=== PATIENT | female | born 1935 | race Caucasian/White ===

== ENCOUNTER → 2016-09-21 | Outpatient (CLI) | payer MEDICARE, MEDICAID ==
[~2016-09-21] MED LIST: ALBUTEROL2.5 MG/0.5 INH; AMARYL4 MG PO; AMBIEN10 M1 PO; AMBIEN5 MG PO; AMOXICILLIN500 MG PO; AMOXICILLIN875 MG PO; ANUSOL1 OIN TP; ARTIFICIAL TEAR15 M1 OPH; ATIVAN PO; ATIVAN0.5 MG PO; ATIVAN1 MG PO; AUGMENTIN 500 M1 TAB PO; AUGMENTIN 875 M1 TA1 PO; AUGMENTIN 875875 MG PO; BACLOFEN10 MG PO; BACTRIM DS 8001 TA1 PO; BACTROBAN OINT0.9 GM NAS; BREO ELLIPTA 11 EACH IH; CARAFATE1 G1 PO; CARAFATE1 GM PO; CARDIZEM120 MG PO; CARDIZEM60 MG PO; CARTIA XT120 MG PO; CEFTIN250 MG PO; CEFTIN500 MG PO; CEFTRIAXON1 GM/50 ML IV; CEFUROXIME AXE250 MG PO; CENTRUM SILVER1 TA2; CEPACOL SORE T1 EAC1 MM; CEPACOL2 M1 MM; CHLORASEPTIC 1177 ML PO; CHLORASEPTIC 1180 ML MM; CIPRO500 MG PO; CLARITIN LIQUI-10 MG PO; CLARITIN REDITA10 MG PO; CLARITIN10 MG PO; COUMADIN2 M1 PO; COUMADIN2 MG PO; COUMADIN2.5 M1 PO; COUMADIN3 M1 PO; COUMADIN5 M2 PO; COUMADIN6 M1 PO; Coumadin2.5 MG PO; Coumadin3 MG PO; Coumadin5 MG PO; DALI500T PO; DELTASONE10 MG PO; DELTASONE5 MG PO; DEXILANT60 MG PO; DIAZEPAM5 MG PO; DIGOX0.125 MG PO; DILTIAZEM 24HR120 MG PO; DILTIAZEM CD120 MG PO; DILTIAZEM ER120 MG PO; DILTIAZEM HCL60 MG PO; DILTIAZEM60 MG PO; DOXYCYCLINE100 M3 PO; DOXYCYCLINE100 MG PO; DUONEB 3 MG/3 ML3 M1 INH; DURAGESIC1 EACH TD; DURAGESIC25 MCG/HR TD; Duoneb 3ML 3 MG/3 ML INH; ECONAZOLE NITRATE11 T; ECOZA1% TP; ELOCON 0.1% CRE15 GM T; FERREX 150150 MG PO; FERRIMIN 150150 M1 PO; FLAGYL500 MG PO; FLONASE ALLERG9.9 ML NS; FLUOROMETHOLONE5 ML OPH; FLUOXETINE HCL20 MG PO; FLUTICASON0.05 MG/Ac NAS; GABAPENTIN100 M1 PO; GABAPENTIN300 M1 PO; GABAPENTIN300 MG PO; GABLOFEN0.05 MG/ML PO; GLUCAGON EMERGEN1 M1 IJ; HCTZ/TRIAMTEREN1 TA2 PO; HUMALOG100 U/ML SC; HUMALOG100 UNIT/1 SQ; HUMULIN R100 U/ML SC; HYDROCODONE BIT1 T11 PO; HYDROCODONE W/1 TA1 PO; HYDROXYZINE HCL25 MG; IRON325 M1 PO; ISOSORBIDE DINI30 MG PO; JANTOVEN6 M1 PO; JANUVIA100 MG PO; JANUVIA50 MG PO; KEFLEX250 MG PO; KEFZOL IV; LANTUS100 U/ML SC; LASIX20 MG PO; LEVAQUIN25 MG/ML IV; LEVAQUIN250 M1 PO; LEVAQUIN500 M1 PO; LEVAQUIN500 M2 PO; LEVEMIR FLEX100 U/ML SC; LEVEMIR10 ML SC; LEVOFLOXACIN500 MG PO; LIDEX0.05% T; LOMOTIL 0.025 M1 TAB PO; LOTEMAX 0.5% 1010 ML OPH; LOTEMAX5 GM OP; Lovenox60 MG/0.6 PO; Lovenox60 MG/0.6 SC; MACROBID100 M1 PO; MAPAP325 MG PO; MEDROL DOSEPAK4 MG; MEDROL DOSEPAK4 MG PO; METFORMIN HCL1000 MG PO; METICORTEN1 MG PO; METOCLOPRAMIDE5 MG PO; METOPROLOL TART50 M1 PO; MILK OF MA400 MG/51 PO; MILLIPRED5 MG PO; MIRALAX17 GM/DOSE PO; MIRALAX17 GM/PACK PO; MOM30 M1 PO; MOM30 ML PO; MORPHINE; MUCINEX600 MG PO; MULTI VITAMINS1 TAB PO; MULTIPLE VITAMI1 TA5 PO; NEXIUM40 MG; NEXIUM40 MG PO; NIFEREX150 MG PO; NORCO 5-325 TA1 EACH PO; NOVAPLUS SOLU-M40 MG IV; NOVOLOG 70/30 M10 ML SC; NOVOLOG10 ML SC; OLOPATADINE HCL5 ML OU; OMEPRAZOLE20 M2 PO; OMEPRAZOLE40 MG PO; OMNICEF300 MG PO; ONE DAILY ESSE1 EACH PO; PREDNICOT10 MG PO; PREDNISOLONE5 MG PO; PREDNISONE10 MG; PREDNISONE10 MG PO; PREDNISONE5 MG PO; PREVACID30 M1 PO; PRILOSEC20 M1 PO; PRILOSEC20 MG PO; PRILOSEC40 M1 PO; PRILOSEC40 MG PO; PROTONIX40 MG PO; PROZAC20 MG PO; PULMICORT RESP0.5 MG INH; PULMICORT RESP0.5 MG NEB; REGLAN10 MG PO; RESTASIS0.05% OP; RESTASIS0.05% OU; RESTORIL15 MG PO; RESTORIL30 MG PO; ROBITUSSIN AC 110 ML PO; ROCEPHIN1 GM/50 M1 IV; ROCEPHIN2 GM IJ; STERAPRED DS10 MG PO; SUCRALFATE1 GM PO; SYMBICORT1 AE1 IH; SYMBICORT1 AE1 INH; TEMAZEPAM15 M1 PO; TESSALON PERLE100 MG PO; TESSALON PERLE200 MG PO; THEREMS1 TAB PO; TRAMADOL HCL50 MG PO; TRAMADOL50 MG PO; TRAZODONE50 MG PO; TYLENOL W/CODEI1 TA2 PO; TYLENOL325 M1 PO; TYLENOL650 M1 PO; Tessalon Perle100 MG PO; VANCOMYCIN HYDRO1 GM IV; VIBRAMYCIN100 MG PO; VICODIN 5-3001 EACH PO; VICODIN 5/500 505 MG PO; VITAMIN D1000 IU PO; VITAMIN D31000 IU PO; VITAMIN D5000 I2 PO; VITAMIN D5000 IU PO; VITAMIN D50000 I3 PO; VOLTAREN50 M1 PO; WARFARIN SOD5 MG PO; XANAX0.5 MG PO; ZOFRAN ODT4 MG SL; ZOFRAN4 MG PO; ZOLOFT50 MG PO; ZOLPIDEM10 MG PO; ZOSYN 3.373.375 GM/5 IV; Zofran4 MG PO; [UNRECOGNIZED DRUG - OTHER] OP; [UNRECOGNIZED DRUG - OTHER] PO
[2016-09-21 17:37] LABS: HEMOGLOBIN A1c 6.2 % (4.8-5.6)
[2016-09-21 17:51] LABS: C-REACTIVE PROTEIN 0.92 MG/DL (0-0.3)
== END | disposition home or self-care (01) ==
LOC: LAB 16:48
PROVIDERS: Family Medicine
DX: E11.9 Type 2 diabetes mellitus without complications (principal); M79.1 Myalgia; R05 Cough; R53.83 Other fatigue

== ENCOUNTER → 2016-11-20 | Outpatient (CLI) | payer MEDICARE, MEDICAID ==
[2016-11-20 07:17] LABS: INTERNATIONAL NORM RATIO 1.3 (2.0-3.5); PROTHROMBIN TIME 14.5 SECONDS (9.0-12.4)
== END | disposition home or self-care (01) ==
LOC: LAB 06:19
PROVIDERS: Family Medicine
DX: Z79.01 Long term (current) use of anticoagulants (principal)

== ENCOUNTER → 2016-11-27 | Outpatient (CLI) | payer MEDICARE, MEDICAID ==
[2016-11-27 07:15] LABS: INTERNATIONAL NORM RATIO 1.7 (2.0-3.5); PROTHROMBIN TIME 18.7 SECONDS (9.0-12.4)
== END | disposition home or self-care (01) ==
LOC: LAB 06:20
PROVIDERS: Family Medicine
DX: Z79.01 Long term (current) use of anticoagulants (principal)

== ENCOUNTER → 2016-12-06 | Outpatient (CLI) | payer MEDICARE, MEDICAID ==
[2016-12-06 07:38] LABS: INTERNATIONAL NORM RATIO 2.1 (2.0-3.5); PROTHROMBIN TIME 23.4 SECONDS (9.0-12.4)
== END | disposition home or self-care (01) ==
LOC: LAB 06:22
PROVIDERS: Family Medicine
DX: Z79.01 Long term (current) use of anticoagulants (principal)

== ENCOUNTER 2016-12-15 17:57 | Inpatient (IN) | payer MEDICARE, MEDICAID ==
[~2016-12-15] VITALS: Ht 154.9 cm; Wt 72.6 kg
--- NOTE | ~2016-12-15 | WRIGHTHP ---
[place], [place] PATIENT HISTORY AND PHYSICAL EXAM NAME: QUINTON HINTON [facility] #: [id number] UNIT #: [id number] ROOM: 419 DOCTOR: JESSIE CRUM MD BIRTHDATE: [birth year] DOS: 12/15/2016 HISTORY OF PRESENT ILLNESS: The patient is an 81-year-old female with past medical history of: 1. COPD. 2. Chronic pulmonary embolism. 3. Type 2 diabetes mellitus. 4. 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 5. Protein calorie malnutrition. 6. Immunodeficiency syndrome. 7. Failure to thrive. The patient presented to [facility] with significant cough, chest congestion and shortness of breath along with wheezing. After initial treatment in the Emergency Department, the patient was admitted to the hospital with acute over chronic respiratory failure and failure for outpatient treatment. After admission, the patient is still somewhat weak, short of breath, but slowly improving. No chest pains. No dizziness or fainting episode. No other GI or urinary symptoms. REVIEW OF SYSTEMS: LUNGS: Increasing shortness of breath, chest congestion, wheezing. GASTROINTESTINAL: No nausea, vomiting, diarrhea, or constipation. CARDIOVASCULAR: No chest pains or palpitations. SOCIAL HISTORY: Lives at home. Denies smoking cigarettes, alcohol and drug abuse. ALLERGIES: KNOWN ALLERGIES TO QUINOLONES, TRIMETHOPRIM AND SULPHUR. FAMILY HISTORY: Noncontributory. HOME MEDICATIONS: Coumadin, Dulera, DuoNeb, gabapentin, diltiazem, Tylenol and furosemide. PHYSICAL EXAMINATION: GENERAL: Alert, oriented, looking very weak, but in no visible distress. Generalized weakness. VITAL SIGNS: Blood pressure was 147/82, heart rate 108 beats per minute, breathing 19 times per minute, temperature 98.6 degrees Fahrenheit. HEENT AND NECK: Extraocular movements are intact. Sclerae are anicteric. Oral mucosa is moist and clean. No obvious facial weakness. Neck is supple without any lymphadenopathy. No thyromegaly. No JVD. No carotid arterial bruits. LUNGS: Somewhat decreased breath sounds, slight expiratory wheeze on lung auscultation. CARDIOVASCULAR SYSTEM: Heart rate is regular in rate and rhythm. S1 and S2 normally audible. No significant murmur or any other abnormal cardiac sounds. ABDOMEN: Soft, nontender. No obvious organomegaly. Bowel sounds are present. No obvious herniation. EXTREMITIES: Without significant cyanosis or edema. Warm to touch. CENTRAL NERVOUS SYSTEM: Alert and oriented x 3. Cranial nerves II-XII are [place], [place] PATIENT HISTORY AND PHYSICAL EXAM [facility]: [id number] UNIT #: [id number] ROOM: [facility] DOCTOR: JESSIE CRUM MD BIRTHDATE: [birth year] intact. Speech is normal. The patient is able to move all extremities. Normal muscle strength. Deep tendon reflexes are equal on both sides. Plantars were downgoing. IMPRESSION: 1. The patient presenting with acute exacerbation of chronic obstructive pulmonary disease with increased shortness of breath and chest congestion and apparently acute bronchitis, to be treated with Solu-Medrol, oxygen, breathing treatments and antibiotics. 2. Advanced disability, old age, and failure to thrive. We are taking bedsore precautions, turning her every 2 hours and using an air mattress. 3. Chronic pulmonary embolism and chronic respiratory failure, stable. The patient is anticoagulated. 4. Protein calorie malnutrition, failure to thrive. 5. Diabetic nephropathy, chronic kidney disease stage 3. 6. Type 2 diabetes mellitus, I will monitor her blood sugars and treat accordingly. 7. Immunodeficiency syndrome, followed and treated. JESSIE CRUM MD CM:HISPHYS:PATIENT HISTORY AND PHYSICAL EXAMINATION [id number] JESSIE CRUM MD 12/18/16 0655 interface
--- NOTE | ~2016-12-15 | DS ---
[place], [place] DISCHARGE SUMMARY NAME: QUINTON HINTON [facility] #: [id number] UNIT #: [id number] ROOM: 419 DOCTOR: JESSIE CRUM MD BIRTHDATE: [birth year] DOS: 12/19/2016 DISCHARGE DIAGNOSES: 1. Severe anxiety and panic disorder. 2. Exacerbation of chronic obstructive pulmonary disease, improved with treatment with severe underlying disease. 3. Old age, adult failure to thrive. 4. Chronic pulmonary embolism with chronic respiratory failure. The patient anticoagulated with Coumadin. 5. Severe anxiety and panic disorder exacerbation of chronic obstructive pulmonary disease, improved with treatment with severe underlying disease. 6. Protein calorie malnutrition and failure to thrive. 7. Diabetic nephropathy, chronic kidney disease stage 3. 8. Type 2 diabetes mellitus. 9. Immune deficiency syndrome. HOSPITAL COURSE: 1. The patient presented to the Emergency Department at [facility] with complaints of cough and chest congestion and increasing shortness of breath with wheezing. The patient was found to be in acute over chronic respiratory failure with exacerbation of COPD, which was treated with corticosteroids, oxygen, nebulizer treatments, bronchodilators, and antibiotics and her condition gradually improved to the point that she can be discharged to home. The patient has severe underlying disease and significant issues with anxiety, so I suspect that she will be coming back for similar reasons for readmission to the hospital. This is anticipated. 2. Generalized anxiety disorder and panic attacks. The patient was given Xanax during her stay at the hospital and I am giving her hydroxyzine to take as needed for home for anxiety. 3. Adult failure to thrive. We took bedsore precautions including every 2 hour turning. Air mattress was used and she was kept on physical therapy. The patient was ambulating independently. 4. Chronic pulmonary embolism and chronic respiratory failure. The patient anticoagulated with Coumadin. INR therapeutic at 2.4 today. 5. Protein-calorie malnutrition and failure to thrive. Nutritional consult was obtained and she was encouraged to eat. 6. Diabetic nephropathy, chronic kidney disease stage 3. Blood sugars were monitored and treated. Renal function stays stable. 7. Type 2 diabetes mellitus. The patient's blood sugars are elevated secondary to use of corticosteroids. 8. Corticosteroid-induced hyperglycemia. Blood sugars ranging between 200-300, should resolve as the Solu-Medrol was stopped. The patient's cardiac enzymes were checked to be normal during her stay at the hospital. LABORATORY AND DIAGNOSTIC DATA: Negative cardiac enzymes. Hemoglobin 9.7. No leukocytosis. Slight left shift. INR therapeutic at 2.4. BUN and creatinine 39 and 1.8. Blood cultures were negative. Chest x-ray showing some stable scarring of the right lung, no infiltrates. DISCHARGE MANAGEMENT: Coumadin 6 mg every Saturday, 3 mg every Saturday, Saturday, [place], [place] DISCHARGE SUMMARY NAME: QUINTON HINTON UNIT #: [id number] ROOM: [facility] DOCTOR: RADAMES HARO,JESSIE Garcia BIRTHDATE: [birth year]Saturday, , Saturday, and Saturday; saline eyedrops; Dulera twice a day; DuoNebs every 4 hours; gabapentin 200 mg b.i.d.; diltiazem 120 mg b.i.d.; Tylenol p.r.n.; furosemide 20 mg daily. Follow up with Dr. Bee, her PCP, at the office on Saturday. The patient also takes hydroxyzine 25 mg t.i.d. p.r.n. for anxiety. JESSIE CRUM MD CM:URI [id number] JESSIE CRUM MD 12/19/16 1210 interface
--- NOTE | ~2016-12-15 | PR ---
[place], [place] PROGRESS NOTE NAME: QUINTON HINTON UNIT #: [id number] ROOM: 419 DOCTOR: JESSIE CRUM MD BIRTHDATE: [birth year] DOS: 12/17/2016 SUBJECTIVE: The patient with dyspnea on exertion. OBJECTIVE: VITAL SIGNS: Blood pressure 138/65, heart rate of 99 beats per minute, breathing 20 times per minute, temperature 98 degrees Fahrenheit. GENERAL APPEARANCE: The patient is alert and oriented x 3, in no visible distress. HEENT AND NECK: Exam within normal limits. CARDIOVASCULAR SYSTEM: Heart rate is regular in rate and rhythm. S1 and S2 normally audible. LUNGS: Somewhat decreased breath sounds on lung auscultation. ABDOMEN: Soft, nontender. No obvious organomegaly. Bowel sounds are present. EXTREMITIES: Without significant cyanosis or edema. IMPRESSION: 1. Mild expiratory wheezing. The patient with acute over chronic respiratory failure and increased shortness of breath, advanced disability, working with Physical Therapy. The patient has significant cough, which is being treated. 2. Acute over chronic kidney disease with BUN and creatinine of 33 and 1.7, improved from admission with hydration. The patient is also starting to eat better. 3. Type 2 diabetes mellitus. Blood sugars being monitored and treated. 4. Chronic pulmonary embolism and chronic shortness of breath. The patient anticoagulated with Coumadin. INR subtherapeutic at 1.5. I will give her extra Coumadin today. 5. Protein calorie malnutrition. The patient being encouraged to eat and working with Dietary. 6. Diabetic nephropathy and stage 3 chronic kidney disease. 7. Type 2 diabetes mellitus. Blood sugars are being monitored and treated. JESSIE CRUM MD CM:PNTRANS [phone] JESSIE CRUM MD 12/18/16120 interface
--- NOTE | ~2016-12-15 | PN ---
[place], [place] PROGRESS NOTE [id number] UNIT #: [id number] ROOM: 419 DOCTOR: JESSIE CRUM MD BIRTHDATE: [birth year] DATE: 12/18/16 SUBJECTIVE: The patient continues to breathe better, although she has significant cough and she keeps requesting more cough medicines for which she was started on dextromethorphan, which she says it was making her feel jittery. OBJECTIVE: VITAL SIGNS: Blood pressure 132/52, heart rate 99 beats per minute, breathing 20 times per minute, temperature 98 degrees Fahrenheit. GENERAL: Generalized weakness. HEENT AND NECK: Exam within normal limits. CARDIOVASCULAR SYSTEM: Heart rate is regular in rate and rhythm. S1 and S2 normally audible. LUNGS: Clear to auscultation. ABDOMEN: Soft, nontender. No obvious organomegaly. Bowel sounds are present. EXTREMITIES: Without significant cyanosis or edema. IMPRESSION: 1. The patient with acute exacerbation of chronic obstructive pulmonary disease with acute over chronic respiratory failure, continues to improve with treatment. The patient on Solu-Medrol, DuoNebs, oxygen, and antibiotics. 2. Advanced disability, old age and failure to thrive. We are taking bedsore precautions, fall precautions and the patient working with physical therapy. 3. Chronic pulmonary embolism, chronic respiratory failure. The patient is anticoagulated with Coumadin. Protimes are being monitored daily. 4. Chronic immunodeficiency syndrome, followed and treated as an outpatient. 5. Type 2 diabetes mellitus. Blood sugars are being monitored. There is a corticosteroid-induced hyperglycemia. 6. Stage 3B chronic kidney disease and diabetic nephropathy. JESSIE CRUM MD CM:PNTRANS [id number] JESSIE CRUM MD 12/20/16 175 KRISTIN RAMIREZ.R
[2016-12-15 18:00] VITALS: BP 153/84
[2016-12-15 18:44] LABS: BASO % 0.5 % (0.0-1.0); EOS # 0.1 10*3/uL (0.0-0.4); EOS % 1.5 % (1.0-4.0); HEMATOCRIT 32.6 % (37.0-47.0); HEMOGLOBIN 10.4 g/dl (12.0-16.0); LYMPH % 24.6 % (27.0-41.0); MEAN CELL VOLUME 88.3 fl (81.0-99.0); MEAN CORPUSCULAR HGB 28.2 pg (27.0-31.0); MEAN CORPUSCULAR HGB CONC 31.9 g/dl (33.0-37.0); MEAN PLATELET VOLUME 11.4 fl (9.6-12.3); MONO # 0.5 10*3/uL (0.1-1.0); MONO % 12.5 % (3.0-9.0); NEUT # 2.5 10*3/uL (2.3-7.9); NEUT % 60.4 % (47.0-73.0); PLATELET COUNT AUTOMATED 152 10*3/uL (130-400); RED BLOOD COUNT 3.69 10*6/uL (4.10-5.10); RED CELL DISTRI WIDTH 15.1 % (0-14.5); WHITE BLOOD COUNT 4.1 10*3/uL (4.8-10.8)
[2016-12-15 19:01] LABS: ALBUMIN 3.1 gm/dl (3.1-4.5); BILIRUBIN, TOTAL 0.1 mg/dl (0.2-1.0); POTASSIUM 5.1 mmol/L (3.5-5.1); TROPONIN I 0.025 ng/ml (<0.045)
[2016-12-15 19:02] VITALS: BP 142/82
[2016-12-15 19:20] LABS: INTERNATIONAL NORM RATIO 1.6 (2.0-3.5)
[2016-12-15 19:28] LABS: BILIRUBIN NEGATIVE (NEGATIVE); BLOOD TRACE-INTACT (NEGATIVE); CLARITY CLEAR (CLEAR); COLOR YELLOW (YELLOW); GLUCOSE NEGATIVE (NEGATIVE); KETONE NEGATIVE (NEGATIVE); LEUKO ESTERASE NEGATIVE (NEGATIVE); NITRITE NEGATIVE (NEGATIVE); PH 6.5 (5.0-9.0); PROTEIN TRACE (NEGATIVE); UROBILINOGEN 0.2 E.U./dl (0.2-1.0)
[2016-12-15 19:35] VITALS: BP 134/84
[2016-12-15 19:35] LABS: URINE REFLEX COMMENT NO (NO); WBC 0-2 wbc/hpf (0-5)
[2016-12-15 20:50] VITALS: BP 117/61
[2016-12-15] MEDS ORDERED: CARDIZEM120 MG PO (21:58)
[2016-12-15] MEDS ORDERED: COUMADIN6 M2 PO (22:01)
[2016-12-15] MEDS ORDERED: COUMADIN3 M1 PO (22:03)
[2016-12-15] MEDS ORDERED: NEURONTIN100 MG PO (22:05)
[2016-12-15] MEDS ORDERED: MELATONIN3 MG PO (22:06)
[2016-12-16] VITALS: BP 147/82
[2016-12-16 08:00] VITALS: BP 132/48; BP 98/70
[2016-12-16 20:00] VITALS: BP 120/45
[2016-12-17] VITALS: BP 138/52
[2016-12-17 06:32] LABS: HEMATOCRIT 32.1 % (37.0-47.0); HEMOGLOBIN 10.2 g/dl (12.0-16.0); IG # 0.1 10*3/uL (0.0-0.1); LYMPH # 0.5 10*3/uL (1.3-4.4); LYMPH % 5.7 % (27.0-41.0); MEAN CELL VOLUME 87.7 fl (81.0-99.0); MEAN CORPUSCULAR HGB 27.9 pg (27.0-31.0); MEAN CORPUSCULAR HGB CONC 31.8 g/dl (33.0-37.0); MEAN PLATELET VOLUME 11.6 fl (9.6-12.3); MONO # 0.3 10*3/uL (0.1-1.0); MONO % 3.6 % (3.0-9.0); NEUT # 7.5 10*3/uL (2.3-7.9); PLATELET COUNT AUTOMATED 130 10*3/uL (130-400); RED BLOOD COUNT 3.66 10*6/uL (4.10-5.10); RED CELL DISTRI WIDTH 15.2 % (0-14.5); WHITE BLOOD COUNT 8.4 10*3/uL (4.8-10.8)
[2016-12-17 07:04] LABS: INTERNATIONAL NORM RATIO 1.5 (2.0-3.5); POTASSIUM 4.7 mmol/L (3.5-5.1); PROTHROMBIN TIME 16.1 SECONDS (9.0-12.4)
[2016-12-17 08:00] VITALS: BP 138/65
[2016-12-17 12:00] VITALS: BP 126/88
[2016-12-17 16:00] VITALS: BP 140/47
[2016-12-17 20:00] VITALS: BP 145/63
[2016-12-18 00:45] VITALS: BP 147/61
[2016-12-18 06:38] LABS: HEMOGLOBIN 9.8 g/dl (12.0-16.0); MEAN CELL VOLUME 88.1 fl (81.0-99.0); MEAN CORPUSCULAR HGB 27.8 pg (27.0-31.0); MEAN CORPUSCULAR HGB CONC 31.6 g/dl (33.0-37.0); MEAN PLATELET VOLUME 11.9 fl (9.6-12.3); PLATELET COUNT AUTOMATED 130 10*3/uL (130-400); RED BLOOD COUNT 3.52 10*6/uL (4.10-5.10); RED CELL DISTRI WIDTH 15.4 % (0-14.5); WHITE BLOOD COUNT 11.1 10*3/uL (4.8-10.8)
[2016-12-18 07:01] LABS: LYMPHOCYTE # 0.8 10*3/uL (1.3-4.4); MONOCYTE # 0.1 10*3/uL (0.1-1.0); NEUTROPHIL # 10.2 10*3/uL (2.3-7.9); NEUTROPHILS 92 % (47-73); PLATELET SUFFICIENCY NORMAL (NORMAL); TOTAL CELLS COUNTED 100 #CELLS
[2016-12-18 07:08] LABS: POTASSIUM 4.5 mmol/L (3.5-5.1)
[2016-12-18 07:18] LABS: INTERNATIONAL NORM RATIO 1.9 (2.0-3.5); PROTHROMBIN TIME 21.4 SECONDS (9.0-12.4)
[2016-12-18 08:00] VITALS: BP 146/64
[2016-12-18 12:00] VITALS: BP 143/70
[2016-12-18 16:00] VITALS: BP 132/52
[2016-12-18 20:00] VITALS: BP 157/83
[2016-12-19] VITALS: BP 125/68
[2016-12-19 07:00] LABS: HEMATOCRIT 30.7 % (37.0-47.0); HEMOGLOBIN 9.7 g/dl (12.0-16.0); MEAN CELL VOLUME 87.7 fl (81.0-99.0); MEAN CORPUSCULAR HGB 27.7 pg (27.0-31.0); MEAN CORPUSCULAR HGB CONC 31.6 g/dl (33.0-37.0); MEAN PLATELET VOLUME 11.6 fl (9.6-12.3); PLATELET COUNT AUTOMATED 131 10*3/uL (130-400); RED CELL DISTRI WIDTH 15.5 % (0-14.5); WHITE BLOOD COUNT 7.3 10*3/uL (4.8-10.8)
[2016-12-19 07:10] LABS: INTERNATIONAL NORM RATIO 2.4 (2.0-3.5); PROTHROMBIN TIME 26.4 SECONDS (9.0-12.4)
[2016-12-19 07:20] LABS: LYMPHOCYTE # 0.4 10*3/uL (1.3-4.4); NEUTROPHIL # 6.9 10*3/uL (2.3-7.9); NEUTROPHILS 94 % (47-73); PLATELET SUFFICIENCY NORMAL (NORMAL); POLYCHROMASIA SLIGHT; TOTAL CELLS COUNTED 100 #CELLS
[2016-12-19 07:29] LABS: POTASSIUM 4.7 mmol/L (3.5-5.1)
[2016-12-19 08:00] VITALS: BP 132/68
[2016-12-19] MEDS ORDERED: HYDROXYZINE HCL25 MG PO (10:24)
[2016-12-19 12:00] VITALS: BP 134/59
[2016-12-19 16:00] VITALS: BP 152/74
== END 2016-12-19 17:00 | disposition home or self-care (01) | DRG 682 ==
LOC: ED 17:57 → 4E 19:48 → EDHOLD 19:48 → 4E 19:59
PROVIDERS: Internal Medicine; Registered Nurse
DX: N17.9 Acute kidney failure, unspecified (principal); J96.20 Acute and chronic respiratory failure, unspecified whether with hypoxia or hypercapnia; D84.9 Immunodeficiency, unspecified; E46 Unspecified protein-calorie malnutrition; J44.0 Chronic obstructive pulmonary disease with (acute) lower respiratory infection; J44.1 Chronic obstructive pulmonary disease with (acute) exacerbation; I27.82 Chronic pulmonary embolism; N18.3 Chronic kidney disease, stage 3 (moderate); J20.9 Acute bronchitis, unspecified; E11.22 Type 2 diabetes mellitus with diabetic chronic kidney disease; F41.9 Anxiety disorder, unspecified; F41.0 Panic disorder [episodic paroxysmal anxiety]; R62.7 Adult failure to thrive; E11.65 Type 2 diabetes mellitus with hyperglycemia; T38.0X5A Adverse effect of glucocorticoids and synthetic analogues, initial encounter; Y92.89 Other specified places as the place of occurrence of the external cause; Z79.01 Long term (current) use of anticoagulants; Z88.8 Allergy status to other drugs, medicaments and biological substances; Z79.899 Other long term (current) drug therapy; Z68.29 Body mass index [BMI] 29.0-29.9, adult; Z88.2 Allergy status to sulfonamides; Z88.1 Allergy status to other antibiotic agents

== ENCOUNTER 2017-01-31 04:09 | Inpatient (IN) | payer MEDICARE, MEDICAID ==
[~2017-01-31] VITALS: Ht 154.9 cm; Wt 68.5 kg
--- NOTE | ~2017-01-31 | WRIGHTHP ---
[place], [place] PATIENT HISTORY AND PHYSICAL EXAM [id number] UNIT #: [id number] ROOM: 526 DOCTOR: JESSIE CRUM MD BIRTHDATE: [birth year] DOS: HISTORY OF PRESENT ILLNESS: 1. The patient is an 81-year-old female with a past medical history of severe anxiety and panic disorder, COPD. 2. Old age and failure to thrive. 3. Protein-calorie malnutrition. 4. Diabetic nephropathy, chronic kidney disease stage 3. 5. Type 2 diabetes mellitus. 6. Immune deficiency syndrome. The patient presented to the Emergency Department with complaints of abdominal pains and nausea for 2 days. The patient himself was declining and she was getting dehydrated and not eating well. The patient was evaluated in the Emergency Department. A CT scan of the abdomen only showed diverticulosis. After admission, the patient still has nausea and some abdominal pains, but no vomiting. The patient states she also has some diarrhea and loose stools. REVIEW OF SYSTEMS: LUNGS: No increasing shortness of breath or wheezing. GASTROINTESTINAL: Abdominal pains and nausea. CARDIOVASCULAR SYSTEM: No chest pains or palpitations. FAMILY HISTORY: Noncontributory. SOCIAL HISTORY: Denies smoking cigarettes, alcohol or any drug abuse. MEDICATIONS: Coumadin, diltiazem, baclofen, tramadol, DuoNeb, hydroxyzine, furosemide. ALLERGIES: KNOWN ALLERGIES TO SULFA AND QUINOLONES. PHYSICAL EXAMINATION: GENERAL: Alert and oriented x 3, very weak, in no visible distress. Generalized weakness. VITAL SIGNS: Blood pressure 144/57, heart rate 92 beats per minute, breathing 20 times per minute, temperature 98.5 degrees Fahrenheit. HEENT AND NECK: Extraocular movements are intact. Sclerae are anicteric. Oral mucosa is moist and clean. No obvious facial weakness. Neck is supple without any lymphadenopathy. No thyromegaly. No JVD. No carotid arterial bruits. LUNGS: Clear to auscultation. No wheezing. No rhonchi. CARDIOVASCULAR SYSTEM: Heart rate is regular in rate and rhythm. S1 and S2 normally audible. No significant murmur or any other abnormal cardiac sounds. ABDOMEN: She has mild discomfort on palpation in the abdomen generalized in all 4 quadrants. EXTREMITIES: Without significant cyanosis or edema. Warm to touch. CENTRAL NERVOUS SYSTEM: Alert and oriented x 3. Cranial nerves II-XII are intact. Speech is normal. The patient is able to move all extremities. Normal muscle strength. Deep tendon reflexes are equal on both sides. Plantars were downgoing. [place], [place] PATIENT HISTORY AND PHYSICAL EXAM NAME: QUINTON HINTON UNIT #: [id number] ROOM: 526 DOCTOR: JESSIE CRUM MD BIRTHDATE: [birth year] LABORATORY DATA: CT of the abdomen as mentioned above. Chest x-ray showing no acute abnormality, just bilateral patchy atelectasis, no leukocytosis. Hemoglobin 9, no left shift. Blood sugar 125, BUN and creatinine 22 and 1.3, albumin low at 2.7, total protein at 5.6. IMPRESSION: 1. The patient presenting with abdominal pains apparently nonspecific colitis and some persisting nausea and diarrhea. I am consulting Dr. Gutierrez, the hydrogenation operator to evaluate her. I will hydrate her with normal saline and follow serum electrolytes and repeat a CBC to look for any signs of infection and give her diet as tolerated. 2. Dehydration from nausea and not eating well and abdominal pains being treated with hydration and normal saline and serum electrolytes has been monitored. 3. Type 2 diabetes mellitus. The patient kept on no concentrated sweet diet. Blood sugars are being monitored and appeared reasonably controlled. 4. Generalized anxiety disorder, which is severe. I will continue treatment. 5. Diabetic nephropathy, chronic kidney disease stage 3. 6. History of chronic pulmonary embolism and chronic respiratory failure. The patient anticoagulated with Coumadin, we will monitor her protimes daily. 7. Centrilobular emphysema with chronic shortness of breath. The patient treated with bronchodilators. JESSIE CRUM MD CM:HISPHYS:PATIENT HISTORY AND PHYSICAL EXAMINATION [phone] JESSIE CRUM MD 01/31/172039 interface
--- NOTE | ~2017-01-31 | O ---
[place], [place] OPERATIVE NOTE NAME: QUINTON HINTON UNIT #: [id number] ROOM: 526 DOCTOR: SNEHA MATA MD BIRTHDATE: [birth year] DOS: 02/01/2017 GASTROENDOSCOPIC REPORT INDICATIONS: The patient is 81 years old who has presented with chief complaint of nonspecific epigastric abdominal pain. The patient with chronic pain syndrome, on morphine pumps that have been discontinued 2 months ago. The patient's consultation labs and records have been reviewed. The patient's CT scan of the abdomen and pelvis has been reviewed, colonic diverticulosis without diverticulitis, status post cholecystectomy, patchy infiltration of lungs, all has been recognized. H and H of 9 and 28 have been noticed with INR of 1.7. Latest CBC, 9 and 29. The patient has been on Coumadin. PROCEDURE: Today's procedure part of investigation is panendoscopy plus biopsy plus photographic series. PREMEDICATION: Versed and Diprivan. SCOPE: Olympus forward-viewing gastroscope Q10 video. REPORT: After putting the patient in the left lateral position and after application of lubricant to the scope, the scope was introduced. Thereafter, under direct visualization, I advanced through the length of esophagus without difficulty. Distal esophagitis, hiatal hernia was noticed. Gastric pouch was entered. Gastritis was noticed. Antrum was biopsied. Duodenal bulb, second and third part within normal limit. The patient was gradually extubated along the lesser curvature, tolerated the procedure well. IMPRESSION: Distal esophagitis, bile reflux gastritis, small hiatal hernia approximately 2 cm, status post antral biopsy. PLAN AND DISCUSSION: We will keep this patient on omeprazole 20 mg daily. Labs reviewed, records reviewed. Supportive management otherwise is going to be provided. We will reapproach assessment of this patient should there be any future concerns. I thank you very much indeed for your kind referral. [place], [place] OPERATIVE NOTE NAME: QUINTON HINTON UNIT #: [id number] ROOM: 526 DOCTOR: SNEHA MATA MD BIRTHDATE: [birth year] SNEHA MATA MD CM:OPRECORD:OPERATIVE NOTE 1114 1211 JESSIE MATA MD 02/01/17 1211 interface
--- NOTE | ~2017-01-31 | PR ---
[place], [place] PROGRESS NOTE NAME: QUINTON HINTON UNIT #: [id number] ROOM: 526 DOCTOR: ABRAHAN TOVAR MD BIRTHDATE: [birth year] DOS: 02/02/2017 SUBJECTIVE: The patient is resting comfortably, does not have any new complaints, but she did say her left side of the face was slightly more swollen than the right. OBJECTIVE EXAMINATION: GENERAL: She is awake and alert and oriented. VITAL SIGNS: Blood pressure is 157/72, pulse of 92, respirations 22, temperature 98.6. LUNGS: Clear. HEART: Regular. ABDOMEN: Obese, soft, nontender. EXTREMITIES: Without any edema. Did not see any evidence of facial edema. LABORATORY DATA: Labs this morning: Prothrombin time is 18.7 with an INR of 1.7. MRSA of the nares was negative. Yesterday's labs were all within normal limits, hemoglobin is chronically low at 9.5. BMP within normal limits. ASSESSMENT AND PLAN: 1. The patient with abdominal pain and nausea and emesis with acute gastritis on endoscopy, already on proton pump inhibitors. 2. Acute renal failure. The GFR of 42 on admission. The patient did receive IV fluids and the kidney functions have improved slightly and remains fairly stable. 3. Chronic pain syndrome. The patient already follows up with pain clinic and receives oxycodone. 4. History of chronic PE with pulmonary hypertension, on Coumadin. Protime slightly on the low side. An extra dose of Coumadin to be given today. The patient is stable and can be discharged today. ABRAHAN TOVAR MD CM:PNTRANS [id number] ABRAHAN TOVAR MD 02/02/17 1012 interface
--- NOTE | ~2017-01-31 | CON ---
[place], [place] REPORT OF CONSULTATION NAME: QUINTON HINTON UNIT #: [id number] ROOM: 526 DOCTOR: SNEHA MATA MD BIRTHDATE: [birth year] DOS: 02/01/2017 GASTROENDOSCOPIC REPORT HISTORY OF PRESENT ILLNESS: The patient is 81 years old who has presented with abdominal epigastric pain. I have been asked for assessment of the patient in this regard. The patient with chronic pain history, morphine pump. Apparently, she has turned the morphine pump off she is telling me 2 months ago since it was not helping her in her pain management. Therefore, she has been admitted for definitive evaluation. A panel of blood work was done. INR was 1.7, 1.5 follow up, white blood cell was 7, H and H of 10 and 33. Hemoglobin A1c 7.3, B12, folate within normal limits with BUN and creatinine of 24 and 1.23. Cholesterol 253, otherwise electrolyte panel within normal limits. Free T3 was 2.5. Lactic acid was 0.6, within normal limits. Electrolytes remain normal. LFTs remain normal. Chest x-ray shows bilateral patchy atelectasis. CT scan of the abdomen and pelvic was not colonic diverticulosis, no evidence of diverticulitis, post-cholecystectomy history. PAST MEDICAL HISTORY: Associated with diabetes, chronic pain. Protein calorie malnutrition, chronic obstructive pulmonary disease. ALLERGIES: SULFA. SOCIAL HISTORY: Nonsmoker, nonalcohol consumer. FAMILY HISTORY: Noncontributory. MEDICATIONS: Has been including tramadol, baclofen, diltiazem, Coumadin, furosemide, hydroxyzine, DuoNeb, all was recognized. FAMILY HISTORY: Noncontributory. REVIEW OF SYSTEMS: In general, HEENT: Denies double vision, blurred vision. RESPIRATORY: Denies shortness of breath acutely; however, somewhat short of breath. CARDIOVASCULAR: Denies chest pain. DIGESTIVE SYSTEM: No hematemesis, no hematochezia, no diarrhea, epigastric pain. PHYSICAL EXAMINATION: VITAL SIGNS: Within normal limits. HEENT: Head normocephalic, nontraumatic. Mouth and buccal mucosa benign. NECK: Supple, no thyromegaly, no cervical lymphadenopathy. CHEST: Symmetric anatomy, equal expansion. Decreased air entry in general was noticed. HEART: Normal sinus rhythm, no gallop, no murmur. ABDOMEN: Soft, no hepato-organomegaly. Nonspecific tenderness in epigastric anatomy. No hepato-organomegaly. EXTREMITIES: No cyanosis, no pedal edema. [place], [place] REPORT OF CONSULTATION NAME: QUINTON HINTON UNIT #: [id number] ROOM: 526 DOCTOR: SNEHA MATA MD BIRTHDATE: [birth year] NEUROLOGIC: Alert, oriented to time, place and person. LABORATORY DATA: Labs reviewed. Records reviewed. Data reviewed. IMPRESSION: Epigastric pain, chronic pain management, diabetes mellitus, diabetic neuropathy, renal insufficiency, chronic obstructive pulmonary disease. PLAN AND DISCUSSION: We are going to endoscopically assess the gastric pouch and search of abdominal pain, which is nondefined. OTHER ADJUNCTIVE DIAGNOSES: As outlined in the paragraph of past medical and surgical history. SNEHA MATA MD CM:CONSTR:REPORT OF CONSULTATION 1027 02/02/17 0201 interface
--- NOTE | ~2017-01-31 | DS ---
[place], [place] DISCHARGE SUMMARY NAME: QUINTON HINTON UNIT #: [id number] ROOM: 526 DOCTOR: ABRAHAN TOVAR MD BIRTHDATE: [birth year] DOS: 02/01/2017 HOSPITAL COURSE: This patient is 81 years old. The patient comes in with complaints of abdominal pain. Please see the H and P dictated by Dr. Syed for details. After admission, the patient was placed on IV fluids for acute kidney injury. The patient was consulted and the patient was ordered a consultation with Dr. Gutierrez. Dr. Gutierrez did see the patient and arranged for endoscopy, which was performed on Saturday, which showed some distal esophagitis for which the patient is already on omeprazole. The patient has chronic pain and is already seen by Dr. Gray at the pain clinic, and takes chronic pain management. The patient is overall stable and is not having any new complaints. Protime is therapeutic today, so an extra dose of 1 mg of Coumadin will be given today in addition to her home dose. Surprisingly, her lungs are absolutely clear which is very rare finding in this patient who comes in to the hospital multiple times with shortness of breath. She is ambulating well and is not having any shortness of breath this admission, so the plan is to discharge her to home. DISCHARGE MEDICATIONS: Will be the same as home medications, no new medications were given with Breo Ellipta 1 inhalation daily, breathing treatments every 4 hours, Restasis eyedrops, Systane gel q.i.d. to the eyes, Tylenol 650 q.6 h. p.r.n., baclofen 20 daily, vitamin D 5000 units daily, diltiazem 120 daily, Vistaril 25 q.i.d., loratadine 10 daily, tramadol 50 q.i.d., warfarin 3.5 mg daily, NovoLog sliding scale. ABRAHAN TOVAR MD CM:DISCHARG [phone] ABRAHAN TOVAR MD 02/02/17 0736 interface
--- NOTE | ~2017-01-31 | PR ---
[place], [place] PROGRESS NOTE NAME: QUINTON HINTON UNIT #: [id number] ROOM: 526 DOCTOR: ABRAHAN TOVAR MD BIRTHDATE: [birth year] DOS: SUBJECTIVE: The patient is not having any new complaints. The patient states that she came in yesterday with abdominal pain with chest pain, scheduled for upper endoscopy this morning. OBJECTIVE: VITAL SIGNS: Graphic trend shows a pressure of 125/47, pulse of 93, respirations 20, temperature 98.6. LUNGS: Clear. HEART: Regular. ABDOMEN: Obese, soft. EXTREMITIES: Without any edema. LABORATORY DATA: BMP: Glucose 112, BUN 15, creatinine 1.34. Electrolytes were normal. WBC count is normal. CT of the abdomen and pelvis is unremarkable. ASSESSMENT AND PLAN: 1. The patient who presents with abdominal pain was ordered an endoscopy this morning. 2. Chronic pain syndrome. She has a morphine pump. 3. Diverticulosis without any evidence of acute infection. ABRAHAN TOVAR MD CM:PNTRANS [id number] ABRAHAN TOVAR MD 02/01/17 2313 interface
[~2017-01-31 04:09] MED LIST changes: +COUMADIN6 M2 PO; +HYDROXYZINE HCL25 MG PO; +MELATONIN3 MG PO; +NEURONTIN100 MG PO
[2017-01-31 04:12] VITALS: BP 154/72
[2017-01-31] MEDS ORDERED: CARDIZEM CD120 M2 PO (04:24)
[2017-01-31] MEDS ORDERED: QUALITY CHOICE10 M3 PO (04:25)
[2017-01-31] MEDS ORDERED: Coumadin3 MG PO (04:26)
[2017-01-31] MEDS ORDERED: BREO ELLIPTA 11 EACH IH (04:26)
[2017-01-31] MEDS ORDERED: RESTASIS0.05% OP (04:27)
[2017-01-31] MEDS ORDERED: BACLOFEN20 M1 PO (04:27)
[2017-01-31] MEDS ORDERED: TRAMADOL HCL50 MG PO (04:28)
[2017-01-31] MEDS ORDERED: VISTARIL25 M2 PO (04:28)
[2017-01-31] MEDS ORDERED: TYLENOL325 M1 PO (04:29)
[2017-01-31] MEDS ORDERED: SYSTANE0.3% OP (04:30)
[2017-01-31] MEDS ORDERED: NOVOLOG10 ML SC (04:31)
[2017-01-31] MEDS ORDERED: Ipratropium Brom3 ML INH (04:32)
[2017-01-31] MEDS ORDERED: VITAMIN D5000 I3 PO (04:32)
[2017-01-31 04:57] LABS: HEMATOCRIT 28.3 % (37.0-47.0); MEAN CELL VOLUME 90.4 fl (81.0-99.0); MEAN CORPUSCULAR HGB 28.8 pg (27.0-31.0); MEAN CORPUSCULAR HGB CONC 31.8 g/dl (33.0-37.0); MEAN PLATELET VOLUME 10.5 fl (9.6-12.3); PLATELET COUNT AUTOMATED 174 10*3/uL (130-400); RED BLOOD COUNT 3.13 10*6/uL (4.10-5.10); RED CELL DISTRI WIDTH 16.5 % (0-14.5); WHITE BLOOD COUNT 6.2 10*3/uL (4.8-10.8)
[2017-01-31 05:12] LABS: BILIRUBIN NEGATIVE (NEGATIVE); BLOOD TRACE-INTACT (NEGATIVE); CLARITY CLEAR (CLEAR); COLOR YELLOW (YELLOW); GLUCOSE TRACE (NEGATIVE); KETONE NEGATIVE (NEGATIVE); LEUKO ESTERASE NEGATIVE (NEGATIVE); NITRITE NEGATIVE (NEGATIVE); PH 5.5 (5.0-9.0); PROTEIN 1+ (NEGATIVE); UROBILINOGEN 0.2 E.U./dl (0.2-1.0)
[2017-01-31 05:18] LABS: ALBUMIN 2.7 gm/dl (3.1-4.5); BILIRUBIN, TOTAL 0.3 mg/dl (0.2-1.0); POTASSIUM 4.1 mmol/L (3.5-5.1); TOTAL PROTEIN 5.6 gm/dL (6.4-8.2)
[2017-01-31 05:26] LABS: BASOPHIL # 0.1 10*3/uL (0-0.1); BASOPHILS 1 % (0-1); LYMPHOCYTE # 1.2 10*3/uL (1.3-4.4); METAMYELOCYTES 2 % (0-0); MONOCYTE # 0.4 10*3/uL (0.1-1.0); NEUTROPHIL # 4.4 10*3/uL (2.3-7.9); NEUTROPHILS 71 % (47-73); TOTAL CELLS COUNTED 100 #CELLS
[2017-01-31 05:27] LABS: OVALOCYTES FEW; PLATELET SUFFICIENCY NORMAL (NORMAL)
[2017-01-31 05:33] LABS: URINE REFLEX COMMENT NO (NO); WBC 0-2 wbc/hpf (0-5)
[2017-01-31 07:16] VITALS: BP 146/74
[2017-01-31 08:00] VITALS: BP 140/58
[2017-01-31 12:00] VITALS: BP 132/52
[2017-01-31 16:00] VITALS: BP 144/57
[2017-01-31 20:00] VITALS: BP 138/63
[2017-02-01] VITALS (9 sets, daily range): BP systolic 118–194; BP diastolic 47–81
[2017-02-01 06:34] LABS: HEMATOCRIT 29.7 % (37.0-47.0); HEMOGLOBIN 9.5 g/dl (12.0-16.0); MEAN CELL VOLUME 91.1 fl (81.0-99.0); MEAN CORPUSCULAR HGB 29.1 pg (27.0-31.0); PLATELET COUNT AUTOMATED 196 10*3/uL (130-400); RED BLOOD COUNT 3.26 10*6/uL (4.10-5.10); WHITE BLOOD COUNT 5.9 10*3/uL (4.8-10.8)
[2017-02-01 06:39] LABS: INTERNATIONAL NORM RATIO 1.9 (2.0-3.5); PROTHROMBIN TIME 20.6 SECONDS (9.0-12.4)
[2017-02-01 06:42] LABS: POTASSIUM 4.5 mmol/L (3.5-5.1)
[2017-02-01 07:00] LABS: LYMPHOCYTE # 1.1 10*3/uL (1.3-4.4); MONOCYTE # 0.5 10*3/uL (0.1-1.0); MYELOCYTES 1 % (0-0); NEUTROPHIL # 4.3 10*3/uL (2.3-7.9); NEUTROPHILS 73 % (47-73); TOTAL CELLS COUNTED 100 #CELLS
[2017-02-01 07:01] LABS: OVALOCYTES FEW; PLATELET SUFFICIENCY NORMAL (NORMAL); POLYCHROMASIA SLIGHT
[2017-02-02] VITALS: BP 157/72
[2017-02-02 06:17] LABS: INTERNATIONAL NORM RATIO 1.7 (2.0-3.5); PROTHROMBIN TIME 18.1 SECONDS (9.0-12.4)
[2017-02-02 08:00] VITALS: BP 150/60
== END 2017-02-02 11:00 | disposition other institution (70) | DRG 391 ==
LOC: ED 04:09 → 5E 06:26 → EDHOLD 06:26 → 5E 06:47
PROVIDERS: Emergency Medicine; Internal Medicine
PROC: 0DB68ZX Excision of Stomach, Via Natural or Artificial Opening Endoscopic, Diagnostic (ICD-10-PCS; principal; 2017-02-01)
DX: K29.00 Acute gastritis without bleeding (principal); E43 Unspecified severe protein-calorie malnutrition; N17.9 Acute kidney failure, unspecified; D84.9 Immunodeficiency, unspecified; J96.10 Chronic respiratory failure, unspecified whether with hypoxia or hypercapnia; E11.22 Type 2 diabetes mellitus with diabetic chronic kidney disease; I27.82 Chronic pulmonary embolism; G89.4 Chronic pain syndrome; K57.30 Diverticulosis of large intestine without perforation or abscess without bleeding; K21.0 Gastro-esophageal reflux disease with esophagitis; K44.9 Diaphragmatic hernia without obstruction or gangrene; E11.40 Type 2 diabetes mellitus with diabetic neuropathy, unspecified; J43.2 Centrilobular emphysema; I27.2 Other secondary pulmonary hypertension; F41.1 Generalized anxiety disorder; R62.7 Adult failure to thrive; N18.3 Chronic kidney disease, stage 3 (moderate); E86.0 Dehydration; K52.9 Noninfective gastroenteritis and colitis, unspecified; Z88.1 Allergy status to other antibiotic agents; Z88.2 Allergy status to sulfonamides; Z79.01 Long term (current) use of anticoagulants; Z68.27 Body mass index [BMI] 27.0-27.9, adult; Z90.49 Acquired absence of other specified parts of digestive tract

== ENCOUNTER 2017-02-20 21:04 | Inpatient (IN) | payer MEDICARE, MEDICAID ==
[~2017-02-20] VITALS: Ht 154.9 cm; Wt 68.7 kg
--- NOTE | ~2017-02-20 | CON ---
[place], [place] REPORT OF CONSULTATION NAME: QUINTON HINTON UNIT #: [id number] ROOM: 524 DOCTOR: SNEHA MATA MD BIRTHDATE: [birth year] DOS: 02/22/2017 HISTORY OF PRESENT ILLNESS: An 81-year-old patient who has presented with chief complaint of left lower quadrant pain, undergoing investigation. The patient was organized for a CT scan of the abdomen and pelvis, focal uncomplicated diverticulitis was noticed. This is being addressed by Dr. Syed with adjustment of Zosyn management. Her C. diff has been negative. CBC, white blood cells 5, H and H of 9 and 30. The patient has had a colonoscopy 2 years ago. Comprehensive metabolic panel, BUN and creatinine 27 and 1.8, GFR 33; electrolytes have been borderline balanced; liver function tests, lipase, troponin all within normal limits. PAST MEDICAL HISTORY: Associated with diverticulitis, chronic renal insufficiency, anemia, bronchitis, degenerative joint disease, COPD, malnutrition. PAST SURGICAL HISTORY: Cholecystectomy, hysterectomy, rectal surgery, small-bowel obstruction, appendectomy, laminectomy, oophorectomy, tubal ligation. SOCIAL HISTORY: Nonsmoker, nonalcohol consumer. FAMILY HISTORY: Noncontributory. MEDICATIONS: List has been reviewed. ALLERGIES: QUINOLONES, SULFA AND TRIMETHOPRIM. REVIEW OF SYSTEMS: HEENT: Denies double vision, blurred vision. RESPIRATORY: Denies shortness of breath. CARDIOVASCULAR: Denies chest pain. DIGESTIVE SYSTEM: Left lower quadrant pain. PHYSICAL EXAMINATION: GENERAL: Comfortable, nontoxic. HEENT: Head normocephalic, nontraumatic. Mouth and buccal mucosa benign. NECK: Supple, no thyromegaly, no cervical lymphadenopathy. CHEST: Symmetric anatomy, equal expansion. Decreased air entry in general. HEART: Normal sinus rhythm, no gallop, no murmur. ABDOMEN: Soft. No hepato-organomegaly. Bowel sounds present. No pulsatile mass. EXTREMITIES: No cyanosis, no pedal edema. NEUROLOGIC: Alert, oriented to time, place, person. IMPRESSION: Diverticulitis, left lower quadrant, CT scan proven; antibiotic is being managed by Dr. Syed. PLAN AND DISCUSSION: Other adjunctive diagnoses as outlined in paragraph past medical and surgical history. We are going to continue inpatient and outpatient [place], [place] REPORT OF CONSULTATION NAME: QUINTON HINTON UNIT #: [id number] ROOM: 524 DOCTOR: SNEHA MATA MD BIRTHDATE: [birth year] with 2 weeks of antibiotic of choice and preferably Cipro and Flagyl as outpatient. Followup 2 weeks after antibiotic completion when colonoscopy would be rendered. This is not only for assessment of the colon and also for anemia contribution. SNEHA MATA MD CM:CONSTR:REPORT OF CONSULTATION 1500 02/23/17 0150 interface
--- NOTE | ~2017-02-20 | DS ---
[place], [place] DISCHARGE SUMMARY NAME: QUINTON HINTON UNIT #: [id number] ROOM: 524 DOCTOR: ABRAHAN TOVAR MD BIRTHDATE: [birth year] DOS: 02/23/2017 DIAGNOSES: 1. Acute diverticulitis. 2. Chronic pulmonary embolism with a new pulmonary embolism with 3 long-term use of anticoagulants, but protimes have been subtherapeutic. 3. Adult failure to thrive for placement to [facility] for PT, OT. 4. Protein-calorie malnutrition. 5. Chronic respiratory failure, oxygen dependent. 6. Chronic obstructive pulmonary disease. 7. Immunoglobulin deficiency. 8. Chronic kidney disease. 9. Type 2 diabetes mellitus, insulin dependent. DISCHARGE MEDICATIONS: The patient will be discharged on are Flagyl 500 mg p.o. 3 times a day for 7 days, Eliquis 2.5 mg twice daily, Cardizem 120 daily, Breo Ellipta 100/25 one inhalation daily, Restasis eyedrops twice a day, hydroxyzine 25 q.i.d. p.r.n., tramadol 50 mg 1 tablet t.i.d., Tylenol 325 q. 6 p.r.n., Systane 10 mL q.i.d. to eye, insulin NovoLog sliding scale, vitamin D 5000 units daily, oxygen 2 liters per minute nasal cannula. HOSPITAL COURSE: This patient is 81 years old. The patient of Dr. Longo comes in with complaints of abdominal pain and chest pain. Please refer to H and P dictated by Dr. Syed for further details. During the admission, Dr. Gutierrez and Dr. Corbin were consulted. Stool cultures were sent, C. diff was sent, they both come back negative. The patient was placed on IV antibiotics. A CT of the abdomen and pelvis showed uncomplicated diverticulitis. Dr. Gutierrez recommended a colonoscopy as an outpatient. Urine culture shows no bacterial growth. She has an indwelling Wolff, which is being discontinued today. For the chest pain, troponins have been negative. Protime was subtherapeutic. Dr. Corbin therefore ordered a lung scan and it showed a new PE. The patient has chronic pulmonary embolism, chronic DVT, but apparently a new PE has been diagnosed in this patient, so the feeling is that the patient is not keeping her protime therapeutic, so the Coumadin has therefore been discontinued and placed on . Eliquis has been started for this patient. She is going to [facility] for continued PT, OT, case management has worked on that and she has been accepted at the retirement. Please do a basic CBC on Saturday and please schedule a colonoscopy with Dr. Gutierrez as an outpatient. [place], [place] DISCHARGE SUMMARY NAME: QUINTON HINTON UNIT #: [id number] ROOM: 524 DOCTOR: ABRAHAN TOVAR MD BIRTHDATE: [birth year] ABRAHAN TOVAR MD CM:URI [id number] ABRAHAN TOVAR MD 02/23/17 0903 interface
--- NOTE | ~2017-02-20 | PR ---
[place], [place] PROGRESS NOTE NAME: QUINTON HINTON [facility] #: [id number] UNIT #: [id number] ROOM: 524 DOCTOR: JOSÉ MIGUEL LANDERS MD BIRTHDATE: [birth year] DOS: 02/22/2017 The patient was seen today, 02/22/2017, for followup of atypical chest pain. SUBJECTIVE: The patient is an 81-year-old woman who presented to the hospital with abdominal complaints. While in the hospital, she did develop chest pain, dyspnea and pleuritic complaints. Her EKG and troponin levels were normal. A ventilation perfusion lung scan was positive with multiple bilateral mismatched defects consistent with recurrent pulmonary emboli. It was noted that she has a history of PE, but her INR was subtherapeutic at 1.4. This probably allowed the pulmonary emboli to form. She was placed on a heparin drip for a time. I discussed her case with her primary physician, Dr. Syed, and he will be switching her to apixaban for long-term DVT prophylaxis and management of her pulmonary emboli. The patient tells me that she is breathing a little more easily, but still has some pleuritic chest pain today. PHYSICAL EXAMINATION: VITAL SIGNS: Her pulse is 88 and regular, blood pressure 150/68, she is afebrile. She weighs 68.7 kilograms with a body mass index of 28.6. HEENT: Normocephalic, atraumatic. Extraocular muscles are intact. Sclerae are clear. Pupils are equal, round and reactive to light. Oral mucosa is moist. NECK: Supple. She has no jugular venous distention. CHEST: Crackles at the bases, but no presacral edema or chest wall tenderness. HEART: Has a regular rhythm with an S4 gallop. She has no third heart sound. She has a grade 2/6 systolic ejection murmur along the left sternal border, but no diastolic murmurs. ABDOMEN: Soft with mild epigastric tenderness. EXTREMITIES: Showed trace edema bilaterally and her legs remain tender to palpation. IMPRESSION: 1. Pleuritic chest pain, most likely due to recurrent pulmonary emboli. 2. Abnormal ventilation perfusion scan consistent with bilateral pulmonary emboli. 3. Chronic renal insufficiency, which makes a CT angiogram of the chest an unattractive option for her management. PLAN: We will continue to treat her with full dose anticoagulation. We thank Dr. Syed for asking our advice regarding her care. [place], [place] PROGRESS NOTE NAME: QUINTON HINTON UNIT #: [id number] ROOM: 524 DOCTOR: JOSÉ MIGUEL LANDERS MD BIRTHDATE: [birth year] JOSÉ MIGUEL LANDERS MD CM:PNTRANS [id number] JOSÉ MIGUEL LANDERS MD 02/23/17 0132 interface
--- NOTE | ~2017-02-20 | WRIGHTHP ---
[place], [place] PATIENT HISTORY AND PHYSICAL EXAM NAME: QUINTON HINTON [facility] #: [id number] UNIT #: [id number] ROOM: 524 DOCTOR: JESSIE CRUM MD BIRTHDATE: [birth year] DOS: 02/21/2017 HISTORY OF PRESENT ILLNESS: The patient is an 81-year-old female with a past medical history of: 1. Severe anxiety disorder. 2. Chronic pulmonary embolism. 3. Old age and failure to thrive. 4. Chronic respiratory failure and oxygen dependence. 5. History of protein-calorie malnutrition. 6. Stage 3 diabetic nephropathy and chronic kidney disease, type 2 diabetes mellitus. 7. Immune deficiency syndrome. The patient presented to [facility] Emergency Department with increasing shortness of breath, chest pains, generalized weakness. The patient also says she had some dry heaves and diarrhea since Saturday that is last 3 days. The patient thinks she had stomach flu. The patient was admitted and refinery operator alkylation, Dr. Matthias Corbin was consulted. Lung scan showed acute over chronic pulmonary embolism and patient was started on IV heparin. The patient still has chest pains, but her cardiac enzymes have been negative. D-dimers have been negative. INR was subtherapeutic at 1.4. REVIEW OF SYSTEMS: LUNGS: Some shortness of breath, mostly chronic. GASTROINTESTINAL: Dry heave. CARDIOVASCULAR: Chest pains. FAMILY HISTORY: Noncontributory. HOME MEDICATIONS: Cardizem, tramadol, insulin, hydroxyzine, furosemide. ALLERGIES: Known allergies to SULFA, QUINOLONES. PHYSICAL EXAMINATION: GENERAL: Alert and oriented x 3, very weak, in no visible distress. HEENT AND NECK: Extraocular movements are intact. Sclerae are anicteric. Oral mucosa is moist and clean. No obvious facial weakness. Neck is supple without any lymphadenopathy. No thyromegaly. No JVD. No carotid arterial bruits. LUNGS: Clear to auscultation. No wheezing. No rhonchi. CARDIOVASCULAR SYSTEM: Heart rate is regular in rate and rhythm. S1 and S2 normally audible. No significant murmur or any other abnormal cardiac sounds. ABDOMEN: Soft, nontender. No obvious organomegaly. Bowel sounds are present. No obvious herniation. EXTREMITIES: Without significant cyanosis or edema. Warm to touch. CENTRAL NERVOUS SYSTEM: Alert and oriented x 3. Cranial nerves II-XII are intact. Speech is normal. The patient is able to move all extremities. Normal muscle strength. Deep tendon reflexes are equal on both sides. Plantars were downgoing. IMPRESSION AND PLAN: [place], [place] PATIENT HISTORY AND PHYSICAL EXAM NAME: QUINTON HINTON UNIT #: [id number] ROOM: 524 DOCTOR: JESSIE CRUM MD BIRTHDATE: [birth year] 1. Acute over chronic pulmonary embolism and chest pain with shortness of breath, was being treated with IV heparin, I converted her to apixaban. Case discussed with Dr. Matthias Corbin, the refinery operator alkylation in great detail and he agrees with treatment. 2. Chest pains, apparently noncardiac. Cardiac enzymes were negative. 3. Acute viral gastroenteritis with some nausea and diarrhea. 4. Protein calorie malnutrition. The patient working with dietary. 5. Type 2 diabetes mellitus. Blood sugars are reasonably controlled. 6. Chronic diabetic nephropathy with chronic kidney disease stage 3. 7. Underlying centrilobular emphysema with chronic shortness of breath and oxygen dependence. 8. Severe generalized anxiety disorder, controlled with Zoloft. JESSIE CRUM MD CM:HISPHYS:PATIENT HISTORY AND PHYSICAL EXAMINATION 00 57 JESSIE CRUM MD 02/21/172156 interface
--- NOTE | ~2017-02-20 | PR ---
[place], [place] PROGRESS NOTE NAME: QUINTON HINTON UNIT #: [id number] ROOM: 524 DOCTOR: ABRAHAN TOVAR MD BIRTHDATE: [birth year] DOS: SUBJECTIVE: The patient is not having any new complaints. OBJECTIVE: VITAL SIGNS: Graphic trend shows that she is afebrile. Blood pressure is 152/61, pulse of 71, respirations 18, temperature 98.2. LUNGS: Clear. HEART: Regular. ABDOMEN: Obese. EXTREMITIES: Without any edema. LABORATORY DATA: Urine culture shows no bacterial growth. Stool culture shows negative. ASSESSMENT AND PLAN: Chest pain with a new PE. The patient has chronic pulmonary embolism with DVT and chronic pulmonary hypertension on long-term use of anticoagulants. Protime has been subtherapeutic. This patient has been taking the Coumadin, has had a hard time recently but with adjustments in medications because she has been in and out of hospitals and nursing homes, I believe. So, it is unfortunate, the patient has developed another PE. But, Dr. Corbin has already discontinued the Coumadin and placed on ____ which in her patients ____ Eliquis. 1. Acute diverticulitis, cultures are all negative. The patient is on p.o. antibiotics. Colonoscopy done as an outpatient. The patient is stable. 2. Adult failure to thrive as accepted at [facility] today. The plan is to discharge her today. ABRAHAN TOVAR MD CM:PNTRANS [id number] ABRAHAN TOVAR MD 02/23/174 interface
--- NOTE | ~2017-02-20 | CON ---
[place], [place] REPORT OF CONSULTATION [id number] UNIT #: [id number] ROOM: 524 DOCTOR: JOSÉ MIGUEL LANDERS MD BIRTHDATE: [birth year] DOS: 02/21/2017 REASON FOR CONSULTATION: Acute chest pain. HISTORY OF PRESENT ILLNESS: The patient is an 81-year-old woman who has a history of multiple medical problems including a poorly documented history of coronary artery disease, COPD, diabetes mellitus and recurrent pulmonary emboli as well as a history of transient ischemic attack. She is on chronic warfarin therapy for DVT prophylaxis and to prevent pulmonary emboli. She also has a history of an immunodeficiency syndrome for which she receives immunoglobulin injections. She presented to the hospital on this occasion with generalized weakness and a complaint of recent urinary tract infection as well as abdominal discomfort. She was given a diagnosis of diverticulitis and admitted to the hospital for further management. Today, while sitting still, she developed chest pain with radiation across her left chest into her left axilla. She states that the pain is severe and she rates it as an 8/10 pain. It does seem to get worse whenever she moves or takes a deep breath. She does feel short of breath and "shaky." She also says that she feels diaphoretic, although I do not see any sweating at this time. The patient was given sublingual nitroglycerin without much benefit. Serial EKGs have been negative thus far. An initial troponin level done before her symptoms began was negative at 0.025. PAST MEDICAL HISTORY: Includes the followin. Immunodeficiency syndrome. The patient receives immunoglobulins periodically. 2. Type 2 diabetes mellitus. 3. Obstructive lung disease. 4. Gastroesophageal reflux disease. 5. History of recurrent pulmonary emboli. 6. History of transient ischemic attack. 7. Echocardiogram 09/2013 showed an ejection fraction 60-65%. 8. Stress test 04/2011 showed normal myocardial perfusion. 9. Repeat stress test 07/13/2016 showed normal myocardial perfusion and left ventricular function. 10. Echocardiogram 01/20/2015 showed normal left ventricular size, wall thickness, regional wall motion and systolic function with ejection fraction 70%, stage 1 left ventricular diastolic relaxation abnormalities, aortic sclerosis without stenosis, mild mitral and tricuspid insufficiencies and normal right ventricular systolic pressures. 11. History of laminectomy, oophorectomy, tubal ligation, cholecystectomy and hysterectomy. 12. Remote history of cardiac catheterization approximately 16 years ago. Results not currently available. 13. Status post appendectomy. 14. Status post small bowel obstruction. [place], [place] REPORT OF CONSULTATION NAME: QUINTON HINTON UNIT #: [id number] ROOM: 524 DOCTOR: JOSÉ MIGUEL LANDERS MD BIRTHDATE: [birth year] FAMILY HISTORY: Positive for cancer and stroke, but not at a young age. REVIEW OF SYSTEMS: The patient denies diplopia or loss of vision. She states that she is short of breath. She does have a mild cough, but denies hemoptysis or hematemesis. She denies fevers, chills or recent weight change. She does feel hot and sweaty, but states that she does not sweat. She denies nausea or vomiting. She denies fevers or chills. She denies lightheadedness or syncope. She denies orthopnea or PND. She denies any recent swelling of her legs, although she says that her ankles are always a little swollen. She denies any overt bleeding from her nose, mouth, bowels or urine. She denies any change in bowel or bladder habits. She denies any new skin rashes. She does have some abdominal discomfort, dysuria. Remainder of the review of systems is negative except as noted above. MEDICATIONS: Prior to admission, fluticasone inhaler (Breo Ellipta) 1 a day, oxygen by 2 liters nasal cannula, Restasis eyedrops b.i.d., Systane eyedrops p.r.n., acetaminophen p.r.n., baclofen 10 mg daily, cholecalciferol 5000 units daily, diltiazem CD 120 mg daily, hydroxyzine 25 mg q.i.d., tramadol t.i.d., warfarin 3.5 mg daily and NovoLog insulin one injection a.c. and at bedtime by sliding scale. ALLERGIES: The patient list allergies to QUINOLONES, SULFA DRUGS and TRIMETHOPRIM. SOCIAL HISTORY: The patient is and lives with her . She does not smoke or consume alcohol at the present time. PHYSICAL EXAMINATION: GENERAL: The patient is an uncomfortable appearing white female who is lying in bed, breathing fairly easily. VITAL SIGNS: Pulse is 75 and regular, blood pressure is 170/58. She is afebrile. HEENT: Normocephalic, atraumatic. Extraocular muscles are intact. Sclerae are clear. Pupils are equal, round, reactive to light. The oral mucosa is moist. Tongue is midline. NECK: Supple. She has no jugular distention or hepatojugular reflux. Carotids are full. I heard no bruits. CHEST: Respirations were unlabored. Chest was clear anteriorly and laterally. CARDIOVASCULAR: Heart had a regular rhythm. She has a fourth heart sound, but no third heart sound. She has grade 2/6 systolic murmur along the left sternal border. There are no diastolic murmurs. The PMI is not displaced. Palpation over anterior chest wall does to some degree reproduced her pain. There is no mass or erythema noted. ABDOMEN: Soft. She does have some mild epigastric tenderness. Bowel sounds are normal. There are no masses or rebound. EXTREMITIES: Showed trace edema bilaterally. Her legs are tender to palpate, even though she does not have any erythema or palpable cords and she has no Homans sign. Peripheral pulses are palpable in the feet. LABORATORY DATA: I reviewed several electrocardiograms. They all shows sinus [place], [place] REPORT OF CONSULTATION NAME: QUINTON HINTON UNIT #: [id number] ROOM: 524 DOCTOR: JOSÉ MIGUEL LANDERS MD BIRTHDATE: [birth year] rhythm and appeared to be normal. There are no acute changes with her pain. Hemoglobin is 9.9, white count 5200, platelet count 253,000. INR is subtherapeutic at 1.4. Sodium is 146, potassium 4.0, chloride 108, CO2 24, BUN 27, creatinine 1.8. IMPRESSION: Chest pain, etiology to be determined. The patient does not show any objective evidence for coronary disease thus far. Her EKG showed no acute changes. Troponins are pending. It is concerning that her INR is subtherapeutic. Her leg exam does not suggest DVT, but her legs are tender to palpation. For now, I will fully anticoagulate her with heparin and we will need to readjust her warfarin. We will obtain a ventilation perfusion lung scan. A CAT scan would likely be more sensitive and specific, but her renal functions preclude that. It may be that her pains are entirely musculoskeletal, since I could reproduce some of her pain by palpation of her chest, but I think we have to assume a more serious pathology and rule that out first before we can accept musculoskeletal pain as the cause. I thank Dr. Syed for asking our advice regarding her care. JOSÉ MIGUEL LANDERS MD CM:CONSTR:REPORT OF CONSULTATION 1544 02/21/17 2352 interface JESSIE SYED MD
--- NOTE | ~2017-02-20 | PR ---
[place], [place] PROGRESS NOTE NAME: QUINTON HINTON UNIT #: [id number] ROOM: 524 DOCTOR: JESSIE CRUM MD BIRTHDATE: [birth year] DOS: 02/22/2017 SUBJECTIVE: The patient with advanced disability and weakness, requesting senior living facility placement as discussed with Kettle Coordinator. OBJECTIVE: VITAL SIGNS: Blood pressure 146/76, heart rate 76 beats per minute, breathing 18 times per minute, temperature 98 degrees Fahrenheit. GENERAL APPEARANCE: The patient is alert and oriented x 3, in no visible distress. Generalized weakness. HEENT AND NECK: Exam within normal limits. CARDIOVASCULAR SYSTEM: Heart rate is regular in rate and rhythm. S1 and S2 normally audible. LUNGS: Clear to auscultation. ABDOMEN: Soft, nontender. No obvious organomegaly. Bowel sounds are present. EXTREMITIES: Without significant cyanosis or edema. IMPRESSION: 1. Acute over chronic pulmonary embolism with chronic shortness of breath. The patient being treated with apixaban as discussed with Dr. Matthias Corbin, the preparation department supervisor. 2. Chest pain, apparently noncardiac. Cardiac enzymes were negative. 3. Old age, advanced disability and chronic failure to thrive. 4. Protein-calorie malnutrition. The patient working with Dietary. 5. Type 2 diabetes mellitus. Blood sugars being monitored and controlled. 6. Chronic diabetic polyneuropathy, chronic kidney disease, diabetic nephropathy, stage 3. 7. Chronic centrilobular emphysema. The patient on oxygen. 8. Generalized anxiety disorder, controlled with Zoloft. JESSIE CRUM MD CM:PNTRANS [id number] JESSIE CRUM MD 02/23/17 0033 interface
[2017-02-20 21:04] VITALS: BP 162/88
[~2017-02-20 21:04] MED LIST changes: +BACLOFEN20 M1 PO; +CARDIZEM CD120 M2 PO; +Ipratropium Brom3 ML INH; +QUALITY CHOICE10 M3 PO; +SYSTANE0.3% OP; +VISTARIL25 M2 PO; +VITAMIN D5000 I3 PO
[2017-02-20 21:07] VITALS: BP 154/60
[2017-02-20 21:45] LABS: BASO % 0.8 % (0.0-1.0); EOS # 0.1 10*3/uL (0.0-0.4); EOS % 2.3 % (1.0-4.0); HEMATOCRIT 30.6 % (37.0-47.0); HEMOGLOBIN 9.9 g/dl (12.0-16.0); IG # 0.1 10*3/uL (0.0-0.1); LYMPH # 1.6 10*3/uL (1.3-4.4); LYMPH % 31.5 % (27.0-41.0); MEAN CELL VOLUME 88.4 fl (81.0-99.0); MEAN CORPUSCULAR HGB 28.6 pg (27.0-31.0); MEAN CORPUSCULAR HGB CONC 32.4 g/dl (33.0-37.0); MONO # 0.9 10*3/uL (0.1-1.0); MONO % 16.5 % (3.0-9.0); NEUT # 2.5 10*3/uL (2.3-7.9); NEUT % 47.6 % (47.0-73.0); PLATELET COUNT AUTOMATED 253 10*3/uL (130-400); RED BLOOD COUNT 3.46 10*6/uL (4.10-5.10); RED CELL DISTRI WIDTH 15.9 % (0-14.5); WHITE BLOOD COUNT 5.2 10*3/uL (4.8-10.8)
[2017-02-20 22:02] LABS: ALBUMIN 2.9 gm/dl (3.1-4.5); BILIRUBIN, TOTAL 0.2 mg/dl (0.2-1.0); MAGNESIUM 2.1 mg/dL (1.5-2.1); TOTAL PROTEIN 7.2 gm/dL (6.4-8.2)
[2017-02-20 22:03] LABS: TROPONIN I 0.025 ng/ml (<0.045)
[2017-02-20 23:19] LABS: BILIRUBIN NEGATIVE (NEGATIVE); BLOOD NEGATIVE (NEGATIVE); CLARITY CLEAR (CLEAR); COLOR YELLOW (YELLOW); GLUCOSE NEGATIVE (NEGATIVE); KETONE NEGATIVE (NEGATIVE); LEUKO ESTERASE 1+ (NEGATIVE); NITRITE NEGATIVE (NEGATIVE); PROTEIN 2+ (NEGATIVE); SPECIFIC GRAVITY 1.015 (1.005-1.030); UROBILINOGEN 0.2 E.U./dl (0.2-1.0)
[2017-02-20 23:29] LABS: BACTERIA TRACE; URINE REFLEX COMMENT YES (NO); WBC 16-20 wbc/hpf (0-5)
[2017-02-21] MEDS ORDERED: OXYGEN NAS
[2017-02-21 01:00] VITALS: BP 156/58
[2017-02-21 06:49] LABS: INTERNATIONAL NORM RATIO 1.4 (2.0-3.5); PROTHROMBIN TIME 15.4 SECONDS (9.0-12.4)
[2017-02-21 08:00] VITALS: BP 162/56
[2017-02-21 12:00] VITALS: BP 170/58
[2017-02-21 15:53] LABS: BASO % 0.8 % (0.0-1.0); EOS # 0.2 10*3/uL (0.0-0.4); EOS % 3.4 % (1.0-4.0); HEMATOCRIT 29.2 % (37.0-47.0); HEMOGLOBIN 9.4 g/dl (12.0-16.0); IG # 0.1 10*3/uL (0.0-0.1); LYMPH # 1.6 10*3/uL (1.3-4.4); LYMPH % 30.8 % (27.0-41.0); MEAN CORPUSCULAR HGB 28.7 pg (27.0-31.0); MEAN CORPUSCULAR HGB CONC 32.2 g/dl (33.0-37.0); MEAN PLATELET VOLUME 10.8 fl (9.6-12.3); MONO # 0.8 10*3/uL (0.1-1.0); MONO % 14.8 % (3.0-9.0); NEUT # 2.5 10*3/uL (2.3-7.9); PLATELET COUNT AUTOMATED 218 10*3/uL (130-400); RED BLOOD COUNT 3.28 10*6/uL (4.10-5.10); RED CELL DISTRI WIDTH 15.6 % (0-14.5); WHITE BLOOD COUNT 5.1 10*3/uL (4.8-10.8)
[2017-02-21 16:00] VITALS: BP 158/72
[2017-02-21 16:05] LABS: POTASSIUM 3.8 mmol/L (3.5-5.1)
[2017-02-21 20:00] VITALS: BP 141/75
[2017-02-22] VITALS: BP 150/59
[2017-02-22 08:00] VITALS: BP 146/76
[2017-02-22 12:00] VITALS: BP 150/68
[2017-02-22 16:00] VITALS: BP 147/64
[2017-02-22 20:00] VITALS: BP 158/78
[2017-02-23] VITALS: BP 152/61
[2017-02-23] MEDS ORDERED: ELIQUIS5 M1 PO (07:31)
[2017-02-23 08:00] VITALS: BP 177/62
[2017-02-23 12:00] VITALS: BP 156/64
== END 2017-02-23 14:12 | disposition other institution (70) | DRG 391 ==
LOC: ED 21:04 → EDHOLD 23:24 → 5E 23:24 → 4E 23:40 → 5E 23:47
PROVIDERS: Emergency Medicine Emergency Medical Services; Internal Medicine; Internal Medicine Cardiovascular Disease
DX: K57.92 Diverticulitis of intestine, part unspecified, without perforation or abscess without bleeding (principal); I26.99 Other pulmonary embolism without acute cor pulmonale; E46 Unspecified protein-calorie malnutrition; J96.10 Chronic respiratory failure, unspecified whether with hypoxia or hypercapnia; D84.9 Immunodeficiency, unspecified; N18.3 Chronic kidney disease, stage 3 (moderate); I27.82 Chronic pulmonary embolism; R79.1 Abnormal coagulation profile; R62.7 Adult failure to thrive; J44.9 Chronic obstructive pulmonary disease, unspecified; E11.22 Type 2 diabetes mellitus with diabetic chronic kidney disease; A08.4 Viral intestinal infection, unspecified; Z99.81 Dependence on supplemental oxygen; Z79.4 Long term (current) use of insulin; Z90.49 Acquired absence of other specified parts of digestive tract; Z90.710 Acquired absence of both cervix and uterus; E11.42 Type 2 diabetes mellitus with diabetic polyneuropathy; F41.1 Generalized anxiety disorder; I25.10 Atherosclerotic heart disease of native coronary artery without angina pectoris

== ENCOUNTER 2017-04-12 12:27 | Inpatient (IN) | payer MEDICARE, MEDICAID ==
[~2017-04-12] VITALS: Ht 154.9 cm; Wt 66.7 kg
--- NOTE | ~2017-04-12 | PR ---
[place], [place] PROGRESS NOTE NAME: QUINTON HINTON UNIT #: [id number] ROOM: 522 DOCTOR: JESSIE CRUM MD BIRTHDATE: [birth year] DOS: 04/16/2017 SUBJECTIVE: The patient's nausea and vomiting is improving. She is starting to feel better. OBJECTIVE: VITAL SIGNS: Blood pressure 130/54, heart rate 85 beats per minute, breathing 18 times per minute, temperature 98.9 degrees Fahrenheit. GENERAL: Generalized weakness. HEENT AND NECK: Exam within normal limits. CARDIOVASCULAR SYSTEM: Heart rate is regular in rate and rhythm. S1 and S2 normally audible. LUNGS: Clear to auscultation. ABDOMEN: Soft, nontender. No obvious organomegaly. Bowel sounds are present. EXTREMITIES: Without significant cyanosis or edema. IMPRESSION: 1. The patient with chronic abdominal pain and diabetic gastroparesis, improving with treatment with Zofran. 2. Old age, adult failure to thrive and generalized weakness. 3. Centrilobular emphysema with chronic shortness of breath, treated with bronchodilators. 4. Vitamin D deficiency, treated with supplements. 5. Benign essential hypertension with controlled blood pressures with Diltiazem. 6. Chronic pulmonary embolism. The patient anticoagulated with Eliquis. 7. Air in the uterus, evaluated by Dr. Kapadia. JESISE CRUM MD CM:PNTRANS [id number] JESSIE CRUM MD 04/17/17 0611 interface
--- NOTE | ~2017-04-12 | DS ---
[place], [place] DISCHARGE SUMMARY NAME: QUINTON HINTON UNIT #: [id number] ROOM: 522 DOCTOR: JESSIE CRMU MD BIRTHDATE: [birth year] DOS: 04/17/2017 DISCHARGE DIAGNOSES: 1. Diabetic gastroparesis with nausea and vomiting, improved with treatment. 2. History of chronic abdominal pain. 3. Old age and adult failure to thrive and generalized weakness. 4. Centrilobular emphysema with chronic shortness of breath. 5. Vitamin D deficiency. 6. Benign essential hypertension. 7. Chronic pulmonary embolism. The patient is anticoagulated with Eliquis. 8. Air in the uterus evaluated by Dr. Kapadia. 9. Vitamin D deficiency. 10. Diabetic polyneuropathy and chronic kidney disease stage 3B. 11. Benign essential hypertension. HOSPITAL COURSE: The patient presented with recurrent nausea, vomiting and she does have history of chronic abdominal pain. 1. Diabetic gastroparesis, which was treated with Zofran. Her symptoms have resolved and she is tolerating diet. The patient's serum electrolytes are monitored and since she is feeling much better, she will be discharged to home. The patient has overall, poor health, adult failure to thrive, generalized weakness and disability. 2. Chronic kidney disease stage 3B and diabetic nephropathy. 3. Type 2 diabetes mellitus. Blood sugars are monitored and are reasonably controlled. 4. Vitamin D deficiency, replaced with supplements. 5. Chronic pulmonary embolism. The patient is anticoagulated with Eliquis. 6. The patient showed some air in the uterus x-ray evaluation and this was reviewed by Dr. Kapadia who was consulted. LABORATORY DATA: Blood cultures were negative. BUN and creatinine are 20 and 1.6. Normal serum electrolytes. DISCHARGE MANAGEMENT: Hydroxyzine 25 mg daily as needed, diltiazem CD 120 mg a day, omeprazole 40 mg a day, apixaban 2.5 mg b.i.d., Tylenol p.r.n. Follow with Dr. Bee in less than a week after discharge. [place], [place] DISCHARGE SUMMARY NAME: QUINTON HINTON UNIT #: [id number] ROOM: 522 DOCTOR: JESSIE CRUM MD BIRTHDATE: [birth year] JESSIE CRUM MD CM:URI [id number] JESSIE CRUM MD 04/17/17 1551 interface
--- NOTE | ~2017-04-12 | WRIGHTHP ---
[place], [place] PATIENT HISTORY AND PHYSICAL EXAM NAME: QUINTON HINTON [facility] #: [id number] UNIT #: [id number] ROOM: 522 DOCTOR: JESSIE CRUM MD BIRTHDATE: [birth year] DOS: 04/12/2017 DIAGNOSES: 1. The patient is an 81-year-old female with a past medical history of chronic pulmonary embolism. 2. Adult failure to thrive. 3. Protein calorie malnutrition. 4. Chronic respiratory failure, on oxygen dependence. 5. Chronic obstructive pulmonary disease. 6. Chronic kidney disease stage 3B 7. Type 2 diabetes mellitus. The patient is on insulin. HISTORY OF PRESENT ILLNESS: The patient presented to the Emergency Department at [facility] with complaints of nausea and vomiting and feeling unwell. The patient also had diarrhea the day prior to admission. There were complaints of generalized abdominal pain. No complaints of chest pain, shortness of breath. No GI or urinary symptoms. After admission, the patient says she is not vomiting anymore, but still she is nauseous. No dizziness or fainting episodes. No other GI or urinary symptoms. REVIEW OF SYSTEMS: LUNGS: No increasing shortness of breath or wheezing. GASTROINTESTINAL: Nausea, vomiting and some diarrhea. CARDIOVASCULAR: No chest pains or palpitations. FAMILY HISTORY: Noncontributory. HOME MEDICATIONS: Hydroxyzine, diltiazem, omeprazole, apixaban, Tylenol, Lasix. PHYSICAL EXAMINATION: GENERAL: Alert and oriented x 3. Generally weak, but in no visible distress. VITAL SIGNS: Blood pressure 126/70, heart rate 84 beats per minute, breathing 18 times per minute, temperature 98 degrees Fahrenheit. ABDOMEN: The patient has generalized tenderness and discomfort all over, but no rigidity, guarding or rebound tenderness. VASCULAR examination was normal except for generalized weakness. LABORATORY DATA: No leukocytosis. Hemoglobin 10.4. CT scan of the abdomen and pelvis showing some air in the uterus, which was evaluated by Dr. Kapadia, the information technology assistant. Chest x-ray without acute abnormality. BUN and creatinine 20 and 1.9. Hemoglobin 10.4. No leukocytosis. IMPRESSION: 1. The patient with old age, generalized weakness, adult failure to thrive and recurrent admissions to the hospital presents with nausea and vomiting, probable diabetic gastroparesis. The patient to be kept on IV Zofran and diet as tolerated and followed closely and I will get Dr. Gutierrez, the crew trainer, to see her. 2. Chronic pulmonary embolism. The patient anticoagulated with Eliquis, which [place], [place] PATIENT HISTORY AND PHYSICAL EXAM NAME: QUINTON HINTON UNIT #: [id number] ROOM: 522 DOCTOR: RADAMES HARO,JESSIE Garcia BIRTHDATE: [birth year] is being continued. 3. Type 2 diabetes mellitus. I will monitor blood sugars and treat accordingly. The patient on insulin, which is being continued. 4. Vitamin D deficiency, treated with supplements. 5. Centrilobular emphysema and chronic shortness of breath. The patient to be continued on bronchodilators as needed. 6. Diabetic nephropathy with chronic kidney disease stage 3B, to be monitored. 7. Benign essential hypertension with controlled blood pressures. The patient on diltiazem. JESSIE CRUM MD CM:HISPHYS:PATIENT HISTORY AND PHYSICAL EXAMINATION [phone] JESSIE CRUM MD 04/13/171838 interface
--- NOTE | ~2017-04-12 | PR ---
[place], [place] PROGRESS NOTE NAME: QUINTON HINTON UNIT #: [id number] ROOM: 522 DOCTOR: ABRAHAN TOVAR MD BIRTHDATE: [birth year] DOS: 04/15/2017 SUBJECTIVE: The patient is complaining of abdominal pain and nausea and emesis and so she came in to the Emergency Room and she was admitted. Does not have any new complaints. She has not had any emesis when she got into the hospital, but continues to complain of abdominal pain. OBJECTIVE: VITAL SIGNS: Graphic trend shows a pressure 131/56, pulse of 70, respirations 20, temperature 98.1. LUNGS: Clear. HEART: Regular. ABDOMEN: Soft, diffusely tender. EXTREMITIES: Without any edema. LABORATORY DATA: Blood culture shows no bacterial growth. BMP: Glucose 112, BUN 20, creatinine 1.5, EGFR 31, 141 sodium, potassium 4.6. WBC count from 04/13 was within normal limits with a normal WBC count. CT of the abdomen and pelvis shows air in the endometrial space and a possibility of a fistulous communication with colon is raised. ASSESSMENT AND PLAN: 1. The patient with chronic abdominal pain with the CT showing air in the endometrial space. She has not had any recent instrumentation, but will need to make sure that she does not have a fistula. Will ask for an opinion for consultation. 2. Chronic pain syndrome. She had been on morphine pump in the past. She is no longer using that, so this could be just hypersensitivity. 3. Chronic obstructive pulmonary disease, stable, end stage. ABRAHAN TOVAR MD CM:PNTRANS [id number] ABRAHAN TOVAR MD 04/16/17 0712 interface
--- NOTE | ~2017-04-12 | PR ---
[place], [place] PROGRESS NOTE NAME: QUINTON HINTON UNIT #: [id number] ROOM: 522 DOCTOR: JESSIE CRUM MD BIRTHDATE: [birth year] DOS: 04/14/2017 SUBJECTIVE: The patient's nausea has improved. She is feeling somewhat better. OBJECTIVE: VITAL SIGNS: Blood pressure 138/60, heart rate of 69 beats per minute, breathing 20 times per minute, temperature 98 degrees Fahrenheit. GENERAL APPEARANCE: The patient is alert and oriented x 3, in no visible distress. Generalized weakness. HEENT AND NECK: Exam within normal limits. CARDIOVASCULAR SYSTEM: Heart rate is regular in rate and rhythm. S1 and S2 normally audible. LUNGS: Clear to auscultation. ABDOMEN: Soft, nontender. No obvious organomegaly. Bowel sounds are present. EXTREMITIES: Without significant cyanosis or edema. IMPRESSION: 1. The patient with diabetic gastroparesis with vomiting and diarrhea. Dr. Gutierrez has been consulted. The patient's symptoms are improving with p.r.n. use of Zofran. 2. Chronic pulmonary embolism. The patient anticoagulated with Eliquis. 3. Benign essential hypertension with controlled blood pressures with treatment; the patient on diltiazem. 4. Diabetic nephropathy with chronic kidney disease stage 3B, stable. 5. Centrilobular emphysema with chronic shortness of breath, treated with bronchodilators and corticosteroids. 6. Vitamin D deficiency, treated with supplements. JESSIE CRUM MD CM:PNTRANS [phone] JESSIE CRUM MD 04/15/17 0441 interface
--- NOTE | ~2017-04-12 | CON ---
[place], [place] REPORT OF CONSULTATION NAME: QUINTON HINTON UNIT #: [id number] ROOM: 522 DOCTOR: SNEHA MATA MD BIRTHDATE: [birth year] DOS: GASTROENDOSCOPIC CONSULTATION REPORT. HISTORY OF PRESENT ILLNESS: The patient has presented with multiple medical issues; however, we have been asked for assessment of the patient colonoscopically with the concerns of air in the endometrium, ruling out sigmoid colon carcinoma and fistulization. PAST MEDICAL HISTORY: 81 years old who has presented with renal insufficiency, respiratory distress, bronchitis, coronary artery disease, COPD, degenerative joint disease, diverticulosis, diabetes mellitus, dyspepsia history, sepsis history, Sjogren's syndrome. PAST SURGICAL HISTORY: Cholecystectomy, tubal ligation, laminectomy, appendectomy. SOCIAL HISTORY: Nonsmoker, nonalcohol consumer. FAMILY HISTORY: Noncontributory, except diabetes and hypertension. ALLERGIES: I have already outlined. REVIEW OF SYSTEMS: HEENT: Denies double vision, blurred vision. RESPIRATORY: Admits to chronic shortness of breath. CARDIOVASCULAR: Denies chest pain. DIGESTIVE SYSTEM: No hematemesis, no hematochezia. Some nausea. History of diverticulosis. PHYSICAL EXAMINATION: VITAL SIGNS: Stable. HEENT: Head normocephalic, nontraumatic. Mouth and buccal mucosa benign. NECK: Supple, no thyromegaly, no cervical lymphadenopathy. CHEST: Symmetric anatomy, equal expansion, COPD pattern. HEART: Normal sinus rhythm, no gallop, no murmur. ABDOMEN: Soft. No hepato-organomegaly. Bowel sounds present. No pulsatile mass. EXTREMITIES: No cyanosis. No pedal edema. NEUROLOGIC: Alert, oriented to time, place, person. The CT scan of the abdomen has been reviewed. There is concern about endometrial air-fluid level and the presence of carcinoma, therefore. PROCEDURE: Today's procedure part of investigation is colonoscopy. PREMEDICATION: Versed and Diprivan. SCOPE: Olympus folding colonoscope 10L video. [place], [place] REPORT OF CONSULTATION NAME: QUINTON HINTON UNIT #: [id number] ROOM: 522 DOCTOR: SNEHA MATA MD BIRTHDATE: [birth year] REPORT: After putting the patient in the left lateral position and after application of lubricant to rectal pouch and digital examination, scope was introduced; thereafter, under direct visualization, I advanced through the length of colon without difficulty. Evidence of diverticulosis of milder degree was identified, particularly in the sigmoid colon. I did not see any carcinoma nor lesion to be concerned. Scope was negotiated all the way to the hepatic flexure. No pathology seen. However, solid stool was encountered. The patient was extubated, tolerated procedure well. IMPRESSION: Diverticulosis and retained stool, otherwise no evidence of acute fistulization. PLAN AND DISCUSSION: Observation, clinical reassessment. SNEHA MATA MD CM:CONSTR:REPORT OF CONSULTATION 1437 04/16/17 0610 interface
[~2017-04-12 12:27] MED LIST changes: +ELIQUIS5 M1 PO; +OXYGEN NAS
[2017-04-12 12:32] VITALS: BP 152/69
[2017-04-12 13:03] LABS: BASO % 0.5 % (0.0-1.0); EOS # 0.2 10*3/uL (0.0-0.4); EOS % 2.5 % (1.0-4.0); HEMATOCRIT 36.8 % (37.0-47.0); LYMPH # 1.3 10*3/uL (1.3-4.4); MEAN CELL VOLUME 86.8 fl (81.0-99.0); MEAN CORPUSCULAR HGB 28.3 pg (27.0-31.0); MEAN CORPUSCULAR HGB CONC 32.6 g/dl (33.0-37.0); MONO # 0.6 10*3/uL (0.1-1.0); MONO % 9.5 % (3.0-9.0); NEUT # 3.9 10*3/uL (2.3-7.9); NEUT % 65.8 % (47.0-73.0); PLATELET COUNT AUTOMATED 238 10*3/uL (130-400); RED BLOOD COUNT 4.24 10*6/uL (4.10-5.10)
[2017-04-12 13:11] LABS: INTERNATIONAL NORM RATIO 0.9 (2.0-3.5)
[2017-04-12 13:17] LABS: ALBUMIN 3.3 gm/dl (3.1-4.5); ALKALINE PHOSPHATASE 144 U/L (45-117); BILIRUBIN, TOTAL 0.2 mg/dl (0.2-1.0); BUN 20 mg/dl (7-24); C-REACTIVE PROTEIN 1.38 MG/DL (0-0.3); CARBON DIOXIDE 24 mmol/L (21-32); CHLORIDE 108 mmol/L (98-107); CPK 33 U/L (26-192); EST GLOM FILT AFRICAN AMERICAN 31 ml/min; GLUCOSE 142 mg/dL (65-99); MAGNESIUM 1.9 mg/dL (1.5-2.1); POTASSIUM 4.5 mmol/L (3.5-5.1); SGOT/AST 29 IU/L (3-35); SGPT/ALT 20 U/L (12-78); SODIUM 139 mmol/L (136-145); TOTAL PROTEIN 7.7 gm/dL (6.4-8.2)
[2017-04-12 13:19] LABS: CKMB < 0.5 ng/ml (0.5-3.6); TROPONIN I < 0.015 ng/ml (<0.045)
[2017-04-12 13:30] LABS: BILIRUBIN NEGATIVE (NEGATIVE); BLOOD NEGATIVE (NEGATIVE); CLARITY SL CLOUDY (CLEAR); COLOR YELLOW (YELLOW); GLUCOSE NEGATIVE (NEGATIVE); KETONE NEGATIVE (NEGATIVE); LEUKO ESTERASE NEGATIVE (NEGATIVE); NITRITE NEGATIVE (NEGATIVE); PROTEIN 1+ (NEGATIVE); UROBILINOGEN 0.2 E.U./dl (0.2-1.0)
[2017-04-12 13:36] VITALS: BP 139/63
[2017-04-12 13:57] LABS: BACTERIA TRACE; URINE REFLEX COMMENT NO (NO)
[2017-04-12 14:44] VITALS: BP 140/66
[2017-04-12 15:32] VITALS: BP 133/65
[2017-04-12 17:31] VITALS: BP 147/51
[2017-04-12] MEDS ORDERED: CARDIZEM60 MG PO (18:29)
[2017-04-12] MEDS ORDERED: OMEPRAZOLE D/R20 MG PO (18:29)
[2017-04-12] MEDS ORDERED: VISTARIL25 MG PO (18:30)
[2017-04-12 20:00] VITALS: BP 120/46; BP 142/60
[2017-04-13] VITALS: BP 138/57
[2017-04-13 06:19] LABS: BASO % 0.8 % (0.0-1.0); EOS # 0.2 10*3/uL (0.0-0.4); EOS % 4.4 % (1.0-4.0); HEMATOCRIT 32.3 % (37.0-47.0); HEMOGLOBIN 10.4 g/dl (12.0-16.0); LYMPH # 1.4 10*3/uL (1.3-4.4); LYMPH % 29.3 % (27.0-41.0); MEAN CELL VOLUME 87.5 fl (81.0-99.0); MEAN CORPUSCULAR HGB 28.2 pg (27.0-31.0); MEAN CORPUSCULAR HGB CONC 32.2 g/dl (33.0-37.0); MEAN PLATELET VOLUME 11.2 fl (9.6-12.3); MONO # 0.6 10*3/uL (0.1-1.0); MONO % 11.4 % (3.0-9.0); NEUT # 2.6 10*3/uL (2.3-7.9); NEUT % 53.7 % (47.0-73.0); PLATELET COUNT AUTOMATED 192 10*3/uL (130-400); RED BLOOD COUNT 3.69 10*6/uL (4.10-5.10); RED CELL DISTRI WIDTH 13.9 % (0-14.5); WHITE BLOOD COUNT 4.8 10*3/uL (4.8-10.8)
[2017-04-13 06:47] LABS: POTASSIUM 4.4 mmol/L (3.5-5.1)
[2017-04-13 08:00] VITALS: BP 124/61
[2017-04-13 12:00] VITALS: BP 138/74
[2017-04-13 16:00] VITALS: BP 126/70
[2017-04-13 20:00] VITALS: BP 126/59
[2017-04-14] VITALS: BP 125/56
[2017-04-14 07:21] LABS: POTASSIUM 4.6 mmol/L (3.5-5.1)
[2017-04-14 08:00] VITALS: BP 154/68
[2017-04-14 12:00] VITALS: BP 148/66
[2017-04-14 16:00] VITALS: BP 138/60
[2017-04-14 20:00] VITALS: BP 120/52
[2017-04-15] VITALS (9 sets, daily range): BP systolic 111–145; BP diastolic 46–68
[2017-04-15 07:30] LABS: POTASSIUM 4.6 mmol/L (3.5-5.1)
[2017-04-16] VITALS: BP 135/60
[2017-04-16 08:00] VITALS: BP 154/64
[2017-04-16 12:00] VITALS: BP 126/60
[2017-04-16 16:00] VITALS: BP 130/54
[2017-04-16 20:00] VITALS: BP 152/64
[2017-04-17] VITALS: BP 150/64
[2017-04-17 08:00] VITALS: BP 152/51
[2017-04-17 12:00] VITALS: BP 151/65
== END 2017-04-17 14:15 | disposition home health service (06) | DRG 74 ==
LOC: ED 12:27 → 5E 16:07 → EDHOLD 16:07 → 5E 16:11
PROVIDERS: Emergency Medicine; Internal Medicine
PROC: 0DJD8ZZ Inspection of Lower Intestinal Tract, Via Natural or Artificial Opening Endoscopic (ICD-10-PCS; principal; 2017-04-15)
DX: E11.43 Type 2 diabetes mellitus with diabetic autonomic (poly)neuropathy (principal); E46 Unspecified protein-calorie malnutrition; J96.10 Chronic respiratory failure, unspecified whether with hypoxia or hypercapnia; I27.82 Chronic pulmonary embolism; E11.22 Type 2 diabetes mellitus with diabetic chronic kidney disease; M35.00 Sjogren syndrome, unspecified; Z99.81 Dependence on supplemental oxygen; K31.84 Gastroparesis; I25.10 Atherosclerotic heart disease of native coronary artery without angina pectoris; N18.3 Chronic kidney disease, stage 3 (moderate); M19.90 Unspecified osteoarthritis, unspecified site; R62.7 Adult failure to thrive; E55.9 Vitamin D deficiency, unspecified; J43.2 Centrilobular emphysema; K57.30 Diverticulosis of large intestine without perforation or abscess without bleeding; R41.81 Age-related cognitive decline; I12.9 Hypertensive chronic kidney disease with stage 1 through stage 4 chronic kidney disease, or unspecified chronic kidney disease; G89.4 Chronic pain syndrome; K21.9 Gastro-esophageal reflux disease without esophagitis; E05.90 Thyrotoxicosis, unspecified without thyrotoxic crisis or storm; Z68.27 Body mass index [BMI] 27.0-27.9, adult; Z86.73 Personal history of transient ischemic attack (TIA), and cerebral infarction without residual deficits; Z86.711 Personal history of pulmonary embolism; Z87.01 Personal history of pneumonia (recurrent); Z90.49 Acquired absence of other specified parts of digestive tract; Z90.722 Acquired absence of ovaries, bilateral; Z90.710 Acquired absence of both cervix and uterus; Z98.51 Tubal ligation status; Z95.5 Presence of coronary angioplasty implant and graft; Z88.1 Allergy status to other antibiotic agents; Z88.2 Allergy status to sulfonamides; Z88.8 Allergy status to other drugs, medicaments and biological substances; Z82.3 Family history of stroke; Z80.0 Family history of malignant neoplasm of digestive organs; Z82.49 Family history of ischemic heart disease and other diseases of the circulatory system; Z83.3 Family history of diabetes mellitus

== ENCOUNTER 2017-05-13 18:28 | Inpatient (IN) | payer MEDICARE, MEDICAID ==
[~2017-05-13] VITALS: Ht 154.9 cm; Wt 69.1 kg
--- NOTE | ~2017-05-13 | PR ---
[place], [place] PROGRESS NOTE NAME: QUINTON HINTON UNIT #: [id number] ROOM: 424 DOCTOR: ERIC DOUGLAS DO BIRTHDATE: [birth year] DOS: 05/16/2017 SUBJECTIVE: The patient was seen and examined today with Dr. Malik. The patient is alert, awake and responsive. The patient denies any cough or sputum production. The patient denies any nausea, vomiting, lightheadedness or dizziness, chest pain or shortness of breath. OBJECTIVE: VITAL SIGNS: Temperature of 97.8, pulse of 84, respiratory rate 18, blood pressure 154/66, pulse ox 97% on room air. HEENT: Age-related changes. NECK: Supple. CARDIOVASCULAR: S1, S2 audible. LUNGS: No wheezing or crackles noted at that time. Breaths are noted, mild decreased bilaterally. ABDOMEN: Soft, nontender, nondistended. EXTREMITIES: Shows no edema. LABORATORY DATA: White cell count of 6.7, hemoglobin of 9. Glucose 205, sodium 140, potassium 4.2, BUN 25, creatinine 1.32. IMPRESSION: 1. Severe acute tracheobronchitis, possible viral infection versus bacterial infection with history of bronchial asthma with acute exacerbation. 2. Abdominal problem remains unclear with only diverticulitis. noted on CT scan of the abdomen. 3. Intermittent atrial fibrillation history. 4. Common variable hypogammaglobulinemia, on IV infusion with gamma globulins as an outpatient. PLAN: 1. Continue DuoNeb, Solu-Medrol 40 daily, azithromycin and ceftriaxone. 2. Viral culture and sputum cultures are pending. 3. Supportive therapy, plan of management and other care and treatment, usual care and plan of management. ERIC DOUGLAS DO [place], [place] PROGRESS NOTE NAME: QUINTON HINTON UNIT #: [id number] ROOM: 424 DOCTOR: ERIC DOUGLAS DO BIRTHDATE: [birth year] CALLUM MALIK MD CM:KHRIS [id number] ERIC DOUGLAS DO 05/16/17 1134 interface
--- NOTE | ~2017-05-13 | PR ---
[place], [place] PROGRESS NOTE NAME: QUINTON HINTON UNIT #: [id number] ROOM: 424 DOCTOR: CALLUM HILL MD BIRTHDATE: [birth year] DOS: 05/16/2017 SUBJECTIVE: The patient was seen today with [id number] encounter independently. Physical examination performed, history was confirmed for this patient. The lab for this patient were personally reviewed as well. Decision changes in the medical management were personally made for the patient at today's visit. The note done by the medical library assistant for the patient was approved. OBJECTIVE: VITAL SIGNS: For the patient shows a normal temperature, respiratory rate 18, heart rate 84, blood pressure 154/66. CHEST: Auscultation of the chest for the patient was noted with mild decreased breath sounds without any wheezing. ABDOMEN: Soft, nontender. EXTREMITIES: Noted without any edema. LABORATORY DATA: CBC today was noted with hemoglobin 9, hematocrit 28.2, WBC count normal, platelet count were normal. BMP: BUN 25, creatinine 1.32. She had a CT scan of the head done this morning as well as ordered by Dr. America Bee. It does not show any acute intracranial pathologies. Small white matter ischemic changes were noted. Sputum culture was ordered for the patient so far has not been available. IMPRESSION: The patient who has been currently noted with acute severe tracheobronchitis; this patient's chest has been noted with cough with only mild improvement. History of uncomplicated severe persistent bronchial asthma, history of common variable hypogammaglobulinemia for this patient as well. PLAN OF TREATMENT: The patient will have continuation of the bronchodilator and the other respiratory management at this time. Continuation of the bronchodilators and the antibiotics. CONDITION changes in treatment to be done based on the progression of the illness. No change of treatment will be made for today's visit. [place], [place] PROGRESS NOTE NAME: QUINTON HINTON UNIT #: [id number] ROOM: 424 DOCTOR: CALLUM HILL MD BIRTHDATE: [birth year] CALLUM MALIK MD CM:PNTRANS [phone] CALLUM PITT MD 05/16/17 2007 interface
--- NOTE | ~2017-05-13 | CON ---
[place], [place] REPORT OF CONSULTATION NAME: QUINTON HINTON UNIT #: [id number] ROOM: 424 DOCTOR: ERIC DOUGLAS DO BIRTHDATE: [birth year] DOS: 05/15/2017 REASON FOR CONSULTATION: Shortness of breath, COPD. CHIEF COMPLAINT: Shortness of breath. HISTORY OF PRESENT ILLNESS: The patient presents from [facility] to the [facility] with chief complaint of shortness of breath, stating that her COPD is causing to feel her short of breath and she has been having stomach pain. The patient states it started on Saturday. She went to [facility] for outpatient care for evaluation about her stomach pain and some blurred vision. She has been feeling very fatigued, complains of nausea without vomiting or diarrhea. The patient denies any chest pain. X-ray done in the ED showed severe constipation. HPI is limited due to the patient's condition. PAST MEDICAL HISTORY: 1. Coronary artery disease. 2. Chronic kidney disease stage 3. 3. Chronic respiratory failure with COPD. 4. GERD. 5. Diabetes type 2. 6. History of transient ischemic attack. 7. Hypothyroidism. 8. Scleroderma. 9. Sjogren's syndrome. PAST SURGICAL HISTORY: 1. Laminectomy. 2. Oophorectomy. 3. Tubal ligation. 4. History of cholecystectomy. 5. Hysterectomy. 6. Left heart catheterization. 7. Rectal surgery. 8. History of small-bowel obstruction. 9. History of appendectomy. SOCIAL HISTORY: The patient does not drink alcohol, drugs or smoke. FAMILY HISTORY: Mother was at age of 80 due to stroke. Father was at age of 76 due to esophageal cancer. ALLERGIES: QUINOLONES, SULFA AND BACTRIM. HOME MEDICATIONS: 1. Tylenol 600 mg p.o. q. 6 hours p.r.n. 2. Eliquis 2.5 mg p.o. b.i.d. 3. Cyclosporine ophthalmic b.i.d. [place], [place] REPORT OF CONSULTATION NAME: QUINTON HINTON UNIT #: [id number] ROOM: 424 DOCTOR: ERIC DOUGLAS DO BIRTHDATE: [birth year] 4. Cardizem 180 mg p.o. daily. 5. Flonase 1 spray nasal daily. 6. Fludrocortisone, Ellipta 1 each inhaled daily. 7. Vistaril 25 mg as needed. 8. Insulin aspart, NovoLog 1 mL subQ a.c. and at bedtime. 9. Claritin 10 mg p.o. daily. 10. Omeprazole 20 mg daily. 11. Percocet 10/325 p.o. q. 12 hour p.r.n. 12. Trazodone 50 mg at bedtime. REVIEW OF SYSTEMS: CONSTITUTIONAL: The patient denies fever, chills, weight gain, weight loss. HEENT: The patient states she was having blurry vision. The patient has denied hearing loss, nasal discharge, mouth swelling, throat pain, throat swelling. CARDIOVASCULAR: The patient denies chest pain, palpitations, lower extremity edema, or diaphoresis. RESPIRATORY: The patient reports shortness of breath, cough, wheezing. Denies hemoptysis, paroxysmal nocturnal dyspnea. The patient denies sputum production. GASTROINTESTINAL: Reports abdominal pain, nausea and constipation. Denies vomiting, diarrhea, melena, hematochezia. GENITOURINARY: Denies dysuria, hematuria, increase or decrease in frequency. NEUROLOGIC: Denies lightheadedness, dizziness. PSYCHIATRIC: Denies depression, anxiety. ENDOCRINE: Denies heat and cold intolerance. SKIN: Denies skin rashes or lesion. PHYSICAL EXAMINATION: VITAL SIGNS: Temperature 97.8, pulse 90, respiratory rate 18, blood pressure of 157/73, pulse ox of 96 on room air. GENERAL APPEARANCE: Awake, alert, responsive, mild distress. HEAD: Normocephalic, atraumatic. EYES: PERRL. No lesion, no icterus. ENT: No scar, no masses. No pharyngeal exudate or erythema. NECK: No lesion, no ulceration. Trachea midline. Thyroid not enlarged. HEART: Regular rate and rhythm. No gallop, no murmur. No edema in the lower extremities. LUNGS: Mild expiratory wheeze. No rhonchi or rales noted. ABDOMEN: Soft, nonspecific tenderness to palpitation, generalized abdominal pain in all 4 quadrants. EXTREMITIES: No cyanosis, no edema. NEUROLOGIC: Grossly intact. No focal neurologic deficits. SKIN: Warm and dry. No lesions, no rashes. LABORATORY DATA: White cell count of 6.2, hemoglobin of 8.7, platelet count of 196. Sodium of 142, BUN of 17, creatinine of 1.32, glucose of 177. MICROBIOLOGY: Viral cultures pending. IMAGING: Chest x-ray done on 05/13/2017 showed small discoid atelectasis in the right mid lung. No consolidation or edema. Abdominal x-rays done on 05/13 as [place], [place] REPORT OF CONSULTATION NAME: QUINTON HINTON UNIT #: [id number] ROOM: Counts include 234 beds at the [facility] DOCTOR: ERIC DOUGLAS DO BIRTHDATE: [birth year] well showed constipation, postoperative changes in the pelvis. No obvious bowel obstruction. on the right atrium. Abdominal pelvis CT done on 05/13 as well showed no new process, uncomplicated colonic diverticulosis. ASSESSMENT AND PLAN: 1. Please refer to Dr. Malik's note for further assessment and plan. 2. Viral and sputum culture have been ordered and Solu-Medrol 40 mg p.o. daily has been started. Thank you for your consult. ERIC DOUGLAS DO CALLUM MALIK MD CM:CONSTR:REPORT OF CONSULTATION 1352 05/15/17 1430 interface
--- NOTE | ~2017-05-13 | CON ---
[place], [place] REPORT OF CONSULTATION NAME: QUINTON HINTON UNIT #: [id number] ROOM: 424 DOCTOR: SNEHA MATA MD BIRTHDATE: [birth year] DOS: 05/15/2017 GASTROENDOSCOPIC REPORT. HISTORY OF PRESENT ILLNESS: An 81-year-old patient who has presented with chief complaint of nonspecific abdominal pain, epigastric distress, tachycardia, she says and has been undergoing investigation. PAST MEDICAL HISTORY: Chronic renal disease, diverticulosis, gastritis, small hiatal hernia, degenerative joint disease, TIA, hyperthyroidism, scleroderma, Sjogren's syndrome. PAST SURGICAL HISTORY: Tubal ligation, cholecystectomy, hysterectomy, small-bowel obstruction and appendectomy. SOCIAL HISTORY: Nonsmoker, nonalcohol consumer. FAMILY HISTORY: Noncontributory. ALLERGIES: QUINOLONES, SULFA, TRIMETHOPRIM. MEDICATIONS: List has been reviewed. She is already on dicyclomine 10 mg q.i.d. REVIEW OF SYSTEMS: No hematemesis, no hematochezia, no shortness of breath, no chest pain. DIGESTIVE SYSTEM: Nausea, epigastric distress, nonspecific abdominal pain. PHYSICAL EXAMINATION: VITAL SIGNS: Stable. HEENT: Head normocephalic, nontraumatic. Mouth and buccal mucosa benign. NECK: Supple, no thyromegaly, no cervical lymphadenopathy. CHEST: Symmetric anatomy, equal expansion. No wheeze. No rhonchi. HEART: Normal sinus rhythm, no gallop, no murmur. ABDOMEN: Soft. No hepato-organomegaly. Slightly obese. Bowel sounds present. No rebound effect. EXTREMITIES: No cyanosis, no pedal edema. NEUROLOGIC: Alert, oriented to time, place, person. IMPRESSION: Diverticulosis, hiatal hernia, gastritis. The patient already has been scoped last month. These are recent findings. CT scan of the abdomen has been reviewed with no acute finding throughout the abdomen except diverticulosis. CBC differential white blood cell was 6, H and H of 8.7 and 27, neutrophils of 84. The patient already on antibiotic. Comprehensive metabolic panel within normal limits. PLAN AND DISCUSSION: Supportive therapy, cardiologic workup for her tachycardia complaint is in progress. Chest x-ray, small discoid atelectasis, otherwise no acute finding. [place], [place] REPORT OF CONSULTATION NAME: QUINTON HINTON UNIT #: [id number] ROOM: 424 DOCTOR: ESPERANZA HARO,SNEHA BIRTHDATE: [birth year] We will be following along. Otherwise other findings as dictated in past medical and surgical history. SNEHA MATA MD CM:CONSTR:REPORT OF CONSULTATION 1313 05/16/17 1530 interface
--- NOTE | ~2017-05-13 | CON ---
[place], [place] REPORT OF CONSULTATION NAME: QUINTON HINTON UNIT #: [id number] ROOM: 424 DOCTOR: CALLUM HILL MD BIRTHDATE: [birth year] DOS: 05/15/2017 The patient was seen and examined personally [id number] encounter on 06/01/2017. History was confirmed for the patient. Physical examination was performed. Labs were reviewed. The assessment, management, and recommendation of treatment changes and others for the patient were personally made for today's visit as well. Note done by the certified medical technician was approved. HISTORY OF PRESENT ILLNESS: A 81-year-old white female who was known to me very well from the past with history of uncomplicated severe persistent bronchial asthma, past history of multiple hospitalizations and other. She is currently a resident of senior living. She has been brought to the hospital and admitted to the hospital 05/13/2017. The patient reported symptoms of shortness breath which has been getting progressively worse. She has been also noted with symptoms of cough that started recently as well. She denies symptoms of chest pain. Denies symptoms of hemoptysis. The patient denies any symptoms of wheezing. She has been currently admitted to the hospital for assessment of current stomach problems, which was described by the patient and for pulmonary status in the hospital. REVIEW OF SYSTEMS: Already done by the certified medical technician. PAST MEDICAL HISTORY: For this patient, kindly refer to my consultation report of the patient on 07/24/2017 for the patient's past history, surgical history, social history, and family history which are all reviewed and essentially remains unchanged. MEDICATIONS: Current medication administered for the patient were recorded as use of IV Solu-Medrol 40 mg q.8h., IV Rocephin, Zithromax, Robitussin with codeine, DuoNeb, Mucinex, Protonix, sliding insulin coverage and other p.r.n. medications administration. DRUG ALLERGIES: HISTORY WAS NOTED ALLERGY TO FLUOROQUINOLONE AND BACTRIM. PHYSICAL EXAMINATION: GENERAL: An 81-year-old female who has been currently noted to be awake and alert without any acute distress at the time of the assessment. Height of 5 feet 1 inch, weight of 152 pounds, BMI 28.8. The patient was noted with severe nonproductive cough at the time of the assessment. VITAL SIGNS: Noted as normal temperature, respiratory rate 20, heart rate 96, blood pressure 115/77 this morning, pulse oxygen saturation of the patient noted on room air 95% saturation. HEENT: Age-related changes. Head was atraumatic. Eyes nonicterus. NECK: Supple. CARDIOVASCULAR: S1, S2 audible. LUNGS: Noted without any significant wheezing or crackles at the present time. Breaths are noted mildly decreased bilaterally. ABDOMEN: Soft, flat, nontender, bowel sounds present. EXTREMITIES: Show no edema, clubbing, cyanosis. CENTRAL NERVOUS SYSTEM: Cranial nerves 2-12 intact. [place], [place] REPORT OF CONSULTATION NAME: QUINTON HINTON UNIT #: [id number] ROOM: 424 DOCTOR: CALLUM HILL MD BIRTHDATE: [birth year] MUSCULOSKELETAL: Does not show any acute deformities. SKIN: Showed no lesions or rashes. LABORATORY DATA: CMP of the patient that was done yesterday noted BUN 19, creatinine 1.58. Remaining CMP normal. CBC yesterday on admission; WBC count 4.2, hemoglobin 9.5, hematocrit 30.3, platelet count of 202,000. CBC of 05/14/2017; WBC count 3.8, hemoglobin 9.8, hematocrit 30.5, platelet count was normal. CMP of this morning; BUN 15, creatinine 1.41, glucose 166. The PT/INR of the patient noted at 1.0 today. CBC of patient that was done this morning of 05/15/2017; hemoglobin 8.7, hematocrit 27.0, platelet count was normal. WBC count normal. BMP of the patient this morning; glucose 177, BUN 17, creatinine 1.32 with chloride of 110. RADIOLOGY DATA: Review for this patient was personally done. The chest x-ray of the patient that was done on admission 05/13/2017 was essentially noted without any acute pulmonary infiltration, congestive heart failure, pleural fluid or any visible pulmonary nodules, or masses. CT scan of the abdomen and pelvis reported by the radiologist's report on 05/13/2017, patient was described as no acute process with uncomplicated colonic diverticulosis. IMPRESSION: 1. The patient who has been currently admitted to the hospital noted with severe acute tracheobronchitis, most likely viral in origin versus atypical infection, bacterial infection with history of bronchial asthma with acute exacerbation. 2. Abdominal problem. The etiology of the patient remains unclear with only diverticulosis noted on CT scan of the abdomen. 3. History of intermittent atrial fibrillation. 4. 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 5. The patient with current hospitalization in the past noted as well. The patient was recommended reduction of the corticosteroids at this time, because improvement in wheezing, Solu-Medrol 40 mg once a day. Ordered the respiratory viral culture for this patient as well to assess any viral etiology. Continuation of other supportive therapy, plan and management. Obtain the sputum for Gram stain and culture. The patient is able to expectorate significant sputum, which could be sent to the lab for further testing. No changes in the current antibiotics. Consider changing antibiotics for any bacterial growth if isolated with the new sputum culture. Supportive therapy, plan of management, other care and treatment. Usual care and plan of management. [place], [place] REPORT OF CONSULTATION NAME: JAMAALQUINTON A UNIT #: [id number] ROOM: 424 DOCTOR: CALLUM HILL MD BIRTHDATE: [birth year] CALLUM MALIK MD CM:CONSTR:REPORT OF CONSULTATION 0 05/16/17 0317 interface
[~2017-05-13 18:28] MED LIST changes: +OMEPRAZOLE D/R20 MG PO; +VISTARIL25 MG PO
[2017-05-13 18:33] VITALS: BP 180/72
--- NOTE | 2017-05-13 18:41 | NUR ---
MEDIPORT ACCESSED USING STERILE PROCEEDURE
--- NOTE | 2017-05-13 19:06 | NUR ---
REPORT FROM RYAN BARRETT AT THIS TIME. LABS DRAWN FROM [facility].
[2017-05-13 19:12] LABS: BASO # 0.1 10*3/uL (0.0-0.1); BASO % 1.2 % (0.0-1.0); EOS # 0.3 10*3/uL (0.0-0.4); EOS % 7.9 % (1.0-4.0); HEMATOCRIT 30.3 % (37.0-47.0); HEMOGLOBIN 9.5 g/dl (12.0-16.0); LYMPH # 1.5 10*3/uL (1.3-4.4); LYMPH % 36.7 % (27.0-41.0); MEAN CELL VOLUME 85.6 fl (81.0-99.0); MEAN CORPUSCULAR HGB 26.8 pg (27.0-31.0); MEAN CORPUSCULAR HGB CONC 31.4 g/dl (33.0-37.0); MEAN PLATELET VOLUME 11.4 fl (9.6-12.3); MONO # 0.6 10*3/uL (0.1-1.0); MONO % 14.5 % (3.0-9.0); NEUT # 1.6 10*3/uL (2.3-7.9); PLATELET COUNT AUTOMATED 202 10*3/uL (130-400); RED BLOOD COUNT 3.54 10*6/uL (4.10-5.10); RED CELL DISTRI WIDTH 13.7 % (0-14.5); WHITE BLOOD COUNT 4.2 10*3/uL (4.8-10.8)
[2017-05-13 19:30] LABS: ALBUMIN 2.8 gm/dl (3.1-4.5); ALKALINE PHOSPHATASE 110 U/L (45-117); BUN 18 mg/dl (7-24); CHLORIDE 108 mmol/L (98-107); CPK 36 U/L (26-192); CREATININE 1.58 mg/dL (0.55-1.02); LDH 173 U/L (84-246); MAGNESIUM 2.2 mg/dL (1.5-2.1); POTASSIUM 4.5 mmol/L (3.5-5.1); SGOT/AST 16 IU/L (3-35); SGPT/ALT 10 U/L (12-78); SODIUM 139 mmol/L (136-145); TOTAL PROTEIN 6.3 gm/dL (6.4-8.2)
[2017-05-13 19:31] LABS: CKMB 0.5 ng/ml (0.5-3.6); TROPONIN I 0.021 ng/ml (<0.045)
[2017-05-13 19:37] LABS: BILIRUBIN NEGATIVE (NEGATIVE); BLOOD NEGATIVE (NEGATIVE); CLARITY CLEAR (CLEAR); COLOR YELLOW (YELLOW); GLUCOSE NEGATIVE (NEGATIVE); KETONE NEGATIVE (NEGATIVE); LEUKO ESTERASE NEGATIVE (NEGATIVE); NITRITE NEGATIVE (NEGATIVE); PH 7.5 (5.0-9.0); UROBILINOGEN 0.2 E.U./dl (0.2-1.0)
[2017-05-13 19:55] LABS: HYALINE CAST 0-2; RBC 0-2 rbc/hpf (0-2)
[2017-05-13 20:17] VITALS: BP 158/62
--- NOTE | 2017-05-13 20:51 | NUR ---
SPOKE WITH NURSE AT [facility] TO INFORM HER OF PATIENT ADMISSION.
[2017-05-13 21:30] VITALS: BP 143/57
--- NOTE | 2017-05-13 21:30 | NUR ---
Time: 2129 A 81 year old FEMALE admitted to under services of JAH SAENZ DO, Pt. arrived via bed from ER. Chief complaint: WEAKNESS, DEHYDRATION. [place]
--- NOTE | 2017-05-13 21:38 | NUR ---
CALLED AND SPOKE TO NURSE AT [facility], THEY ARE GOING TO FAX OVER A LIST OF PT MEDICATIONS
--- NOTE | 2017-05-13 21:45 | NUR ---
DR MATA NOTIFIED OF CONSULT. NEW ORDERS RECEIVED.
[2017-05-13 22:00] VITALS: BP 143/57
--- NOTE | 2017-05-13 22:07 | NUR ---
MEDICATED WITH PRN DULCOLAX ORDERED PER DR. MATA.
--- NOTE | 2017-05-13 23:34 | NUR ---
MEDICATED WITH PRN RESTORIL AND ZOFRAN ORDERED FOR C/O INSOMNIA AND NAUSEA.
[2017-05-13] MEDS ORDERED: TRAZODONE50 MG PO (23:49)
[2017-05-13] MEDS ORDERED: FLONASE ALLERG9.9 ML NAS (23:50)
[2017-05-13] MEDS ORDERED: CLARITIN10 MG PO (23:51)
[2017-05-13] MEDS ORDERED: BREO ELLIPTA 11 EACH INH (23:51)
[2017-05-13] MEDS ORDERED: RESTASIS1 EACH OP (23:52)
[2017-05-13] MEDS ORDERED: DICYCLOMINE HCL10 MG PO (23:53)
[2017-05-13] MEDS ORDERED: SYSTANE 0.3-0.1 EACH OP (23:55)
[2017-05-13] MEDS ORDERED: PERCOCET 10-321 EACH PO (23:56)
--- NOTE | 2017-05-13 23:56 | NUR ---
MED REC UP TO DATE WITH PT LIST FROM [facility]
[2017-05-14] VITALS: BP 125/47
[2017-05-14 05:54] LABS: BASO # 0.1 10*3/uL (0.0-0.1); BASO % 1.7 % (0.0-1.0); EOS # 0.2 10*3/uL (0.0-0.4); EOS % 5.1 % (1.0-4.0); HEMATOCRIT 30.5 % (37.0-47.0); HEMOGLOBIN 9.8 g/dl (12.0-16.0); LYMPH # 0.7 10*3/uL (1.3-4.4); LYMPH % 24.6 % (27.0-41.0); MEAN CELL VOLUME 85.7 fl (81.0-99.0); MEAN CORPUSCULAR HGB 27.5 pg (27.0-31.0); MEAN CORPUSCULAR HGB CONC 32.1 g/dl (33.0-37.0); MONO # 0.1 10*3/uL (0.1-1.0); MONO % 4.7 % (3.0-9.0); NEUT # 1.9 10*3/uL (2.3-7.9); NEUT % 63.6 % (47.0-73.0); PLATELET COUNT AUTOMATED 198 10*3/uL (130-400); RED BLOOD COUNT 3.56 10*6/uL (4.10-5.10); RED CELL DISTRI WIDTH 13.7 % (0-14.5)
[2017-05-14 06:05] LABS: ALBUMIN 2.7 gm/dl (3.1-4.5); CREATININE 1.41 mg/dL (0.55-1.02); PHOSPHOROUS 3.5 mg/dL (2.5-4.9); POTASSIUM 4.6 mmol/L (3.5-5.1); TOTAL PROTEIN 6.4 gm/dL (6.4-8.2)
[2017-05-14 06:10] LABS: THYROID STIM HORMONE (HS) 0.723 uIU/ml (0.358-4.75)
--- NOTE | 2017-05-14 06:46 | NUR ---
PATIENT SLEPT QUIETLY THROUGHOUT SHIFT. NO VOICED COMPLAINTS. CALL LIGHT IN REACH. FLUIDS MAINTAINED PER ORDER.
--- NOTE | 2017-05-14 07:30 | NUR ---
LITERATURE TEACHER VS. SLEEPING. COMES [facility]. WILL CHECK WITH JUAN F FOR RETURN NEEDS.
[2017-05-14 08:00] VITALS: BP 132/59
--- NOTE | 2017-05-14 08:00 | NUR ---
IN BED AWAKE ALERT AND ORIENTED X3, PT STATES SHE IS STILL HAVING ABD PAIN OF 5/10 AND HAS NOT YET MOVED HER BOWELS. PT HAS NOT DRANK HER MIRILAX YET THAT WAS ORDERED BY DR MATA. AFTER MUCH ENCOURAGEMENT PT STARTED DRINKING IT. WILL CONT TO MONITOR. SEE ASSESS. CALL LIGHT IN REACH.
--- NOTE | 2017-05-14 09:12 | NUR ---
PHYSICAL THERAPY PAtient bathing at this time. Thank you fopr this referral. Jessica Saul,PT
[2017-05-14 11:11] LABS: VITAMIN D, 25-HYDROXY 52.6 ng/mL (30-100)
--- NOTE | 2017-05-14 11:12 | NUR ---
TYLENOL GIVEN FOR C/O HEADACHE AT THIS TIME. WILL CONT TO MONITOR.
--- NOTE | 2017-05-14 11:17 | NUR ---
PHYSICAL THERAPY PAtient evaluated on 4, full evaluation to follow. Continue with PT as per plan of care with fall and acute debiloty precautions. Patient is moderate complexity via chart review, tests and evaluation: 85226. Patient will require return to SNF for impaired mobility in order to return to home at 100 % (i) PLOF. Thank you for this referral. Jessica Saul,PT
[2017-05-14 12:00] VITALS: BP 151/72
--- NOTE | 2017-05-14 12:12 | NUR ---
TYLENOL EFF FOR HEADACHE. WILL CONT TO MONITOR
--- NOTE | 2017-05-14 12:29 | NUR ---
PHYSICAL THERAPY Mrs Espinoza seen this PM 1:1 for her therapy gait. Pt was up in her bedside chair. Transfer sit/stand and up on her second try with MOD A X 1, standing balance with wheeled walker MIN/MOD A X 1. Followed by gait 50' X 2, with one sitting rest wheeled walker and MOD ACCOUNTS PAYABLE CLERK X 1, with cueing for gait, walker, turn safety. Pt having fall, acute debility precautions with verbal cueing helping. Pt back up in her bedside chair call light and phone treatment time 24 min. RALPH HOLLINGSWORTH WASHER OFF.
--- NOTE | 2017-05-14 13:20 | NUR ---
OFFICE STAFF WAS NOTIFIED OF DR. HELENA CUEVAS. RESPONSE OF NOTIFICATION WAS OK HE WILL CALL YOU BACK. JUN WYNNE
[2017-05-14 16:00] VITALS: BP 127/72
--- NOTE | 2017-05-14 17:39 | NUR ---
PT HAD SMALL BM TODAY AFTER MIRILAX.
[2017-05-14 20:00] VITALS: BP 115/60
--- NOTE | 2017-05-14 20:09 | NUR ---
PATIENT RESTING QUIETLY IN BED. C/O CHEST PAIN FROM COUGHING SO MUCH, NAUSEA AND STOMACH PAIN RATED A 5. SHE IS PLEASANT/COOPERATIVE WITH CARE. RESPIRATIONS EASY/REGULAR. FLUIDS MAINTAINED PER ORDER. CALL LIGHT IS IN REACH.
--- NOTE | 2017-05-14 22:00 | NUR ---
PATIENT MEDICATED WITH PRN RESTORIL AND ROBITUSSIN ORDERED FOR C/O INSOMNIA AND A HARSH COUGH NOTED UPON ASSESSMENT
[2017-05-15] VITALS: BP 139/67
[2017-05-15 06:29] LABS: BASO % 0.2 % (0.0-1.0); HEMOGLOBIN 8.7 g/dl (12.0-16.0); LYMPH # 0.7 10*3/uL (1.3-4.4); LYMPH % 10.8 % (27.0-41.0); MEAN CORPUSCULAR HGB 27.7 pg (27.0-31.0); MEAN CORPUSCULAR HGB CONC 32.2 g/dl (33.0-37.0); MEAN PLATELET VOLUME 11.1 fl (9.6-12.3); MONO # 0.2 10*3/uL (0.1-1.0); MONO % 3.7 % (3.0-9.0); NEUT # 5.3 10*3/uL (2.3-7.9); NEUT % 84.8 % (47.0-73.0); PLATELET COUNT AUTOMATED 196 10*3/uL (130-400); RED BLOOD COUNT 3.14 10*6/uL (4.10-5.10); RED CELL DISTRI WIDTH 13.9 % (0-14.5); WHITE BLOOD COUNT 6.2 10*3/uL (4.8-10.8)
[2017-05-15 07:06] LABS: CREATININE 1.32 mg/dL (0.55-1.02); MAGNESIUM 2.8 mg/dL (1.5-2.1); PHOSPHOROUS 3.3 mg/dL (2.5-4.9); POTASSIUM 4.5 mmol/L (3.5-5.1)
--- NOTE | 2017-05-15 07:28 | NUR ---
PATIENT ESTABLISHED WITH DR. CARRANZA. PATIENT REQUESTS DR. CARRANZA TO READ HER ECHO.
[2017-05-15 08:00] VITALS: BP 159/77
--- NOTE | 2017-05-15 08:29 | NUR ---
PT AWAKE ALERT AND ORIENTED X3, STILL HAVING ABD TENDERNESS WHEN PALPATED TO ENTIRE ABD, SOFT, HYPERACTIVE BSX3, HAD 2 YELLOW WATERY BM THIS AM. NO S/S OF DISTRESS. WILL CONT TO MONITOR. CALL LIGHT IN REACH. SEE ASSESS.
--- NOTE | 2017-05-15 11:56 | NUR ---
PHYSICAL THERAPY Pt seen this AM 1:1 for her therapy gait. Transfer supine/sit MOD A X 1, sitting balance CG to supervision X 1, X 6 min with no LOB. Sit/stand and standing balance with MOD TRACK LAMINATING MACHINE TENDER X 1, Pt has IV Pole. Then gait 60' X 2, MOD TRACK LAMINATING MACHINE TENDER X 1, with verbal cueing for gait balance, turn safety and one sitting rest with this. Pt's sit to stand improving, Pt up in her bedside chair, call light and phone. RALPH HOLLINGSWORTH TIP PRINTER.
[2017-05-15 12:00] VITALS: BP 157/73
--- NOTE | 2017-05-15 13:39 | NUR ---
PHYSICAL THERAPY CO-SIGN I approve of the Phyical Therapy notes written above. ANABELLE REAL PT
--- NOTE | 2017-05-15 13:57 | NUR ---
DR MATA IN TO SEE PT.
[2017-05-15 16:00] VITALS: BP 146/67
[2017-05-15 20:00] VITALS: BP 153/67
[2017-05-16] VITALS: BP 146/66
--- NOTE | 2017-05-16 02:30 | NUR ---
24 HR chart check completed.
[2017-05-16 06:51] LABS: LYMPH % 15.2 % (27.0-41.0); MEAN CELL VOLUME 86.7 fl (81.0-99.0); MEAN CORPUSCULAR HGB 27.9 pg (27.0-31.0); MEAN CORPUSCULAR HGB CONC 32.1 g/dl (33.0-37.0); MEAN PLATELET VOLUME 11.5 fl (9.6-12.3); MONO # 0.6 10*3/uL (0.1-1.0); MONO % 8.4 % (3.0-9.0); NEUT # 5.1 10*3/uL (2.3-7.9); NEUT % 75.8 % (47.0-73.0); PLATELET COUNT AUTOMATED 205 10*3/uL (130-400); RED BLOOD COUNT 3.23 10*6/uL (4.10-5.10); WHITE BLOOD COUNT 6.7 10*3/uL (4.8-10.8)
[2017-05-16 07:27] LABS: CREATININE 1.32 mg/dL (0.55-1.02); POTASSIUM 4.2 mmol/L (3.5-5.1)
[2017-05-16 08:00] VITALS: BP 154/66
--- NOTE | 2017-05-16 09:21 | NUR ---
PHYSICAL THERAPY Pt seen this AM 1:1 for her therapy gait, Pt was up in her bedside chair. I went over with Arti about her yesterday gait, but she didnot remember any of that. Transfer sit/stand, standing balance MOD A X 1. Followed by gait 60' X 2, with MOD DIRECTOR CLINICAL PHARMACOLOGY X 1, with one sitting rest with this and just not as strong as yesterday. Pt needing verbal cueing for gait safety and her turns at this time, Pt up in her bedside chair, call light and phone Pt needing to rest. RALPH HOLLINGSWORTH LOCAL HAZMAT DRIVER.
[2017-05-16 12:00] VITALS: BP 146/78
[2017-05-16] MEDS ORDERED: PREDNISONE10 MG PO (13:00)
[2017-05-16] MEDS ORDERED: PERCOCET 10-321 EACH PO (13:00)
[2017-05-16] MEDS ORDERED: DOXYCYCLINE100 M3 PO (13:00)
--- NOTE | 2017-05-16 14:54 | NUR ---
Patient is being discharged to [facility], transportation scheduled for 3:30 pm with [facility]. NH, nursing and family notified.
--- NOTE | 2017-05-16 15:47 | NUR ---
msdis Discharge instructions reviewed with patient/family. Patient receptive and verbalizes understanding. Follow-up care arranged. Written instructions given to patient/family. CHAGO TIAN
--- NOTE | 2017-05-17 07:47 | NUR ---
PHYSICAL THERAPY CO-SIGN I approve of the Phyical Therapy notes written above. ANABELLE REAL PT
== END 2017-05-16 15:47 | disposition other institution (70) | DRG 391 ==
LOC: ED 18:28 → 4E 21:04 → EDHOLD 21:04 → 4E 21:08
PROVIDERS: Hospitalist; Physician Assistant; Student in an Organized Health Care Education/Training Program; ADMIT Internal Medicine
DX: K59.00 Constipation, unspecified (principal); J18.9 Pneumonia, unspecified organism; I27.0 Primary pulmonary hypertension; J96.10 Chronic respiratory failure, unspecified whether with hypoxia or hypercapnia; E44.0 Moderate protein-calorie malnutrition; J44.0 Chronic obstructive pulmonary disease with (acute) lower respiratory infection; D80.1 Nonfamilial hypogammaglobulinemia; I27.82 Chronic pulmonary embolism; J44.1 Chronic obstructive pulmonary disease with (acute) exacerbation; E11.22 Type 2 diabetes mellitus with diabetic chronic kidney disease; N18.3 Chronic kidney disease, stage 3 (moderate); K57.30 Diverticulosis of large intestine without perforation or abscess without bleeding; E86.0 Dehydration; M34.9 Systemic sclerosis, unspecified; M35.00 Sjogren syndrome, unspecified; I25.10 Atherosclerotic heart disease of native coronary artery without angina pectoris; M15.0 Primary generalized (osteo)arthritis; K44.9 Diaphragmatic hernia without obstruction or gangrene; E05.90 Thyrotoxicosis, unspecified without thyrotoxic crisis or storm; K21.9 Gastro-esophageal reflux disease without esophagitis; J45.50 Severe persistent asthma, uncomplicated; J20.9 Acute bronchitis, unspecified; I48.91 Unspecified atrial fibrillation; K29.70 Gastritis, unspecified, without bleeding; E03.9 Hypothyroidism, unspecified; Z88.2 Allergy status to sulfonamides; Z88.8 Allergy status to other drugs, medicaments and biological substances; Z79.4 Long term (current) use of insulin; Z79.899 Other long term (current) drug therapy; Z87.01 Personal history of pneumonia (recurrent); Z90.49 Acquired absence of other specified parts of digestive tract; Z90.710 Acquired absence of both cervix and uterus; Z98.51 Tubal ligation status; Z82.3 Family history of stroke; Z80.0 Family history of malignant neoplasm of digestive organs; Z82.49 Family history of ischemic heart disease and other diseases of the circulatory system; Z83.3 Family history of diabetes mellitus; Z86.73 Personal history of transient ischemic attack (TIA), and cerebral infarction without residual deficits; Z90.89 Acquired absence of other organs; Z68.28 Body mass index [BMI] 28.0-28.9, adult

== ENCOUNTER → 2017-06-05 | Outpatient (CLI) | payer MEDICARE, MEDICAID ==
[~2017-06-05] MED LIST changes: +BREO ELLIPTA 11 EACH INH; +DICYCLOMINE HCL10 MG PO; +FLONASE ALLERG9.9 ML NAS; +PERCOCET 10-321 EACH PO; +RESTASIS1 EACH OP; +SYSTANE 0.3-0.1 EACH OP
[2017-06-05 15:50] LABS: HEMOGLOBIN 9.5 g/dl (12.0-16.0); MEAN CELL VOLUME 84.7 fl (81.0-99.0); MEAN CORPUSCULAR HGB 26.8 pg (27.0-31.0); MEAN CORPUSCULAR HGB CONC 31.7 g/dl (33.0-37.0); RED BLOOD COUNT 3.54 10*6/uL (4.10-5.10); RED CELL DISTRI WIDTH 14.8 % (0-14.5); WHITE BLOOD COUNT 8.3 10*3/uL (4.8-10.8)
[2017-06-05 16:50] LABS: VITAMIN D, 25-HYDROXY 36.3 ng/mL (30-100)
== END | disposition home or self-care (01) ==
LOC: LAB 15:27
PROVIDERS: Family Medicine
DX: N18.3 Chronic kidney disease, stage 3 (moderate) (principal); D64.9 Anemia, unspecified; R53.83 Other fatigue

== ENCOUNTER 2017-09-21 06:38 | Inpatient (IN) | payer MEDICARE, MEDICAID ==
[~2017-09-21] VITALS: Ht 154.9 cm; Wt 65.6 kg
--- NOTE | ~2017-09-21 | PR ---
[place], [place] PROGRESS NOTE NAME: QUINTON HINTON UNIT #: [id number] ROOM: 503 DOCTOR: WILLIAMS HERNANDEZ DO BIRTHDATE: [birth year] DOS: 09/26/2017 SUBJECTIVE: The patient is seen and examined before the bronchoscopy this morning. The patient has continued shortness of breath with cough and wheezing. No new complaints at this time. OBJECTIVE: VITAL SIGNS: Temperature 96.8, pulse is 111, respirations 20, blood pressure 134/50, pulse ox is 94% on room air. LABORATORY DATA: Acid fast staining remains pending. Sputum culture shows light yeast. Blood cultures main negative. Bronchial washing is pending. GENERAL APPEARANCE: The patient is alert, awake and oriented x 3, in no acute distress. HEENT: Eyes are clear. No injection. Nares are patent. Mucous membranes are moist. NECK: Supple, nontender. CARDIOVASCULAR: Regular rate and rhythm. No murmurs, gallops or rubs. PULMONARY: Mild expiratory wheezing with some rhonchi. No crackles. ABDOMEN: Soft, nontender with positive bowel sounds. PERIPHERY: No peripheral edema, erythema, clubbing or cyanosis. NEUROLOGIC: Negative for focal deficits. IMPRESSION: 1. Ongoing severe bronchial asthma. 2. Acute tracheobronchitis. 3. Nonproductive cough with mucus impaction. 4. 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 PLAN OF CARE: The patient was bronched this morning, washing cultures were sent. We will monitor the patient. There is expected moderate improvement in respiratory status tomorrow upon followup, continue with current respiratory therapy including anticoagulation, antibiotics, bronchodilators, steroids. No changes at this time. WILLIAMS HERNANDEZ DO [place], [place] PROGRESS NOTE NAME: QUINTON HINTON UNIT #: [id number] ROOM: 503 DOCTOR: WILLIAMS HERNANDEZ DO BIRTHDATE: [birth year] CALLUM MALIK MD CM:KHRIS Matthews: 09/26/17 [id number] [id number] WILLIAMS HERNANDEZ DO 09/26/17 1440 interface
--- NOTE | ~2017-09-21 | PROC NOTE ---
[place], [place] PROCEDURE NOTE NAME: QUINTON HINTON UNIT #: [id number] ROOM: 503 DOCTOR: HELENA PITT MD,CALLUM BIRTHDATE: [birth year] DOS: 09/26/2017 PROCEDURE: Bronchoscopy. PREOPERATIVE DIAGNOSES: Persistent severe episode of cough, wheezing with maximum medical therapy with bronchial asthma, suspected mucous impaction major airway. POSTOPERATIVE DIAGNOSES: Persistent severe episode of cough, wheezing with maximum medical therapy with bronchial asthma, suspected mucous impaction major airway. PROCEDURE DESCRIPTION: Informed consent obtained for the patient. The patient was brought to the OR. The patient was placed in supine position. Conscious sedation was administered by the Anesthesia Department. After achieving proper sedation, airway introduced into the mouth. Bronchoscope advanced to the airway into laryngeal area. Epiglottis and vocal cord seen. Vocal were moving symmetrically with movements, yellowish in color. Bronchoscope advanced to vocal cord and tracheal lumen. Tracheal lumen was noted with ieox-[id number] amount of thick mucus secretion suctioned out to the yvonne level. Yvonne noted sharp. Right upper, right middle, right lower, left upper, lingula, lower lobe bronchi were all examined. Moderate impaction of the mucus plug of the patient noted cleared out with normal saline wash, sent for cultures. Procedure well tolerated without any complication. Postoperative finding will be discussed with the patient once the patient recovers the effects of acute sedation. CALLUM MALIK MD CM:PROCNOTE:PROCEDURE NOTE [id number] CALLUM PITT MD
--- NOTE | ~2017-09-21 | PR ---
[place], [place] PROGRESS NOTE NAME: QUINTON HINTON UNIT #: [id number] ROOM: 503 DOCTOR: CALLUM HILL MD BIRTHDATE: [birth year] DOS: 09/26/2017 SUBJECTIVE: The patient was independently seen and examined with [id number]-ci-[id number] encounter today. History was confirmed. Examination performed. The note done by the rn medical surgical was approved as well. Assessment and management of the patient today note were personally completed. The patient remains n.p.o. past midnight. Bronchoscopy scheduled today. Coughing remains the same. The patient episodic without sputum expectoration with wheezing and shortness of breath. Denies symptoms of chest pain or hemoptysis. Denies edema or pain of extremities. Denies symptoms of nausea, vomiting, diarrhea or any abdominal pain. OBJECTIVE: VITAL SIGNS: Recorded temperature noted as normal, respiratory rate 18-20, heart rate of 70-111, blood pressure 128/67. Pulse oxygen saturation of the patient room air was 94% saturation. HEENT: Examination shows head was atraumatic. Eyes nonicterus. NECK: Supple. CARDIOVASCULAR: S1, S2 audible. LUNGS: The patient noted with moderate reduction in the breath sounds bilaterally. Dovw-nb-rzzqzgoq expiratory wheezing bilaterally. ABDOMEN: Flat, soft, nontender. EXTREMITIES: Without any acute edema, loss of muscle mass. MUSCULOSKELETAL: No deformities. NEUROLOGICAL: Cranial nerves are intact. LABORATORY DATA: There were no new labs done for patient in the last 24 hours. IMPRESSION: Persistent cough, acute tracheobronchitis, suspected mucus impaction, acute exacerbation of bronchial asthma, chronic anticoagulation remains on hold for the patient at this time for the bronchoscopy that needs to be done today. PLAN OF TREATMENT: No changes in the pulmonary management at this time. The bronchoscopy done. After bronchoscopy if any modification treatment if necessary will be ordered after that. All other previous plan of therapy of care to be continued as previously. Usual care with all other treatment as well. Supportive care. [place], [place] PROGRESS NOTE NAME: QUINTON HINTON UNIT #: [id number] ROOM: 503 DOCTOR: CALLUM HILL MD BIRTHDATE: [birth year] CALLUM MALIK MD CM:PNTRANS [phone] CALLUM PITT MD 09/27/17 0323 interface
--- NOTE | ~2017-09-21 | CON ---
[place], [place] REPORT OF CONSULTATION [id number] UNIT #: [id number] ROOM: 503 DOCTOR: CALLUM HILL MD BIRTHDATE: [birth year] DOS: 09/24/2017 PULMONARY CONSULTATION, EVALUATION, AND MANAGEMENT CONSULTATION REQUESTED BY. Hospitalist Services. REASON FOR CONSULTATION: Consultation was asked for the patient for assessment of current ongoing respiratory symptoms, shortness breath, cough, and others. HISTORY OF PRESENT ILLNESS: This is an 82-year-old white female known to me with history of uncomplicated, severe persistent bronchial asthma, previous frequent hospitalization, and common variable hypogammaglobulinemia. The patient has been admitted to the hospital under the hospitalist services on 09/21/2017. The patient reported symptoms of gradual increase of shortness of breath ongoing for about a week or so. The symptoms have been noted gradually worsened, associated with nonspecific pain across the chest. The pain was described [id number] at times. Later on, the patient reported pain in the chest wall of the patient on the right side. The patient had been noted coughing without any sputum expectoration. Wheezing has been noted worsened. The patient denies symptoms of hemoptysis. Chest x-ray was ordered for the patient, as the patient was seen by the primary care physician, Dr. Longo, and she was sent to the hospital for further assessment. The patient has been currently admitted to the hospital and treated for acute exacerbation of bronchial asthma, also noted with tachycardia on admission. REVIEW OF SYSTEMS: CONSTITUTIONAL: She does complain of some symptoms of fatigue and tiredness. Denies symptoms of fever or chills. EYES: Denies any burning, redness, or tenderness. EARS, NOSE, AND THROAT: Denies sore throat, hoarseness, otalgia, postnasal drainage, or epistaxis. CARDIOVASCULAR: Denies anginal pain, edema, or pain of the lower extremities. GASTROINTESTINAL: The patient noted intermittent nausea at times, which is noted in the past as well. There were symptoms of vomiting. There was no abnormal weight loss or dysphagia. GENITOURINARY SYMPTOMS: Dysuria, suprapubic pain, or hematuria. MUSCULOSKELETAL: Denies acute joint pain, redness, or tenderness. SKIN: Denies any lesions or rashes. Bruising of the skin noted medication-related in the past intermittently and dryness of the skin. CENTRAL NERVOUS SYSTEM: Denies dizziness, headache, diplopia, or syncopal episodes. Remaining systems were reviewed with the patient. They were noted all negative. PAST MEDICAL HISTORY: 1. Uncomplicated severe persistent bronchial asthma. 2. Common variable hypogammaglobulinemia treated with intravenous gamma globulin infusion by Dr. Diaz. 3. Past history of pulmonary embolism or thromboembolic disease, on anticoagulation with Coumadin. 4. Type 2 diabetes mellitus. [place], [place] REPORT OF CONSULTATION NAME: QUINTON HINTON UNIT #: [id number] ROOM: [facility] DOCTOR: HELENA PITT MD,[facility] BIRTHDATE: [birth year] 5. Chronic kidney disease, stage 3. 6. Coronary artery disease. 7. Essential hypertension. 8. Frequent hospitalization from the past as well. 9. Allergic rhinitis. PAST SURGICAL HISTORY: 1. Lower back surgery. 2. Appendectomy. 3. Hysterectomy. 4. Cholecystectomy. 5. Therapeutic bronchoscopies. SOCIAL HISTORY: The patient lives at home, has 2 children. Denies any history of tobacco, alcohol, illicit drug use, or any occupation-related pulmonary exposure. FAMILY HISTORY: Unknown. MEDICATIONS: Current administered medications on this admission noted as use of ____, Xarelto 15 mg, Brintellix, Trintellix, Cardizem, Remeron, hydroxyzine, ferrous sulfate, loratadine, Flonase, sliding insulin coverage, omeprazole, dicyclomine, Solu-Medrol 40 mg q.8 hours, Rocephin, azithromycin, IV Lasix 20 mg daily, and other p.r.n. medications administered. DRUG ALLERGY HISTORY: Noted allergy to 1. SULFA DRUG. 2. FLUOROQUINOLONES. 3. BACTRIM. PHYSICAL EXAMINATION: GENERAL: An 82-year-old female who has been currently noted awake and alert without any distress. VITAL SIGNS: Height of 5 feet 1 inch, weight of 144 pounds, BMI 27.3. Vital signs are normal temperature, respirations 18-20, heart rate 60-86, 111 heart rate noted on admission, which is currently noted as normal heart rate, and blood pressure 138/60-129/65. Pulse oxygen saturation noted on room air 98% saturation. HEENT: Age-related changes. Head was atraumatic. Eyes nonicterus. Oral mucosa moist. NECK: Supple. CARDIOVASCULAR: S1, S2 audible. LUNGS: Noted with moderate decreased breath sounds, scattered expiratory wheezing without any crackles. ABDOMEN: Flat, soft, and nontender without tenderness. Bowel sounds present. EXTREMITIES: No edema, clubbing, or cyanosis. CENTRAL NERVOUS SYSTEM: Cranial nerves 2-12 intact. No focal deficit. VISIBLE SKIN: Scattered area of bruising of the patient medication-related without any abnormal rashes or lesions. MUSCULOSKELETAL: Without any acute deformities seen. [place], [place] REPORT OF CONSULTATION NAME: QUINTON HINTON UNIT #: [id number] ROOM: 503 DOCTOR: HELENA PITT MD,[facility] BIRTHDATE: [birth year] LABORATORY DATA: Troponins of the patient, which were noted on admission from the normal. CBC 09/21/2017 admission, mild anemia, hemoglobin 11.2, otherwise normal. CMP of the patient of 09/21/2017, BUN 17, creatinine 1.68. Albumin 2.7 at that time. The BMP of the patient of 09/23/2017, BUN 33, creatinine 1.78, glucose 270, and magnesium 2.4. Blood culture from the 09/21/2017 two sets for the patient, no bacterial growth. CBC on 09/23/2017, hemoglobin 11.4, otherwise CBC remains the same. The culture of the sputum of the patient was noted as light growth of yeast. Final results from 09/22/2017 reported today. Chest radiograph of this patient, which was done for the patient on admission were reviewed. The chest x-ray of the patient that was done, 2-view of the patient on 09/21/2017 for the patient was noted with chronic basilar area of scarring, more marked on the left than the right side as assessed. Chest x-ray of the patient, which was done for the patient on 09/22/2017 was noted without any acute pulmonary infiltration or new findings, previous changes remains unchanged. Weekly scan was done for the patient on 09/22/2017 for the patient, which has been completed and reviewed shows low probability for acute pulmonary embolism. The patient has an echocardiogram on 09/23/2017 of the patient was also reviewed and dictated by Dr. Corbin grade 1 diastolic dysfunction with normal left ventricular ejection fraction 65%. IMPRESSION: 1. The patient who has been currently admitted to the hospital. The patient responded to treatment slowly for the acute exacerbation of bronchial asthma and acute bronchitis. The patient has been noted with gradual reduction of cough and wheezing as well as the shortness of breath. 2. Tachycardia of the patient related to exacerbation of bronchial asthma has improved progressively. 3. Steroid-induced hyperglycemia. 4. Chronic kidney disease, mild worsening of kidney function related to use of the corticosteroids. PLAN OF MANAGEMENT: Continuation of bronchodilators and antibiotics. Mucolytics of the patient will be continued. Reduce the dose of Solu-Medrol that will result in improvement in the kidney function of the patient as well as improvement in the hyperglycemia. Continue chronic anticoagulation, long-term anticoagulation with Xarelto for the patient for chronic thromboembolic disease, hypergammaglobulinemia has been already treated by Dr. Diaz with the intravenous infusions moderate reduction of the hospitalization of the patient and recurrent pulmonary infections. Monitor kidney functions and other treatment plan. Usual care. Continue treatment of the hyperglycemia with sliding scale insulin coverage as well. Supportive care. Thanks for allowing me to participate in the care of this patient. [place], [place] REPORT OF CONSULTATION NAME: QUINTON HINTON UNIT #: [id number] ROOM: [facility] DOCTOR: CALLUM HILL MD BIRTHDATE: [birth year] CALLUM MALIK MD CM:CONSTR:REPORT OF CONSULTATION 1934 09/25/17 0555 interface
--- NOTE | ~2017-09-21 | EKG ---
[place], [place] ELECTROCARDIOGRAM REPORT NAME: QUINTON HINTON UNIT #: [id number] ROOM: [facility] DOCTOR: HELENA PITT MD,[facility] BIRTHDATE: [birth year] DOS: 09/21/2017 TIME SEEN: 7:03 a.m. Electrocardiogram shows normal sinus rhythm with the heart rate of 81 beats per minute. No electrocardiogram abnormalities were noted. CALLUM MALIK MD CM:EKGRPT:ELECTROCARDIOGRAM REPORT 1751 1807 CALLUM PITT MD
--- NOTE | ~2017-09-21 | EKG ---
[place], [place] ELECTROCARDIOGRAM REPORT NAME: QUINTON HINTON UNIT #: [id number] ROOM: [facility] DOCTOR: HELENA PITT MD,[facility] BIRTHDATE: [birth year] DOS: 09/21/2017 The electrocardiogram done on 09/21/2017 at 10:32 a.m. Normal sinus rhythm were noted with heart rate of 78 beats per minute. CALLUM MALIK MD CM:EKGRPT:ELECTROCARDIOGRAM REPORT 1751 1813 CALLUM PITT MD
--- NOTE | ~2017-09-21 | PR ---
[place], [place] PROGRESS NOTE NAME[id number] UNIT #: [id number] ROOM: 503 DOCTOR: HELENA PITT MDCALLUM BIRTHDATE: [birth year] DOS: 09/25/2017 SUBJECTIVE: The patient was independently seen and examined in [id number] encounter, history was confirmed. Physical examination was performed as well. Note done by the special forces medical sergeant for the patient was approved as well. Assessment and management for today's note was personally completed. The patient was noted persistent cough with minimal sputum expectoration with chest congestion. Denies symptoms of nausea, vomiting. Denies any abdominal pain, edema, pain of the lower extremities. She was continued on anticoagulation as a treatment as well. She was continued on the corticosteroids, bronchodilators; corticosteroids of 40 mg q. 8 hours. The patient stated that she would like to get the bronchoscopy done because of the current coughing, wanted to get over with the cough. OBJECTIVE: VITAL SIGNS: For the patient, which has been recorded shows normal temperature, respiratory rate of 18, heart rate of 80, blood pressure 148/64. The pulse oxygen saturation on room air was 98% saturation recorded. HEENT: Examination shows no acute change. Head was atraumatic. NECK: Supple. CARDIOVASCULAR: S1, S2 audible. LUNGS: Moderate decreased breath sounds with scattered expiratory wheezing. ABDOMEN: Flat, soft, nontender. EXTREMITIES: Without any edema. SKIN: No new changes, also some lesions from previously. CENTRAL NERVOUS SYSTEM: Intact. LABORATORY DATA: Culture of the sputum; spontaneous sputum were noted as light growth of yeast. No other additional lab for the patient done today. IMPRESSION: The patient with ongoing severe bronchial asthma. The patient with acute tracheobronchitis, nonproductive cough with mucus impaction, major airways. Chronic anticoagulation, and history of thromboembolic disease as well. PLAN OF MANAGEMENT: The patient certainly will be considered therapeutic bronchoscopy and was planned to be done tomorrow morning. The risks and benefits of procedure have been discussed. She was agreeable for the procedure. Xarelto, which is anticoagulant taken by the patient will be placed on hold for the next 24 hours until the completion of fibrobronchoscopy uneventfully. Other supportive therapy, plan of management and other care. Usual treatment. [place], [place] PROGRESS NOTE NAME: QUINTON HINTON UNIT #: [id number] ROOM: [facility] DOCTOR: CALLUM HILL MD BIRTHDATE: [birth year] CALLUM MALIK MD CM:KHRIS [id number] 1 CALLUM PITT MD 09/26/172 interface
--- NOTE | ~2017-09-21 | PR ---
[place], [place] PROGRESS NOTE NAME: QUINTON HINTON UNIT #: [id number] ROOM: 503 DOCTOR: HELENA PITT MD,[facility] BIRTHDATE: [birth year] DOS: 09/27/2017 PULMONARY ADDENDUM NOTE SUBJECTIVE: The patient was noted comfortable at this time, reduction in symptoms of cough after bronchoscopy that was done yesterday, preliminary culture noted as yeast. She was independently seen and examined with [id number] encounter. History was confirmed. Physical examination performed. All the available labs were reviewed. The assessment of management personally completed for the patient. Note done by the emergency medical services coordinator was approved. She has been currently comfortably resting on the bed without any distress. OBJECTIVE: VITAL SIGNS: Reviewed were noted as normal blood pressure and other vital signs. The pulse oxygen saturation was noted for the patient normal as well with current supplementation of oxygen. LUNGS: There were no wheezing or crackles at the present time. ABDOMEN: Soft, flat, nontender. EXTREMITIES: Without any acute edema. LABORATORY DATA: Culture of the bronchial washing: Light growth of yeast. Final culture results are pending. IMPRESSION AND PLAN: Resolving acute tracheobronchitis with exacerbation of bronchial asthma, improvement in the cough post-bronchoscopy, could be considered for home discharge by the primary care attending. CALLUM MALIK MD CM:PNTRANS [phone] CALLUM PITT MD 09/28/17 0122 interface
--- NOTE | ~2017-09-21 | PR ---
[place], [place] PROGRESS NOTE NAME: QUINTON HINTON UNIT #: [id number] ROOM: 503 DOCTOR: WILLIAMS HERNANDEZ DO BIRTHDATE: [birth year] DOS: 09/27/2017 SUBJECTIVE: The patient is seen and examined at bedside. The patient was lying in bed, in no acute distress. The patient reports that she feels significant improvement today compared to yesterday following the bronchoscopy. The patient reported that yesterday she did have some productive cough and shortness of breath; however, those symptoms have resolved this morning and she feels like she is back to her baseline. No new complaints. The patient denies chest pain, shortness of breath, wheezing and sputum production at this time. OBJECTIVE: VITAL SIGNS: Temperature 97.9, pulse is 106, respirations 20, blood pressure 146/84, pulse ox 99% on room air. LABORATORY DATA: Acid fast staining pending. Bronchial washing show DICTATION ENDS HERE. WILLIAMS HERNANDEZ DO CALLUM MALIK MD CM:KHRIS [id number] WILLIAMS HERNANDEZ DO 09/28/17 0236 interface
--- NOTE | ~2017-09-21 | CON ---
[place], [place] REPORT OF CONSULTATION [id number] UN[facility] #: [id number] ROOM: 503 DOCTOR: JAYNE SUMNER MD BIRTHDATE: [birth year] DOS: 09/25/2017 HISTORY OF PRESENT ILLNESS: The patient is a pleasant 82-year-old woman, presented to the Emergency Department because of increasing shortness of breath and chest pain. As per her, she was short of breath about a week ago, coughing profusely, bringing of whitish sputum. Subsequently, she was seen by her PCP and she was wheezing. Chest x-ray was done. She continued to be short of breath and subsequently admitted to the hospital and consulted for further evaluation and management. PAST MEDICAL HISTORY: GI bleed, coronary artery disease, immunodeficiency, chronic pulmonary embolism, chronic respiratory failure, chronic kidney disease, COPD exacerbation, diverticulosis, degenerative joint disease, diabetes mellitus, GERD, hiatal hernia, history of TIA, hypothyroidism, pneumonitis, pulmonary hypertension, scleroderma, and Sjogren syndrome. PAST SURGICAL HISTORY: Laminectomy, oophorectomy, tubal ligation, cholecystectomy, hysterectomy, left heart catheterization, rectal surgery, small-bowel obstruction, and appendectomy. SOCIAL HISTORY: No smoking, drinking, or drug abuse. She is a secondhand smoker. FAMILY HISTORY: Mother at age 80 of a stroke. Father at age 76 due to esophageal cancer. ALLERGIES: QUINOLONES, SULFA, AND TRIMETHOPRIM. MEDICATIONS: Diltiazem, ferrous sulfate, Vistaril, insulin, Levaquin, Remeron, Xarelto, Trintellix, and Ambien. REVIEW OF SYSTEMS: CONSTITUTIONAL: No chills. No fatigue. No fever. No loss of appetite. No night sweats. No weakness. No weight loss. HEENT: No trouble swallowing. No loss of smell. No loss of hearing. No double vision. No pain. No discharge. ENT AND RESPIRATORY: No wheeze. No sore throat. No change in voice. No hearing loss. No nose bleed. No cough. No trouble breathing through nose. No coughing up blood. No epistaxis. ____ increasing shortness of breath. CARDIOVASCULAR: No chest pain. No dizziness. No irregular heartbeat. No leg edema. No pain in legs while walking. No palpitations. No shortness of breath. DERMATOLOGIC: No acne. No hives. No laceration. No mole. No rash. ENDOCRINE: No cold intolerance. No diabetes. No fatigue. No hot flashes. No polydipsia. No polyuria. No urinating frequently. No weight loss. HEMATOLOGIC AND LYMPH: No fatigue. No easy bruising. GASTROENTEROLOGIC: No change in bowel habits. No indigestion. No frequent bloating. No vomiting blood. No abdominal cramping. No nausea. No heartburn. No vomiting. No abdominal pain. No dysphagia. No diarrhea. No constipation. No blood in stool. [place], [place] REPORT OF CONSULTATION NAME: QUINTON HINTON UNIT #: [id number] ROOM: [facility] DOCTOR: JAYNE SUMNER MD BIRTHDATE: [birth year] FEMALE REPRODUCTIVE: No vaginal itching. No difficulty urinating. No heavy periods. No dyspareunia. No sexually active. No dysmenorrhea. No pelvic pain. No breast pain. No nipple discharge. No abnormal vaginal discharge. No hot flashes. MUSCULOSKELETAL: No back pain. No muscle pain or weakness. No neck pain. No tingling/numbness. No swelling/bruising. No osteoporosis treatment. OPTHALMOLOGIC: No double vision. No diminished vision. No loss of vision. UROLOGIC: No dysuria. No frequent nighttime urination. No irregular periods. No pain with urination. No difficulty urinating. No blood in urine. No frequent urination. No urinary incontinence. NEUROLOGIC: No loss of sensation in specific body area. No vertigo. No burning pain in feet. No trouble with balance. No trouble with coordination. No loss of consciousness. No loss of feeling/power. No confusion. No headache. No tingling/numbness. PSYCHOLOGIC: No tinnitus. No headaches. No shortness of breath. No weight decrease. No nausea. No vomiting. No abdominal discomfort. No constipation. No diarrhea. No depression. No anxiety. PHYSICAL EXAMINATION: GENERAL: She is a pleasant woman in no apparent distress, mildly short of breath. VITAL SIGNS: Stable. She is afebrile. HEENT: Oral mucosa appears intact. The external ears are normal in appearance. Nares are patent without lesions, exudates, erythema, or inflammation. Tongue is symmetrical. Uvula is midline. NECK AND THYROID: Neck supple without palpable masses. Trachea is midline. No thyromegaly. No carotid bruit or JVD. BREASTS: Normal. Nipples unremarkable. No drainage. No lumps felt on either side. HEART: Normal S1, S2, without significant murmur, rub, or gallop. LUNGS: Show bilateral rhonchi with expiratory wheeze. ABDOMEN: No costovertebral angle tenderness. Soft. No organomegaly or masses. Nontender. No hernias present. Liver and spleen are not palpable. LYMPHATIC: No adenopathy noted in the cervical, supraclavicular, axillary, or inguinal regions. NEUROLOGIC: Nonfocal. Oriented to person, place, and time. MENTAL STATUS: Appropriate for mood and affect. PERIPHERAL PULSES: No varicosities. Femoral and pedal pulses are palpable. EXTREMITIES: Without cyanosis, clubbing, or edema. No gross anomalies. LABORATORY DATA: From 09/23/2017, white count 8.7, hemoglobin 11.4, hematocrit 33.7, and platelet count 200,000. Chemistries: Glucose of 270, BUN of 33, EGFR 27. Sodium 139, potassium 4.5, chloride 107, bicarbonate 25, calcium 9.1, phosphorus 3.9, and magnesium 2.4. ASSESSMENT: 1. Chronic obstructive pulmonary disease exacerbation. 2. Pneumonitis. 3. Immunodeficiency. 4. Sjogren syndrome. [place], [place] REPORT OF CONSULTATION NAME: QUINTON HINTON UNIT #: [id number] ROOM: [facility] DOCTOR: JAYNE SUMNER MD BIRTHDATE: [birth year] 5. Anemia of chronic disease. PLAN: We will review the records. Review immunoglobulin levels. In the meantime, keep a close watch on her hemoglobin and hematocrit. If it start dropping, then intervention. She was due for her immunoglobulin. We will wait until her overall condition improves, then further intervention and discuss. We will follow. Thanks for consulting and letting part in the care of this interesting patient. JAYNE SUMNER MD CM:CONSTR:REPORT OF CONSULTATION 1134 09/25/17 1811 interface
--- NOTE | ~2017-09-21 | PR ---
[place], [place] PROGRESS NOTE NAME: QUINTON HINTON UNIT #: [id number] ROOM: 503 DOCTOR: WILLIAMS HERNANDEZ DO BIRTHDATE: [birth year] DOS: 09/25/2017 SUBJECTIVE: The patient was seen and examined at bedside. The patient was sitting in a chair at the bedside, reports that she has decided that she is okay to proceed with the bronchoscopy, that she feels like she continues to have a cough and is unable to expectorate the sputum that is in her throat and her lungs. The patient has no new complaints at this time. OBJECTIVE: VITAL SIGNS: Temperature 97.8, pulse is 78, respirations 18, blood pressure 148/64, pulse ox 98% on room air. GENERAL: The patient is alert and oriented x 3, in no acute distress. HEENT: Eyes are clear. No injection. Nares are patent. Mucous membranes are moist. NECK: Supple, nontender. PULMONARY: Mild expiratory wheezing. No rales or rhonchi. CARDIOVASCULAR: Regular rate and rhythm. No murmurs, gallops or rubs. ABDOMEN: Soft, nontender with positive bowel signs. LABORATORY DATA: Sputum culture is positive for light yeast. IMPRESSION: 1. Acute exacerbation of bronchial asthma with acute bronchitis. 2. Steroid induced hyperglycemia. 3. Chronic kidney disease. TREATMENT PLAN: The patient agrees to bronchoscopy. This will be organized for tomorrow. Continue with current antibiotics, steroids and bronchodilators. We will continue to follow the patient. WILLIAMS HERNANDEZ DO [place], [place] PROGRESS NOTE NAME: QUINTON HINTON UNIT #: [id number] ROOM: 503 DOCTOR: WILLIAMS HERNANDEZ DO BIRTHDATE: [birth year] CALLUM MALIK MD CM:PNTRANS [id number] WILLIAMS HERNANDEZ DO 09/25/17 195 interface
--- NOTE | ~2017-09-21 | EKG ---
[place], [place] ELECTROCARDIOGRAM REPORT NAME: QUINTON HINTON UNIT #: [id number] ROOM: 507 DOCTOR: PILAR HARO,JAKE BIRTHDATE: [birth year] DOS: 09/22/2017 TIME: 0939. IMPRESSION: 1. Sinus rhythm. 2. Sinus tachycardia. 3. Normal QT interval. 4. No acute ischemic changes. JAKE QUEZADA MD CM:EKGRPT:ELECTROCARDIOGRAM REPORT 1513 2352 JAKE QUEZADA MD
--- NOTE | ~2017-09-21 | CON ---
[place], [place] REPORT OF CONSULTATION [id number] UNIT #: [id number] ROOM: 503 DOCTOR: BRIGITTE SAM DPM BIRTHDATE: [birth year] DOS: 09/24/2017 SUBJECTIVE: The patient presents as an 82-year-old diabetic patient who presents for nail care. PAST MEDICAL HISTORY: The patient has a past medical history of acute GI bleed, coronary artery disease, chronic pulmonary embolism, chronic respiratory failure, chronic kidney disease stage 3, COPD with aspiration, diverticulitis, DJD, diabetes, GERD, hiatal hernia, history of TIA, hyperthyroidism, pneumonitis, pulmonary hypertension, scleroderma, Sjogren's syndrome. PAST SURGICAL HISTORY: Laminectomy, oophorectomy, tubal ligation, cholecystectomy, hysterectomy, left heart cath, rectal surgery, small-bowel obstruction, appendectomy. SOCIAL HISTORY: Denies illicit drug use, tobacco or alcohol. FAMILY HISTORY: Father at age 76 of esophageal cancer. Mother at age 80+ of CVA. ALLERGIES: QUINOLONES, SULFA, TRIMETHOPRIM. PHYSICAL EXAMINATION: EXTREMITIES: Lower extremity examination: Pedal pulse is palpable, decreased hair growth, nail thickening, pigmentary discoloration. Temperature changes, distal foot, mild edema. Decreased sharp/dull sensation. Crumbly, thickened, yellow nails 1 through 5, right foot and 2 through 5, left foot. ASSESSMENT: Diabetes with peripheral vascular disease, onychomycosis. PLAN: Evaluation and management. Debrided nails bilateral. The patient can be followed for continued nail care on an outpatient basis in approximately 9 weeks. Thank you for kind consultation. BRIGITTE SAM DPM CM:CONSTR:REPORT OF CONSULTATION 1237 09/24/17 1341 interface
[~2017-09-21 06:38] MED LIST changes: -FEOSOL325 MG PO; -Flonase 0.05% 120 Me NAS; -GOOD NEIGHBOR L10 MG PO; -NOVOLOG FL100 UNIT/1 SC; -REMERON30 M1 PO; -TRINTELLIX10 MG PO; -XARE15TA PO; -ZITHROMAX500 MG PO
[2017-09-21 06:41] VITALS: BP 131/65
[2017-09-21 07:26] VITALS: BP 120/56
[2017-09-21 07:28] LABS: BASO # 0.1 10*3/uL (0.0-0.1); EOS # 0.3 10*3/uL (0.0-0.4); EOS % 4.6 % (1.0-4.0); HEMATOCRIT 33.5 % (37.0-47.0); HEMOGLOBIN 11.2 g/dl (12.0-16.0); LYMPH # 1.6 10*3/uL (1.3-4.4); LYMPH % 26.9 % (27.0-41.0); MEAN CELL VOLUME 87.5 fl (81.0-99.0); MEAN CORPUSCULAR HGB 29.2 pg (27.0-31.0); MEAN CORPUSCULAR HGB CONC 33.4 g/dl (33.0-37.0); MEAN PLATELET VOLUME 10.7 fl (9.6-12.3); MONO # 0.8 10*3/uL (0.1-1.0); MONO % 13.6 % (3.0-9.0); NEUT # 3.1 10*3/uL (2.3-7.9); NEUT % 52.2 % (47.0-73.0); PLATELET COUNT AUTOMATED 158 10*3/uL (130-400); RED BLOOD COUNT 3.83 10*6/uL (4.10-5.10); RED CELL DISTRI WIDTH 14.5 % (0-14.5); WHITE BLOOD COUNT 5.9 10*3/uL (4.8-10.8)
[2017-09-21 07:37] LABS: ACT PARTIAL THROMBO TIME 43.1 SECONDS (20.8-31.5); INTERNATIONAL NORM RATIO 1.1 (2.0-3.5)
[2017-09-21 07:44] LABS: ALBUMIN 2.7 gm/dl (3.1-4.5); ALKALINE PHOSPHATASE 65 U/L (45-117); BUN 17 mg/dl (7-24); CHLORIDE 105 mmol/L (98-107); CREATININE 1.68 mg/dL (0.55-1.02); POTASSIUM 4.3 mmol/L (3.5-5.1); SGOT/AST 15 IU/L (3-35); SGPT/ALT 15 U/L (12-78); SODIUM 140 mmol/L (136-145); TOTAL PROTEIN 6.6 gm/dL (6.4-8.2)
[2017-09-21 07:45] LABS: TROPONIN I < 0.015 ng/ml (<0.045)
[2017-09-21 08:42] VITALS: BP 129/63
[2017-09-21 08:59] LABS: BILIRUBIN NEGATIVE (NEGATIVE); BLOOD TRACE-LYSED (NEGATIVE); CLARITY SL CLOUDY (CLEAR); COLOR YELLOW (YELLOW); GLUCOSE NEGATIVE (NEGATIVE); KETONE NEGATIVE (NEGATIVE); LEUKO ESTERASE NEGATIVE (NEGATIVE); NITRITE NEGATIVE (NEGATIVE); SPECIFIC GRAVITY <= 1.005 (1.005-1.030); UROBILINOGEN 0.2 E.U./dl (0.2-1.0)
[2017-09-21 09:00] VITALS: BP 140/71
[2017-09-21 09:16] LABS: BACTERIA TRACE
[2017-09-22] VITALS: BP 124/57
[2017-09-22 06:58] LABS: BASO % 0.8 % (0.0-1.0); EOS % 0.4 % (1.0-4.0); HEMATOCRIT 35.5 % (37.0-47.0); LYMPH # 0.5 10*3/uL (1.3-4.4); LYMPH % 9.3 % (27.0-41.0); MEAN CELL VOLUME 87.7 fl (81.0-99.0); MEAN CORPUSCULAR HGB 29.6 pg (27.0-31.0); MEAN CORPUSCULAR HGB CONC 33.8 g/dl (33.0-37.0); MEAN PLATELET VOLUME 11.7 fl (9.6-12.3); MONO # 0.1 10*3/uL (0.1-1.0); MONO % 1.6 % (3.0-9.0); NEUT # 4.3 10*3/uL (2.3-7.9); NEUT % 86.7 % (47.0-73.0); PLATELET COUNT AUTOMATED 166 10*3/uL (130-400); RED BLOOD COUNT 4.05 10*6/uL (4.10-5.10); RED CELL DISTRI WIDTH 14.2 % (0-14.5)
[2017-09-22 07:30] LABS: ALBUMIN 2.6 gm/dl (3.1-4.5); CREATININE 1.66 mg/dL (0.55-1.02); FREE T4 1.26 ng/dl (0.76-1.46); POTASSIUM 4.6 mmol/L (3.5-5.1); TOTAL PROTEIN 6.7 gm/dL (6.4-8.2)
[2017-09-22 07:35] LABS: THYROID STIM HORMONE (HS) 0.588 uIU/ml (0.358-4.75)
[2017-09-22 07:48] LABS: VITAMIN D, 25-HYDROXY 49.1 ng/mL (30-100)
[2017-09-22 08:00] VITALS: BP 152/66
[2017-09-22 10:25] VITALS: BP 116/62
[2017-09-22] MEDS ORDERED: XARE15TA PO (11:34)
[2017-09-22] MEDS ORDERED: FEOSOL325 MG PO (11:34)
[2017-09-22] MEDS ORDERED: TRINTELLIX10 MG PO (11:34)
[2017-09-22] MEDS ORDERED: VISTARIL25 MG PO (11:35)
[2017-09-22] MEDS ORDERED: AMBIEN10 M1 PO (11:35)
[2017-09-22] MEDS ORDERED: LEVAQUIN250 M1 PO (11:35)
[2017-09-22] MEDS ORDERED: REMERON30 M1 PO (11:36)
[2017-09-22] MEDS ORDERED: OMEPRAZOLE40 MG PO (11:37)
[2017-09-22] MEDS ORDERED: CARDIZEM120 MG PO (11:37)
[2017-09-22] MEDS ORDERED: NOVOLOG FL100 UNIT/1 SC (11:38)
[2017-09-22 12:00] VITALS: BP 150/60
[2017-09-22 16:00] VITALS: BP 117/55
[2017-09-22 20:00] VITALS: BP 134/69
[2017-09-23] VITALS: BP 140/96
[2017-09-23 06:58] LABS: BASO % 0.1 % (0.0-1.0); HEMATOCRIT 33.7 % (37.0-47.0); HEMOGLOBIN 11.4 g/dl (12.0-16.0); LYMPH # 0.6 10*3/uL (1.3-4.4); LYMPH % 6.3 % (27.0-41.0); MEAN CELL VOLUME 86.6 fl (81.0-99.0); MEAN CORPUSCULAR HGB 29.3 pg (27.0-31.0); MEAN CORPUSCULAR HGB CONC 33.8 g/dl (33.0-37.0); MEAN PLATELET VOLUME 11.1 fl (9.6-12.3); MONO # 0.3 10*3/uL (0.1-1.0); MONO % 2.9 % (3.0-9.0); NEUT # 7.8 10*3/uL (2.3-7.9); NEUT % 89.9 % (47.0-73.0); PLATELET COUNT AUTOMATED 200 10*3/uL (130-400); RED BLOOD COUNT 3.89 10*6/uL (4.10-5.10); RED CELL DISTRI WIDTH 14.4 % (0-14.5); WHITE BLOOD COUNT 8.7 10*3/uL (4.8-10.8)
[2017-09-23 07:37] LABS: CREATININE 1.78 mg/dL (0.55-1.02); PHOSPHOROUS 3.9 mg/dL (2.5-4.9); POTASSIUM 4.5 mmol/L (3.5-5.1)
[2017-09-23 08:00] VITALS: BP 158/82
[2017-09-23 12:00] VITALS: BP 146/60
[2017-09-23 16:00] VITALS: BP 141/75
[2017-09-23 20:00] VITALS: BP 132/57
[2017-09-24] VITALS: BP 129/65
[2017-09-24 08:00] VITALS: BP 138/60
[2017-09-24 12:00] VITALS: BP 132/58
[2017-09-24 16:00] VITALS: BP 125/58; BP 169/58
[2017-09-24 20:00] VITALS: BP 146/67
[2017-09-25] VITALS: BP 136/68
[2017-09-25 08:00] VITALS: BP 148/64
[2017-09-25 12:00] VITALS: BP 148/64
[2017-09-25 16:00] VITALS: BP 140/78
[2017-09-25 20:00] VITALS: BP 114/93
[2017-09-26] VITALS (8 sets, daily range): BP systolic 122–169; BP diastolic 50–96
[2017-09-27] VITALS: BP 149/69
[2017-09-27 08:00] VITALS: BP 146/84
[2017-09-27] MEDS ORDERED: Flonase 0.05% 120 Me NAS (11:09)
[2017-09-27] MEDS ORDERED: GOOD NEIGHBOR L10 MG PO (11:09)
[2017-09-27] MEDS ORDERED: ZITHROMAX500 MG PO (11:09)
[2017-09-27] MEDS ORDERED: PREDNISONE10 MG PO (11:11)
[2017-09-27 12:00] VITALS: BP 132/80
[2017-09-27 15:08] LABS: ACID FAST SMEAR Negative (.); ACID FAST SPEC PROCESSING Concentration (.)
== END 2017-09-27 16:38 | disposition home or self-care (01) | DRG 193 ==
LOC: ED 06:38 → EDHOLD 08:36 → 5E 08:36
PROVIDERS: Emergency Medicine; Internal Medicine; Internal Medicine Critical Care Medicine
DX: J18.9 Pneumonia, unspecified organism (principal); E43 Unspecified severe protein-calorie malnutrition; J96.10 Chronic respiratory failure, unspecified whether with hypoxia or hypercapnia; T17.590A Other foreign object in bronchus causing asphyxiation, initial encounter; E11.22 Type 2 diabetes mellitus with diabetic chronic kidney disease; E11.51 Type 2 diabetes mellitus with diabetic peripheral angiopathy without gangrene; I27.20 Pulmonary hypertension, unspecified; I27.82 Chronic pulmonary embolism; J44.0 Chronic obstructive pulmonary disease with (acute) lower respiratory infection; J44.1 Chronic obstructive pulmonary disease with (acute) exacerbation; J45.51 Severe persistent asthma with (acute) exacerbation; M34.9 Systemic sclerosis, unspecified; M19.90 Unspecified osteoarthritis, unspecified site; N18.3 Chronic kidney disease, stage 3 (moderate); M35.00 Sjogren syndrome, unspecified; I25.10 Atherosclerotic heart disease of native coronary artery without angina pectoris; K57.90 Diverticulosis of intestine, part unspecified, without perforation or abscess without bleeding; X58.XXXA Exposure to other specified factors, initial encounter; K44.9 Diaphragmatic hernia without obstruction or gangrene; E05.90 Thyrotoxicosis, unspecified without thyrotoxic crisis or storm; B35.1 Tinea unguium; J20.9 Acute bronchitis, unspecified; T38.0X5A Adverse effect of glucocorticoids and synthetic analogues, initial encounter; K21.9 Gastro-esophageal reflux disease without esophagitis; Z79.01 Long term (current) use of anticoagulants; Z88.2 Allergy status to sulfonamides; Z88.8 Allergy status to other drugs, medicaments and biological substances; Z79.4 Long term (current) use of insulin; Z79.899 Other long term (current) drug therapy; Z86.73 Personal history of transient ischemic attack (TIA), and cerebral infarction without residual deficits; Z90.721 Acquired absence of ovaries, unilateral; Z98.51 Tubal ligation status; Z90.49 Acquired absence of other specified parts of digestive tract; Z90.710 Acquired absence of both cervix and uterus; Z82.3 Family history of stroke; Z80.0 Family history of malignant neoplasm of digestive organs; Z83.3 Family history of diabetes mellitus; Z82.49 Family history of ischemic heart disease and other diseases of the circulatory system; Y92.89 Other specified places as the place of occurrence of the external cause; Y93.89 Activity, other specified; Y99.8 Other external cause status; Z68.27 Body mass index [BMI] 27.0-27.9, adult; D63.8 Anemia in other chronic diseases classified elsewhere

== ENCOUNTER → 2017-09-21 | Outpatient (CLI) | payer MEDICARE, MEDICAID ==
[~2017-09-21] MED LIST changes: +FEOSOL325 MG PO; +Flonase 0.05% 120 Me NAS; +GOOD NEIGHBOR L10 MG PO; +NOVOLOG FL100 UNIT/1 SC; +REMERON30 M1 PO; +TRINTELLIX10 MG PO; +XARE15TA PO; +ZITHROMAX500 MG PO
== END | disposition home or self-care (01) ==
LOC: RAD 06:20
DX: D84.9 Immunodeficiency, unspecified (principal); R06.02 Shortness of breath; R05 Cough

== ENCOUNTER 2017-10-02 07:47 | Inpatient (IN) | payer MEDICARE, MEDICAID ==
[~2017-10-02] VITALS: Ht 154.9 cm; Wt 67.3 kg
[2017-10-02] VITALS (7 sets, daily range): BP systolic 148–159; BP diastolic 54–98
--- NOTE | ~2017-10-02 | EKG ---
[place], [place] ELECTROCARDIOGRAM REPORT NAME: QUINTON HINTON UNIT #: [id number] ROOM: [facility] DOCTOR: JOSEFINA HARO [facility],SEFERINO BIRTHDATE: [birth year] DOS: 10/02/2017 TIME: 0805 hours. CONCLUSION: 1. Low voltage in limb leads. 1. 2. Poor R-wave progression in the precordial leads. SEFERINO ROCHA MD CM:EKGRPT:ELECTROCARDIOGRAM REPORT [id number] [facility]
[~2017-10-02 07:47] MED LIST changes: +FEOSOL325 MG PO; +Flonase 0.05% 120 Me NAS; +GOOD NEIGHBOR L10 MG PO; +NOVOLOG FL100 UNIT/1 SC; +REMERON30 M1 PO; +TRINTELLIX10 MG PO; +XARE15TA PO; +ZITHROMAX500 MG PO
[2017-10-02 08:25] LABS: HEMATOCRIT 32.8 % (37.0-47.0); MEAN CELL VOLUME 86.1 fl (81.0-99.0); MEAN CORPUSCULAR HGB 28.9 pg (27.0-31.0); MEAN CORPUSCULAR HGB CONC 33.5 g/dl (33.0-37.0); MEAN PLATELET VOLUME 11.1 fl (9.6-12.3); PLATELET COUNT AUTOMATED 144 10*3/uL (130-400); RED BLOOD COUNT 3.81 10*6/uL (4.10-5.10); RED CELL DISTRI WIDTH 14.4 % (0-14.5); WHITE BLOOD COUNT 8.1 10*3/uL (4.8-10.8)
[2017-10-02 08:42] LABS: ALBUMIN 2.7 gm/dl (3.1-4.5); CREATININE 1.44 mg/dL (0.55-1.02); POTASSIUM 4.6 mmol/L (3.5-5.1); TOTAL PROTEIN 6.5 gm/dL (6.4-8.2); TROPONIN I 0.019 ng/ml (<0.045)
[2017-10-02 08:50] LABS: PLATELET SUFFICIENCY NORMAL (NORMAL); TOTAL CELLS COUNTED 100 #CELLS
[2017-10-02 09:10] LABS: BILIRUBIN NEGATIVE (NEGATIVE); BLOOD TRACE-LYSED (NEGATIVE); CLARITY CLEAR (CLEAR); COLOR YELLOW (YELLOW); GLUCOSE 1+ (NEGATIVE); KETONE NEGATIVE (NEGATIVE); LEUKO ESTERASE NEGATIVE (NEGATIVE); NITRITE NEGATIVE (NEGATIVE); PH 6.5 (5.0-9.0); UROBILINOGEN 0.2 E.U./dl (0.2-1.0)
[2017-10-02 09:11] LABS: ACT PARTIAL THROMBO TIME 25.8 SECONDS (20.8-31.5); INTERNATIONAL NORM RATIO 1.2 (2.0-3.5)
[2017-10-02 09:21] LABS: BACTERIA TRACE; FINE GRANULAR CAST 0-1; HYALINE CAST 0-2; RBC 0-2 rbc/hpf (0-2)
[2017-10-02] MEDS ORDERED: FLONASE ALLERG9.9 ML NAS (10:36)
[2017-10-03] VITALS: BP 123/50
[2017-10-03 06:41] LABS: HEMATOCRIT 31.5 % (37.0-47.0); HEMOGLOBIN 10.9 g/dl (12.0-16.0); MEAN CELL VOLUME 86.1 fl (81.0-99.0); MEAN CORPUSCULAR HGB 29.8 pg (27.0-31.0); MEAN CORPUSCULAR HGB CONC 34.6 g/dl (33.0-37.0); MEAN PLATELET VOLUME 10.5 fl (9.6-12.3); PLATELET COUNT AUTOMATED 145 10*3/uL (130-400); RED BLOOD COUNT 3.66 10*6/uL (4.10-5.10); RED CELL DISTRI WIDTH 14.2 % (0-14.5); WHITE BLOOD COUNT 9.1 10*3/uL (4.8-10.8)
[2017-10-03 06:55] LABS: ALBUMIN 2.5 gm/dl (3.1-4.5); CREATININE 1.4 mg/dL (0.55-1.02); POTASSIUM 5.1 mmol/L (3.5-5.1); TOTAL PROTEIN 6.1 gm/dL (6.4-8.2)
[2017-10-03 07:29] LABS: TOTAL CELLS COUNTED 100 #CELLS
[2017-10-03 07:30] LABS: PLATELET SUFFICIENCY NORMAL (NORMAL)
[2017-10-03 07:43] VITALS: BP 152/80
[2017-10-03 12:00] VITALS: BP 138/61
[2017-10-03] MEDS ORDERED: Insulin Lispro, Reco SC (14:18)
[2017-10-03 16:00] VITALS: BP 143/57
[2017-10-03 20:00] VITALS: BP 138/64
[2017-10-04] VITALS: BP 131/49
[2017-10-04 07:25] LABS: HEMATOCRIT 32.7 % (37.0-47.0); HEMOGLOBIN 10.8 g/dl (12.0-16.0); MEAN CELL VOLUME 87.2 fl (81.0-99.0); MEAN CORPUSCULAR HGB 28.8 pg (27.0-31.0); MEAN PLATELET VOLUME 11.5 fl (9.6-12.3); PLATELET COUNT AUTOMATED 156 10*3/uL (130-400); RED BLOOD COUNT 3.75 10*6/uL (4.10-5.10); RED CELL DISTRI WIDTH 14.1 % (0-14.5); WHITE BLOOD COUNT 14.6 10*3/uL (4.8-10.8)
[2017-10-04 07:48] LABS: ALBUMIN 2.6 gm/dl (3.1-4.5); CREATININE 1.5 mg/dL (0.55-1.02); POTASSIUM 4.6 mmol/L (3.5-5.1); TOTAL PROTEIN 6.1 gm/dL (6.4-8.2)
[2017-10-04 08:00] VITALS: BP 147/77
[2017-10-04 08:11] LABS: PLATELET SUFFICIENCY NORMAL (NORMAL); TOTAL CELLS COUNTED 100 #CELLS
[2017-10-04 08:43] VITALS: BP 146/62
[2017-10-04 12:00] VITALS: BP 140/57
[2017-10-04 15:59] VITALS: BP 159/55
[2017-10-04 20:00] VITALS: BP 160/56
[2017-10-05] VITALS: BP 117/86
[2017-10-05 06:36] LABS: HEMATOCRIT 35.5 % (37.0-47.0); HEMOGLOBIN 11.6 g/dl (12.0-16.0); MEAN CELL VOLUME 86.8 fl (81.0-99.0); MEAN CORPUSCULAR HGB 28.4 pg (27.0-31.0); MEAN CORPUSCULAR HGB CONC 32.7 g/dl (33.0-37.0); MEAN PLATELET VOLUME 10.9 fl (9.6-12.3); PLATELET COUNT AUTOMATED 181 10*3/uL (130-400); RED BLOOD COUNT 4.09 10*6/uL (4.10-5.10); RED CELL DISTRI WIDTH 14.2 % (0-14.5); WHITE BLOOD COUNT 14.4 10*3/uL (4.8-10.8)
[2017-10-05 07:12] LABS: ALBUMIN 2.8 gm/dl (3.1-4.5); CREATININE 1.66 mg/dL (0.55-1.02); POTASSIUM 4.9 mmol/L (3.5-5.1); TOTAL CELLS COUNTED 100 #CELLS
[2017-10-05 07:13] LABS: BURR CELLS FEW; PLATELET SUFFICIENCY NORMAL (NORMAL); SCHISTOCYTES FEW; TOTAL PROTEIN 6.4 gm/dL (6.4-8.2)
[2017-10-05 08:00] VITALS: BP 174/76
[2017-10-05 12:00] VITALS: BP 138/56
[2017-10-05 16:00] VITALS: BP 161/60
[2017-10-05 20:00] VITALS: BP 151/62
[2017-10-06] VITALS: BP 147/65
[2017-10-06 06:53] LABS: HEMOGLOBIN 10.5 g/dl (12.0-16.0); MEAN CELL VOLUME 86.1 fl (81.0-99.0); MEAN CORPUSCULAR HGB 29.2 pg (27.0-31.0); MEAN CORPUSCULAR HGB CONC 33.9 g/dl (33.0-37.0); MEAN PLATELET VOLUME 11.9 fl (9.6-12.3); PLATELET COUNT AUTOMATED 142 10*3/uL (130-400); RED CELL DISTRI WIDTH 14.4 % (0-14.5); WHITE BLOOD COUNT 9.8 10*3/uL (4.8-10.8)
[2017-10-06 07:12] LABS: CREATININE 1.59 mg/dL (0.55-1.02); POTASSIUM 4.8 mmol/L (3.5-5.1)
[2017-10-06 07:20] LABS: OVALOCYTES FEW; PLATELET SUFFICIENCY NORMAL (NORMAL); TOTAL CELLS COUNTED 100 #CELLS
[2017-10-06 08:00] VITALS: BP 166/62
[2017-10-06 12:00] VITALS: BP 136/69
[2017-10-06 16:00] VITALS: BP 154/54
[2017-10-06 20:00] VITALS: BP 155/62
[2017-10-07] VITALS: BP 131/48
[2017-10-07 07:49] LABS: CREATININE 1.56 mg/dL (0.55-1.02); POTASSIUM 4.4 mmol/L (3.5-5.1)
[2017-10-07 08:00] VITALS: BP 157/58
[2017-10-07 12:00] VITALS: BP 129/51
[2017-10-07] MEDS ORDERED: LEVEMIR100 UNIT/1 SC (13:57)
[2017-10-07] MEDS ORDERED: PREDNISONE10 MG PO (13:57)
[2017-10-07] MEDS ORDERED: VIBRAMYCIN100 MG PO (13:57)
[2017-10-07] MEDS ORDERED: ZOFRAN ODT4 MG SL (13:58)
[2017-10-07 16:00] VITALS: BP 167/67
== END 2017-10-07 17:30 | disposition other institution (70) | DRG 190 ==
LOC: ED 07:47 → 4E 10:00 → EDHOLD 10:00 → 4E 10:06
PROVIDERS: Emergency Medicine; Family Medicine; Registered Nurse; Student in an Organized Health Care Education/Training Program
DX: J44.1 Chronic obstructive pulmonary disease with (acute) exacerbation (principal); E43 Unspecified severe protein-calorie malnutrition; J96.10 Chronic respiratory failure, unspecified whether with hypoxia or hypercapnia; I27.20 Pulmonary hypertension, unspecified; E11.22 Type 2 diabetes mellitus with diabetic chronic kidney disease; M34.9 Systemic sclerosis, unspecified; N18.3 Chronic kidney disease, stage 3 (moderate); K21.9 Gastro-esophageal reflux disease without esophagitis; M35.00 Sjogren syndrome, unspecified; E05.90 Thyrotoxicosis, unspecified without thyrotoxic crisis or storm; I25.10 Atherosclerotic heart disease of native coronary artery without angina pectoris; E78.5 Hyperlipidemia, unspecified; R53.81 Other malaise; F32.9 Major depressive disorder, single episode, unspecified; F41.9 Anxiety disorder, unspecified; R53.83 Other fatigue; K44.9 Diaphragmatic hernia without obstruction or gangrene; M19.90 Unspecified osteoarthritis, unspecified site; Z86.73 Personal history of transient ischemic attack (TIA), and cerebral infarction without residual deficits; Z90.722 Acquired absence of ovaries, bilateral; Z90.49 Acquired absence of other specified parts of digestive tract; Z98.51 Tubal ligation status; Z80.0 Family history of malignant neoplasm of digestive organs; Z88.2 Allergy status to sulfonamides; Z88.8 Allergy status to other drugs, medicaments and biological substances; Z79.899 Other long term (current) drug therapy; Z86.14 Personal history of Methicillin resistant Staphylococcus aureus infection; Z82.49 Family history of ischemic heart disease and other diseases of the circulatory system; Z83.3 Family history of diabetes mellitus; Z80.1 Family history of malignant neoplasm of trachea, bronchus and lung; Z82.0 Family history of epilepsy and other diseases of the nervous system; Z68.28 Body mass index [BMI] 28.0-28.9, adult

== ENCOUNTER → 2017-11-11 | Outpatient (CLI) | payer MEDICARE, MEDICAID ==
[~2017-11-11] MED LIST changes: +Insulin Lispro, Reco SC; +LEVEMIR100 UNIT/1 SC
[2017-11-12 04:03] LABS: RBC 3.35 x10E6/uL (3.77-5.28)
[2017-11-12 22:02] LABS: G-6-PD, QUANT 287 (146-376)
== END | disposition home or self-care (01) ==
LOC: LAB 17:32
PROVIDERS: Chiropractor
DX: E63.8 Other specified nutritional deficiencies (principal)

== ENCOUNTER → 2017-11-19 | Outpatient (CLI) | payer MEDICARE, MEDICAID | END | disposition home or self-care (01) | LOC: RAD 13:50 | DX: J18.9 Pneumonia, unspecified organism (principal); I10 Essential (primary) hypertension; E11.9 Type 2 diabetes mellitus without complications; J44.9 Chronic obstructive pulmonary disease, unspecified ==

== ENCOUNTER 2017-11-29 08:39 | Inpatient (IN) | payer MEDICARE, MEDICAID ==
[2017-11-29] VITALS (8 sets, daily range): BP systolic 130–149; BP diastolic 50–62
[~2017-11-29] VITALS: Ht 154.9 cm; Wt 64.4 kg
--- NOTE | ~2017-11-29 | PR ---
[place], [place] PROGRESS NOTE [id number] UNIT #: [id number] ROOM: 421 DOCTOR: JAYNE SUMNER MD BIRTHDATE: [birth year] DOS: 12/03/2017 SUBJECTIVE: The patient is doing better. REVIEW OF SYSTEMS HEENT: No trouble swallowing. No double vision. No loss of vision. No pain. ENT AND RESPIRATORY: No wheeze. No change in voice. No cough. No shortness of breath. No coughing up blood. No epistaxis. CARDIOLOGIC: No chest pain. No dizziness. No irregular heartbeat. No leg edema. No palpitations. No shortness of breath. HEMATOLOGIC AND LYMPH: No past transfusion. No fatigue. No loss of appetite. No easy bruising. GASTROENTEROLOGIC: No change in bowel habits. No vomiting blood. No abdominal cramping. No nausea. No vomiting. No diarrhea. No constipation. No blood in stool. FEMALE REPRODUCTIVE: No dyspareunia. No pelvic pain. MUSCULOSKELETAL: No back pain. No muscle pain or weakness. No tingling/numbness. UROLOGIC: No pain with urination. No difficulty urinating. No frequent urination. NEUROLOGIC: No burning pain in feet. No trouble with coordination. No loss of consciousness. No headache. No tingling/numbness. No memory loss. PHYSICAL EXAMINATION: GENERAL: Pleasant woman in no apparent distress. VITAL SIGNS: Stable, afebrile. HEENT: Normocephalic, atraumatic NECK AND THYROID: Supple. No JVD, thyromegaly, or lymphadenopathy. HEART: Normal S1, S2. Regular rate and rhythm. LUNGS: Clear to auscultation and percussion. ABDOMEN: Soft. Nontender, nondistended. Bowel sounds present. EXTREMITIES: Normal ROM. No clubbing. No edema. LABORATORY DATA: White count of 6.1, hemoglobin 9.6, hematocrit 30.0, and platelet count of 157. ASSESSMENT: 1. Common variable hypogammaglobulinemia. 2. Anemia of chronic disease. 3. Chronic kidney disease. 4. Intractable nausea and vomiting, which is getting better. PLAN: We will hold IVIG for now until his overall condition improves. Her levels have been decent at times. If her hemoglobin and hematocrit drops, then intervention with close followup. Ample time was given to the patient to ask me questions. [place], [place] PROGRESS NOTE NAME: HINTONQUINTON A UNIT #: [id number] ROOM: 421 DOCTOR: JAYNE SUMNER MD BIRTHDATE: [birth year] JAYNE SUMNER MD CM:KHRIS [id number] JAYNE SUMNER MD 12/03/172152 interface
--- NOTE | ~2017-11-29 | EKG ---
[place], [place] ELECTROCARDIOGRAM REPORT NAME: QUINTON HINTON UNIT #: [id number] ROOM: 421 DOCTOR: PILAR HARO,JAKE BIRTHDATE: [birth year] DOS: 11/29/2017 TIME: 8:56 a.m. IMPRESSION: 1. Sinus rhythm. 2. Septal T-wave inversion. 3. Normal QT interval. 4. Baseline artifact. JAKE QUEZADA MD CM:EKGRPT:ELECTROCARDIOGRAM REPORT [id number] JAKE QUEZADA MD
--- NOTE | ~2017-11-29 | CON ---
[place], [place] REPORT OF CONSULTATION [id number] UNIT #: [id number] ROOM: 421 DOCTOR: JAKE QUEZADA MD BIRTHDATE: [birth year] DOS: 12/01/2017 REASON FOR CONSULTATION: Congestive heart failure. CLINICAL HISTORY: The patient is an 82-year-old patient with history of coronary artery disease, diabetes, anemia, chronic kidney disease and pulmonary emboli, came to the hospital for nausea and vomiting. She was seen at her family doctor's office and her symptom has been going on for the past 2-3 days. She also had some shortness of breath with fatigue. She was admitted to the hospital and cardiology consulted for further recommendation due to congestive heart failure. Currently, she is feeling better. She denies any chest pain or palpitations and no orthopnea or PND. Her nausea is somewhat better. No neurologic symptoms such as tingling, numbness or weakness. No headaches, no blurred vision or double vision, no genitourinary symptoms. No musculoskeletal symptoms. Initially, the 10 systems negative except as mentioned above. PAST MEDICAL HISTORY: 1. Coronary artery disease. 2. History of pulmonary emboli. 3. Hypertension. 4. History of TIA. 5. Chronic kidney disease. 6. COPD. 7. Diabetes type 2. 8. Acid reflux. 9. Sjogren syndrome. 10. Anemia. PAST SURGICAL HISTORY: Cholecystectomy, hysterectomy, rectal surgery, oophorectomy and laminectomy. SOCIAL HISTORY: The patient does not drink or use illicit drugs, does not smoke, but she is exposed to secondhand smoking. ALLERGIES: Reviewed. HOME MEDICATIONS: Reviewed. PHYSICAL EXAMINATION: VITAL SIGNS: Blood pressure 147/57, pulse 80, respiratory rate 20. Weight 64.4 kilos and BMI 26.9. GENERAL: Alert, comfortable, in no acute distress. HEENT: Pupils round and equal. No jaundice. NECK: Supple, no distended neck veins, no carotid bruit. CHEST: Symmetrical, nontender. LUNGS: Few scattered rhonchi, diminished at bases. HEART: Regular rhythm, no S3, grade 2/6 systolic murmur. No palpable thrills. ABDOMEN: Benign, nontender. Bowel sounds normal. EXTREMITIES: Showed no edema. Distal pulses are palpable. SKIN: Warm and dry. No cyanosis, no clubbing. [place], [place] REPORT OF CONSULTATION NAME: QUINTON HINTON UNIT #: [id number] ROOM: 421 DOCTOR: PILAR HARO,JAKE BIRTHDATE: [birth year] RECTAL: Deferred. GENITOURINARY: Deferred. REVIEW OF THE DIAGNOSTIC TESTS: EKG shows sinus rhythm with septal anterior motion. Potassium 4.7, creatinine 1.58, troponin 0.024. BNP 4142. TSH normal. Lipids normal. Echo from September 2017 showed moderate aortic stenosis, mild aortic regurgitation, LV hypertrophy and diastolic dysfunction. IMPRESSIONS: 1. Chronic diastolic heart failure with ejection fraction of 66% by echo on September 2017. 2. Nausea and vomiting with mild dehydration. 3. Valvular heart disease with moderate aortic stenosis and mild aortic regurgitation. 4. Chronic kidney disease. 5. Anemia. 6. Diabetes. 7. History of pulmonary emboli, on Xarelto. 8. Chronic obstructive pulmonary disease. RECOMMENDATIONS: The patient's dyspnea is probably multifactorial including her underlying COPD, anemia and chronic diastolic heart failure. Currently, patient is in no acute heart failure. We will continue IV fluids due to her positive mild dehydration, nausea and vomiting. Continue current home medications. Echo from September 2017 reviewed. I would recommend Lexiscan stress test either prior to discharge or as an outpatient in few weeks due to her known coronary arteries and multiple risk factors. No family at bedside at the time of my examination. JAKE QUEZADA MD CM:CONSTR:REPORT OF CONSULTATION 0043 12/09/17 0749 interface
--- NOTE | ~2017-11-29 | CON ---
[place], [place] REPORT OF CONSULTATION [id number] UNIT #: [id number] ROOM: 421 DOCTOR: JAYNE SUMNER MD BIRTHDATE: [birth year] DOS: 12/02/2017 HISTORY OF PRESENT ILLNESS: The patient is a pleasant 82-year-old [place] woman who presented to [facility] because of nausea and vomiting. She was initially seen by Dr. Longo for nausea and vomiting at office and sent her here. She denies any bilious or vomiting or hematemesis. Has a history of hypogammaglobulinemia and consult for further evaluation and management. PAST MEDICAL HISTORY: Significant for coronary artery disease, chronic pulmonary embolism, CKD, COPD, diverticulosis, DJD, diabetes, GERD, common variable hypogammaglobulinemia, hiatal hernia, history of TIA, HLD, hypertension, hypothyroidism and hypergammaglobulinemia, Sjogren syndrome. PAST SURGICAL HISTORY: Laminectomy, oophorectomy, tubal ligation, cholecystectomy, hysterectomy, left heart catheterization, rectal surgery, small-bowel obstruction, and appendectomy. SOCIAL HISTORY: No smoking, drinking, or drug abuse. FAMILY HISTORY: Not contributory. FAMILY HISTORY: Mother at age 80 of stroke. Father diseased age 76 of esophageal cancer. ALLERGIES: SULFONAMIDES, TRIMETHOPRIM and QUINOLONES. MEDICATIONS: Diltiazem, doxycycline, ferrous sulfate, Flonase, Restoril, FlexPen, Levemir, loratadine, Remeron, Zofran, prednisone, Trintellix and Ambien. REVIEW OF SYSTEMS: CONSTITUTIONAL: No chills. No fatigue. No fever. No loss of appetite. No night sweats. No weakness. No weight loss. HEENT: No trouble swallowing. No loss of smell. No loss of hearing. No double vision. No pain. No discharge. ENT AND RESPIRATORY: No wheeze. No sore throat. No change in voice. No hearing loss. No nose bleed. No cough. No trouble breathing through nose. No shortness of breath. No coughing up blood. No epistaxis. CARDIOVASCULAR: No chest pain. No dizziness. No irregular heartbeat. No leg edema. No pain in legs while walking. No palpitations. No shortness of breath. DERMATOLOGIC: No acne. No hives. No laceration. No mole. No rash. ENDOCRINE: No cold intolerance. No diabetes. No fatigue. No hot flashes. No polydipsia. No polyuria. No urinating frequently. No weight loss. HEMATOLOGIC AND LYMPH: No fatigue. No easy bruising. GASTROENTEROLOGIC: No change in bowel habits. No indigestion. No frequent bloating. No vomiting blood. No abdominal cramping. No nausea. No heartburn. No vomiting. No abdominal pain. No dysphagia. No diarrhea. No constipation. No blood in stool. FEMALE REPRODUCTIVE: No vaginal itching. No difficulty urinating. No heavy [place], [place] REPORT OF CONSULTATION NAME: QUINTON HINTON UNIT #: [id number] ROOM: [facility] DOCTOR: JAYNE SUMNER MD BIRTHDATE: [birth year] periods. No dyspareunia. No sexually active. No dysmenorrhea. No pelvic pain. No breast pain. No nipple discharge. No abnormal vaginal discharge. No hot flashes. MUSCULOSKELETAL: No back pain. No muscle pain or weakness. No neck pain. No tingling/numbness. No swelling/bruising. No osteoporosis treatment. OPTHALMOLOGIC: No double vision. No diminished vision. No loss of vision. UROLOGIC: No dysuria. No frequent nighttime urination. No irregular periods. No pain with urination. No difficulty urinating. No blood in urine. No frequent urination. No urinary incontinence. NEUROLOGIC: No loss of sensation in specific body area. No vertigo. No burning pain in feet. No trouble with balance. No trouble with coordination. No loss of consciousness. No loss of feeling/power. No confusion. No headache. No tingling/numbness. PSYCHOLOGIC: No tinnitus. No headaches. No shortness of breath. No weight decrease. No nausea. No vomiting. No abdominal discomfort. No constipation. No diarrhea. No depression. No anxiety. PHYSICAL EXAMINATION: GENERAL: General appearance: Pleasant woman in no apparent distress. VITAL SIGNS: Stable. She is afebrile. HEENT: Oral mucosa appears intact. The external ears are normal in appearance. Nares are patent without lesions, exudates, erythema, or inflammation. Tongue is symmetrical. Uvula is midline. NECK AND THYROID: Neck supple without palpable masses. Trachea is midline. No thyromegaly. No carotid bruit or JVD. BREASTS: Normal. Nipples unremarkable. No drainage. No lumps felt on either side. HEART: Normal S1, S2, without significant murmur, rub, or gallop. LUNGS: Clear to auscultation and percussion with good air entry bilaterally. The patient is breathing easily without the use of accessory muscles. Diaphragmatic excursions are intact. ABDOMEN: No costovertebral angle tenderness. Soft. No organomegaly or masses. Nontender. No hernias present. Liver and spleen are not palpable. LYMPHATIC: No adenopathy noted in the cervical, supraclavicular, axillary, or inguinal regions. NEUROLGIC: Nonfocal. Oriented to person, place, and time. MENTAL STATUS: Appropriate for mood and affect. PERIPHERAL PULSES: No varicosities. Femoral and pedal pulses are palpable. EXTREMITIES: Without cyanosis, clubbing, or edema. No gross anomalies. LABORATORY DATA: White count of 6.9, hemoglobin 10.0, hematocrit 31.2, platelet count of 171,000. ASSESSMENT: 1. Common variable hypogammaglobulinemia, stable. 2. Intractable nausea and vomiting. 3. Normocytic anemia. 4. Anemia of chronic disease. PLAN: She was started on Zofran for antiemetics. We may change to more [place], [place] REPORT OF CONSULTATION NAME: QUINTON HINTON UNIT #: [id number] ROOM: 421 DOCTOR: JAYNE SUMNER MD BIRTHDATE: [birth year] superior warning if this does not improve. In the meantime, her hemoglobin and hematocrit is low. We will keep a close watch at this time, if it drops, then further intervention. She recently got IVIG, I am going to check the levels, further intervention will follow. Thanks for consulting and letting me participate in the care of this interesting patient. JAYNE SUMNER MD CM:CONSTR:REPORT OF CONSULTATION 1357 12/09/17 0758 interface
--- NOTE | ~2017-11-29 | PR ---
[place], [place] PROGRESS NOTE NAME: QUINTON HINTON UNIT #: [id number] ROOM: 421 DOCTOR: JAKE QUEZADA MD BIRTHDATE: [birth year] DOS: 12/02/2017 REASON FOR VISIT: Hypertension and sinus tachycardia and chronic heart failure. The patient is feeling better. She is having some tachycardia while ambulating, less short of breath, but no chest pain, no dizziness, no PND, no orthopnea. PHYSICAL EXAMINATION: VITAL SIGNS: Blood pressure 176/75, pulse 78, respiratory rate 20. Rhythm strip, the patient with sinus rhythm with sinus tachycardia on ambulation. GENERAL: The patient is alert, oriented, no acute distress. Still mild short of breath while talking. HEENT: Pupils are equal, no jaundice. Tongue was moist and pharynx clear. NECK: Supple, no distended neck veins, no carotid bruit. CHEST: Symmetrical, nontender. LUNGS: A few scattered rhonchi. HEART: Regular rate and rhythm, no S3. Grade 1/6 systolic murmur. ABDOMEN: Obese, nontender. EXTREMITIES: Showed trace edema. MEDICATION AND ALLERGIES: Reviewed. IMPRESSION: 1. Chronic diastolic heart failure. 2. Sinus tachycardia on ambulation. 3. Hypertension, which needs a better control. 4. Dyspnea, multifactorial. 5. History of pulmonary emboli. RECOMMENDATIONS: 1. Add beta blockers for her blood pressure control and sinus tachycardia. 2. Continue current medications. 3. Currently, she is off IV fluids. 4. I would consider starting p.o. diuretics tomorrow. 5. Monitor heart rate and blood pressures. [place], [place] PROGRESS NOTE NAME: QUINTON HINTON UNIT #: [id number] ROOM: 421 DOCTOR: JAKE QUEZADA MD BIRTHDATE: [birth year] JAKE QUEZADA MD CM:PNTRANS [id number] JAKE QUEZADA MD 12/03/17954 interface
--- NOTE | ~2017-11-29 | PR ---
[place], [place] PROGRESS NOTE NAME: QUINTON HINTON UNIT #: [id number] ROOM: 421 DOCTOR: JAKE QUEZADA MD BIRTHDATE: [birth year] DOS: 12/03/2017 REASON FOR VISIT: The patient with chronic heart failure and hypertension. HISTORY OF PRESENT ILLNESS: The patient is feeling better. Denies any chest pain or palpitations. Still somewhat short of breath while talking, but significantly better compared to few days ago. No PND, no orthopnea, no nausea, vomiting, no abdominal pain. No fever and chills. REVIEW OF SYSTEMS: Review of the 8 systems negative except as mentioned above. RHYTHM STRIPS: The patient in sinus rhythm. PHYSICAL EXAMINATION: VITAL SIGNS: Blood pressure 144/70, pulse 80, respiration was 18. GENERAL: Alert, comfortable, in no acute distress. The patient is slightly dyspneic while communicating, which is better than at the time of admission. HEENT: Pupils are round and equal. No jaundice. NECK: Supple, no distended neck veins, no carotid bruit. CHEST: Symmetrical, nontender. LUNGS: Fair air entry. No rales. ABDOMEN: Obese, nontender. Bowel sounds normal. EXTREMITIES: Showed trace to 1+ edema. SKIN: Warm and dry. No cyanosis, no clubbing. NEUROLOGIC: The patient is alert, oriented. No focal neurologic deficit. IMPRESSION: 1. Chronic diastolic heart failure, stable. 2. Anemia, stable. 3. Hypertension. Monitor her blood pressures. 4. Chronic kidney disease. 5. Dyspnea, multifactorial. RECOMMENDATIONS: 1. Continue current medications and increase her metoprolol as needed for her blood pressures and heart rates. 2. Possible discharge either today or after tomorrow. 3. There is no family at bedside at the time of examination. [place], [place] PROGRESS NOTE NAME: QUINTON HINTON UNIT #: [id number] ROOM: 421 DOCTOR: JAKE QUEZADA MD BIRTHDATE: [birth year] JAKE QUEZADA MD CM:KHRIS [id number] JAKE QUEZADA MD 12/04/17 0939 interface
[2017-11-29 09:27] LABS: BASO # 0.1 10*3/uL (0.0-0.1); BASO % 1.3 % (0.0-1.0); EOS # 0.3 10*3/uL (0.0-0.4); EOS % 4.2 % (1.0-4.0); HEMATOCRIT 33.2 % (37.0-47.0); HEMOGLOBIN 10.5 g/dl (12.0-16.0); LYMPH # 1.1 10*3/uL (1.3-4.4); LYMPH % 17.5 % (27.0-41.0); MEAN CELL VOLUME 92.5 fl (81.0-99.0); MEAN CORPUSCULAR HGB 29.2 pg (27.0-31.0); MEAN CORPUSCULAR HGB CONC 31.6 g/dl (33.0-37.0); MEAN PLATELET VOLUME 10.8 fl (9.6-12.3); MONO # 0.7 10*3/uL (0.1-1.0); MONO % 10.9 % (3.0-9.0); NEUT # 4.1 10*3/uL (2.3-7.9); NEUT % 64.5 % (47.0-73.0); PLATELET COUNT AUTOMATED 212 10*3/uL (130-400); RED BLOOD COUNT 3.59 10*6/uL (4.10-5.10); RED CELL DISTRI WIDTH 15.2 % (0-14.5); WHITE BLOOD COUNT 6.4 10*3/uL (4.8-10.8)
[2017-11-29 09:32] LABS: BILIRUBIN NEGATIVE (NEGATIVE); BLOOD TRACE-INTACT (NEGATIVE); CLARITY SL CLOUDY (CLEAR); COLOR YELLOW (YELLOW); GLUCOSE NEGATIVE (NEGATIVE); KETONE NEGATIVE (NEGATIVE); LEUKO ESTERASE NEGATIVE (NEGATIVE); NITRITE NEGATIVE (NEGATIVE); PH 6.5 (5.0-9.0); SPECIFIC GRAVITY 1.025 (1.005-1.030); UROBILINOGEN 0.2 E.U./dl (0.2-1.0)
[2017-11-29 09:40] LABS: BACTERIA 1+; EPITHELIAL CELLS 30-35
[2017-11-29 09:44] LABS: ALBUMIN 2.8 gm/dl (3.1-4.5); ALKALINE PHOSPHATASE 61 U/L (45-117); BUN 19 mg/dl (7-24); CHLORIDE 106 mmol/L (98-107); CREATININE 1.58 mg/dL (0.55-1.02); LIPASE 149 U/L (73-393); POTASSIUM 4.7 mmol/L (3.5-5.1); SGOT/AST 25 IU/L (3-35); SGPT/ALT 15 U/L (12-78); SODIUM 138 mmol/L (136-145); TOTAL PROTEIN 6.8 gm/dL (6.4-8.2); TROPONIN I 0.024 ng/ml (<0.045)
[2017-11-29 10:37] LABS: ACT PARTIAL THROMBO TIME 31.6 SECONDS (20.8-31.5); INTERNATIONAL NORM RATIO 1.3 (2.0-3.5)
[2017-11-30 00:13] VITALS: BP 161/64
[2017-11-30 07:05] LABS: BASO # 0.1 10*3/uL (0.0-0.1); BASO % 1.4 % (0.0-1.0); EOS # 0.4 10*3/uL (0.0-0.4); EOS % 7.6 % (1.0-4.0); HEMATOCRIT 31.7 % (37.0-47.0); HEMOGLOBIN 10.1 g/dl (12.0-16.0); LYMPH # 1.2 10*3/uL (1.3-4.4); LYMPH % 25.4 % (27.0-41.0); MEAN CELL VOLUME 90.8 fl (81.0-99.0); MEAN CORPUSCULAR HGB 28.9 pg (27.0-31.0); MEAN CORPUSCULAR HGB CONC 31.9 g/dl (33.0-37.0); MEAN PLATELET VOLUME 10.4 fl (9.6-12.3); MONO # 0.5 10*3/uL (0.1-1.0); MONO % 10.5 % (3.0-9.0); NEUT # 2.6 10*3/uL (2.3-7.9); NEUT % 53.5 % (47.0-73.0); PLATELET COUNT AUTOMATED 185 10*3/uL (130-400); RED BLOOD COUNT 3.49 10*6/uL (4.10-5.10); WHITE BLOOD COUNT 4.9 10*3/uL (4.8-10.8)
[2017-11-30 07:37] LABS: ALBUMIN 2.6 gm/dl (3.1-4.5); CREATININE 1.2 mg/dL (0.55-1.02); FREE T4 1.01 ng/dl (0.76-1.46); PHOSPHOROUS 3.2 mg/dL (2.5-4.9); POTASSIUM 4.4 mmol/L (3.5-5.1); TOTAL PROTEIN 6.4 gm/dL (6.4-8.2)
[2017-11-30 07:41] LABS: THYROID STIM HORMONE (HS) 0.797 uIU/ml (0.358-4.75)
[2017-11-30 08:00] VITALS: BP 150/77
[2017-11-30 08:41] LABS: VITAMIN D, 25-HYDROXY 56.3 ng/mL (30-100)
[2017-11-30 12:00] VITALS: BP 121/41
[2017-11-30 16:00] VITALS: BP 130/50
[2017-11-30 20:00] VITALS: BP 172/76
[2017-12-01] VITALS: BP 107/64
[2017-12-01 05:55] LABS: CREATININE 1.22 mg/dL (0.55-1.02); POTASSIUM 4.1 mmol/L (3.5-5.1)
[2017-12-01 05:57] LABS: HEMOGLOBIN 9.8 g/dl (12.0-16.0); LYMPH # 0.6 10*3/uL (1.3-4.4); LYMPH % 10.5 % (27.0-41.0); MEAN CELL VOLUME 89.9 fl (81.0-99.0); MEAN CORPUSCULAR HGB 28.4 pg (27.0-31.0); MEAN CORPUSCULAR HGB CONC 31.6 g/dl (33.0-37.0); MEAN PLATELET VOLUME 11.3 fl (9.6-12.3); MONO # 0.1 10*3/uL (0.1-1.0); MONO % 2.4 % (3.0-9.0); NEUT % 86.2 % (47.0-73.0); PLATELET COUNT AUTOMATED 181 10*3/uL (130-400); RED BLOOD COUNT 3.45 10*6/uL (4.10-5.10); RED CELL DISTRI WIDTH 14.8 % (0-14.5); WHITE BLOOD COUNT 5.8 10*3/uL (4.8-10.8)
[2017-12-01 08:00] VITALS: BP 164/74
[2017-12-01 12:00] VITALS: BP 147/57
[2017-12-01 16:00] VITALS: BP 126/74
[2017-12-01 20:00] VITALS: BP 154/65
[2017-12-02] VITALS: BP 149/59
[2017-12-02 08:00] VITALS: BP 176/78
[2017-12-02 08:41] LABS: BASO # 0.1 10*3/uL (0.0-0.1); BASO % 0.9 % (0.0-1.0); EOS # 0.1 10*3/uL (0.0-0.4); EOS % 1.6 % (1.0-4.0); HEMATOCRIT 31.2 % (37.0-47.0); LYMPH # 1.7 10*3/uL (1.3-4.4); LYMPH % 24.8 % (27.0-41.0); MEAN CORPUSCULAR HGB 29.2 pg (27.0-31.0); MEAN CORPUSCULAR HGB CONC 32.1 g/dl (33.0-37.0); MONO # 0.7 10*3/uL (0.1-1.0); MONO % 10.1 % (3.0-9.0); NEUT # 4.2 10*3/uL (2.3-7.9); NEUT % 61.6 % (47.0-73.0); PLATELET COUNT AUTOMATED 171 10*3/uL (130-400); RED BLOOD COUNT 3.43 10*6/uL (4.10-5.10); RED CELL DISTRI WIDTH 15.1 % (0-14.5); WHITE BLOOD COUNT 6.9 10*3/uL (4.8-10.8)
[2017-12-02 09:01] LABS: CREATININE 1.22 mg/dL (0.55-1.02); POTASSIUM 3.7 mmol/L (3.5-5.1)
[2017-12-02 12:00] VITALS: BP 128/55
[2017-12-02 16:00] VITALS: BP 138/58
[2017-12-02 20:00] VITALS: BP 135/57
[2017-12-03] VITALS: BP 127/87
[2017-12-03 07:07] LABS: BASO # 0.1 10*3/uL (0.0-0.1); BASO % 1.5 % (0.0-1.0); EOS # 0.3 10*3/uL (0.0-0.4); EOS % 4.1 % (1.0-4.0); HEMOGLOBIN 9.6 g/dl (12.0-16.0); LYMPH # 1.8 10*3/uL (1.3-4.4); LYMPH % 28.5 % (27.0-41.0); MEAN CELL VOLUME 91.5 fl (81.0-99.0); MEAN CORPUSCULAR HGB 29.3 pg (27.0-31.0); MEAN PLATELET VOLUME 11.1 fl (9.6-12.3); MONO # 0.8 10*3/uL (0.1-1.0); MONO % 12.2 % (3.0-9.0); NEUT # 3.2 10*3/uL (2.3-7.9); NEUT % 52.6 % (47.0-73.0); PLATELET COUNT AUTOMATED 157 10*3/uL (130-400); RED BLOOD COUNT 3.28 10*6/uL (4.10-5.10); RED CELL DISTRI WIDTH 15.3 % (0-14.5); WHITE BLOOD COUNT 6.1 10*3/uL (4.8-10.8)
[2017-12-03 07:41] LABS: ALBUMIN 2.6 gm/dl (3.1-4.5); CREATININE 1.34 mg/dL (0.55-1.02); POTASSIUM 3.9 mmol/L (3.5-5.1); TOTAL PROTEIN 5.8 gm/dL (6.4-8.2)
[2017-12-03 08:00] VITALS: BP 144/76
[2017-12-03 12:00] VITALS: BP 147/59
[2017-12-03] MEDS ORDERED: FAMOTIDINE20 M1 PO (14:12)
[2017-12-03] MEDS ORDERED: LOPRESSOR25 MG PO (14:12)
[2017-12-03] MEDS ORDERED: DILTIAZEM CD240 MG PO (14:12)
== END 2017-12-03 15:45 | disposition home health service (06) | DRG 392 ==
LOC: ED 08:39 → 4E 10:48 → EDHOLD 10:48 → 4E 10:53
PROVIDERS: Emergency Medicine; Family Medicine; Hospitalist
DX: R11.2 Nausea with vomiting, unspecified (principal); J96.10 Chronic respiratory failure, unspecified whether with hypoxia or hypercapnia; D80.1 Nonfamilial hypogammaglobulinemia; E11.22 Type 2 diabetes mellitus with diabetic chronic kidney disease; E11.65 Type 2 diabetes mellitus with hyperglycemia; N18.3 Chronic kidney disease, stage 3 (moderate); I13.0 Hypertensive heart and chronic kidney disease with heart failure and stage 1 through stage 4 chronic kidney disease, or unspecified chronic kidney disease; I50.32 Chronic diastolic (congestive) heart failure; I25.811 Atherosclerosis of native coronary artery of transplanted heart without angina pectoris; I27.82 Chronic pulmonary embolism; E86.0 Dehydration; E05.90 Thyrotoxicosis, unspecified without thyrotoxic crisis or storm; J44.9 Chronic obstructive pulmonary disease, unspecified; R53.81 Other malaise; M35.00 Sjogren syndrome, unspecified; E78.2 Mixed hyperlipidemia; K21.9 Gastro-esophageal reflux disease without esophagitis; L29.9 Pruritus, unspecified; K44.9 Diaphragmatic hernia without obstruction or gangrene; M19.90 Unspecified osteoarthritis, unspecified site; K57.90 Diverticulosis of intestine, part unspecified, without perforation or abscess without bleeding; I35.2 Nonrheumatic aortic (valve) stenosis with insufficiency; D63.8 Anemia in other chronic diseases classified elsewhere; Z82.49 Family history of ischemic heart disease and other diseases of the circulatory system; Z79.4 Long term (current) use of insulin; Z86.73 Personal history of transient ischemic attack (TIA), and cerebral infarction without residual deficits; Z90.722 Acquired absence of ovaries, bilateral; Z98.51 Tubal ligation status; Z90.49 Acquired absence of other specified parts of digestive tract; Z90.710 Acquired absence of both cervix and uterus; Z82.3 Family history of stroke; Z80.0 Family history of malignant neoplasm of digestive organs; Z88.2 Allergy status to sulfonamides; Z88.8 Allergy status to other drugs, medicaments and biological substances; Z79.899 Other long term (current) drug therapy; Z83.3 Family history of diabetes mellitus

== ENCOUNTER → 2017-12-20 | Outpatient (CLI) | payer MEDICARE, MEDICAID ==
[~2017-12-20] MED LIST changes: +DILTIAZEM CD240 MG PO; +FAMOTIDINE20 M1 PO; +LOPRESSOR25 MG PO
== END | disposition home or self-care (01) ==
LOC: RAD 08:43
DX: K21.9 Gastro-esophageal reflux disease without esophagitis (principal)

== ENCOUNTER → 2017-12-23 | Outpatient (CLI) | payer MEDICARE, MEDICAID ==
--- NOTE | ~2017-12-23 | ST ---
[place], [place] EXERCISE STRESS TEST REPORT NAME: QUINTON HINTON UNIT #: [id number] ROOM: DOCTOR: JOSÉ MIGUEL LANDERS MD BIRTHDATE: [birth year] DOS: 12/23/2017 PHARMACOLOGIC STRESS TEST INDICATIONS: Chest discomfort, abnormal EKG. PROCEDURE: The patient was given a rapid infusion of regadenoson 0.4 mg intravenously followed by a saline flush. She was feeling poorly prior to the beginning of the test and stated that she felt dyspneic and lightheaded with some nausea during the infusion. She had a normal tachycardic response to the infusion, but no ST or T-wave changes. Forty seconds after the infusion of regadenoson, she was given radionuclide intravenously. IMPRESSION: 1. Well tolerated infusion of regadenoson. 2. Radionuclide injected. Please see the separately reported imaging report for further details of the patient's stress test results. JOSÉ MGIUEL LANDERS MD CM:STRESS:EXERCISE STRESS TEST REPORT [id number] JOSÉ MIGUEL LANDERS MD
== END | disposition home or self-care (01) ==
LOC: CARD 00:06
DX: R94.31 Abnormal electrocardiogram [ECG] [EKG] (principal); R07.89 Other chest pain

== ENCOUNTER 2017-12-30 12:31 | Inpatient (IN) | payer MEDICARE, MEDICAID ==
[2017-12-30] VITALS (8 sets, daily range): BP systolic 139–168; BP diastolic 65–90
[~2017-12-30] VITALS: Ht 154.9 cm; Wt 64.0 kg
--- NOTE | ~2017-12-30 | O ---
[place], [place] OPERATIVE NOTE NAME: QUINTON HINTON UNIT #: [id number] ROOM: 506 DOCTOR: SNEHA MATA MD BIRTHDATE: [birth year] DOS: 01/01/2018 HISTORY OF PRESENT ILLNESS: An 82-year-old patient who was presented with chief complaint of nausea, vomiting, and dyspepsia. She has been admitted and a series of blood work and consultations has been undertaken. Her urinalysis was unremarkable. No evidence of urinary tract infection. CT scan of the abdomen and pelvis was done. There was colonic diverticulosis, no evidence of diverticulitis. No acute pathology identified. Hematologic workup, troponin was negative. Lactic acid was negative. Comprehensive metabolic panel essentially unremarkable. Lipase was within normal limit. Basic metabolic panel shows persistently slight elevation in creatinine to 1.19. Electrolytes have been addressed. Additional potassium has been supplemented. PROCEDURE: Today's procedure part of investigation is panendoscopy plus biopsy. PREMEDICATION: Versed and propofol. SCOPE: Olympus forward-viewing gastroscope Q10 video. REPORT: After putting the patient in left lateral position and application of lubricant to the scope, the scope was introduced; thereafter, under direct visualization, advanced through the length of esophagus without difficulty. Small hiatal hernia was noticed. Gastritis was seen. Duodenal bulb, second and third part within normal limits. Antral biopsy obtained for H. pylori. The patient extubated, tolerated the procedure well. IMPRESSION: Small hiatal hernia, mild gastritis, status post biopsy. PLAN AND DISCUSSION: Since all the studies are negative. This nausea can be conservatively managed. PPI to be on board as well as Zofran limited supply 1 b.i.d. p.r.n. is going to be given to her, 30 tablets. Also, she is to continue as outpatient in the office for followup and clinical reassessment. SNEHA MATA MD CM:OPRECORD:OPERATIVE NOTE 1146 1330 SNEHA MATA MD 01/01/18 1329 interface
--- NOTE | ~2017-12-30 | CON ---
[place], [place] REPORT OF CONSULTATION NAME: QUINTON HINTON UNIT #: [id number] ROOM: 506 DOCTOR: SNEHA MATA MD BIRTHDATE: [birth year] DOS: GASTROENDOSCOPIC REPORT HISTORY OF PRESENT ILLNESS: An 82-year-old patient who has presented with persistent nausea, vomiting for approximately month. Apparently, she goes to see her family doctor. She has an episode of emesis in his office and the patient was directed to come to the Emergency Room for admission. I have been asked for assessment of the patient regarding nausea and vomiting. She has a panel of cardiologic workup done including myocardial perfusion, which was negative. Troponin was negative. Her lactic acid within normal limits. INR 0.9. Comprehensive metabolic panel: BUN and creatinine 14 and 1.3, GFR of 46, H and H of 10 and 32. Flat plate of the abdomen, which no acute process. PAST MEDICAL HISTORY: Associated with gastroesophageal reflux, diabetes mellitus, borderline obesity, diverticulosis, COPD, chronic renal failure, coronary artery disease, Sjogren syndrome, hypothyroidism, hypoalbuminemia, TIAs history, hyperlipidemia, hiatal hernia, all has been recognized. PAST SURGICAL HISTORY: Hysterectomy, cholecystectomy, tubal ligation, oophorectomy, laminectomy, small bowel resection and appendectomy. SOCIAL HISTORY: Nonsmoker and nonalcohol consumer. FAMILY HISTORY: Noncontributory. ALLERGIES: SULFA, QUINOLONES and ____. MEDICATIONS: List at home reviewed including some famotidine, ferrous sulfate, and multiple others reviewed. REVIEW OF SYSTEMS: HEENT: Denies double vision, blurred vision. RESPIRATORY: Denies acute shortness of breath. CARDIOVASCULAR: Denies acute chest pain. DIGESTIVE SYSTEM: Nausea, vomiting, periodically. PHYSICAL EXAMINATION: VITAL SIGNS: Stable. HEENT: Head normocephalic, nontraumatic. Mouth and buccal mucosa benign. NECK: Supple, no thyromegaly, no cervical lymphadenopathy. CHEST: Symmetric anatomy, equal expansion. No wheeze, no rhonchi. HEART: Normal sinus rhythm, no gallop, no murmur. ABDOMEN: Soft. No hepato-organomegaly. Bowel sounds present. Morphine pump in left lower quadrant subcutaneous is noticed. Implanted previously. She has a ventral hernia. EXTREMITIES: No cyanosis, no pedal edema. NEUROLOGIC: Alert and oriented to time, place, person. Sensory, motor intact. Cranial nerves 2-12 intact. [place], [place] REPORT OF CONSULTATION NAME: QUINTON HINTON UNIT #: [id number] ROOM: 506 DOCTOR: SNEHA MATA MD BIRTHDATE: [birth year] IMPRESSION: Recurrent nausea and vomiting, etiology unclear, ruling out hiatal hernia, gastritis and reflux etiologies. Otherwise, other adjunctive diagnoses as identified in past medical and surgical history. Diabetes mellitus, chronic obstructive pulmonary disease, COPD, renal insufficiency, Sjogren's syndrome, degenerative joint disease and she is not taking nonsteroidal anti-inflammatory at home, history of diverticulosis, ventral hernia, and hypothyroidism, all recognized. Workup in progress. I am waiting today for CT scan of the abdomen. Once the data is available to me and if not convincing pathology, i.e., obstructive pathology, then we are going to organize an EGD for her on Saturday. Thank you very much indeed for your kind referral. SNEHA MATA MD CM:CONSTR:REPORT OF CONSULTATION 22 12/31/17 0843 interface
[2017-12-30 13:15] LABS: HEMATOCRIT 33.9 % (37.0-47.0); HEMOGLOBIN 10.9 g/dl (12.0-16.0); MEAN CELL VOLUME 90.2 fl (81.0-99.0); MEAN CORPUSCULAR HGB CONC 32.2 g/dl (33.0-37.0); MEAN PLATELET VOLUME 11.8 fl (9.6-12.3); PLATELET COUNT AUTOMATED 146 10*3/uL (130-400); RED BLOOD COUNT 3.76 10*6/uL (4.10-5.10); RED CELL DISTRI WIDTH 14.5 % (0-14.5); WHITE BLOOD COUNT 5.9 10*3/uL (4.8-10.8)
[2017-12-30 13:25] LABS: INTERNATIONAL NORM RATIO 0.9 (2.0-3.5)
[2017-12-30 13:29] LABS: ALBUMIN 2.7 gm/dl (3.1-4.5); CREATININE 1.33 mg/dL (0.55-1.02); POTASSIUM 3.5 mmol/L (3.5-5.1); TOTAL PROTEIN 7.3 gm/dL (6.4-8.2)
[2017-12-30 13:32] LABS: PLATELET SUFFICIENCY NORMAL (NORMAL); TOTAL CELLS COUNTED 100 #CELLS
[2017-12-30] MEDS ORDERED: PEPCID20 MG PO (18:20)
[2017-12-30] MEDS ORDERED: TRINTELLIX10 MG PO (18:23)
[2017-12-30] MEDS ORDERED: HUMALOG100 UNIT/2 SQ (18:28)
[2017-12-30 22:40] LABS: BILIRUBIN NEGATIVE (NEGATIVE); BLOOD 1+ (NEGATIVE); CLARITY CLEAR (CLEAR); COLOR YELLOW (YELLOW); GLUCOSE NEGATIVE (NEGATIVE); KETONE NEGATIVE (NEGATIVE); LEUKO ESTERASE NEGATIVE (NEGATIVE); NITRITE NEGATIVE (NEGATIVE); SPECIFIC GRAVITY 1.025 (1.005-1.030); UROBILINOGEN 0.2 E.U./dl (0.2-1.0)
[2017-12-30 22:50] LABS: EPITHELIAL CELLS 0-5
[2017-12-30 22:51] LABS: WBC 0-2 wbc/hpf (0-5)
[2017-12-31] VITALS: BP 149/65
[2017-12-31 06:52] LABS: BASO % 0.4 % (0.0-1.0); EOS % 0.2 % (1.0-4.0); HEMATOCRIT 31.1 % (37.0-47.0); HEMOGLOBIN 10.1 g/dl (12.0-16.0); LYMPH # 0.9 10*3/uL (1.3-4.4); LYMPH % 19.5 % (27.0-41.0); MEAN CELL VOLUME 89.9 fl (81.0-99.0); MEAN CORPUSCULAR HGB 29.2 pg (27.0-31.0); MEAN CORPUSCULAR HGB CONC 32.5 g/dl (33.0-37.0); MEAN PLATELET VOLUME 12.2 fl (9.6-12.3); MONO # 0.5 10*3/uL (0.1-1.0); MONO % 11.6 % (3.0-9.0); NEUT # 3.1 10*3/uL (2.3-7.9); NEUT % 67.9 % (47.0-73.0); PLATELET COUNT AUTOMATED 134 10*3/uL (130-400); RED BLOOD COUNT 3.46 10*6/uL (4.10-5.10); RED CELL DISTRI WIDTH 14.2 % (0-14.5); WHITE BLOOD COUNT 4.6 10*3/uL (4.8-10.8)
[2017-12-31 07:00] LABS: CREATININE 1.27 mg/dL (0.55-1.02); POTASSIUM 3.8 mmol/L (3.5-5.1)
[2017-12-31 08:00] VITALS: BP 150/74
[2017-12-31 12:00] VITALS: BP 155/76
[2017-12-31 15:00] VITALS: BP 168/63
[2017-12-31 20:00] VITALS: BP 165/56
[2017-12-31 20:41] VITALS: BP 158/52
[2018-01-01] VITALS (9 sets, daily range): BP systolic 137–190; BP diastolic 57–87
[2018-01-01 07:10] LABS: EOS # 0.1 10*3/uL (0.0-0.4); EOS % 3.4 % (1.0-4.0); HEMATOCRIT 33.6 % (37.0-47.0); HEMOGLOBIN 10.6 g/dl (12.0-16.0); LYMPH # 1.2 10*3/uL (1.3-4.4); LYMPH % 30.3 % (27.0-41.0); MEAN CELL VOLUME 90.8 fl (81.0-99.0); MEAN CORPUSCULAR HGB 28.6 pg (27.0-31.0); MEAN CORPUSCULAR HGB CONC 31.5 g/dl (33.0-37.0); MEAN PLATELET VOLUME 11.6 fl (9.6-12.3); MONO # 0.5 10*3/uL (0.1-1.0); MONO % 11.7 % (3.0-9.0); NEUT % 52.8 % (47.0-73.0); PLATELET COUNT AUTOMATED 135 10*3/uL (130-400); RED CELL DISTRI WIDTH 14.3 % (0-14.5); WHITE BLOOD COUNT 3.8 10*3/uL (4.8-10.8)
[2018-01-01 07:20] LABS: CREATININE 1.19 mg/dL (0.55-1.02); POTASSIUM 3.3 mmol/L (3.5-5.1)
[2018-01-02] VITALS: BP 118/48
[2018-01-02 07:09] LABS: BASO % 0.9 % (0.0-1.0); EOS # 0.2 10*3/uL (0.0-0.4); EOS % 5.6 % (1.0-4.0); HEMATOCRIT 32.7 % (37.0-47.0); HEMOGLOBIN 10.5 g/dl (12.0-16.0); LYMPH # 1.4 10*3/uL (1.3-4.4); MEAN CELL VOLUME 90.6 fl (81.0-99.0); MEAN CORPUSCULAR HGB 29.1 pg (27.0-31.0); MEAN CORPUSCULAR HGB CONC 32.1 g/dl (33.0-37.0); MEAN PLATELET VOLUME 11.8 fl (9.6-12.3); MONO # 0.6 10*3/uL (0.1-1.0); MONO % 13.8 % (3.0-9.0); NEUT % 46.2 % (47.0-73.0); PLATELET COUNT AUTOMATED 121 10*3/uL (130-400); RED BLOOD COUNT 3.61 10*6/uL (4.10-5.10); RED CELL DISTRI WIDTH 14.2 % (0-14.5); WHITE BLOOD COUNT 4.3 10*3/uL (4.8-10.8)
[2018-01-02 07:26] LABS: CREATININE 1.2 mg/dL (0.55-1.02); POTASSIUM 3.8 mmol/L (3.5-5.1)
[2018-01-02 08:00] VITALS: BP 153/50
[2018-01-02] MEDS ORDERED: METOCLOPRAMIDE10 M1 PO ×2 (11:43→13:42)
[2018-01-02] MEDS ORDERED: Zofran4 MG SL (11:43)
[2018-01-02] MEDS ORDERED: PROTONIX40 MG PO (11:43)
[2018-01-02] MEDS ORDERED: XARE15TA PO ×2 (11:43→13:44)
[2018-01-02 12:00] VITALS: BP 157/68
[2018-01-02] MEDS ORDERED: OMEPRAZOLE D/R20 MG PO (13:43)
== END 2018-01-02 16:30 | disposition home or self-care (01) | DRG 391 ==
LOC: ED 12:31 → 5E 14:59 → EDHOLD 14:59 → 5E 15:39
PROVIDERS: Emergency Medicine; Family Medicine; Internal Medicine; Student in an Organized Health Care Education/Training Program
PROC: 0DB78ZZ Excision of Stomach, Pylorus, Via Natural or Artificial Opening Endoscopic (ICD-10-PCS; principal; 2018-01-01)
DX: K21.9 Gastro-esophageal reflux disease without esophagitis (principal); E43 Unspecified severe protein-calorie malnutrition; R65.10 Systemic inflammatory response syndrome (SIRS) of non-infectious origin without acute organ dysfunction; E11.22 Type 2 diabetes mellitus with diabetic chronic kidney disease; E86.0 Dehydration; D64.9 Anemia, unspecified; E05.90 Thyrotoxicosis, unspecified without thyrotoxic crisis or storm; M35.00 Sjogren syndrome, unspecified; R11.2 Nausea with vomiting, unspecified; Z68.26 Body mass index [BMI] 26.0-26.9, adult; K29.70 Gastritis, unspecified, without bleeding; J44.9 Chronic obstructive pulmonary disease, unspecified; D72.810 Lymphocytopenia; N18.3 Chronic kidney disease, stage 3 (moderate); K44.9 Diaphragmatic hernia without obstruction or gangrene; R00.0 Tachycardia, unspecified; E78.5 Hyperlipidemia, unspecified; F32.9 Major depressive disorder, single episode, unspecified; F41.9 Anxiety disorder, unspecified; M19.90 Unspecified osteoarthritis, unspecified site; E03.9 Hypothyroidism, unspecified; I12.9 Hypertensive chronic kidney disease with stage 1 through stage 4 chronic kidney disease, or unspecified chronic kidney disease; K57.90 Diverticulosis of intestine, part unspecified, without perforation or abscess without bleeding; I25.10 Atherosclerotic heart disease of native coronary artery without angina pectoris; Z86.711 Personal history of pulmonary embolism; Z79.01 Long term (current) use of anticoagulants; Z86.73 Personal history of transient ischemic attack (TIA), and cerebral infarction without residual deficits; Z90.721 Acquired absence of ovaries, unilateral; Z98.51 Tubal ligation status; Z90.49 Acquired absence of other specified parts of digestive tract; Z90.710 Acquired absence of both cervix and uterus; Z82.3 Family history of stroke; Z80.0 Family history of malignant neoplasm of digestive organs; Z88.2 Allergy status to sulfonamides; Z88.8 Allergy status to other drugs, medicaments and biological substances; Z79.899 Other long term (current) drug therapy

== ENCOUNTER 2018-01-14 08:52 | Inpatient (IN) | payer MEDICARE, MEDICAID ==
[~2018-01-14] VITALS: Ht 154.9 cm; Wt 64.0 kg
[2018-01-14] VITALS (7 sets, daily range): BP systolic 130–186; BP diastolic 55–90
--- NOTE | ~2018-01-14 | PR ---
[place], [place] PROGRESS NOTE NAME: QUINTON HINTON UNIT #: [id number] ROOM: 502 DOCTOR: JESSIE CRUM MD BIRTHDATE: [birth year] DOS: 01/18/2018 SUBJECTIVE: The patient is feeling somewhat better. OBJECTIVE: VITAL SIGNS: Blood pressure 141/60, heart rate 74 beats per minute, breathing 20 times per minute, temperature 98.7 degrees Fahrenheit. GENERAL APPEARANCE: The patient is alert and oriented x 3, in no visible distress, except for generalized weakness. HEENT AND NECK: Exam within normal limits. CARDIOVASCULAR SYSTEM: Heart rate is regular in rate and rhythm. S1 and S2 normally audible. LUNGS: Clear to auscultation. ABDOMEN: Soft, nontender. No obvious organomegaly. Bowel sounds are present. EXTREMITIES: Without significant cyanosis or edema. IMPRESSION: 1. Staphylococcus epidermitis, bacteremia, being covered with vancomycin. 2. Common variable hypogammaglobulinemia. 3. Benign essential hypertension, treated and controlled. 4. Type 2 diabetes mellitus. Blood sugar is being monitored and treated. 5. Diabetic nephropathy stage 3, stable. 6. Adult failure to thrive, which is chronic. 7. Generalized weakness and fatigue. JESSIE CRUM MD CM:PNTRANS [phone] JESSIE CRUM MD 01/18/181955 interface
--- NOTE | ~2018-01-14 | PR ---
[place], [place] PROGRESS NOTE NAME: QUINTON HINTON UNIT #: [id number] ROOM: 502 DOCTOR: HELENA PITT MD,CALLUM BIRTHDATE: [birth year] DOS: 01/17/2018 PULMONARY PROGRESS NOTE SUBJECTIVE: The patient noted comfortable at this time, resting, continued on intravenous antibiotic vancomycin. General weakness and fatigue were reported. Mild cough noted with minimal sputum expectoration. There was no chest pain. OBJECTIVE: VITAL SIGNS: Normal temperature, respiratory rate 18, heart rate 76, blood pressure 156/62. Pulse oxygen saturation recorded, room air 99% saturation. HEENT: Examination shows the head was atraumatic. Eyes nonicterus. NECK: Supple. CARDIOVASCULAR: S1, S2 is audible. LUNGS: The patient was noted without any wheezing or crackles this morning. ABDOMEN: Soft, nontender. Bowel sounds present. EXTREMITIES: Without any acute edema. IMPRESSION: 1. Bacteremia with Staphylococcus epidermidis, currently treated with the vancomycin. 2. History of common variable hypogammaglobulinemia. 3. Bronchial asthma. 4. Overall debility. PLAN OF MANAGEMENT: Order repeat blood culture, while the patient on vancomycin. Further treatment changes to be made for this patient based on progression of the illness. Usual care, other supportive plan of therapy and plan of care. The patient would be recommended about placement in the custodial facility with the antibiotics administration. Other usual care, plan ____. Continue other plan of management and care. Repeat culture of the blood ordered today. CALLUM MALIK MD CM:PNTRANS [phone] CALLUM PITT MD 01/18/18 0126 interface
--- NOTE | ~2018-01-14 | PR ---
[place], [place] PROGRESS NOTE NAME: QUINTON HINTON UNIT #: [id number] ROOM: 502 DOCTOR: ABRAHAN TOVAR MD BIRTHDATE: [birth year] DOS: 01/16/2018 SUBJECTIVE: The patient is not having any complaints other than tiredness. OBJECTIVE: VITAL SIGNS: Blood pressure is 160/79, pulse of 66, respirations 20, temperature 98.3. LUNGS: Clear. HEART: Regular. ABDOMEN: Soft. EXTREMITIES: Without any edema. CT of the chest does not show any evidence of pneumonia. ASSESSMENT AND PLAN: 1. Cough, possible acute bronchitis. The patient is on IV antibiotics. CT chest just shows COPD. 2. Positive blood cultures with Staph epi, all 4 bottles are positive. The patient is on IV vancomycin, to discharge to [facility] on IV antibiotics. Social service has been consulted. Remove the PICC line if the cultures do not get any better. ABRAHAN TOVAR MD CM:PNTRANS [phone] ABRAHAN TOVAR MD 01/17/18 0513 interface
--- NOTE | ~2018-01-14 | DS ---
[place], [place] DISCHARGE SUMMARY [id number] UNIT #: [id number] ROOM: 502 DOCTOR: ABRAHAN TOVAR MD BIRTHDATE: [birth year] DOS: 01/20/2018 DIAGNOSES: 1. Methicillin-resistant Staphylococcus epidermidis, 4 bottles positive. 2. Rash, possible scabies. 3. Adult failure to thrive. 4. Benign hypertension. 5. Type 2 diabetes mellitus, insulin-dependent. 6. Chronic pain. 7. Chronic nausea, emesis. 8. History of chest pains, with negative workup early this year. 9. Immunoglobulin deficiency. 10. Chronic obstructive pulmonary disease. 11. History of pulmonary embolism with pulmonary hypertension. 12. Gastritis. 13. Chronic kidney disease stage 3. 14. A 50,000 colonies of Escherichia coli in urine. DISCHARGE MEDICATIONS: Will be iron 325 daily, Trintellix 10 daily, zolpidem 10 at bedtime p.r.n., loratadine 10 daily p.r.n., diltiazem 240 daily, Humalog sliding scale, Protonix 40 daily, Xarelto 15 daily, Zofran 4 mg q. 8 hours p.r.n. for nausea, metoprolol 25 daily, metoclopramide 5 q. 6 hours, also vancomycin 1 gram every 36 hours, Ceftin 250 twice daily for 5 days. HOSPITAL COURSE: The patient is 82-year-old, comes in with complaints of diffuse aches and pains and chest pain. The patient was just discharged from [facility]. She saw Dr. Longo with complaints of cough and she was asked to come to the hospital. In the Emergency Room, she was diagnosed with acute bronchitis and possible right lower lobe pneumonia. The patient was admitted. After admission, a CT of the chest was done which did not show any evidence of pneumonia. The patient previously had blood cultures done before this hospitalization. These came back positive in 4 bottles, so for that the patient was placed on IV vancomycin. Urine culture was done, which showed E. coli, for which she will be on Ceftin. The patient's kidney functions are not very good, the GFR being 41, so we will need to keep a closer eye on the vancomycin levels. The patient did complain of diffuse itching, had seen multiple dermatologists before for this, was given Atarax. Infectious Disease thought that the patient may have scabies. Dr. Knutson did see the patient. The patient was given permethrin. This morning, the patient is relatively stable and at her baseline, so the plan [facility]. After the patient receives 7 days of medications, please do a blood culture from the [facility] site and if it has cleared, the should be able to go back home. Atarax 10 mg p.o. twice daily p.r.n. for pruritus. Diet is ADA 1800. Blood sugars to be checked daily. [place], [place] DISCHARGE SUMMARY NAME: QUINTON HINTON UNIT #: [id number] ROOM: 502 DOCTOR: ABRAHAN TOVAR MD BIRTHDATE: [birth year] ABRAHAN TOVAR MD CM:DISCHARG [phone] ABRAHAN TOVAR MD 01/20/18 0856 interface
--- NOTE | ~2018-01-14 | WRIGHTHP ---
[place], [place] PATIENT HISTORY AND PHYSICAL EXAM NAME: [facility]INTON [facility] [id number] UNIT #: [id number] ROOM: 502 DOCTOR: ABRAHAN TOVAR MD BIRTHDATE: [birth year] DOS: 01/14/2018 HISTORY OF PRESENT ILLNESS: The patient is 82-year-old, known to us from previous admission. A patient of Dr. Christian who comes in with complaints of cough. The patient was hospitalized recently and was discharged to [facility]. She was there for a few days and was discharged home after completing physical therapy. She was admitted back here on January 04 under the hospitalist services for nausea, vomiting. She underwent an endoscopy, which showed hiatal hernia and gastritis. She came back now with cough and sputum production. She denies having any chest pains, palpitations. Complains of a rash, which she states she has had for about 3 months now. PAST MEDICAL HISTORY: Significant for: 1. Multiple hospitalizations for nausea and emesis and chest pain this year. She looks like she has had admissions monthly. 2. She has immunoglobulin deficiency. 3. COPD. 4. History of PE with pulmonary hypertension. 5. Gastritis. 6. Chronic kidney disease stage 3. 7. Type 2 diabetes mellitus. MEDICATIONS: That she is currently on are Pepcid 20 daily, iron 325 q. 8 hours, loratadine 10 daily, melatonin 3 mg at bedtime, metoprolol 25 daily, Zofran 4 mg q. 12 hours, Protonix 40 daily, potassium 20 daily, Xarelto 15 daily, Trintellix 10 daily, zolpidem 10 at bedtime, Humalog sliding scale. SOCIAL HISTORY: Nonsmoker, does not use any alcohol. PHYSICAL EXAMINATION: GENERAL: She is awake and alert and oriented. VITAL SIGNS: Graphic trend shows blood pressure 142/70, pulse of 76, respirations 14. LUNGS: Diminished breath sounds, clear. HEART: Regular. ABDOMEN: Obese, with morphine pump implantation noted, is currently not working. EXTREMITIES: Without any edema. ASSESSMENT AND PLAN: 1. The patient admitted with right lower lobe pneumonia. The patient has been started on IV antibiotic, breathing treatments. Consultation with Dr. Esqueda has been obtained. 2. Pulmonary hypertension with history of chronic embolism, on Xarelto, which has been continued. 3. Rash with itching, Atarax has been ordered. The patient is not on any new medications. 4. Benign hypertension, controlled with ____ has been restarted. [place], [place] PATIENT HISTORY AND PHYSICAL EXAM NAME: QUINTON HINTON UNIT #: [id number] ROOM: [facility] DOCTOR: ABRAHAN TOVAR MD BIRTHDATE: [birth year] ABRAHAN TOVAR MD CM:HISPHYS:PATIENT HISTORY AND PHYSICAL EXAMINATION 4 ABRAHAN TOVAR MD 01/15/18904 interface
--- NOTE | ~2018-01-14 | PR ---
[place], [place] PROGRESS NOTE NAME: QUINTON HINTON UNIT #: [id number] ROOM: 502 DOCTOR: HELENA PITT MD,CALLUM BIRTHDATE: [birth year] DOS: 01/19/2018 SUBJECTIVE: The patient is noted comfortable at this time, resting on the bed without any acute distress. She is stating general weakness and fatigue without any acute distress. Denies symptoms of chest pain, nausea, vomiting, or diarrhea. OBJECTIVE: VITAL SIGNS: Normal temperature, respiratory rate 20, heart rate 67, blood pressure 152/62. Pulse oxygen saturation on room air is 98% saturation. HEENT: Examination shows head was atraumatic. Eyes nonicterus. NECK: Supple. CARDIOVASCULAR: S1, S2 is audible. LUNGS: The patient was noted without any wheeze or crackles at the present time. ABDOMEN: Soft, nontender. EXTREMITIES: Without any acute edema. LABORATORY DATA: The patient's surveillance blood cultures from 01/17/2018 showed no bacterial growth. IMPRESSION: Resolving bacteremia, Staphylococcus epidermidis progressively, general weakness and fatigue related to the current infection, bronchial asthma remains stable, the patient with chronic anticoagulation. PLAN OF MANAGEMENT: No changes in plan of care. Continue current therapy of the patient previously in progress. Other changes in management will be made based on progression of the illness. CALLUM MALIK MD CM:PNTRANS [phone] CALLUM PITT MD 01/20/18 0956 interface
--- NOTE | ~2018-01-14 | PR ---
[place], [place] PROGRESS NOTE [id number] UNIT #: [id number] ROOM: 502 DOCTOR: ABRAHAN TOVAR MD BIRTHDATE: [birth year] DOS: 01/20/2018 SUBJECTIVE: The patient has ____ nausea this morning, otherwise feels fine. I appreciate all consultants' help. OBJECTIVE: VITAL SIGNS: Graphic trend shows blood pressure of 132/70, pulse of 76, respirations 18. LUNGS: Diminished breath sounds, clear. HEART: Regular. ABDOMEN: Obese, soft. EXTREMITIES: Without any edema. ASSESSMENT AND PLAN: 1. Rash all over her body, which is thought to be possible scabies and was treated. 2. Methicillin-resistant Staphylococcus epidermidis in 4 bottles. The patient continues to be on IV vancomycin. No labs available for the last few days as far as the kidney functions are concerned. The last one is from January 20. The BUN is 19, creatinine 1.47. Vancomycin trough is 12.0. The plan is to discharge her to [facility] today, treat her with antibiotics for 7 doses and then repeat blood cultures from the [facility] site. ABRAHAN TOVAR MD CM:PNTRANS 0 ABRAHAN TOVAR MD 01/20/1820 interface
--- NOTE | ~2018-01-14 | PR ---
[place], [place] PROGRESS NOTE NAME: QUINTON HINTON UNIT #: [id number] ROOM: 502 DOCTOR: HELENA PITT MD,CALLUM BIRTHDATE: [birth year] DOS: 01/18/2018 SUBJECTIVE: The patient noted comfortable at this time, resting in the bed, complaining of general weakness, but there were no symptoms of coughing, shortness of breath, chest pain reported. OBJECTIVE: VITAL SIGNS: For the patient which has been recorded showed the temperature noted as normal, respiratory rate 20, heart rate 85, blood pressure 151/79. The pulse oxygen saturation of the patient recorded as 95% on room air. HEENT: Head was atraumatic. Eyes nonicterus. NECK: Supple. CARDIOVASCULAR: S1, S2 is audible. LUNGS: Without any wheezing or crackles. ABDOMEN: Soft, nontender. EXTREMITIES: Without any acute edema. IMPRESSION: Staphylococcus epidermidis bacteremia with follow surveillance cultures ordered yesterday, pending. History of bronchial asthma, allergic rhinitis and chronic anticoagulation. PLAN OF TREATMENT: No changes in the plan of care at this time. Continuation of the bronchodilators and antibiotics. Monitor and continue surveillance blood cultures. CALLUM MALIK MD CM:PNTRANS [phone] CALLUM PITT MD 01/19/18 0037 interface
--- NOTE | ~2018-01-14 | CON ---
[place], [place] REPORT OF CONSULTATION NAME: QUINTON HINTON [facility] #: [id number] UNIT #: [id number] ROOM: 502 DOCTOR: CALLUM HILL MD BIRTHDATE: [birth year] DOS: 01/15/2018 PULMONARY CONSULTATION, EVALUATION, AND MANAGEMENT CONSULTATION REQUESTED BY: Dr. America Bee. REASON FOR CONSULTATION: Assessment of current acute pneumonia and other respiratory symptom. HISTORY OF PRESENT ILLNESS: An 82-year-old white female who has been very known to me with past history of common variable hypogammaglobulinemia, recurrent pulmonary infection including pneumonia in the past, and exacerbation of bronchial asthma. The patient has been treated recently in the hospital a couple of times and after medical management of the acute respiratory symptom and others, was discharged home. The patient was recently admitted to the hospital and discharged on 01/02/2018. The patient was treated for the medical management of nausea, vomiting, and diarrhea; had some GI workup done as well. The patient has been readmitted to the hospital as she developed symptoms of increased coughing and chest congestion recently. She was seen in the office of primary care physician who recommended her going back to the hospital for further assessment. The patient was also treated in [facility] as well. The patient denies any symptoms of wheezing. She has noted cough with intermittent sputum expectoration, which is noted whitish yellowish in color at times. There were symptoms of hemoptysis reported. The patient does have symptoms of shortness of breath that occurs with exertion. REVIEW OF SYSTEMS: CONSTITUTIONAL: Fatigue and tiredness noted. Denies symptoms of fever or chills. EYES: Denies any burning, redness, or tenderness. EARS, NOSE, AND THROAT SYMPTOMS: Denies sore throat, hoarseness, otalgia, postnasal drainage, or epistaxis. CARDIOVASCULAR SYSTEM: Denies angina pain, palpitation, edema, or pain of the lower extremities. GASTROINTESTINAL SYMPTOMS: No dysphagia, nausea, vomiting, diarrhea, abdominal pain, hematemesis, melena, hematochezia, abnormal weight loss. GENITOURINARY SYMPTOMS: No dysuria, suprapubic pain, or hematuria. SKIN: Denies abnormal lesions or rashes. MUSCULOSKELETAL SYMPTOMS: Without any acute deformities or pain reported. CENTRAL NERVOUS SYSTEM: Denies dizziness, headache, diplopia, or syncopal episode. Remaining systems were reviewed. They were noted all negative. PAST MEDICAL HISTORY: 1. Noted with uncomplicated severe persistent bronchial asthma and acute recurrent pulmonary infections, bronchitis, and pneumonia. The patient history with common variable hypogammaglobulinemia, on intravenous gamma globulin therapy at this time. 2. History of severe general anxiety disorder. [place], [place] REPORT OF CONSULTATION NAME: QUINTON HINTON UNIT #: [id number] ROOM: [facility] DOCTOR: CALLUM HILL MD BIRTHDATE: [birth year] 3. Atrial fibrillation. 4. Rather chronic thromboembolism with hypercoagulability, on anticoagulation. 5. Type 2 diabetes mellitus. 6. Chronic kidney disease stage 3. 7. Coronary artery disease. 8. Essential hypertension. 9. Frequent hospitalization. 10. Severe allergic rhinitis. PAST SURGICAL HISTORY: 1. Lower back surgery. 2. Appendectomy. 3. Cholecystectomy. 4. Therapeutic bronchoscopy. SOCIAL HISTORY: The patient is a nonsmoker lifetime. Lives at home, has 2 children. FAMILY HISTORY: Unknown. CURRENT MEDICATIONS: The current medications administered were noted use of ferrous sulfate, Reglan, Protonix, Trintellix, Cardizem-CD, Xarelto 15 mg daily, DuoNeb q. 4 hours, Lasix 20 mg IV daily, IV Rocephin, vancomycin, and other p.r.n. medications for different symptoms were also noted. DRUG ALLERGIES: NOTED ALLERGY TO: 1. FLUOROQUINOLONES. 2. SULFA DRUGS. PHYSICAL EXAMINATION: GENERAL: An 82-year-old female who has been currently noted awake and alert without any acute distress. Height of 5 feet 1 inch, weight of 141 pounds, BMI 26.6. VITAL SIGNS: Normal temperature, respiratory rate 22-20, heart rate of 114-103, blood pressure 142/46-147/59. Pulse oxygen saturation recorded on room air at 95% saturation. HEENT: Head was atraumatic. Eyes, nonicterus. NECK: Supple. CARDIOVASCULAR: S1, S2 audible. LUNGS: Noted moderate decreased breath sounds in the lungs were noted with occasional wheezing, no crackles. ABDOMEN: Flat, soft, nontender. EXTREMITIES: Showed minimal ankle edema. VISIBLE SKIN: No lesions or rashes. MUSCULOSKELETAL: Noted with chronic deformities. CENTRAL NERVOUS SYSTEM: Cranial nerves 2-12 intact. No focal deficit. LABORATORY DATA: The PT and PTT on 01/14/2018, yesterday, normal. CBC yesterday noted with hemoglobin 11.9, hematocrit normal. The platelet counts were normal. CMP, BUN 18, creatinine 1.15. Glucose 188. Albumin 2.8. Lactic [place], [place] REPORT OF CONSULTATION NAME: QUINTON HINTON UNIT #: [id number] ROOM: [facility] DOCTOR: CALLUM HILL MD BIRTHDATE: [birth year] acid 0.8. Chest x-ray, 2-view, which was done on 01/14/2018 was reviewed, shows possibility of pneumonia suspected in the right upper lobe. CT scan of the chest that was done later without contrast; Dr. America Bee personally reviewed, shows there was no evidence of any pulmonary infiltration. Old scarring was noted in the right lower lung. Elevated pulmonary artery pressure was suspected because of large caliber of the pulmonary arterial trunk. IMPRESSION: 1. The patient who had been currently admitted to the hospital noted with symptoms of increased cough. There was no evidence of pneumonia with evidence of chronic postinflammatory scarring. 2. Rule out pulmonary hypertension as well. The echocardiogram was reviewed of 09/23/[address] Corbin. Report was reviewed to assess if there is pulmonary hypertension. It has not been reported with any evidence of pulmonary hypertension. Moderate aortic stenosis was reported. Diastolic dysfunction was also seen. The aortic stenosis was noted with a size of 1.3 cm2, pressure gradient of 23, and a mean gradient of 14. Right ventricle function was noted normal. Left ventricle ejection fraction was noted as 65%. PLAN AND RECOMMENDATION: Do the sputum for Gram stain and culture. The intravenous vancomycin might need to be discontinued after obtaining the sputum culture and if it does not show any evidence of MRSA or other similar infection. Symptomatic management as well. Moderate aortic stenosis, which was noted with possibility of some congestive heart failure continue be treated with the diuretic therapy with monitoring of the BUN and creatinine to be done. Other supportive therapy and plan of management. Continue current use of bronchodilators. The use of steroids will not be necessary at this time. There was no wheezing or similar findings. Other supportive therapy, plan of management and care. Thanks for allowing me to participate in the care of this patient. CALLUM MALIK MD CM:CONSTR:REPORT OF CONSULTATION 1509 01/15/18 1945 interface
--- NOTE | ~2018-01-14 | PR ---
[place], [place] PROGRESS NOTE NAME: QUINTON HINTON UNIT #: [id number] ROOM: 502 DOCTOR: CALLUM HILL MD BIRTHDATE: [birth year] DOS: 01/16/2018 PULMONARY FOLLOWUP SUBJECTIVE: She has been noted with mild cough without any difficulties. The patient was noted with symptoms of general weakness and fatigue. She denies symptoms of nausea or vomiting. Denies symptoms of abdominal pain. Denies any pain of the lower extremities. The patient has been currently getting physical therapy. She has been continued on intravenous vancomycin and IV Rocephin. The patient denies symptoms of joint pain. Remaining systems were reviewed. They were noted all negative. OBJECTIVE: VITAL SIGNS: For the patient which were recorded showed the temperature noted as normal, respiratory rate of 18-17, heart rate of 84-88, blood pressure 156/64-160/57. Intake is 1160 mL/1625 mL. Pulse ox saturation on room air was 93% saturation. HEENT: Examination shows head was atraumatic. Eyes nonicterus. NECK: Supple. CARDIOVASCULAR: S1, S2 is audible. LUNGS: The patient was noted with free of any wheezing or crackles. ABDOMEN: Soft, nontender. Bowel sounds present. EXTREMITIES: Without any acute edema. LABORATORY DATA: The blood culture, which was taken in the Emergency Room noted with positive cultures for Staphylococcus epidermidis. IMPRESSION: 1. The patient with general weakness and fatigue. 2. Staphylococcus epidermidis bacteremia is very likely. 3. The patient with MediPort noted in place for the intravenous gamma-globulin infusions. 4. Common variable hypogammaglobulinemia. PLAN OF TREATMENT: At this time, conservative treatment could be continued for this patient with use of antibiotic, vancomycin. Vancomycin should be given as an outpatient about 2-3 weeks for this patient. Rocephin will be discontinued. Follow-up surveillance culture after completion of the antibiotic and if still noted positive, the port needs to be removed. The discharge planning was discussed with Dr. Amercia Bee. [place], [place] PROGRESS NOTE NAME: QUINTON HINTON UNIT #: [id number] ROOM: 502 DOCTOR: CALLUM HILL MD BIRTHDATE: [birth year] CALLUM MALIK MD CM:PNTRANS [phone] CALLUM PITT MD 01/16/181647 interface
--- NOTE | ~2018-01-14 | PR ---
[place], [place] [facility]GRESS [id number] #: [id number] ROOM: 502 DOCTOR: JESSIE CRUM MD BIRTHDATE: [birth year] DOS: 01/19/2018 SUBJECTIVE: The patient continues to feel better, although she has itching and rash on her skin which is generalized. OBJECTIVE: VITAL SIGNS: Blood pressure 133/52, heart rate of 74 beats per minute, breathing 20 times per minute, afebrile. IMPRESSION: 1. The patient has scabies skin infection, to be treated with Elimite. 2. The patient with Staphylococcus epidermidis, suspected line sepsis. The patient remains on IV vancomycin and recommended for 7 days. 3. Benign essential hypertension, being treated and followed. 4. Type 2 diabetes mellitus. Blood sugar is being monitored and treated. 5. Diabetic nephropathy stage 3, stable. 6. Chronic adult failure to thrive. The patient is working with Physical Therapy. The patient has generalized weakness and fatigue. JESSIE CRUM MD CM:PNTRANS [phone] JESSIE CRUM MD 01/19/18 2246 interface
--- NOTE | ~2018-01-14 | EKG ---
[place], [place] ELECTROCARDIOGRAM REPORT NAME: QUINTON HINTON UNIT #: [id number] ROOM: [facility] DOCTOR: HELENA PITT MD,CALLUM BIRTHDATE: [birth year] DOS: 01/14/2018 Electrocardiogram done 15-01-2018 at 9:44 a.m. Normal sinus rhythm noted. Heart rate 70 beats per minute. There were no elective cardiac abnormalities seen. CALLUM MALIK MD CM:EKGRPT:ELECTROCARDIOGRAM REPORT [id number] CALLUM PITT MD
--- NOTE | ~2018-01-14 | PR ---
[place], [place] PROGRESS NOTE NAME: QUINTON HINTON UNIT #: [id number] ROOM: 502 DOCTOR: HELENA PITT MD,CALLUM BIRTHDATE: [birth year] DOS: 01/20/2018 PULMONARY PROGRESS NOTE SUBJECTIVE: The patient noted comfortable at this time. The patient complaints of generally weak and fatigued. There was no coughing, sputum expectoration, or shortness of breath symptoms reported. Continued intravenous antibiotics, which has been tolerated well. OBJECTIVE: VITAL SIGNS: Normal temperature, respiratory rate 20, heart rate 68, blood pressure 132/58. The pulse oxygen saturation noted on room air 97% saturation. HEENT: Head was atraumatic. Eyes nonicterus. CARDIOVASCULAR: S1, S2 is audible. LUNGS: Without any wheeze or crackles at this time. ABDOMEN: Soft, nontender, bowel sounds present. EXTREMITIES: Without any acute edema. LABORATORY DATA: The BUN today was noted as normal. Creatinine 1.47. IMPRESSION: 1. The patient who has been currently noted with bacteremia. The patient's Staph epidermidis is resolving, surveillance cultures. Mild elevation of creatinine, which need to be monitored. 2. The patient with a MediPort, which has been noted with history of common variable hypergammaglobulinemia, receiving intravenous gamma globulins. PLAN OF MANAGEMENT: Discharge planning of the patient has been noted previously in progress. The [facility] completing antibiotic and monitoring of the kidney function and other labs accordingly. Usual care, other supportive therapy, plan of management and care plan. CALLUM MALIK MD CM:PNTRANS [phone] CALLUM PITT MD 01/21/18 0451 interface
--- NOTE | ~2018-01-14 | PR ---
[place], [place] PROGRESS NOTE NAME: [id number] UNIT #: [id number] ROOM: 502 DOCTOR: JESSIE CRUM MD BIRTHDATE: [birth year] DOS: 01/17/2018 SUBJECTIVE: The patient with generalized weakness and tiredness, otherwise no new complaints. OBJECTIVE: VITAL SIGNS: Blood pressure 126/62, heart rate of 78 beats per minute, breathing 18 times per minute, temperature 98.4 degrees Fahrenheit. GENERAL APPEARANCE: The patient is alert and oriented x 3, in no visible distress, except for generalize weakness. HEENT AND NECK: Exam within normal limits. CARDIOVASCULAR SYSTEM: Heart rate is regular in rate and rhythm. S1 and S2 normally audible. LUNGS: Clear to auscultation. ABDOMEN: Soft, nontender. No obvious organomegaly. Bowel sounds are present. EXTREMITIES: Without significant cyanosis or edema. IMPRESSION: 1. The patient with Staphylococcus epidermidis positive blood cultures. I have consulted Infectious Disease specialist for opinion and help with management. The patient has been started on IV vancomycin. 2. Chronic adult failure to thrive, generalized weakness and fatigue. 3. Common variable hypogammaglobulinemia, treated with gamma globulin infusions. 4. Centrilobular emphysema with chronic shortness of breath, treated with bronchodilators. 5. Type 2 diabetes mellitus. Blood sugar is monitored and treated. 6. Diabetic nephropathy stage 3. 7. Benign essential hypertension, monitored, treated and controlled. JESSIE CRUM MD CM:PNTRANS [phone] JESSIE CRUM MD 01/17/181899 interface
[~2018-01-14 08:52] MED LIST changes: +HUMALOG100 UNIT/2 SQ; +METOCLOPRAMIDE10 M1 PO; +PEPCID20 MG PO; +Zofran4 MG SL
[2018-01-14 10:02] LABS: BILIRUBIN NEGATIVE (NEGATIVE); BLOOD 1+ (NEGATIVE); COLOR YELLOW (YELLOW); GLUCOSE 2+ (NEGATIVE); KETONE NEGATIVE (NEGATIVE); LEUKO ESTERASE NEGATIVE (NEGATIVE); NITRITE NEGATIVE (NEGATIVE); SPECIFIC GRAVITY 1.025 (1.005-1.030); UROBILINOGEN 0.2 E.U./dl (0.2-1.0)
[2018-01-14 10:04] LABS: BASO % 0.5 % (0.0-1.0); EOS # 0.1 10*3/uL (0.0-0.4); EOS % 1.9 % (1.0-4.0); HEMOGLOBIN 11.9 g/dl (12.0-16.0); LYMPH # 0.9 10*3/uL (1.3-4.4); LYMPH % 12.7 % (27.0-41.0); MEAN CELL VOLUME 90.9 fl (81.0-99.0); MEAN CORPUSCULAR HGB 29.2 pg (27.0-31.0); MEAN CORPUSCULAR HGB CONC 32.2 g/dl (33.0-37.0); MEAN PLATELET VOLUME 10.8 fl (9.6-12.3); MONO # 0.7 10*3/uL (0.1-1.0); MONO % 9.4 % (3.0-9.0); NEUT # 5.5 10*3/uL (2.3-7.9); NEUT % 73.6 % (47.0-73.0); PLATELET COUNT AUTOMATED 216 10*3/uL (130-400); RED BLOOD COUNT 4.07 10*6/uL (4.10-5.10); RED CELL DISTRI WIDTH 14.4 % (0-14.5); WHITE BLOOD COUNT 7.4 10*3/uL (4.8-10.8)
[2018-01-14 10:14] LABS: ACT PARTIAL THROMBO TIME 28.4 SECONDS (20.8-31.5); INTERNATIONAL NORM RATIO 1.1 (2.0-3.5)
[2018-01-14 10:16] LABS: CLARITY SL CLOUDY (CLEAR)
[2018-01-14 10:17] LABS: BACTERIA 1+
[2018-01-14 10:25] LABS: ALBUMIN 2.8 gm/dl (3.1-4.5); CREATININE 1.15 mg/dL (0.55-1.02); POTASSIUM 4.2 mmol/L (3.5-5.1); TOTAL PROTEIN 6.3 gm/dL (6.4-8.2)
[2018-01-14] MEDS ORDERED: ZOFRAN4 MG PO (12:16)
[2018-01-14] MEDS ORDERED: POTASSIUM CHLO20 MEQ PO (12:17)
[2018-01-14] MEDS ORDERED: MELATONIN3 MG PO (12:17)
[2018-01-14] MEDS ORDERED: LOPRESSOR25 MG PO (13:28)
[2018-01-15] VITALS: BP 142/46
[2018-01-15 08:00] VITALS: BP 153/64
[2018-01-15 12:00] VITALS: BP 147/59
[2018-01-15 16:00] VITALS: BP 146/85
[2018-01-15 20:00] VITALS: BP 132/49
[2018-01-16] VITALS: BP 156/64
[2018-01-16 08:00] VITALS: BP 160/57
[2018-01-16 12:00] VITALS: BP 150/60
[2018-01-16 16:00] VITALS: BP 119/67
[2018-01-16 20:00] VITALS: BP 135/52
[2018-01-17] VITALS: BP 159/49
[2018-01-17 07:00] LABS: CREATININE 1.25 mg/dL (0.55-1.02)
[2018-01-17 08:00] VITALS: BP 162/59
[2018-01-17 12:00] VITALS: BP 156/62
[2018-01-17 16:00] VITALS: BP 126/62
[2018-01-17 20:00] VITALS: BP 124/44
[2018-01-18] VITALS: BP 139/57
[2018-01-18 07:59] VITALS: BP 160/60
[2018-01-18 12:00] VITALS: BP 151/79
[2018-01-18 16:00] VITALS: BP 141/60
[2018-01-18 20:00] VITALS: BP 149/52
[2018-01-19] VITALS: BP 140/58
[2018-01-19 08:00] VITALS: BP 170/60
[2018-01-19 11:49] VITALS: BP 152/62
[2018-01-19 16:00] VITALS: BP 133/52
[2018-01-19 20:00] VITALS: BP 135/58
[2018-01-20 00:26] VITALS: BP 141/51
[2018-01-20 07:16] LABS: CREATININE 1.47 mg/dL (0.55-1.02)
[2018-01-20 08:00] VITALS: BP 154/68
[2018-01-20] MEDS ORDERED: METOCLOPRAMIDE10 M1 PO (08:24)
[2018-01-20 12:00] VITALS: BP 133/58
== END 2018-01-20 16:05 | disposition other institution (70) | DRG 315 ==
LOC: ED 08:52 → EDHOLD 11:38 → 5E 11:38
PROVIDERS: Internal Medicine; Nurse Practitioner
DX: T80.211A Bloodstream infection due to central venous catheter, initial encounter (principal); J44.0 Chronic obstructive pulmonary disease with (acute) lower respiratory infection; R78.81 Bacteremia; E11.21 Type 2 diabetes mellitus with diabetic nephropathy; D80.1 Nonfamilial hypogammaglobulinemia; I27.20 Pulmonary hypertension, unspecified; B95.7 Other staphylococcus as the cause of diseases classified elsewhere; E11.22 Type 2 diabetes mellitus with diabetic chronic kidney disease; N18.3 Chronic kidney disease, stage 3 (moderate); B86 Scabies; J20.9 Acute bronchitis, unspecified; K29.70 Gastritis, unspecified, without bleeding; R62.7 Adult failure to thrive; F41.1 Generalized anxiety disorder; K57.90 Diverticulosis of intestine, part unspecified, without perforation or abscess without bleeding; I48.91 Unspecified atrial fibrillation; I12.9 Hypertensive chronic kidney disease with stage 1 through stage 4 chronic kidney disease, or unspecified chronic kidney disease; I25.10 Atherosclerotic heart disease of native coronary artery without angina pectoris; I35.0 Nonrheumatic aortic (valve) stenosis; G89.29 Other chronic pain; E78.5 Hyperlipidemia, unspecified; M19.90 Unspecified osteoarthritis, unspecified site; E21.3 Hyperparathyroidism, unspecified; M35.00 Sjogren syndrome, unspecified; Y83.8 Other surgical procedures as the cause of abnormal reaction of the patient, or of later complication, without mention of misadventure at the time of the procedure; Y92.89 Other specified places as the place of occurrence of the external cause; Z88.1 Allergy status to other antibiotic agents; Z88.2 Allergy status to sulfonamides; Z87.01 Personal history of pneumonia (recurrent); Z98.51 Tubal ligation status; Z86.711 Personal history of pulmonary embolism; Z90.49 Acquired absence of other specified parts of digestive tract; Z90.710 Acquired absence of both cervix and uterus; Z90.722 Acquired absence of ovaries, bilateral; Z80.0 Family history of malignant neoplasm of digestive organs; Z82.3 Family history of stroke; Z82.49 Family history of ischemic heart disease and other diseases of the circulatory system; Z83.3 Family history of diabetes mellitus; Z79.899 Other long term (current) drug therapy; Z86.73 Personal history of transient ischemic attack (TIA), and cerebral infarction without residual deficits

== ENCOUNTER → 2018-02-10 | Day surgery (SDC) | payer MEDICARE, MEDICAID ==
[~2018-02-10] VITALS: Ht 154.9 cm; Wt 64.9 kg
[~2018-02-10] MED LIST changes: +ACETAMINOPHEN325 M2 PO; +BUSPIRONE10 MG PO; +CARDIZEM CD240 M1 PO; +CARTIA XT240 MG PO; +CELEXA20 MG PO; +CLONIDINE HCL0.1 MG PO; +DIPROSONE 0.05%15 G1 T; +FERRETTS325 M1 PO; +FERROUS SULFAT325 MG PO; +HEARTBURN RELIE20 MG PO; +HUMALOG100 UNIT/1 SL; +HYDROCODONE-AC1 EAC1 PO; +LEXAPRO20 MG PO; +Lopressor25 MG PO; +METOCLOPRAMIDE H5 M1 PO; +MIRTAZAPINE15 M2 PO; +MULTIVITAMINS1 EAC5 PO; +NORVASC10 MG PO; +NOVOLOG10 ML IV; +ONDANSETRON4 MG PO; +POTASSIUM CHLO20 MEQ PO; +PROBIOTIC1 EAC1 PO; +REGLAN5 MG PO; +ROPINIROLE HYDRO1 MG PO; +SYSTANE 0.3-0.415 ML OP; +TEMOVATE15 GM T; +TEMOVATE30 GM T; +TYLENOL325 M2 PO; +VANCOMYCIN HCL1 GM IV; +VITAMIN D35000 UNIT PO; +XARE20MG PO; +XARELTO15 M1 PO; +ZOLPIDEM TART10 MG PO
[2018-02-10 13:45] VITALS: BP 164/59
[2018-02-10 14:00] VITALS: BP 171/66
[2018-02-10 14:15] VITALS: BP 145/56
== END | disposition home or self-care (01) ==
LOC: SDC 02-07 14:45
DX: Z45.2 Encounter for adjustment and management of vascular access device (principal); I13.10 Hypertensive heart and chronic kidney disease without heart failure, with stage 1 through stage 4 chronic kidney disease, or unspecified chronic kidney disease; N18.3 Chronic kidney disease, stage 3 (moderate); I25.10 Atherosclerotic heart disease of native coronary artery without angina pectoris; E11.22 Type 2 diabetes mellitus with diabetic chronic kidney disease; J44.9 Chronic obstructive pulmonary disease, unspecified; K21.9 Gastro-esophageal reflux disease without esophagitis; M35.00 Sjogren syndrome, unspecified; M19.90 Unspecified osteoarthritis, unspecified site; F41.9 Anxiety disorder, unspecified; F32.9 Major depressive disorder, single episode, unspecified; Z86.73 Personal history of transient ischemic attack (TIA), and cerebral infarction without residual deficits; Z88.2 Allergy status to sulfonamides; Z88.8 Allergy status to other drugs, medicaments and biological substances; Z79.899 Other long term (current) drug therapy; Z86.718 Personal history of other venous thrombosis and embolism

== ENCOUNTER 2018-02-22 14:29 | Emergency (ER) | payer MEDICARE, MEDICAID ==
[~2018-02-22] VITALS: Ht 154.9 cm; Wt 63.5 kg
[~2018-02-22 14:29] MED LIST changes: -CARDIZEM CD240 M1 PO; -CELEXA20 MG PO; -CLONIDINE HCL0.1 MG PO; -DIPROSONE 0.05%15 G1 T; -FERROUS SULFAT325 MG PO; -HEARTBURN RELIE20 MG PO; -METOCLOPRAMIDE H5 M1 PO; -MIRTAZAPINE15 M2 PO; -MULTIVITAMINS1 EAC5 PO; -NORVASC10 MG PO; -NOVOLOG10 ML IV; -PROBIOTIC1 EAC1 PO; -REGLAN5 MG PO; -ROPINIROLE HYDRO1 MG PO; -SYSTANE 0.3-0.415 ML OP; -TEMOVATE15 GM T; -TYLENOL325 M2 PO; -VITAMIN D35000 UNIT PO; -XARE20MG PO; -XARELTO15 M1 PO; -ZOLPIDEM TART10 MG PO
[2018-02-22] MEDS ORDERED: RESTASIS1 EACH OP (14:46)
[2018-02-22] MEDS ORDERED: BREO ELLIPTA 11 EACH INH (14:46)
[2018-02-22] MEDS ORDERED: OXYGEN NAS (14:47)
[2018-02-22] MEDS ORDERED: NOVOLOG10 ML IV (14:47)
[2018-02-22] MEDS ORDERED: TYLENOL325 M2 PO (14:48)
[2018-02-22] MEDS ORDERED: SYSTANE 0.3-0.415 ML OP (14:48)
[2018-02-22] MEDS ORDERED: VISTARIL25 M2 PO (14:49)
[2018-02-22] MEDS ORDERED: VITAMIN D35000 UNIT PO (14:49)
[2018-02-22] MEDS ORDERED: MULTIVITAMINS1 EAC5 PO (14:50)
[2018-02-22] MEDS ORDERED: PROBIOTIC1 EAC1 PO (14:50)
[2018-02-22] MEDS ORDERED: CARAFATE1 G1 PO (14:51)
[2018-02-22] MEDS ORDERED: Zofran4 MG SL (14:51)
[2018-02-22] MEDS ORDERED: XARE20MG PO (14:52)
[2018-02-22] MEDS ORDERED: FERROUS SULFAT325 MG PO (14:52)
[2018-02-22] MEDS ORDERED: HEARTBURN RELIE20 MG PO (14:53)
[2018-02-22] MEDS ORDERED: LOPRESSOR25 MG PO (14:53)
[2018-02-22] MEDS ORDERED: CARDIZEM CD240 M1 PO (14:54)
[2018-02-22] MEDS ORDERED: PROTONIX40 MG PO (14:55)
[2018-02-22 15:29] LABS: BASO # 0.1 10*3/uL (0.0-0.1); EOS # 0.3 10*3/uL (0.0-0.4); EOS % 4.4 % (1.0-4.0); HEMATOCRIT 36.4 % (37.0-47.0); HEMOGLOBIN 11.6 g/dl (12.0-16.0); LYMPH # 1.3 10*3/uL (1.3-4.4); LYMPH % 18.6 % (27.0-41.0); MEAN CELL VOLUME 91.2 fl (81.0-99.0); MEAN CORPUSCULAR HGB 29.1 pg (27.0-31.0); MEAN CORPUSCULAR HGB CONC 31.9 g/dl (33.0-37.0); MEAN PLATELET VOLUME 10.7 fl (9.6-12.3); MONO # 0.8 10*3/uL (0.1-1.0); NEUT # 4.3 10*3/uL (2.3-7.9); NEUT % 62.5 % (47.0-73.0); PLATELET COUNT AUTOMATED 175 10*3/uL (130-400); RED BLOOD COUNT 3.99 10*6/uL (4.10-5.10); RED CELL DISTRI WIDTH 14.3 % (0-14.5); WHITE BLOOD COUNT 6.8 10*3/uL (4.8-10.8)
[2018-02-22 15:42] LABS: CREATININE 1.78 mg/dL (0.55-1.02); POTASSIUM 4.1 mmol/L (3.5-5.1)
[2018-02-22 16:08] VITALS: BP 165/66
[2018-02-23] MEDS ORDERED: ZOLPIDEM TART10 MG PO (14:42)
[2018-02-23] MEDS ORDERED: Zofran4 MG SL (14:43)
[2018-02-23] MEDS ORDERED: FERROUS SULFAT325 MG PO (14:43)
[2018-02-23] MEDS ORDERED: CLARITIN10 MG PO (14:44)
[2018-02-23] MEDS ORDERED: HUMALOG100 UNIT/2 SQ (14:44)
[2018-02-23] MEDS ORDERED: XARELTO15 M1 PO (14:45)
[2018-02-23] MEDS ORDERED: Lopressor25 MG PO (14:45)
[2018-02-23] MEDS ORDERED: METOCLOPRAMIDE10 M1 PO (14:46)
[2018-02-23] MEDS ORDERED: ROPINIROLE HYDRO1 MG PO (14:46)
[2018-02-23] MEDS ORDERED: BUSPIRONE10 MG PO (14:47)
[2018-02-23] MEDS ORDERED: OMEPRAZOLE D/R20 MG PO (14:47)
[2018-02-23] MEDS ORDERED: CELEXA20 MG PO (14:48)
[2018-02-23] MEDS ORDERED: AMOXICILLIN875 MG PO (14:49)
[2018-02-23] MEDS ORDERED: TEMOVATE15 GM T (14:50)
[2018-02-23] MEDS ORDERED: PROTONIX40 MG PO (14:51)
[2018-02-23] MEDS ORDERED: TRINTELLIX10 MG PO (14:52)
[2018-02-23] MEDS ORDERED: CARTIA XT240 MG PO (14:53)
[2018-02-23] MEDS ORDERED: DIPROSONE 0.05%15 G1 T (14:55)
[2018-02-23] MEDS ORDERED: FLONASE ALLERG9.9 ML NAS (14:56)
[2018-02-28] MEDS ORDERED: REGLAN5 MG PO (09:48)
[2018-02-28] MEDS ORDERED: NORCO 5-325 TA1 EACH PO (09:49)
== END 2018-02-22 16:45 | disposition home or self-care (01) ==
LOC: ED 14:29
PROVIDERS: Physician Assistant
DX: T44.7X1A Poisoning by beta-adrenoreceptor antagonists, accidental (unintentional), initial encounter (principal); Z88.2 Allergy status to sulfonamides; Z88.8 Allergy status to other drugs, medicaments and biological substances; Z79.899 Other long term (current) drug therapy; Z90.49 Acquired absence of other specified parts of digestive tract; Z90.710 Acquired absence of both cervix and uterus; Z98.51 Tubal ligation status; Y92.89 Other specified places as the place of occurrence of the external cause

== ENCOUNTER 2018-02-23 03:22 | Inpatient (IN) | payer MEDICARE, MEDICAID ==
[~2018-02-23] VITALS: Ht 170.2 cm; Wt 64.5 kg
[2018-02-23] VITALS (10 sets, daily range): BP systolic 142–210; BP diastolic 64–110
--- NOTE | ~2018-02-23 | PR ---
[place], [place] PROGRESS NOTE NAME: QUINTON HINTON UNIT #: [id number] ROOM: 421 DOCTOR: ABRAHAN TOVAR MD BIRTHDATE: [birth year] DOS: 02/24/2018 SUBJECTIVE: The patient is doing much better this morning, does not have any complaints at all. She wanted her Ambien yesterday night, which was given. She denies having any chest pains, palpitations, abdominal pain. She is no longer nauseous. It does not have any emesis. OBJECTIVE: VITAL SIGNS: Graphic trend shows a pressure 162/90, pulse of 90, respirations 18, temperature 98.2. LUNGS: Diminished breath sounds, clear. HEART: Regular. ABDOMEN: Obese, some chronic diffuse tenderness which is nothing new. EXTREMITIES: Without any edema. ASSESSMENT AND PLAN: 1. The patient admitted with metabolic encephalopathy, unknown etiology. I will discontinue the Ambien. The patient apparently was running around naked at home at night, so Ambien could be one of the reasons, so we will discontinue it, explained to the patient. 2. Chronic gastritis with nausea and emesis. CT was negative. Dr. Gutierrez taking her for an endoscopy today. Add low dose of Remeron. 3. Benign hypertension, poorly controlled. Clonidine patch was added. I will restart the metoprolol, which she can start after her procedures. 4. Adult failure to thrive. The patient was just discharged from the [facility] last and she was admitted on Saturday here. I will ask social service to consider discharge planning. Physical therapy/Occupational Therapy consultation obtained. ABRAHAN TOVAR MD CM:PNTRANS [phone] ABRAHAN TOVAR MD 02/25/18 0440 interface
--- NOTE | ~2018-02-23 | WRIGHTHP ---
[place], [place] PATIENT HISTORY AND PHYSICAL EXAM NAME: QUINTON HINTON UNIT #: [id number] ROOM: 421 DOCTOR: ABRAHAN TOVAR MD BIRTHDATE: [birth year] DOS: 02/23/2018 HISTORY OF PRESENT ILLNESS: The patient is 82-year-old, very well known to her. She was just discharged from [facility] on after MediPort removal and negative blood cultures. She comes in with complaints that she thinks that she took two extra doses of metoprolol this morning instead of 1. By the time she arrived in the emergency room, blood work was all normal. The ER physician noticed patient was confused and unable to get up out of bed. When I saw her on the floor, she was awake and alert and oriented. Answers questions appropriately, but she complained of nausea and small amount of emesis and abdominal pain, which is chronic. PAST MEDICAL HISTORY: 1. MediPort removal recently for MRSA sepsis. 2. Benign hypertension. 3. Adult failure to thrive. 4. Recent scabies infestation. 5. Type 2 diabetes mellitus, insulin-dependent. 6. Immunoglobulin deficiency. 7. COPD. 8. History of pulmonary embolism with secondary pulmonary hypertension. 9. Chronic kidney disease. 10. Chronic gastritis. MEDICATIONS: She is currently on are according to her home medications Breo Ellipta 1 inhalation daily, oxygen, cyclosporine, Tylenol, vitamin D, diltiazem, Pepcid, iron, hydroxyzine, metoprolol, multivitamin, Protonix, Xarelto, Carafate. PHYSICAL EXAMINATION: GENERAL: The patient is awake and alert and oriented. VITAL SIGNS: blood pressure 154-76, respirations 14, temperature 98.1, pulse 100. LUNGS: Diminished breath sounds, clear. HEART: Regular. ABDOMEN: Obese. EXTREMITIES: Without any edema. Bowel sounds hypoactive. ASSESSMENT AND PLAN: 1. Gastroparesis with chronic gastritis with nausea and vomiting. We will ask Dr. Gutierrez for an opinion. Protonix, Reglan, IV fluid started. CT of the abdomen and pelvis ordered. 2. Hypertension, poorly controlled. Since the patient is n.p.o., Clonidine has been ordered. We will recheck. 3. Confusion as per the emergency room, none noted on examination this morning by me. PT/OT will be consulted. [place], [place] PATIENT HISTORY AND PHYSICAL EXAM NAME: QUINTON HINTON UNIT #: [id number] ROOM: 421 DOCTOR: ABRAHAN TOVAR MD BIRTHDATE: [birth year] ABRAHAN TOVAR MD CM:HISPHYS:PATIENT HISTORY AND PHYSICAL EXAMINATION [id number] [id number] ABRAHAN TOVAR MD 03/07/18 1000 interface
--- NOTE | ~2018-02-23 | O ---
[place], [place] OPERATIVE NOTE NAME: QUINTON HINTON UNIT #: [id number] ROOM: 421 DOCTOR: ESPERANZA HAROSNEHA BIRTHDATE: [birth year] DOS: 02/24/2018 GASTROENDOSCOPIC REPORT HISTORY OF PRESENT ILLNESS: An 82-year-old patient who presented with multiple medical issues among which has been nausea, epigastric distress, undergoing investigation. PAST MEDICAL HISTORY: Associated with COPD, renal insufficiency, diabetes mellitus, diverticulosis, degenerative joint disease, history of TIA, and gastroesophageal reflux. PAST SURGICAL HISTORY: Cholecystectomy, hysterectomy, small-bowel obstruction, appendectomy, oophorectomy, and tubal ligation. SOCIAL HISTORY: Nonsmoker, nonalcohol consumer, exposed to secondhand smoke. FAMILY HISTORY: Noncontributory. ALLERGIES: SULFA, QUINOLONE, TRIMETHOPRIM, RECENTLY DISCOVERED. MEDICATIONS: List reviewed. PROCEDURE: Today's procedure part of investigation is panendoscopy plus biopsy. PREMEDICATION: Propofol. SCOPE: Olympus forward-viewing gastroscope Q10 video. REPORT: After putting the patient in left lateral position and application of lubricant to the scope, the scope was introduced. Thereafter, under direct visualization, advanced through the length of esophagus without difficulty. Small hiatal hernia 2 cm was noticed. Gastric pouch was entered. Gastritis of moderate degree identified. Antral biopsy was obtained. Duodenal bulb, second and third part within normal limits. The scope was gradually withdrawn back to the gastric pouch. Antral biopsy obtained. GI reflection of the scope reveals cardia to be benign. Air was suctioned out. The patient was gradually extubated and tolerated the procedure well. IMPRESSION: Small hiatal hernia, 2 cm and gastritis of moderate degree. PLAN AND DISCUSSION: We are going to address the above concerns with Protonix 40 mg daily. Her other adjunctive diagnoses renal insufficiency, hyperglycemia has been addressed. Lumbar spine x-rays with complaint of back pain. No acute fracture was seen. KUB of the abdomen has been normal. CT scan of the abdomen with contrast degenerative joint disease, stimulator in the abdomen, left lower quadrant is noticed. Urine culture, no growth and Flu A and B negative. All has been recognized. [place], [place] OPERATIVE NOTE NAME: QUINTON HINTON UNIT #: [id number] ROOM: 421 DOCTOR: ESPERANZA HARO,SNEHA BIRTHDATE: [birth year] SNEHA MATA MD CM:OPRECORD:OPERATIVE NOTE [phone] SNEHA MATA MD 02/24/182040 interface
--- NOTE | ~2018-02-23 | PR ---
[place], [place] PROGRESS NOTE NAME: QUINTON HINTON UNIT #: [id number] ROOM: 421 DOCTOR: JESSIE CRUM MD BIRTHDATE: [birth year] DOS: 02/25/[address] America Bee. SUBJECTIVE: The patient complains of dizziness yesterday for which carotid arterial Dopplers were performed and her daughter is requesting Dr. Posadas's consult for immune deficiency and MediPort placement by Dr. Palomo. OBJECTIVE: GENERAL APPEARANCE: The patient is alert and oriented x 3. Generalized weakness. VITAL SIGNS: Blood pressure 130/50, heart rate 63 beats per minute, breathing 18 times per minute, temperature 98 degrees Fahrenheit. HEENT AND NECK: Exam within normal limits. CARDIOVASCULAR SYSTEM: Heart rate is regular in rate and rhythm. S1 and S2 normally audible. LUNGS: Clear to auscultation. ABDOMEN: Soft, nontender. No obvious organomegaly. Bowel sounds are present. EXTREMITIES: Without significant cyanosis or edema. IMPRESSION: 1. The patient with improved nausea and vomiting. Dr. Gutierrez is following. Endoscopy report showed a small hiatal hernia and gastritis. No other findings. 2. Benign essential hypertension with blood pressures ranging between 130 systolic to 170 diastolic, will be monitored and treatment adjusted as necessary. 3. Advanced adult failure to thrive. The patient is working with physical therapy. 4. Severe generalized anxiety disorder. The patient continued on buspirone. JESSIE CRUM MD CM:PNTRANS [phone] JESSIE CRUM MD 02/26/18 1615 interface
--- NOTE | ~2018-02-23 | DS ---
[place], [place] DISCHARGE SUMMARY NAME: QUINTON HINTON UNIT #: [id number] ROOM: 421 DOCTOR: ABRAHAN TOVAR MD BIRTHDATE: [birth year] DOS: 02/26/2018 DIAGNOSES: 1. Metabolic encephalopathy. 2. Adult failure to thrive. 3. Chronic gastritis with gastroparesis. 4. Benign hypertension. 5. Recent MediPort removal for Methicillin-resistant Staphylococcus aureus sepsis. 6. Immunoglobulin deficiency. 7. Diabetes mellitus, insulin-dependent. 8. 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 9. Chronic kidney disease. HOSPITAL COURSE: The patient is 82 years old, very well known to me, we just discharged her from [facility] about 2 days prior to this admission. She was there for MRSA sepsis. After admission, she continued to have nausea and emesis off. The patient did not have any complaints. The patient comes in to the Emergency Room after being found at home naked and confused. After being evaluated in the ER, she was admitted. After admission, the patient was placed on IV fluids. The patient complained of severe nausea and emesis, abdominal pain, was given Reglan and pain medications as well as IV fluids and proton pump inhibitors. Endoscopy was done by Dr. Gutierrez and showed chronic gastritis. She is not having any new problems after that. PT, OT did evaluate her and she has been walking with them and does not qualify for SNF. Urine culture was negative. Ultrasound of the Doppler was negative. The patient is to follow with Dr. Longo as an outpatient. DISCHARGE MEDICATIONS: mirtazapine 7.5 at bedtime, metoclopramide 5 t.i.d., iron 325 three times a day, Zofran 4 mg q. 12, Humalog sliding scale, she takes 100 units a.c. and at bedtime, loratadine 10 daily, Xarelto 15 daily, metoprolol 25 b.i.d., Requip 1 mg at bedtime, omeprazole 20 daily, BuSpar 10 b.i.d., clobetasol 50 mg b.i.d., Trintellix 10 mg daily, diltiazem 240 daily, beclomethasone for local application b.i.d., Flonase nasal spray daily. Citalopram and Protonix have been discontinued and metoclopramide dosage was changed. [place], [place] DISCHARGE SUMMARY NAME: QUINTON HINTON UNIT #: [id number] ROOM: 421 DOCTOR: ABRAHAN TOVAR MD BIRTHDATE: [birth year] ABRAHAN TOVAR MD CM:URI [phone] ABRAHAN TOVAR MD 03/07/18 1001 interface
--- NOTE | ~2018-02-23 | PR ---
[place], [place] [facility]GRESS NOTE [id number] #: [id number] ROOM: 421 DOCTOR: ABRAHAN TOVAR MD BIRTHDATE: [birth year] DOS: SUBJECTIVE: The patient is not having any new complaints. The patient did undergo the endoscopy, which showed mostly gastritis. OBJECTIVE: VITAL SIGNS: Graphic trend shows a pressure of 124/56, pulse of 75, respirations 20, temperature 98.5. LUNGS: Clear. HEART: Regular. ABDOMEN: Obese, soft, nontender. EXTREMITIES: Without any edema. DIAGNOSTIC STUDIES: Carotid Doppler was negative. Urine culture shows no bacterial growth. ASSESSMENT AND PLAN: 1. The patient who presents with metabolic encephalopathy, possibly from medications, Ambien has been discontinued. 2. Adult failure to thrive. The patient did get therapy started and we do not feel that the patient is a candidate for SNF. 3. Chronic abdominal pain, nausea and emesis with endoscopy showing chronic gastritis, is on maximal treatment plan. The patient is stable and can be discharged back to home. ABRAHAN TOVAR MD CM:PNTRANS [phone] ABRAHAN TOVAR MD 02/27/18 0205 interface
--- NOTE | ~2018-02-23 | EKG ---
[place], [place] ELECTROCARDIOGRAM REPORT NAME: QUINTON HINTON UNIT #: [id number] ROOM: 421 DOCTOR: HELENA PITT MD,CALLUM BIRTHDATE: [birth year] DOS: 02/23/2018 ELECTROCARDIOGRAM FINDINGS: Mild sinus tachycardia, heart rate of 102 beats per minute. Voltage criteria would be considered the patient with chest lead. CALLUM MALIK MD CM:EKGRPT:ELECTROCARDIOGRAM REPORT 0943 1004 CALLUM PITT MD
[~2018-02-23 03:22] MED LIST changes: +CARDIZEM CD240 M1 PO; +FERROUS SULFAT325 MG PO; +HEARTBURN RELIE20 MG PO; +MULTIVITAMINS1 EAC5 PO; +NOVOLOG10 ML IV; +PROBIOTIC1 EAC1 PO; +SYSTANE 0.3-0.415 ML OP; +TYLENOL325 M2 PO; +VITAMIN D35000 UNIT PO; +XARE20MG PO
[2018-02-23 04:28] LABS: BASO # 0.1 10*3/uL (0.0-0.1); BASO % 0.8 % (0.0-1.0); EOS # 0.1 10*3/uL (0.0-0.4); EOS % 0.9 % (1.0-4.0); HEMATOCRIT 37.4 % (37.0-47.0); HEMOGLOBIN 12.2 g/dl (12.0-16.0); LYMPH # 1.1 10*3/uL (1.3-4.4); LYMPH % 14.3 % (27.0-41.0); MEAN CELL VOLUME 89.5 fl (81.0-99.0); MEAN CORPUSCULAR HGB 29.2 pg (27.0-31.0); MEAN CORPUSCULAR HGB CONC 32.6 g/dl (33.0-37.0); MEAN PLATELET VOLUME 11.1 fl (9.6-12.3); MONO # 0.8 10*3/uL (0.1-1.0); MONO % 9.9 % (3.0-9.0); NEUT # 5.7 10*3/uL (2.3-7.9); NEUT % 72.7 % (47.0-73.0); PLATELET COUNT AUTOMATED 166 10*3/uL (130-400); RED BLOOD COUNT 4.18 10*6/uL (4.10-5.10); RED CELL DISTRI WIDTH 14.2 % (0-14.5); WHITE BLOOD COUNT 7.8 10*3/uL (4.8-10.8)
[2018-02-23 04:36] LABS: INTERNATIONAL NORM RATIO 0.9 (2.0-3.5)
[2018-02-23 04:37] LABS: BILIRUBIN NEGATIVE (NEGATIVE); BLOOD 1+ (NEGATIVE); CLARITY CLEAR (CLEAR); COLOR YELLOW (YELLOW); GLUCOSE NEGATIVE (NEGATIVE); KETONE NEGATIVE (NEGATIVE); LEUKO ESTERASE NEGATIVE (NEGATIVE); NITRITE NEGATIVE (NEGATIVE); SPECIFIC GRAVITY >= 1.030 (1.005-1.030); UROBILINOGEN 0.2 E.U./dl (0.2-1.0)
[2018-02-23 04:44] LABS: ALBUMIN 3.6 gm/dl (3.1-4.5); ALKALINE PHOSPHATASE 83 U/L (45-117); BUN 27 mg/dl (7-24); CHLORIDE 104 mmol/L (98-107); CREATININE 1.61 mg/dL (0.55-1.02); SGOT/AST 17 IU/L (3-35); SGPT/ALT 12 U/L (12-78); SODIUM 138 mmol/L (136-145); TOTAL PROTEIN 6.6 gm/dL (6.4-8.2)
[2018-02-23 04:44] LABS: WBC 0-2 wbc/hpf (0-5)
[2018-02-23 04:47] LABS: TROPONIN I < 0.015 ng/ml (<0.045)
[2018-02-23] MEDS ORDERED: ZOLPIDEM TART10 MG PO (14:42)
[2018-02-23] MEDS ORDERED: Zofran4 MG SL (14:43)
[2018-02-23] MEDS ORDERED: FERROUS SULFAT325 MG PO (14:43)
[2018-02-23] MEDS ORDERED: HUMALOG100 UNIT/2 SQ (14:44)
[2018-02-23] MEDS ORDERED: CLARITIN10 MG PO (14:44)
[2018-02-23] MEDS ORDERED: Lopressor25 MG PO (14:45)
[2018-02-23] MEDS ORDERED: XARELTO15 M1 PO (14:45)
[2018-02-23] MEDS ORDERED: ROPINIROLE HYDRO1 MG PO (14:46)
[2018-02-23] MEDS ORDERED: METOCLOPRAMIDE10 M1 PO (14:46)
[2018-02-23] MEDS ORDERED: OMEPRAZOLE D/R20 MG PO (14:47)
[2018-02-23] MEDS ORDERED: BUSPIRONE10 MG PO (14:47)
[2018-02-23] MEDS ORDERED: CELEXA20 MG PO (14:48)
[2018-02-23] MEDS ORDERED: AMOXICILLIN875 MG PO (14:49)
[2018-02-23] MEDS ORDERED: TEMOVATE15 GM T (14:50)
[2018-02-23] MEDS ORDERED: PROTONIX40 MG PO (14:51)
[2018-02-23] MEDS ORDERED: TRINTELLIX10 MG PO (14:52)
[2018-02-23] MEDS ORDERED: CARTIA XT240 MG PO (14:53)
[2018-02-23] MEDS ORDERED: DIPROSONE 0.05%15 G1 T (14:55)
[2018-02-23] MEDS ORDERED: FLONASE ALLERG9.9 ML NAS (14:56)
[2018-02-24] VITALS (8 sets, daily range): BP systolic 125–177; BP diastolic 59–90
[2018-02-25] VITALS: BP 132/51
[2018-02-25 08:00] VITALS: BP 170/54
[2018-02-25 12:00] VITALS: BP 168/62
[2018-02-25 16:00] VITALS: BP 130/50
[2018-02-25 20:00] VITALS: BP 123/49
[2018-02-26] VITALS: BP 124/56
[2018-02-26] MEDS ORDERED: MIRTAZAPINE15 M2 PO (07:07)
[2018-02-26] MEDS ORDERED: METOCLOPRAMIDE H5 M1 PO (07:07)
[2018-02-26 08:00] VITALS: BP 155/59; BP 188/59
[2018-02-26 12:00] VITALS: BP 138/48
[2018-02-26 16:00] VITALS: BP 153/51
[2018-02-28] MEDS ORDERED: REGLAN5 MG PO (09:48)
[2018-02-28] MEDS ORDERED: NORCO 5-325 TA1 EACH PO (09:49)
== END 2018-02-26 16:38 | disposition home health service (06) | DRG 73 ==
LOC: ED 03:22 → EDHOLD 05:10 → 4E 05:10
PROVIDERS: Student in an Organized Health Care Education/Training Program
PROC: 0DB68ZX Excision of Stomach, Via Natural or Artificial Opening Endoscopic, Diagnostic (ICD-10-PCS; principal; 2018-02-24)
DX: E11.43 Type 2 diabetes mellitus with diabetic autonomic (poly)neuropathy (principal); G93.41 Metabolic encephalopathy; D84.9 Immunodeficiency, unspecified; E11.22 Type 2 diabetes mellitus with diabetic chronic kidney disease; E11.65 Type 2 diabetes mellitus with hyperglycemia; M35.00 Sjogren syndrome, unspecified; N18.3 Chronic kidney disease, stage 3 (moderate); I27.20 Pulmonary hypertension, unspecified; I16.1 Hypertensive emergency; K31.84 Gastroparesis; Z86.14 Personal history of Methicillin resistant Staphylococcus aureus infection; J44.9 Chronic obstructive pulmonary disease, unspecified; R26.2 Difficulty in walking, not elsewhere classified; I12.9 Hypertensive chronic kidney disease with stage 1 through stage 4 chronic kidney disease, or unspecified chronic kidney disease; R62.7 Adult failure to thrive; M54.5 Low back pain; M19.90 Unspecified osteoarthritis, unspecified site; E05.90 Thyrotoxicosis, unspecified without thyrotoxic crisis or storm; K57.90 Diverticulosis of intestine, part unspecified, without perforation or abscess without bleeding; E78.5 Hyperlipidemia, unspecified; F41.1 Generalized anxiety disorder; K29.50 Unspecified chronic gastritis without bleeding; K21.9 Gastro-esophageal reflux disease without esophagitis; I25.10 Atherosclerotic heart disease of native coronary artery without angina pectoris; K44.9 Diaphragmatic hernia without obstruction or gangrene; Z88.2 Allergy status to sulfonamides; Z88.1 Allergy status to other antibiotic agents; Z88.8 Allergy status to other drugs, medicaments and biological substances; Z79.899 Other long term (current) drug therapy; Z79.4 Long term (current) use of insulin; Z87.01 Personal history of pneumonia (recurrent); Z86.711 Personal history of pulmonary embolism; Z86.73 Personal history of transient ischemic attack (TIA), and cerebral infarction without residual deficits; Z90.49 Acquired absence of other specified parts of digestive tract; Z90.710 Acquired absence of both cervix and uterus; Z98.51 Tubal ligation status; Z90.722 Acquired absence of ovaries, bilateral; Z82.3 Family history of stroke; Z80.0 Family history of malignant neoplasm of digestive organs; Z83.3 Family history of diabetes mellitus; Z82.49 Family history of ischemic heart disease and other diseases of the circulatory system

== ENCOUNTER → 2018-02-27 | Outpatient (CLI) | payer MEDICARE, MEDICAID ==
[~2018-02-27] MED LIST changes: +CELEXA20 MG PO; +CLONIDINE HCL0.1 MG PO; +DIPROSONE 0.05%15 G1 T; +METOCLOPRAMIDE H5 M1 PO; +MIRTAZAPINE15 M2 PO; +NORVASC10 MG PO; +REGLAN5 MG PO; +ROPINIROLE HYDRO1 MG PO; +TEMOVATE15 GM T; +XARELTO15 M1 PO; +ZOLPIDEM TART10 MG PO
[2018-02-27 17:26] LABS: CREATININE 1.65 mg/dL (0.55-1.02)
== END | disposition home or self-care (01) ==
LOC: LAB 16:03
PROVIDERS: Internal Medicine Hematology & Oncology
DX: D83.9 Common variable immunodeficiency, unspecified (principal)

== ENCOUNTER 2018-03-03 08:52 | Inpatient (IN) | payer MEDICARE, MEDICAID ==
[2018-02-28 14:45] VITALS: BP 201/84
[~2018-03-03] VITALS: Ht 160 cm; Wt 68.0 kg
[2018-03-03] VITALS (19 sets, daily range): BP systolic 130–217; BP diastolic 63–100
--- NOTE | ~2018-03-03 | WRIGHTHP ---
[place], [place] PATIENT HISTORY AND PHYSICAL EXAM [id number] UNIT #: [id number] ROOM: 502 DOCTOR: ABRAHAN TOVAR MD BIRTHDATE: [birth year] DOS: 03/03/2018 HISTORY OF PRESENT ILLNESS: This patient is 82 years old. She was getting a MediPort placed within the hospital by Dr. Palomo and developed to have extremely elevated blood pressures, so the patient was admitted for evaluation. She was admitted to the hospital, was transferred to services. The patient's pressure did come down after Norvasc was started. She is feeling good and does not have any complaints this morning. She also was hypokalemic on admission and I am not sure any supplementation was given. She denies having any chest pains, palpitations, any abdominal pain, nausea or any emesis. PAST MEDICAL HISTORY: Significant for; 1. Failure to thrive. 2. Recent hospitalization for gastritis and gastroparesis. 3. Benign hypertension. 4. MediPort removal. 5. Recent MRSA and bacteremia. 6. Immunoglobulin deficiency. 7. Diabetes mellitus, insulin-dependent. 8. 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 9. Chronic kidney disease. MEDICATIONS: She is supposed to be on Remeron 7.5 at bedtime, metoclopramide 5 t.i.d., iron 325 t.i.d., Zofran 4 q. 12, Humalog sliding scale, loratadine 10 daily, Xarelto 15 daily, metoprolol 25 b.i.d., Requip 1 mg b.i.d., omeprazole 20 daily, BuSpar 5 mg b.i.d., clobetasol 50 b.i.d., Trintellix 10 daily, diltiazem 240 daily. SOCIAL HISTORY: Nonsmoker, does not use any alcohol. PHYSICAL EXAMINATION: GENERAL: The patient is awake and alert and oriented. VITAL SIGNS: Graphic trend shows the patient's pressure is down to 137/65 this morning, pulse of 70, respirations 18, temperature 98.5. LUNGS: Clear. HEART: Regular. ABDOMEN: Obese, soft, nontender. EXTREMITIES: Without any edema. ASSESSMENT AND PLAN: 1. Benign hypertension, poorly controlled. The patient is with hypertensive emergency. The patient has been admitted with Norvasc pressure has come down. We will discontinue the Cardizem and start on Norvasc and clonidine as needed for elevated blood pressure. 2. Hypokalemia. Supplementation is ordered and this morning, repeat basic metabolic done showed potassium of 4.1. 3. MediPort placement. Site looks intact. The patient can be discharged and follow up with Dr. Longo. A prescription for Norvasc 10 mg and clonidine 0.1 mg p.r.n. for systolic blood pressure more than 160 and diastolic blood pressure [place], [place] PATIENT HISTORY AND PHYSICAL EXAM NAME: QUINTON HINTON UNIT #: [id number] ROOM: 502 DOCTOR: ABRAHAN TOVAR MD BIRTHDATE: [birth year] more than 90 is ordered. ABRAHAN TOVAR MD CM:HISPHYS:PATIENT HISTORY AND PHYSICAL EXAMINATION 0745 0830 ABRAHAN TOVAR MD 03/12/18 1448 interface
[~2018-03-03 08:52] MED LIST changes: -CLONIDINE HCL0.1 MG PO; -NORVASC10 MG PO
[2018-03-03] MEDS ORDERED: TRAMADOL HCL50 MG PO (12:26)
[2018-03-03 15:20] LABS: BASO % 0.4 % (0.0-1.0); EOS # 0.1 10*3/uL (0.0-0.4); EOS % 1.4 % (1.0-4.0); HEMATOCRIT 33.8 % (37.0-47.0); HEMOGLOBIN 10.9 g/dl (12.0-16.0); LYMPH # 0.5 10*3/uL (1.3-4.4); LYMPH % 5.9 % (27.0-41.0); MEAN CELL VOLUME 90.1 fl (81.0-99.0); MEAN CORPUSCULAR HGB 29.1 pg (27.0-31.0); MEAN CORPUSCULAR HGB CONC 32.2 g/dl (33.0-37.0); MEAN PLATELET VOLUME 10.4 fl (9.6-12.3); MONO # 0.9 10*3/uL (0.1-1.0); MONO % 10.8 % (3.0-9.0); NEUT # 6.5 10*3/uL (2.3-7.9); NEUT % 80.5 % (47.0-73.0); PLATELET COUNT AUTOMATED 164 10*3/uL (130-400); RED BLOOD COUNT 3.75 10*6/uL (4.10-5.10); RED CELL DISTRI WIDTH 14.6 % (0-14.5)
[2018-03-03 15:35] LABS: ALBUMIN 2.8 gm/dl (3.1-4.5); CREATININE 1.35 mg/dL (0.55-1.02); POTASSIUM 3.2 mmol/L (3.5-5.1); TOTAL PROTEIN 5.9 gm/dL (6.4-8.2)
[2018-03-04] VITALS: BP 137/65
[2018-03-04] MEDS ORDERED: NORVASC10 MG PO (07:23)
[2018-03-04] MEDS ORDERED: CLONIDINE HCL0.1 MG PO (07:25)
[2018-03-04 07:35] LABS: CREATININE 1.36 mg/dL (0.55-1.02); POTASSIUM 4.1 mmol/L (3.5-5.1)
[2018-03-04 08:00] VITALS: BP 155/72
== END 2018-03-04 15:49 | disposition home health service (06) | DRG 815 ==
LOC: SDC 08:52 → 5E 14:36
PROVIDERS: Internal Medicine; Student in an Organized Health Care Education/Training Program
PROC: 0JH60WZ Insertion of Totally Implantable Vascular Access Device into Chest Subcutaneous Tissue and Fascia, Open Approach (ICD-10-PCS; principal; 2018-03-03)
PROC: B5181ZA Fluoroscopy of Superior Vena Cava using Low Osmolar Contrast, Guidance (ICD-10-PCS; principal; 2018-03-03)
PROC: B548ZZA Ultrasonography of Superior Vena Cava, Guidance (ICD-10-PCS; principal; 2018-03-03)
PROC: 02HV33Z Insertion of Infusion Device into Superior Vena Cava, Percutaneous Approach (ICD-10-PCS; principal; 2018-03-03)
DX: D84.9 Immunodeficiency, unspecified (principal); N30.00 Acute cystitis without hematuria; E11.22 Type 2 diabetes mellitus with diabetic chronic kidney disease; I27.20 Pulmonary hypertension, unspecified; M35.00 Sjogren syndrome, unspecified; I16.1 Hypertensive emergency; N18.3 Chronic kidney disease, stage 3 (moderate); J44.9 Chronic obstructive pulmonary disease, unspecified; I25.10 Atherosclerotic heart disease of native coronary artery without angina pectoris; K21.9 Gastro-esophageal reflux disease without esophagitis; F41.9 Anxiety disorder, unspecified; F32.9 Major depressive disorder, single episode, unspecified; Z68.26 Body mass index [BMI] 26.0-26.9, adult; E11.9 Type 2 diabetes mellitus without complications; E87.6 Hypokalemia; R62.7 Adult failure to thrive; I12.9 Hypertensive chronic kidney disease with stage 1 through stage 4 chronic kidney disease, or unspecified chronic kidney disease; E66.9 Obesity, unspecified; M19.90 Unspecified osteoarthritis, unspecified site; Z86.711 Personal history of pulmonary embolism; Z79.01 Long term (current) use of anticoagulants; Z79.899 Other long term (current) drug therapy; Z90.49 Acquired absence of other specified parts of digestive tract; Z90.710 Acquired absence of both cervix and uterus

== ENCOUNTER 2018-05-07 16:27 | Inpatient (IN) | payer MEDICARE, MEDICAID ==
[~2018-05-07] VITALS: Ht 152.4 cm; Wt 62.6 kg
--- NOTE | ~2018-05-07 | PR ---
[place], [place] PROGRESS NOTE NAME: QUINTON HINTON UNIT #: [id number] ROOM: 402 DOCTOR: HELENA PITT MD,CALLUM BIRTHDATE: [birth year] DOS: 05/15/2018 SUBJECTIVE: She was still complaining of some shortness of breath, started on diuretic, Lasix yesterday. There was no output recorded not able to access if in negative fluid balance or not. She does not have a significant cough. Denies any wheezing or chest pain. OBJECTIVE: VITAL SIGNS: Normal temperature, respiratory rate 18, heart rate is 68, blood pressure 153/57. Pulse oxygen saturation on room air 99% saturation. HEAD, EYES, EARS, NOSE, AND THROAT: Examination shows head was atraumatic. Eyes nonicterus. NECK: Supple. CARDIOVASCULAR SYSTEM: S1, S2 is audible. LUNGS: Crackles noted in the right lower lung and decreased breath sounds in both lower lungs bilaterally. ABDOMEN: Soft, nontender, bowel sounds present. EXTREMITIES: Without any acute edema. IMPRESSION: The patient with a stable bronchial asthma noted at the present time with acute exacerbation, resolving, congestive heart failure, bilateral pleural fluid with symptoms of shortness of breath, which was noted, somewhat improved from yesterday. Plan of management. Tapering of the corticosteroids further. Continue diuretic therapy. Usual care, other supportive plan of management and care. Additional treatment changes will be done based on the progression of the illness. CALLUM MALIK MD CM:PNJORDAN [phone] CALLUM PITT MD 05/22/18 0832 interface
--- NOTE | ~2018-05-07 | EKG ---
[place], [place] ELECTROCARDIOGRAM REPORT NAME: QUINTON HINTON UNIT #: [id number] ROOM: 402 DOCTOR: ISAAC DRAFT REPORT BIRTHDATE: [birth year] [facility] Test Date: 2018-05-13 Test Time: 08:12:06 Pat Name: QUINTON HINTON Department: Room: 402 1 Gender: F Underwriting Clerk: Jessica Slade : 1935 Requested By: BA ZULETA Order Number: [id number] Reading MD: Marissa Cuevas MD Measurements Intervals [place] Rate: 79 P: 43 TN: 134 QRS: 27 QRSD: 87 T: 42 QT: 384 QTc: 441 Interpretive Statements Sinus rhythm Compared to ECG 05/07/2018 16:52:06 No significant changes Electronically Signed On 05-16-2018 4:13:09 PDT by Marissa Cuevas MD CM:EKGRPT:ELECTROCARDIOGRAM REPORT 0812 0413 BA ZULETA DO EPIPHANY DRAFT REPORT BA ZULETA DO
--- NOTE | ~2018-05-07 | PR ---
[place], [place] PROGRESS NOTE NAME: QUINTON HINTON UNIT #: [id number] ROOM: 402 DOCTOR: HELENA PITT MD,CALLUM BIRTHDATE: [birth year] DOS: 05/14/2018 SUBJECTIVE: The patient has been noted the same as of yesterday, will be started on diuretic today. Denies symptoms of chest pain. Idhj-ea-isugcigg cough was noted without any sputum expectoration. Denies any wheezing. OBJECTIVE: VITAL SIGNS: For the patient, which were recorded showed normal temperature, respiratory rate 18, heart rate 70, blood pressure 113/56. Pulse oxygen saturation on room air was 98% saturation. HEENT: Showed no new change. NECK: Supple. CARDIOVASCULAR: S1, S2 is audible. LUNGS: Noted decreased breaths in the lower portion of the lung bilaterally, more on the right than the left side. There was no wheezing or crackles. ABDOMEN: Soft, nontender. EXTREMITIES: Without any acute edema. IMPRESSION: The patient who has been currently noted with bilateral pleural fluid with congestive heart failure, diastolic dysfunction, history of atrial fibrillation, bronchial asthma, and variable hypogammaglobulinemia. PLAN OF TREATMENT: Proceed with diuretic therapy, monitor kidney function without electrolytes, volume monitor diuretics, and the response to the treatment. Other supportive therapy, plan of management care. CALLUM MALIK MD CM:PNTRANS [id number] CALLUM PITT MD 05/22/18 0830 interface
--- NOTE | ~2018-05-07 | CON ---
[place], [place] REPORT OF CONSULTATION [id number] UNIT #: [id number] ROOM: 402 DOCTOR: CALLUM HILL MD BIRTHDATE: [birth year] DOS: 05/13/2018 PULMONARY CONSULTATION, EVALUATION AND MANAGEMENT CONSULTATION REQUESTED BY: Hospitalist Service. REASON FOR CONSULTATION: For assessment of symptoms of shortness of breath. HISTORY OF PRESENT ILLNESS: This 82-year-old white female known to me with history of uncomplicated severe persistent bronchial asthma, IV immunoglobulin deficiency and other. She has been treated under the care of the hospitalist service since 05/07/2018. The patient was admitted to the hospital. She has been noted with symptoms of increased shortness of breath ongoing for about 3 weeks prior to admission. She has been also noted cough with yellow sputum expectoration, associated wheezing. The symptoms of the patient has been noted to be not resolving. The patient denies symptoms of chest pain or hemoptysis. The patient has been treated as an outpatient by the primary care physician, Dr. Longo with antibiotics previously, which seemed not to work as per the patient. She was still noted with shortness of breath occurring with mild activity. She denies symptoms of chest pain. REVIEW OF SYSTEMS: CONSTITUTIONAL SYMPTOMS: Fatigue and tiredness noted without any symptoms of fever or chills. EYES: Denies any burning, redness, or tenderness. EARS, NOSE, THROAT SYMPTOMS: Denies sore throat, hoarseness, otalgia, postnasal drainage or epistaxis. CARDIOVASCULAR SYSTEM: Denies anginal pain, edema, pain of the lower extremity. GASTROINTESTINAL SYSTEM: Denies dysphagia, nausea, vomiting, diarrhea, abdominal pain, hematemesis, melena, or hematochezia. SKIN: Denies abnormal lesions or rashes. CENTRAL NERVOUS SYSTEM: Denies dizziness, headache, diplopia, or syncopal episodes. Remaining systems were reviewed, they were noted all negative. PAST MEDICAL HISTORY: Noted on: 1. History of persistent bronchial asthma. 2. History of recurrent hospitalization for wheezing and bronchitis and other. 3. Common variable hypogammaglobulinemia. on intravenous infusion therapy. 4. General anxiety disorder. 5. Atrial fibrillation. 6. History of thromboembolism in the past, on anticoagulation. 7. Type 2 diabetes mellitus. 8. Chronic kidney disease stage 3. 9. Coronary artery disease. 10. Essential hypertension. 11. Frequent hospitalization. 12. Severe allergic rhinitis. [place], [place] REPORT OF CONSULTATION NAME: QUINTON HINTON UNIT #: [id number] ROOM: 402 DOCTOR: CALLUM HILL MD BIRTHDATE: [birth year] PAST SURGICAL HISTORY: 1. Low back surgery. 2. Appendectomy. 3. Cholecystectomy. 4. Therapeutic bronchoscopies. SOCIAL HISTORY: The patient is a nonsmoker lifetime, , lives at home and has 2 children. FAMILY HISTORY: Unknown by the patient. MEDICATIONS: Administered were noted use of IV Solu-Medrol, Xarelto, Flonase, omeprazole, loratadine, ferrous sulfate, Trintellix, Remeron, Requip, clonidine, Mucinex, and DuoNeb. DRUG ALLERGY HISTORY: THE PATIENT WAS NOTED ALLERGIC TO: 1. SULFA DRUGS. 2. QUINOLONES. PHYSICAL EXAMINATION: GENERAL: This is an 82-year-old female who has been noted currently awake and alert without any distress, sitting on the chair, using oxygen per nasal cannula. Height of 5 feet, weight 137 pounds, BMI 26.9. VITAL SIGNS: Normal temperature, respirations 18-20, heart rate 79-80, blood pressure 180/80-149/61. Intake is 1280, output not recorded. Pulse ox saturation on room air was 99% saturation. HEENT: Head was atraumatic. Eyes: No icterus. NECK: Supple. CARDIOVASCULAR: S1, S2 is audible. LUNGS: The patient was noted without any wheezing or crackles at the present time. Breaths are noted decreased in the lower portion of the lungs. ABDOMEN: Flat, soft, nontender. Bowel sounds present. EXTREMITIES: Without any acute edema. MUSCULOSKELETAL: Noted without any acute deformities. CENTRAL NERVOUS SYSTEM: Noted cranial nerves 2-12 intact. No focal deficit. LABORATORY DATA: Blood culture from the of this month showed no bacterial growth. CBC on 05/13/2018, normal WBC count, platelet count normal, hemoglobin 9.8. BMP; BUN 34, creatinine 1.52, glucose 149. The CMP that was done on 05/10/2018; BUN 30, creatinine 1.41. Culture of the sputum on the 11th shows moderate growth of disease with suboptimal specimen. REVIEW OF THE RADIOLOGY DATA: The chest x-ray that was done for this patient on 05/03/2018, one view was noted without any acute abnormalities. The chest x-ray, 2-view which was done on 05/12/2018 shows interval development of pleural fluid, small moderate pleural fluid on the right side and small left-sided pleural fluid. There were no findings of acute congestive heart failure. IMPRESSION: 1. Shortness of breath, mostly related to congestive heart failure for this [place], [place] REPORT OF CONSULTATION NAME: QUINTON HINTON UNIT #: [id number] ROOM: 402 DOCTOR: HELENA PITT MD,CALLUM BIRTHDATE: [birth year] patient would be noted with associated pleural effusions. 2. The patient with bronchial asthma, currently treated with corticosteroids as well. Currently, shortness of breath noted multifactorial, but predominantly related to most likely underlying congestive heart failure. 3. Congestive heart failure based on the last echocardiogram in 09/2017 would be considered as a diastolic dysfunction. PLAN OF MANAGEMENT: The patient would be continued on the oxygen supplementation, bronchodilator, will be started on the Lasix 40 mg intravenously daily for the next couple of days with chronic kidney disease. The patient's urinary output will be monitored. Bronchodilators to be continued for the patient at the present time. Monitoring of the chest x-ray of the patient or the monitoring of pleural fluid on the ultrasound will be done. If the pleural fluid noted increased and does not resolve with worsening kidney functions, certainly the patient will benefit from the ultrasound-guided thoracentesis. At this time, conservative treatment has been ordered for the patient and the patient will be monitored. Other additional treatment changes will be made for the patient based on progression of the illness. Titrate oxygen supplementation, maintain a pulse ox saturation 92% or greater. CALLUM MALIK MD CM:CONSTR:REPORT OF CONSULTATION 1658 05/14/18 0235 interface
--- NOTE | ~2018-05-07 | EKG ---
[place], [place] ELECTROCARDIOGRAM REPORT NAME: QUINTON HINTON UNIT #: [id number] ROOM: 402 DOCTOR: ISAAC DRAFT REPORT BIRTHDATE: [address] [facility] Test Date: 2018-05-07 Test Time: 16:52:06 Pat Name: QUINTON HINTON Department: Room: 402 Gender: F Strings Teacher: FRANCES RESP : 1935 Requested By: SONG AMBROSE Order Number: [id number] Reading MD: Wiley Jernigan MD Measurements Intervals [place] Rate: 74 P: 35 UT: 155 QRS: 22 QRSD: 86 T: 48 QT: 411 QTc: 456 Interpretive Statements Sinus rhythm Electronically Signed On 05-08-2018 10:48:14 PDT by Wiley Jernigan MD CM:EKGRPT:ELECTROCARDIOGRAM REPORT 1652 1048 SONG PELAEZ DRAFT REPORT SONG AMBROSE DO
--- NOTE | ~2018-05-07 | EKG ---
[place], [place] ELECTROCARDIOGRAM REPORT NAME: QUINTON HINTON UNIT #: [id number] ROOM: 402 DOCTOR: ISAAC DRAFT REPORT BIRTHDATE: [birth year] [facility] Test Date: 2018-05-15 Test Time: 08:45:51 Pat Name: QUINTON HINTON Department: Room: 402 1 Gender: F Tank Bottom Assembler: Jessica Slade : 1935 Requested By: BA ZULETA Order Number: [id number] Reading MD: Marissa Cuevas MD Measurements Intervals [place] Rate: 77 P: 41 [place]: 139 QRS: 18 QRSD: 86 T: 39 QT: 392 QTc: 444 Interpretive Statements Sinus rhythm Probable left atrial enlargement Compared to ECG 05/07/2018 16:52:06 No significant changes Electronically Signed On 05-16-2018 14:12:14 PDT by Marissa Cuevas MD CM:EKGRPT:ELECTROCARDIOGRAM REPORT 0845 1412 BA PELAEZ DRAFT REPORT BA ZULETA DO
--- NOTE | ~2018-05-07 | PR ---
[place], [place] PROGRESS NOTE NAME: QUINTON HINTON UNIT #: [id number] ROOM: 402 DOCTOR: HELENA PITT MD,CALLUM BIRTHDATE: [birth year] DOS: 05/16/2018 PULMONARY PROGRESS NOTE SUBJECTIVE: The patient is noted comfortable at this time, sitting on the chair this morning in the room. Shortness of breath has been improving. The patient denies symptoms of cough. There are no symptoms of chest pain. The patient is continuing her diuretic, Lasix 40 mg IV daily. Denies any edema or pain of the lower extremities. OBJECTIVE: VITAL SIGNS: Normal temperature, respiratory rate 18, heart rate 75, blood pressure 159/63. Pulse oxygen saturation on room air is 99% saturation. HEENT: Examination shows head was atraumatic. Eyes nonicterus. NECK: Supple. CARDIOVASCULAR: S1, S2 audible. LUNGS: Noted without any wheezing or crackles. ABDOMEN: Soft, nontender. EXTREMITIES: Without any acute edema. RADIOLOGY: Chest x-ray that was done this morning was noted with improvement in the pleural fluid. IMPRESSION: 1. Resolving pleural fluid and congestive heart failure with diastolic dysfunction. 2. Progressively improving respiratory status. 3. Resolving acute exacerbation of bronchial asthma. PLAN OF MANAGEMENT: The patient could be considered for discharge whenever desired. Continue Lasix; the patient could be switched to oral Lasix. CALLUM MALIK MD CM:PNTRANS 1025 [id number] CALLUM PITT MD 05/16/18 1329 interface
[~2018-05-07 16:27] MED LIST changes: +CLONIDINE HCL0.1 MG PO; +NORVASC10 MG PO
[2018-05-07 16:33] VITALS: BP 112/50
[2018-05-07 17:13] LABS: BASO # 0.1 10*3/uL (0.0-0.1); BASO % 0.9 % (0.0-1.0); EOS # 0.4 10*3/uL (0.0-0.4); EOS % 6.7 % (1.0-4.0); HEMATOCRIT 33.3 % (37.0-47.0); HEMOGLOBIN 10.9 g/dl (12.0-16.0); LYMPH # 1.8 10*3/uL (1.3-4.4); LYMPH % 31.7 % (27.0-41.0); MEAN CELL VOLUME 92.8 fl (81.0-99.0); MEAN CORPUSCULAR HGB 30.4 pg (27.0-31.0); MEAN CORPUSCULAR HGB CONC 32.7 g/dl (33.0-37.0); MEAN PLATELET VOLUME 10.6 fl (9.6-12.3); MONO # 0.8 10*3/uL (0.1-1.0); MONO % 13.9 % (3.0-9.0); NEUT # 2.5 10*3/uL (2.3-7.9); NEUT % 45.4 % (47.0-73.0); PLATELET COUNT AUTOMATED 223 10*3/uL (130-400); RED BLOOD COUNT 3.59 10*6/uL (4.10-5.10); RED CELL DISTRI WIDTH 13.7 % (0-14.5); WHITE BLOOD COUNT 5.6 10*3/uL (4.8-10.8)
[2018-05-07 17:23] LABS: ACT PARTIAL THROMBO TIME 25.2 SECONDS (20.8-31.5)
[2018-05-07 17:31] LABS: ALKALINE PHOSPHATASE 69 U/L (45-117); BUN 27 mg/dl (7-24); CHLORIDE 111 mmol/L (98-107); CREATININE 1.76 mg/dL (0.55-1.02); LIPASE 165 U/L (73-393); POTASSIUM 4.7 mmol/L (3.5-5.1); SGOT/AST 19 IU/L (3-35); SGPT/ALT 15 U/L (12-78); SODIUM 142 mmol/L (136-145); TOTAL PROTEIN 6.4 gm/dL (6.4-8.2); TROPONIN I < 0.015 ng/ml (<0.045)
[2018-05-07 18:20] VITALS: BP 113/48
[2018-05-07 19:05] VITALS: BP 128/58; BP 128/59
[2018-05-07 20:00] VITALS: BP 128/58
[2018-05-08] VITALS: BP 94/45
[2018-05-08 00:30] VITALS: BP 110/58
[2018-05-08 06:12] LABS: BASO % 0.4 % (0.0-1.0); EOS % 0.2 % (1.0-4.0); HEMATOCRIT 35.7 % (37.0-47.0); HEMOGLOBIN 11.3 g/dl (12.0-16.0); LYMPH # 0.5 10*3/uL (1.3-4.4); LYMPH % 8.9 % (27.0-41.0); MEAN CELL VOLUME 93.5 fl (81.0-99.0); MEAN CORPUSCULAR HGB 29.6 pg (27.0-31.0); MEAN CORPUSCULAR HGB CONC 31.7 g/dl (33.0-37.0); MEAN PLATELET VOLUME 11.2 fl (9.6-12.3); MONO # 0.1 10*3/uL (0.1-1.0); MONO % 0.9 % (3.0-9.0); NEUT # 4.9 10*3/uL (2.3-7.9); NEUT % 88.2 % (47.0-73.0); PLATELET COUNT AUTOMATED 210 10*3/uL (130-400); RED BLOOD COUNT 3.82 10*6/uL (4.10-5.10); RED CELL DISTRI WIDTH 13.5 % (0-14.5); WHITE BLOOD COUNT 5.5 10*3/uL (4.8-10.8)
[2018-05-08 06:42] LABS: CREATININE 1.88 mg/dL (0.55-1.02); PHOSPHOROUS 4.7 mg/dL (2.5-4.9); POTASSIUM 4.5 mmol/L (3.5-5.1); TOTAL PROTEIN 6.4 gm/dL (6.4-8.2)
[2018-05-08 06:49] LABS: ACT PARTIAL THROMBO TIME 25.7 SECONDS (20.8-31.5); INTERNATIONAL NORM RATIO 0.9 (2.0-3.5)
[2018-05-08 08:00] VITALS: BP 116/47; BP 116/48
[2018-05-08 12:00] VITALS: BP 110/48
[2018-05-08 15:51] VITALS: BP 118/50
[2018-05-08 20:00] VITALS: BP 112/58
[2018-05-09] VITALS: BP 124/53
[2018-05-09 06:33] LABS: BASO % 0.1 % (0.0-1.0); HEMATOCRIT 30.6 % (37.0-47.0); HEMOGLOBIN 9.6 g/dl (12.0-16.0); LYMPH # 0.6 10*3/uL (1.3-4.4); LYMPH % 7.5 % (27.0-41.0); MEAN CELL VOLUME 95.9 fl (81.0-99.0); MEAN CORPUSCULAR HGB 30.1 pg (27.0-31.0); MEAN CORPUSCULAR HGB CONC 31.4 g/dl (33.0-37.0); MEAN PLATELET VOLUME 10.8 fl (9.6-12.3); MONO # 0.5 10*3/uL (0.1-1.0); MONO % 5.6 % (3.0-9.0); NEUT # 7.1 10*3/uL (2.3-7.9); PLATELET COUNT AUTOMATED 208 10*3/uL (130-400); RED BLOOD COUNT 3.19 10*6/uL (4.10-5.10); RED CELL DISTRI WIDTH 13.9 % (0-14.5); WHITE BLOOD COUNT 8.2 10*3/uL (4.8-10.8)
[2018-05-09 06:37] LABS: CREATININE 1.57 mg/dL (0.55-1.02); POTASSIUM 4.9 mmol/L (3.5-5.1)
[2018-05-09 08:00] VITALS: BP 136/50; BP 137/50
[2018-05-09 12:00] VITALS: BP 145/52
[2018-05-09 16:00] VITALS: BP 134/51
[2018-05-09 20:00] VITALS: BP 135/57
[2018-05-10] VITALS: BP 129/52
[2018-05-10 06:55] LABS: BASO % 0.1 % (0.0-1.0); HEMOGLOBIN 9.7 g/dl (12.0-16.0); LYMPH # 0.6 10*3/uL (1.3-4.4); LYMPH % 7.7 % (27.0-41.0); MEAN CELL VOLUME 95.4 fl (81.0-99.0); MEAN CORPUSCULAR HGB 29.8 pg (27.0-31.0); MEAN CORPUSCULAR HGB CONC 31.3 g/dl (33.0-37.0); MONO # 0.3 10*3/uL (0.1-1.0); MONO % 4.2 % (3.0-9.0); NEUT # 6.7 10*3/uL (2.3-7.9); NEUT % 86.3 % (47.0-73.0); PLATELET COUNT AUTOMATED 209 10*3/uL (130-400); RED BLOOD COUNT 3.25 10*6/uL (4.10-5.10); RED CELL DISTRI WIDTH 14.3 % (0-14.5); WHITE BLOOD COUNT 7.8 10*3/uL (4.8-10.8)
[2018-05-10 07:08] LABS: CREATININE 1.41 mg/dL (0.55-1.02); POTASSIUM 4.5 mmol/L (3.5-5.1); TOTAL PROTEIN 6.1 gm/dL (6.4-8.2)
[2018-05-10 08:00] VITALS: BP 143/63
[2018-05-10 12:00] VITALS: BP 139/58
[2018-05-10 16:00] VITALS: BP 143/65
[2018-05-10 20:00] VITALS: BP 143/65
[2018-05-11] VITALS: BP 149/72
[2018-05-11 08:00] VITALS: BP 154/74
[2018-05-11 12:00] VITALS: BP 169/75
[2018-05-11 16:00] VITALS: BP 137/56
[2018-05-11 20:00] VITALS: BP 151/67
[2018-05-12] VITALS: BP 100/49
[2018-05-12 08:00] VITALS: BP 173/75
[2018-05-12 12:00] VITALS: BP 165/65
[2018-05-12 16:00] VITALS: BP 147/62
[2018-05-12 20:00] VITALS: BP 158/58
[2018-05-13] VITALS: BP 159/77
[2018-05-13 06:17] LABS: HEMATOCRIT 31.2 % (37.0-47.0); HEMOGLOBIN 9.8 g/dl (12.0-16.0); MEAN CELL VOLUME 94.3 fl (81.0-99.0); MEAN CORPUSCULAR HGB 29.6 pg (27.0-31.0); MEAN CORPUSCULAR HGB CONC 31.4 g/dl (33.0-37.0); MEAN PLATELET VOLUME 10.8 fl (9.6-12.3); PLATELET COUNT AUTOMATED 217 10*3/uL (130-400); RED BLOOD COUNT 3.31 10*6/uL (4.10-5.10); RED CELL DISTRI WIDTH 14.5 % (0-14.5); WHITE BLOOD COUNT 5.9 10*3/uL (4.8-10.8)
[2018-05-13 06:42] LABS: CREATININE 1.52 mg/dL (0.55-1.02)
[2018-05-13 06:51] LABS: OVALOCYTES FEW; PLATELET SUFFICIENCY NORMAL (NORMAL); TOTAL CELLS COUNTED 100 #CELLS
[2018-05-13 08:00] VITALS: BP 180/80
[2018-05-13 12:00] VITALS: BP 149/61
[2018-05-13 16:00] VITALS: BP 160/60
[2018-05-13 20:00] VITALS: BP 139/81
[2018-05-14] VITALS: BP 137/56
[2018-05-14 06:55] LABS: CREATININE 1.52 mg/dL (0.55-1.02); POTASSIUM 4.6 mmol/L (3.5-5.1)
[2018-05-14 08:00] VITALS: BP 139/56
[2018-05-14 12:00] VITALS: BP 153/64
[2018-05-14 16:00] VITALS: BP 148/64
[2018-05-14 20:00] VITALS: BP 147/60
[2018-05-15] VITALS: BP 126/61
[2018-05-15 06:24] LABS: CREATININE 1.82 mg/dL (0.55-1.02); POTASSIUM 5.1 mmol/L (3.5-5.1)
[2018-05-15 08:00] VITALS: BP 153/57
[2018-05-15 12:00] VITALS: BP 170/66
[2018-05-15 16:00] VITALS: BP 136/57
[2018-05-15 20:00] VITALS: BP 138/70
[2018-05-16] VITALS: BP 149/62
[2018-05-16 06:57] LABS: CREATININE 1.6 mg/dL (0.55-1.02); POTASSIUM 4.3 mmol/L (3.5-5.1)
[2018-05-16 08:00] VITALS: BP 159/63
[2018-05-16 12:00] VITALS: BP 142/68
[2018-05-16] MEDS ORDERED: PREDNISONE10 MG PO (13:16)
[2018-05-16] MEDS ORDERED: LASIX20 MG PO (13:16)
[2018-05-16] MEDS ORDERED: [UNRECOGNIZED DRUG - OTHER] IV (13:30)
[2018-07-12] MEDS ORDERED: RANEXA500 M1 PO (08:47)
[2018-07-12] MEDS ORDERED: ELIQUIS5 M1 PO ×2 (08:47→14:15)
== END 2018-05-16 15:19 | disposition home health service (06) | DRG 190 ==
LOC: ED 16:27 → 4E 17:56 → EDHOLD 17:56 → 4E 18:35
PROVIDERS: Emergency Medicine; Family Medicine; Internal Medicine; Student in an Organized Health Care Education/Training Program
DX: J44.1 Chronic obstructive pulmonary disease with (acute) exacerbation (principal); J18.9 Pneumonia, unspecified organism; E44.0 Moderate protein-calorie malnutrition; I27.82 Chronic pulmonary embolism; I50.32 Chronic diastolic (congestive) heart failure; I13.0 Hypertensive heart and chronic kidney disease with heart failure and stage 1 through stage 4 chronic kidney disease, or unspecified chronic kidney disease; J45.51 Severe persistent asthma with (acute) exacerbation; J44.0 Chronic obstructive pulmonary disease with (acute) lower respiratory infection; D64.9 Anemia, unspecified; M35.00 Sjogren syndrome, unspecified; I25.10 Atherosclerotic heart disease of native coronary artery without angina pectoris; N18.3 Chronic kidney disease, stage 3 (moderate); M19.90 Unspecified osteoarthritis, unspecified site; K57.90 Diverticulosis of intestine, part unspecified, without perforation or abscess without bleeding; E87.8 Other disorders of electrolyte and fluid balance, not elsewhere classified; F41.1 Generalized anxiety disorder; E11.65 Type 2 diabetes mellitus with hyperglycemia; E11.43 Type 2 diabetes mellitus with diabetic autonomic (poly)neuropathy; K59.00 Constipation, unspecified; E11.22 Type 2 diabetes mellitus with diabetic chronic kidney disease; K21.9 Gastro-esophageal reflux disease without esophagitis; E78.5 Hyperlipidemia, unspecified; E05.90 Thyrotoxicosis, unspecified without thyrotoxic crisis or storm; K44.9 Diaphragmatic hernia without obstruction or gangrene; K31.84 Gastroparesis; Z88.2 Allergy status to sulfonamides; Z88.1 Allergy status to other antibiotic agents; Z88.8 Allergy status to other drugs, medicaments and biological substances; Z86.73 Personal history of transient ischemic attack (TIA), and cerebral infarction without residual deficits; Z87.01 Personal history of pneumonia (recurrent); Z79.899 Other long term (current) drug therapy; Z90.49 Acquired absence of other specified parts of digestive tract; Z90.710 Acquired absence of both cervix and uterus; Z98.51 Tubal ligation status; Z90.721 Acquired absence of ovaries, unilateral; Z79.4 Long term (current) use of insulin; Z82.3 Family history of stroke; Z83.3 Family history of diabetes mellitus; Z82.49 Family history of ischemic heart disease and other diseases of the circulatory system; Z80.0 Family history of malignant neoplasm of digestive organs; Z68.26 Body mass index [BMI] 26.0-26.9, adult

== ENCOUNTER 2018-05-22 09:21 | Emergency (ER) | payer MEDICARE, MEDICAID ==
[~2018-05-22] VITALS: Ht 154.9 cm; Wt 62.1 kg
--- NOTE | ~2018-05-22 | EKG ---
[place], [place] ELECTROCARDIOGRAM REPORT NAME: QUINTON HINTON UNIT #: [id number] ROOM: DOCTOR: EPIPHANY DRAFT REPORT BIRTHDATE: [birth year] [facility] Test Date: 2018-05-22 Test Time: 09:57:58 Pat Name: QUINTON HINTON Department: Room: 403 Gender: F Base Loader: [id number] : 1935 Requested By: BIANKA QUEEN DNP Order Number: [id number] Reading MD: Idnra Beckham MD Measurements Intervals [place] Rate: 66 P: 34 DC: 139 QRS: 14 QRSD: 109 T: 43 QT: 419 QTc: 439 Interpretive Statements Sinus rhythm Probable left atrial enlargement Left ventricular hypertrophy Compared to ECG 05/15/2018 08:45:51 Left ventricular hypertrophy now present Electronically Signed On 05-26-2018 9:04:56 PDT by Indra Beckham MD CM:EKGRPT:ELECTROCARDIOGRAM REPORT 0904 BIANKA QUEEN DNP EPIPHANY DRAFT REPORT BIANKA QUEEN DNP
[~2018-05-22 09:21] MED LIST changes: +[UNRECOGNIZED DRUG - OTHER] IV
[2018-05-22 10:11] LABS: HEMATOCRIT 34.1 % (37.0-47.0); HEMOGLOBIN 11.3 g/dl (12.0-16.0); MEAN CELL VOLUME 93.7 fl (81.0-99.0); MEAN CORPUSCULAR HGB CONC 33.1 g/dl (33.0-37.0); MEAN PLATELET VOLUME 10.8 fl (9.6-12.3); PLATELET COUNT AUTOMATED 181 10*3/uL (130-400); RED BLOOD COUNT 3.64 10*6/uL (4.10-5.10); RED CELL DISTRI WIDTH 14.1 % (0-14.5); WHITE BLOOD COUNT 8.3 10*3/uL (4.8-10.8)
[2018-05-22 10:19] LABS: ACT PARTIAL THROMBO TIME 19.2 SECONDS (20.8-31.5); INTERNATIONAL NORM RATIO 0.9 (2.0-3.5)
[2018-05-22 10:27] LABS: ALBUMIN 3.3 gm/dl (3.1-4.5); ALKALINE PHOSPHATASE 65 U/L (45-117); BUN 35 mg/dl (7-24); CHLORIDE 105 mmol/L (98-107); CREATININE 1.77 mg/dL (0.55-1.02); POTASSIUM 4.5 mmol/L (3.5-5.1); SGOT/AST 24 IU/L (3-35); SGPT/ALT 27 U/L (12-78); SODIUM 139 mmol/L (136-145); TOTAL PROTEIN 6.3 gm/dL (6.4-8.2)
[2018-05-22 10:29] LABS: PLATELET SUFFICIENCY NORMAL (NORMAL); TOTAL CELLS COUNTED 100 #CELLS
[2018-05-22 10:33] LABS: TROPONIN I < 0.015 ng/ml (<0.045)
[2018-05-22 12:49] VITALS: BP 140/53
== END 2018-05-22 13:03 | disposition home or self-care (01) ==
LOC: ED 09:21
PROVIDERS: Nurse Practitioner Family
DX: J90 Pleural effusion, not elsewhere classified (principal); M79.89 Other specified soft tissue disorders; R06.02 Shortness of breath; R05 Cough; I10 Essential (primary) hypertension; E11.9 Type 2 diabetes mellitus without complications; I25.10 Atherosclerotic heart disease of native coronary artery without angina pectoris; Z86.718 Personal history of other venous thrombosis and embolism; J44.9 Chronic obstructive pulmonary disease, unspecified; Z88.2 Allergy status to sulfonamides; Z88.1 Allergy status to other antibiotic agents; Z79.899 Other long term (current) drug therapy; Z79.4 Long term (current) use of insulin

== ENCOUNTER 2018-05-23 18:46 | Inpatient (IN) | payer MEDICARE, MEDICAID ==
[~2018-05-23] VITALS: Ht 154.9 cm; Wt 65.0 kg
--- NOTE | ~2018-05-23 | EKG ---
[place], [place] ELECTROCARDIOGRAM REPORT NAME: QUINTON HINTON UNIT #: [id number] ROOM: DOCTOR: ISAAC DRAFT REPORT BIRTHDATE: [birth year] [facility] Test Date: 2018-05-23 Test Time: 19:11:38 Pat Name: QUINTON HINTON Department: Room: Gender: F Tentering Machine Feeder: : 1935 Requested By: MOE STANFORD Order Number: [id number] Reading MD: Measurements Intervals [place] Rate: 73 P: 30 [place]: 143 QRS: 17 QRSD: 94 T: 47 QT: 393 QTc: 433 Interpretive Statements Sinus rhythm Compared to ECG 05/15/2018 08:45:51 No significant changes CM:EKGRPT:ELECTROCARDIOGRAM REPORT 1615 MOE PELAEZ DRAFT REPORT MOE STANFORD DO
--- NOTE | ~2018-05-23 | WRIGHTHP ---
[place], [place] PATIENT HISTORY AND PHYSICAL EXAM [facility]: [id number] UNIT #: [id number] ROOM: 403 DOCTOR: JESSIE CRUM MD BIRTHDATE: [birth year] DOS: 05/23/2018 SUBJECTIVE: The patient is an 82-year-old female with a past medical history of: 1. Chronic obstructive pulmonary disease. 2. Normocytic anemia. 3. Sjogren's syndrome. 4. Type 2 diabetes mellitus. 5. Coronary artery disease of the shinnecock vessels. 6. Osteoarthritis involving multiple joints. 7. Chronic pulmonary embolism and cor pulmonale. 8. Chronic kidney disease, stage 3. 9. Gastroesophageal reflux disease and esophagitis and hiatal hernia. 10. Mixed hyperlipidemia. 11. Chronic diastolic type congestive heart failure. 12. Common variable hypogammaglobulinemia. 13. Diabetic gastroparesis. The patient is chronically ill and repeatedly presents to the Emergency Department at [facility]. At this time, she presented with increased shortness of breath, abdominal pains and on the chest x-ray, she was found to have pneumonic infiltrates. The patient was recommended for admission for pneumonia. No chest pain, no dizziness or fainting episode, just generalized weakness. SYSTEMS REVIEW: RESPIRATORY: Increasing shortness of breath. GASTROINTESTINAL: No nausea, vomiting, diarrhea or constipation. CARDIOVASCULAR: No chest pains. FAMILY HISTORY: Noncontributory. MEDICATIONS: Ropinirole, Brintellix, Zofran, mirtazapine, metoprolol, metoclopramide, loratadine, furosemide, amlodipine, hydralazine, Vicodin. PHYSICAL EXAMINATION: GENERAL APPEARANCE: Alert, oriented, poor historian. No visible distress, except for generalized weakness. VITAL SIGNS: Blood pressure 118/47, heart rate 69 beats per minute, breathing 16 times per minute, temperature 98 degrees Fahrenheit. HEENT AND NECK: Exam within normal limits. CARDIOVASCULAR SYSTEM: Heart rate is regular in rate and rhythm. S1 and S2 normally audible. LUNGS: Clear to auscultation. ABDOMEN: Soft, nontender. No obvious organomegaly. Bowel sounds are present. EXTREMITIES: Without significant cyanosis or edema. IMPRESSION: 1. The patient with right lower lobe pneumonic infiltrates and small pleural [place], [place] PATIENT HISTORY AND PHYSICAL EXAM NAME: QUINTON HINTON UNIT #: [id number] ROOM: 403 DOCTOR: JESSIE CRUM MD BIRTHDATE: [birth year] effusion with increased shortness of breath, being treated with IV Zosyn and azithromycin. Sputum cultures have been ordered. The patient is chronic. 2. Chronic pulmonary embolism and cor pulmonale with chronic shortness of breath. The patient is being treated with oxygen. 3. Coronary artery disease of the shinnecock vessels without chest pains. 4. Type 2 diabetes mellitus. Blood sugars will be monitored and treated. 5. Coronary artery disease of the shinnecock vessels without chest pain. 6. Mixed hyperlipidemia to be treated appropriately. 7. Chronic diastolic type congestive heart failure, compensated. 8. Type 2 diabetes mellitus. Blood sugars to be monitored and treated. The patient kept on no concentrated sweet diet. 9. Benign essential hypertension. The patient remains on amlodipine, clonidine, blood pressures to be monitored and treated. 10. Adult failure to thrive, generalized weakness. The patient is to work with physical therapy. JESSIE CRUM MD CM:HISPHYS:PATIENT HISTORY AND PHYSICAL EXAMINATION 1648 0022 JESSIE CRUM MD 05/26/18 0729 interface
--- NOTE | ~2018-05-23 | PR ---
[place], [place] PROGRESS NOTE NAME: QUINTON HINTON UNIT #: [id number] ROOM: 403 DOCTOR: CALLUM HILL MD BIRTHDATE: [birth year] DOS: 05/29/2018 HISTORY OF PRESENT ILLNESS: The patient was independently seen and examined in [id number] encounter. History for this patient was personally taken. Physical examination performed. Labs reviewed. Assessment and management of the patient was personally made for today's visit. The note done by the claim review medical director was approved. She was still noted symptoms of shortness of breath, but denied any coughing, chest pain, or wheezing. Symptoms of fever or chills. OBJECTIVE: VITAL SIGNS: Normal temperature, respiratory rate 18, heart rate 60, blood pressure 101/49. Pulse ox saturation on room air 98% saturation. HEENT: No acute change. CARDIOVASCULAR: S1, S2 audible. LUNGS: Clear of any wheezing or crackles. ABDOMEN: Soft and nontender. Bowel sounds present. EXTREMITIES: Without any acute edema. LABORATORY DATA: The CT scan of chest without contrast was reviewed. Does not show any pulmonary nodule in the suprahilar area, but noted with 9-mm nodule, which has been noted in the right middle lobe. IMPRESSION: 1. The patient with a 9-mm nodule noted in the right middle lobe was seen on the CT scan of 12/2017 comparison appeared to be more prominent; done previously more solid looking. 2. The patient with moderate aortic stenosis noted in previous echocardiogram with resolving congestive heart failure. 3. Bronchial asthma remains stable. 4. Debility. PLAN OF TREATMENT: No change in Pulmonary standpoint except consideration for home discharge. From the Pulmonary standpoint, outpatient followup of pulmonary nodule and bronchial asthma is already scheduled for 06/20/2018. [place], [place] PROGRESS NOTE NAME: QUINTON HINTON UNIT #: [id number] ROOM: 403 DOCTOR: CALLUM HILL MD BIRTHDATE: [birth year] CALLUM MALIK MD CM:PNTRANS 1344 1446 CALLUM PITT MD 05/29/18 1443 interface
--- NOTE | ~2018-05-23 | PR ---
[place], [place] PROGRESS NOTE NAME: QUINTON HINTON UNIT #: [id number] ROOM: 403 DOCTOR: HUNTER SAUCEDO DO BIRTHDATE: [birth year] DOS: 05/29/2018 SUBJECTIVE: The patient was seen and examined at the bedside. She denies fevers, chills, chest pain, nausea, vomiting, abdominal pain or any changes in bowel or bladder habits. The patient does admit to some shortness of breath as well as a nonproductive cough. OBJECTIVE: VITAL SIGNS: Show temperature at 98.4 degrees Fahrenheit, heart rate at 78, respiratory rate at 20, most recent blood pressure was 142/45, pulse oximetry was 95% on room air. GENERAL APPEARANCE: The patient was awake, alert, responsive, cooperative and in no acute distress. HEENT: The head was normocephalic and atraumatic. The eyes were without lesions or ulcerations. NECK: The trachea appeared midline. HEART: Positive S1 and S2 sounds were heard. Regular rate and rhythm were noted. A grade 2/6 systolic murmur was auscultated. Bilateral lower extremities were without pitting edema. PULMONARY: The lungs were clear to auscultation bilaterally. No rhonchi, rales or wheezes were appreciated. ABDOMEN: Soft, nondistended and nontender to palpation. Bowel sounds were auscultated. EXTREMITIES: The bilateral lower extremities were without pitting edema. No clubbing, cyanosis or erythema was noted. LABORATORY DATA: The most recent CBC was from 05/25/2018, which showed at that time, a white count at 7.1, hemoglobin at 11.3, hematocrit at 36.1, platelets at 143. The most recent chemistries were also from 05/25/2018, which showed sodium at 146, potassium at 3.7, chloride at 109, bicarbonate at 31, BUN at 27, creatinine at 1.75, glucose at 64, and calcium at 8.4. MICROBIOLOGY: The patient's final sputum culture showed growth for normal rea. IMAGING STUDIES: A chest CT without contrast obtained yesterday showed no acute findings. It did show the stable appearance of scarring to the medial aspect of the right middle lobe with a 0.9 cm nodular density. Mild atelectasis was also noted to the right lower lobe. IMPRESSION: 1. Pulmonary nodule. 2. Resolving right lower lobe pneumonia. 3. Pulmonary hypertension. 4. Overweight. PLAN OF MANAGEMENT: The patient remains on IV Zosyn and IV azithromycin for treatment of her pneumonia. A nodular density was seen on the patient's CT scan. At this time, the patient is stable from a pulmonary standpoint for discharge and she should follow up with Pulmonary Medicine on an outpatient [place], [place] PROGRESS NOTE NAME: HINTONQUINTON A UNIT #: [id number] ROOM: [facility] DOCTOR: HUNTER SAUCEDO DO BIRTHDATE: [birth year] basis and keep her scheduled followup date for June and further workup for her nodular density will be done at that time. Hunter Saucedo DO CALLUM MALIK MD CM:PNTRANS 1029 1130 HUNTER SAUCEDO DO 05/29/18 1127 interface
--- NOTE | ~2018-05-23 | DS ---
[place], [place] DISCHARGE SUMMARY [id number] UNIT #: [id number] ROOM: 403 DOCTOR: JESSIE CRUM MD BIRTHDATE: [birth year] DOS: 05/29/2018 DISCHARGE DIAGNOSES: 1. Right lower lobe pneumonia, resolved with treatment. 2. Chronic pulmonary embolism and chronic shortness of breath. 3. Advanced adult failure to thrive with recurrent admissions to the hospital with shortness of breath. 4. Pulmonary nodule was evaluated with a CT of the chest and Dr. Esqueda, showing a 0.9 cm nodular density in the right middle lobe. 5. Generalized anxiety disorder. 6. Benign essential hypertension. 7. Chronic diastolic type congestive heart failure. 8. Type 2 diabetes mellitus. 9. Coronary artery disease of the deering vessels. 10. Chronic obstructive pulmonary disease. 11. Normocytic anemia. 12. Sjogren syndrome. 13. Chronic kidney disease stage 3. 14. History of diabetic gastroparesis. 15. Common variable hypogammaglobulinemia. 16. Mixed hyperlipidemia. HOSPITAL COURSE: The patient admitted to [facility] after she presented and was evaluated in the Emergency Department for increased shortness of breath. The patient was found to have right lower lobe pneumonia on the chest x-ray and she was treated appropriately with antibiotics. A consult was obtained with infectious diseases physician, Dr. Esqueda for pneumonia and pulmonary nodule, which was further evaluated with a CT of the chest. Dr. Esqueda has not recommended any further intervention on management at this time, but she was treated with antibiotics appropriately and pneumonia has resolved on lung scan. 1. Chronic pulmonary embolism and right-sided heart failure with chronic shortness of breath. 2. Advance adult failure to thrive. The patient to be followed by palliative care. 3. Type 2 diabetes mellitus. Blood sugars are monitored and treated. 4. Coronary artery disease of deering vessels without chest pain. 5. Chronic diastolic type congestive heart failure, compensated. The patient appears to have achieved maximal benefit from this admission and is being discharged to home to follow up with us her PCP, Dr. Brandon Longo and the lung doctor, Dr. Esqueda. LABORATORY DATA: CT of the chest results as mentioned above. Hemoglobin 11.3. No leukocytosis, normal platelets. Sputum culture negative. DISCHARGE MANAGEMENT: Ropinirole 1 mg at bedtime, Trintellix 10 mg daily, omeprazole 20 mg a day, mirtazapine 7.5 mg daily, Xarelto 15 mg daily, metoprolol 25 mg b.i.d., metoclopramide 5 mg b.i.d., loratadine 10 mg a day, furosemide 20 mg a day, amlodipine 10 mg a day, buspirone 10 mg b.i.d., Vicodin [place], [place] DISCHARGE SUMMARY NAME: QUINTON HINTON UNIT #: [id number] ROOM: [facility] DOCTOR: JESSIE CRUM MD BIRTHDATE: [birth year] p.r.n. JESSIE CRUM MD CM:URI 1404 0015 JESSIE CRUM MD 05/30/18 0013 interface
--- NOTE | ~2018-05-23 | CON ---
[place], [place] REPORT OF CONSULTATION NAME[id number] UNIT #: [id number] ROOM: 403 DOCTOR: CALLUM HILL MD BIRTHDATE: [birth year] DOS: 05/28/2018 PULMONARY CONSULTATION CONSULTATION REQUEST BY: Dr. Syed. REASON FOR CONSULTATION: For assessment of possible discharge planning as well as the current finding of pulmonary nodule. The patient was independently seen and examined, [id number] encounter, history was confirmed. Medical record for the patient previously and current was reviewed as well. The labs were reviewed. X-rays were reviewed. Assessment and management were personally completed. The note done by the medical research tech was approved. HISTORY OF PRESENT ILLNESS: This is a patient who has been admitted hospital and noted with acute pneumonia, which has been reported in the right lower lobe with small pleural fluid treated with antibiotics and other therapy. One of the chest x-ray done in this hospital was suggested possibility of suprahilar right pulmonary nodule. The patient was advised for further assessment. At this time, the patient was reporting symptoms of shortness of breath, which has been noted chronic and essentially appeared to be unchanged. She does not have any symptoms of cough. Denies symptoms of chest pain. No wheezing. The patient noted general weakness and fatigue. REVIEW OF SYSTEMS: Review of systems was completed by the medical research tech. Past medical history, surgical history, social, and family history reviewed and remains unchanged for the patient since my consultation completed recently on 05/13/2018. HOME MEDICATIONS: Listed use of Requip, Trintellix, omeprazole, Remeron, Xarelto, metoprolol tartrate, metoclopramide, loratadine, Lasix, amlodipine, hydralazine, IV Zosyn, and Zithromax. DRUG ALLERGIES: The patient has noted as allergies to: 1. SULFA DRUGS. 2. FLUOROQUINOLONES. PHYSICAL EXAMINATION: GENERAL: This is an 82-year-old female patient currently sitting on the chair with mild tachypnea at rest. Able to speak patient and give me any history. VITAL SIGNS: Height 5 feet 1 inch, weight of 143 pounds. The patient showed normal temperature. The patient in the last 2 days. The respiratory rate 18-20, heart rate 76-78, blood pressure 134/56 140-50. Pulse oxygen saturation on room air at rest was noted 98% saturation. HEENT: Head was atraumatic. Eyes nonicterus. NECK: Supple. CARDIOVASCULAR: S1, S2 audible. LUNGS: Noted clear to auscultation bilaterally. ABDOMEN: Flat, soft, nontender. Bowel sounds present. EXTREMITIES: Without any acute edema, clubbing, cyanosis. [place], [place] REPORT OF CONSULTATION NAME: QUINTON HINTON UNIT #: [id number] ROOM: 403 DOCTOR: CECE HILL MDM BIRTHDATE: [birth year] CENTRAL NERVOUS SYSTEM: Cranial nerves 2-12 intact. MUSCULOSKELETAL: Without any acute deformities. LABORATORY DATA: The chest x-ray that was done, 1 view on 05/22/2018 reviewed, small area of infiltration with associated pleural effusion. The CMP that was done on of this month on the patient admission, BUN 35, creatinine 1.77, glucose 311. CBC on 05/22/2008 WBC count normal, hemoglobin 11.3, platelet count was normal. PT/INR 05/22/2018 and noted with PTT normal. Lactic acid on admission was 1.6. CBC on , the patient remains essentially normal WBC count, hemoglobin and hematocrit and platelets. Culture of the sputum on 05/25/2018, normal rea. The patient noted the final culture results of 05/27/2018. The chest x-ray that was done reported possibility of prominent left hilar area. Right suprahilar nodule was considered. IMPRESSION: 1. The patient will be currently admitted to the hospital, treated, and resolving acute pneumonia noted. Small right lower lobe with possibility of aspiration can be excluded with associated pleural fluid with current antibiotic effectively. 2. Rule out pulmonary nodule in the right suprahilar area was tangential cut for this patient with the blood vessel. The patient was also given a false appearing pulmonary nodules, as the nodule was not seen, but the previous x-rays. She does have a CT scan of the chest, which was done previously with 12/2017 that was reviewed and does not show any abnormal pulmonary nodule. 3. The patient with recurrent hospitalization. The patient with history of congestive heart failure, diastolic dysfunction, and of past history of thromboembolism. PLAN OF TREATMENT: Continuation of anticoagulation, bronchodilators, antibiotics. CT scan of the chest will be done without contrast because of chronic kidney disease. The patient elevation of creatinine for the current test, pulmonary nodule confirmation. Based on the CT scan of the chest, the patient any additional treatment changes, if recommended. The patient will be done accordingly. Continue diuretic therapy as a plan of management and care. Assessment and management of the patient was discussed with primary care. Thanks for allowing me to participate in the care of this patient. CALLUM MALIK MD CM:CONSTR:REPORT OF CONSULTATION 1452 05/28/18 1844 interface
--- NOTE | ~2018-05-23 | PR ---
[place], [place] PROGRESS NOTE NAME: QUINTON HINTON UNIT #: [id number] ROOM: 403 DOCTOR: JESSIE CRUM MD BIRTHDATE: [birth year] DOS: 05/26/2018 SUBJECTIVE: The patient not feeling well today. She has diarrhea and increased shortness of breath and weakness. OBJECTIVE: GENERAL APPEARANCE: The patient is alert and oriented x 3, in no visible distress. VITAL SIGNS: Blood pressure 150/50, heart rate of 64 beats per minute, breathing 18 times per minute, temperature 98 degrees Fahrenheit. HEENT AND NECK: Exam within normal limits. CARDIOVASCULAR SYSTEM: Heart rate is regular in rate and rhythm. S1 and S2 normally audible. LUNGS: Clear to auscultation. ABDOMEN: Soft, nontender. No obvious organomegaly. Bowel sounds are present. EXTREMITIES: Without significant cyanosis or edema. IMPRESSION: 1. The patient with right lower lobe pneumonia. Repeat chest x-ray results are pending. 2. Acute diarrhea, possibly from antibiotics. I will check her stool for Clostridium difficile. 3. Chronic pulmonary embolism and cor pulmonale with chronic shortness of breath, treated with oxygen. 4. Coronary artery disease of the [place] vessels without chest pain. 5. Type 2 diabetes mellitus. Blood sugars being monitored and treated. 6. Mixed hyperlipidemia, being followed and treated. 7. Chronic diastolic type congestive heart failure is compensated. 8. Benign essential hypertension, treated and controlled. 9. Generalized adult failure to thrive and recurrent admissions to the hospital. The patient working with physical therapy. JESSIE CRUM MD CM:PNTRANS [phone] JESSIE CRUM MD 05/27/18 0306 interface
--- NOTE | ~2018-05-23 | CON ---
[place], [place] REPORT OF CONSULTATION [id number] UNIT #: [id number] ROOM: 403 DOCTOR: HUNTER SAUCEDO DO BIRTHDATE: [birth year] DOS: 05/28/2018 REQUESTING PHYSICIAN: Mike Syed M.D. REASON FOR CONSULTATION: Evaluation of pulmonary nodule. HISTORY OF PRESENT ILLNESS: The patient is an 82-year-old female who initially presented to the ED via EMS on 05/23/2018 due to hyperglycemia. Per the ED record, EMS obtained a blood glucose reading at 499 on route to the ED. The patient was reportedly on a steroid taper due to a previous flare of COPD and in the ED, the patient admitted to generalized weakness, shortness of breath, abdominal pain and headache. Chest x-ray obtained in the ED showed a minimal opacity in the right lower lobe with a small right pleural effusion. The patient was diagnosed with healthcare-associated pneumonia and she was admitted to the general medical floor with telemetry monitoring. The patient was treated with IV Zosyn and IV azithromycin. A followup chest x-ray obtained on 05/26/2018 noted the appearance of a right suprahilar nodular density measuring 1 cm in diameter. The Pulmonary Medicine Service was consulted for further evaluation of this suspected pulmonary nodule. PAST MEDICAL HISTORY: List includes coronary artery disease, chronic pulmonary embolism, stage 3 chronic kidney disease, COPD, diverticulosis, degenerative joint disease, diabetes mellitus type 2, gastroparesis, gastroesophageal reflux disease, hiatal hernia, history of TIA, hyperlipidemia, hyperthyroidism, Sjogren's syndrome, common variable hypogammaglobulinemia, generalized anxiety disorder, atrial fibrillation, hypertension and allergic rhinitis. PAST SURGICAL HISTORY: This includes history of bronchoscopy, history of laminectomy, history of oophorectomy, history of tubal ligation, history of cholecystectomy, history of hysterectomy, history of rectal surgery, history of umbilical hernia repair, history of appendectomy and history of removal of a MediPort. SOCIAL HISTORY: The patient denies use of tobacco, alcohol or illicit drugs. FAMILY HISTORY: The patient's mother at an age greater than 80 due to a stroke. The patient's father at age 76 from esophageal cancer. ALLERGIES: These include allergy to SULFONAMIDES as well as QUINOLONE ANTIBIOTICS. CURRENT MEDICATIONS: These include omeprazole 20 mg daily, Trintellix 10 mg daily, ropinirole 1 mg before bed, Xarelto 15 mg daily, sliding scale insulin, IV azithromycin 500 mg daily, IV Zosyn 2.25 grams every 6 hours, [place] 5/325 one tablet every 12 hours as needed for pain, Remeron 7.5 mg before bed, metoprolol tartrate 25 mg twice a day, metoclopramide 5 mg twice a day, loratadine 10 mg once a day, furosemide 20 mg once a day, buspirone 10 mg twice a day and amlodipine 10 mg daily. REVIEW OF SYSTEMS: [place], [place] REPORT OF CONSULTATION NAME: QUINTON HINTON UNIT #: [id number] ROOM: 403 DOCTOR: HUNTER SAUCEDO DO BIRTHDATE: [birth year] GENERAL: The patient reports fevers, but denies chills. HEENT: Denies changes to vision, changes to hearing or any eye or ear pain. Denies dysphagia. CARDIOVASCULAR: Admits to chest pain. Denies palpitations or diaphoresis. RESPIRATORY: Admits to coughing productive for thick white or yellow sputum. Admits to chronic shortness of breath. Denies wheezing. ABDOMEN: Denies nausea. Denies abdominal pain. Admits to diarrhea, which she characterizes as loose. Admits to melena. Denies hematochezia. Denies vomiting. Admits to a 6-pound weight gain in the past month. GENITOURINARY: Denies dysuria, hematuria, increased urinary frequency or urgency. NEUROLOGICAL: Denies lightheadedness, but admits to dizziness. PSYCHOLOGICAL: Denies anxiety, depression or substance abuse. ENDOCRINE: Admits to intolerance to cold and heat. SKIN: Denies any new rashes, ulcers or lesions. PHYSICAL EXAMINATION: VITAL SIGNS: Temperature is 97.5 degrees Fahrenheit, heart rate is 79, respiratory rate is 18, blood pressure is 122/58 and pulse oximetry is 98% on room air. GENERAL APPEARANCE: The patient is awake, alert, responsive, cooperative and in no acute distress. HEENT: Head is normocephalic and atraumatic. There are no lesions or ulcerations noted to the eyes. NECK: Trachea appears midline. HEART: Regular rate and rhythm were noted. Positive S1 and S2 sounds were heard. No murmurs, rubs or gallops were appreciated. Bilateral lower extremities were without pitting edema. PULMONARY: Lungs are clear to auscultation bilaterally. No rhonchi, rales or wheezes were appreciated. ABDOMEN: Soft and nontender to palpation. Bowel sounds are auscultated. The abdomen was nondistended. EXTREMITIES: The bilateral lower extremities were without pitting edema. No clubbing, cyanosis or erythema was noted. NEUROLOGIC: The patient was grossly without any focal neurologic deficits. Cranial nerves 2-12 are grossly intact. PSYCHOLOGICAL: The patient was with normal mood and normal affect. She was a fair historian. SKIN: Warm and dry without any indurations or erythema. A right-sided implanted central venous access device was present to the patient's right chest. LABORATORY DATA: Most recent CBC from 05/25/2018 showed white count at 7.1, hemoglobin at 11.3, hematocrit at 36.1, platelets at 143. Most recent chemistries from 05/25/2018 showed sodium at 146, potassium at 3.7, chloride at 109, bicarbonate at 31, BUN at 27, creatinine at 1.75, glucose at 64 and calcium at 8.4. MICROBIOLOGY: Final sputum culture showed growth of normal rea. IMAGING STUDIES: Chest x-ray from 05/23/2018 showed a minimal opacity in the [place], [place] REPORT OF CONSULTATION NAME: QUINTON HINTON UNIT #: [id number] ROOM: [facility] DOCTOR: HUNTER SAUCEDO DO BIRTHDATE: [birth year] right lower lobe with a small right pleural effusion with consideration for a small area of pneumonia. Subsequent chest x-ray obtained on 05/26/2018 showed nodular prominence to the left hilum. A right suprahilar nodular density measuring 1 cm in diameter was also seen. Moreover, mild bibasilar atelectasis and a small right effusion were also noted. IMPRESSION: 1. Suprahilar nodular density. 2. Right lower lobe pneumonia and likely small parapneumonic effusion. 3. Diarrhea. 4. History of type 2 diabetes. 5. History of coronary artery disease. 6. History of hyperlipidemia. 7. History of hypertension. 8. History of pulmonary embolism. 9. History of chronic kidney disease stage 3. 10. History of allergic rhinitis. 11. Overweight. 12. Normocytic anemia. 13. Lymphopenia. 14. Hypernatremia. 15. Hyperchloremia. PLAN OF MANAGEMENT: This patient is currently being treated with IV azithromycin and IV Zosyn for her pneumonia. Regarding the suspected pulmonary nodule in light of the patient's history of chronic kidney disease, a CT chest without contrast will be obtained to further characterize. Of note, review of the patient's chart shows that a prior CT chest from 01/15/2018 showed no nodules at that time. Hunter Saucedo DO CALLUM MALIK MD CM:CONSTR:REPORT OF CONSULTATION 1115 05/28/18 1224 interface
--- NOTE | ~2018-05-23 | PR ---
[place], [place] PROGRESS NOTE NAME: QUINTON HINTON UNIT #: [id number] ROOM: 403 DOCTOR: JESSIE CRUM MD BIRTHDATE: [birth year] DOS: 05/25/2018 SUBJECTIVE: The patient is feeling better, walking around the room today. OBJECTIVE: GENERAL APPEARANCE: The patient is alert and oriented x 3, in no visible distress. VITAL SIGNS: Blood pressure 153/57, heart rate of 65 beats per minute, breathing 22 times per minute, temperature 98 degrees Fahrenheit. HEENT AND NECK: Exam within normal limits. CARDIOVASCULAR SYSTEM: Heart rate is regular in rate and rhythm. S1 and S2 normally audible. LUNGS: Clear to auscultation. ABDOMEN: Soft, nontender. No obvious organomegaly. Bowel sounds are present. EXTREMITIES: Without significant cyanosis or edema. NEUROLOGIC: Generalized weakness. IMPRESSION: 1. The patient's right lower lobe pneumonia, improving clinically. I will repeat a chest x-ray in the morning. 2. Chronic kidney disease, stage 3B. BUN and creatinine, serum electrolytes being monitored. 3. Chronic pulmonary embolism, cor pulmonale with chronic shortness of breath and right-sided heart failure. 4. Coronary artery disease of the [place] vessels without chest pain. 5. Type 2 diabetes mellitus. Blood sugars appeared reasonably controlled. 6. Coronary artery disease of [place] vessels without chest pain. 7. Mixed hyperlipidemia, diet controlled. 8. Benign essential hypertension, treated and controlled. The patient on hydralazine and amlodipine. 9. Diabetic gastroparesis, treated with Reglan. 10. Adult failure to thrive and generalized weakness. The patient to work with physical therapy. [place], [place] PROGRESS NOTE NAME: QUINTON HINTON UNIT #: [id number] ROOM: 403 DOCTOR: JESSIE CRUM MD BIRTHDATE: [birth year] JESSIE CRUM MD CM:PNTRANS 06 26 JESSIE CRUM MD 05/25/182024 interface
--- NOTE | ~2018-05-23 | PR ---
[place], [place] PROGRESS NOTE NAME: QUINTON HINTON [facility] #: [id number] UNIT #: [id number] ROOM: 403 DOCTOR: JESSIE CRUM MD BIRTHDATE: [birth year] DOS: SUBJECTIVE: The patient is an 82-year-old female with a past medical history of: 1. Chronic obstructive pulmonary disease. 2. Normocytic anemia. 3. Sjogren's syndrome. 4. Type 2 diabetes mellitus. 5. Coronary artery disease of the [place] vessels. 6. Osteoarthritis involving multiple joints. 7. Chronic pulmonary embolism and cor pulmonale. 8. Chronic kidney disease, stage 3. 9. Gastroesophageal reflux disease and esophagitis and hiatal hernia. 10. Mixed hyperlipidemia. 11. Chronic diastolic type congestive heart failure. 12. Common variable hypogammaglobulinemia. 13. Diabetic gastroparesis. The patient is chronically ill and repeatedly presents to the Emergency Department at [facility]. At this time, she presented with increased shortness of breath, abdominal pains and on the chest x-ray, she was found to have pneumonic infiltrates. The patient was recommended for admission for pneumonia. No chest pain, no dizziness or fainting episode, just generalized weakness. SYSTEMS REVIEW: RESPIRATORY: Increasing shortness of breath. GASTROINTESTINAL: No nausea, vomiting, diarrhea or constipation. CARDIOVASCULAR: No chest pains. FAMILY HISTORY: Noncontributory. MEDICATIONS: Ropinirole, Brintellix, Zofran, mirtazapine, metoprolol, metoclopramide, loratadine, furosemide, amlodipine, hydralazine, Vicodin. PHYSICAL EXAMINATION: GENERAL APPEARANCE: Alert, oriented, poor historian. No visible distress, except for generalized weakness. VITAL SIGNS: Blood pressure 118/47, heart rate 69 beats per minute, breathing 16 times per minute, temperature 98 degrees Fahrenheit. HEENT AND NECK: Exam within normal limits. CARDIOVASCULAR SYSTEM: Heart rate is regular in rate and rhythm. S1 and S2 normally audible. LUNGS: Clear to auscultation. ABDOMEN: Soft, nontender. No obvious organomegaly. Bowel sounds are present. EXTREMITIES: Without significant cyanosis or edema. IMPRESSION: 1. The patient with right lower lobe pneumonic infiltrates and small pleural [place], [place] PROGRESS NOTE NAME: [facility] [id number] UNIT #: [id number] ROOM: 403 DOCTOR: RADAMES HARO,JESSIE Garcia BIRTHDATE: [birth year] effusion with increased shortness of breath, being treated with IV Zosyn and azithromycin. Sputum cultures have been ordered. The patient is chronic. 2. Chronic pulmonary embolism and cor pulmonale with chronic shortness of breath. The patient is being treated with oxygen. 3. Coronary artery disease of the [place] vessels without chest pains. 4. Type 2 diabetes mellitus. Blood sugars will be monitored and treated. 5. Coronary artery disease of the [place] vessels without chest pain. 6. Mixed hyperlipidemia to be treated appropriately. 7. Chronic diastolic type congestive heart failure, compensated. 8. Type 2 diabetes mellitus. Blood sugars to be monitored and treated. The patient kept on no concentrated sweet diet. 9. Benign essential hypertension. The patient remains on amlodipine, clonidine, blood pressures to be monitored and treated. 10. Adult failure to thrive, generalized weakness. The patient is to work with physical therapy. JESSIE CRUM MD CM:PNTRANS [id number] JESSIE CRUM MD 05/26/18 0729 KRISTIN RAMIREZ.R
--- NOTE | ~2018-05-23 | PR ---
[place], [place] PROGRESS NOTE NAME: QUINTON HINTON UNIT #: [id number] ROOM: 403 DOCTOR: JESSIE CRUM MD BIRTHDATE: [birth year] DOS: 05/28/2018 SUBJECTIVE: The patient continues to complain of shortness of breath. OBJECTIVE: VITAL SIGNS: Blood pressure 135/56, heart rate 80 beats per minute, breathing 18 times per minute, temperature 98 degrees Fahrenheit. GENERAL APPEARANCE: Generalized weakness. HEENT AND NECK: Exam within normal limits. CARDIOVASCULAR SYSTEM: Heart rate is regular in rate and rhythm. S1 and S2 normally audible. LUNGS: Clear to auscultation. ABDOMEN: Soft, nontender. No obvious organomegaly. Bowel sounds are present. EXTREMITIES: Without significant cyanosis or edema. IMPRESSION: 1. The patient with advanced adult failure to thrive and recurrent admissions to the hospital and chronic complaints of shortness of breath, being reevaluated by Dr. Esqueda, the viticulturist. 2. The patient with pulmonary nodules on the chest x-ray. CT of the chest showing no acute findings and some scarring on the medial aspect of the right middle lobe with a 0.9 cm nodular density. 3. Generalized anxiety disorder, treated and controlled. 4. Benign essential hypertension. Blood pressure being monitored and treated. 5. Chronic diastolic type congestive heart failure, compensated. 6. Type 2 diabetes mellitus. Blood sugars being monitored and treated. 7. Coronary artery disease of the [place] vessels without chest pain. 8. Chronic pulmonary embolism and cor pulmonale with chronic shortness of breath and oxygen dependence. JESSIE CRUM MD CM:PNTRANS [phone] JESSIE CRUM MD 05/29/18 0250 interface
--- NOTE | ~2018-05-23 | PR ---
[place], [place] PROGRESS NOTE NAME: QUINTON HINTON UNIT #: [id number] ROOM: 403 DOCTOR: JESSIE CRUM MD BIRTHDATE: [birth year] DOS: 05/27/2018 SUBJECTIVE: The patient continues to be chronically short of breath, otherwise feeling better today and no diarrhea. OBJECTIVE: VITAL SIGNS: Blood pressure 140/51, heart rate of 78 beats per minute, breathing normally, afebrile. Generalized weakness. HEENT AND NECK: Exam within normal limits. CARDIOVASCULAR SYSTEM: Heart rate is regular in rate and rhythm. S1 and S2 normally audible. LUNGS: Clear to auscultation. ABDOMEN: Soft, nontender. No obvious organomegaly. Bowel sounds are present. EXTREMITIES: Without significant cyanosis or edema. IMPRESSION: 1. The patient with chronic respiratory failure and chronic pulmonary embolism with right-sided heart failure. The patient's daughter is requesting Pulmonary consult. 2. Pulmonary nodules seen on chest x-ray. We will get a pulmonary opinion before discharging her to home. 3. Right lower lobe pneumonia, resolved on chest x-ray with treatment with antibiotics. 4. Coronary artery disease of [place] vessels without chest pain. 5. Type 2 diabetes mellitus. Blood sugars being monitored and treated. 6. Mixed hyperlipidemia, treated with diet. 7. Benign essential hypertension, treated and controlled. 8. Generalized adult failure to thrive, recurrent admissions to the hospital. The patient working with physical therapy. 9. Chronic diastolic type congestive heart failure, compensated. I will get palliative care nursing to follow the patient. JESSIE CRUM MD CM:PNTRANS [id number] JESSIE CRUM MD 05/28/18 1429 interface
[2018-05-23 18:50] VITALS: BP 135/56
[2018-05-23 19:26] LABS: BASO % 0.1 % (0.0-1.0); HEMATOCRIT 31.5 % (37.0-47.0); HEMOGLOBIN 10.1 g/dl (12.0-16.0); LYMPH # 0.6 10*3/uL (1.3-4.4); LYMPH % 8.3 % (27.0-41.0); MEAN CELL VOLUME 95.2 fl (81.0-99.0); MEAN CORPUSCULAR HGB 30.5 pg (27.0-31.0); MEAN CORPUSCULAR HGB CONC 32.1 g/dl (33.0-37.0); MEAN PLATELET VOLUME 11.2 fl (9.6-12.3); MONO # 0.6 10*3/uL (0.1-1.0); MONO % 7.6 % (3.0-9.0); NEUT # 6.3 10*3/uL (2.3-7.9); NEUT % 81.8 % (47.0-73.0); PLATELET COUNT AUTOMATED 160 10*3/uL (130-400); RED BLOOD COUNT 3.31 10*6/uL (4.10-5.10); RED CELL DISTRI WIDTH 14.2 % (0-14.5); WHITE BLOOD COUNT 7.8 10*3/uL (4.8-10.8)
[2018-05-23 19:37] LABS: ACT PARTIAL THROMBO TIME 18.8 SECONDS (20.8-31.5); INTERNATIONAL NORM RATIO 0.9 (2.0-3.5)
[2018-05-23 19:43] LABS: ALBUMIN 2.9 gm/dl (3.1-4.5); ALKALINE PHOSPHATASE 61 U/L (45-117); BUN 35 mg/dl (7-24); CHLORIDE 107 mmol/L (98-107); POTASSIUM 4.1 mmol/L (3.5-5.1); SGOT/AST 19 IU/L (3-35); SGPT/ALT 25 U/L (12-78); SODIUM 140 mmol/L (136-145); TOTAL PROTEIN 5.5 gm/dL (6.4-8.2)
[2018-05-23 19:44] LABS: TROPONIN I < 0.015 ng/ml (<0.045)
[2018-05-23 20:20] VITALS: BP 130/46; BP 130/64
[2018-05-23 20:46] LABS: BILIRUBIN NEGATIVE (NEGATIVE); BLOOD TRACE-INTACT (NEGATIVE); CLARITY CLEAR (CLEAR); COLOR YELLOW (YELLOW); GLUCOSE 3+ (NEGATIVE); KETONE NEGATIVE (NEGATIVE); LEUKO ESTERASE NEGATIVE (NEGATIVE); NITRITE NEGATIVE (NEGATIVE); SPECIFIC GRAVITY 1.015 (1.005-1.030); UROBILINOGEN 0.2 E.U./dl (0.2-1.0)
[2018-05-23 20:48] LABS: BACTERIA TRACE; EPITHELIAL CELLS 0-2; RBC 0-2 rbc/hpf (0-2); WBC 0-2 wbc/hpf (0-5)
[2018-05-23 21:28] VITALS: BP 131/56
[2018-05-23 21:54] VITALS: BP 128/57
[2018-05-24] VITALS: BP 121/50
[2018-05-24 12:00] VITALS: BP 126/49
[2018-05-24 15:00] VITALS: BP 118/47
[2018-05-24 16:00] VITALS: BP 118/47
[2018-05-24 20:00] VITALS: BP 112/50
[2018-05-25] VITALS: BP 125/44
[2018-05-25 06:29] LABS: HEMATOCRIT 36.1 % (37.0-47.0); HEMOGLOBIN 11.3 g/dl (12.0-16.0); MEAN CORPUSCULAR HGB 30.1 pg (27.0-31.0); MEAN CORPUSCULAR HGB CONC 31.3 g/dl (33.0-37.0); MEAN PLATELET VOLUME 11.5 fl (9.6-12.3); PLATELET COUNT AUTOMATED 143 10*3/uL (130-400); RED BLOOD COUNT 3.76 10*6/uL (4.10-5.10); RED CELL DISTRI WIDTH 14.3 % (0-14.5); WHITE BLOOD COUNT 7.1 10*3/uL (4.8-10.8)
[2018-05-25 06:36] LABS: CREATININE 1.75 mg/dL (0.55-1.02); POTASSIUM 3.7 mmol/L (3.5-5.1)
[2018-05-25 07:00] LABS: OVALOCYTES FEW; PLATELET SUFFICIENCY NORMAL (NORMAL); TOTAL CELLS COUNTED 100 #CELLS
[2018-05-25 08:00] VITALS: BP 130/50
[2018-05-25 12:00] VITALS: BP 153/57
[2018-05-25 16:00] VITALS: BP 124/58
[2018-05-25 20:00] VITALS: BP 126/52
[2018-05-26] VITALS: BP 109/68
[2018-05-26 08:00] VITALS: BP 150/50
[2018-05-26 12:00] VITALS: BP 129/72
[2018-05-26 16:00] VITALS: BP 119/49
[2018-05-26 20:00] VITALS: BP 134/52
[2018-05-27] VITALS: BP 120/49
[2018-05-27 08:00] VITALS: BP 152/52
[2018-05-27 12:00] VITALS: BP 122/50
[2018-05-27 16:00] VITALS: BP 122/50; BP 140/51
[2018-05-27 20:00] VITALS: BP 124/53
[2018-05-28] VITALS: BP 134/56
[2018-05-28 08:00] VITALS: BP 122/58
[2018-05-28 12:00] VITALS: BP 135/56
[2018-05-28 16:00] VITALS: BP 122/78
[2018-05-28 20:00] VITALS: BP 124/46; BP 144/49
[2018-05-29] VITALS: BP 142/45
[2018-05-29 08:30] VITALS: BP 124/48
[2018-05-29 12:00] VITALS: BP 101/49
[2018-05-29 16:00] VITALS: BP 108/37
[2018-07-12] MEDS ORDERED: RANEXA500 M1 PO (08:47)
[2018-07-12] MEDS ORDERED: ELIQUIS5 M1 PO ×2 (08:47→14:15)
== END 2018-05-29 16:38 | disposition home health service (06) | DRG 194 ==
LOC: ED 18:46 → 4E 21:11 → EDHOLD 21:11 → 4E 21:36
PROVIDERS: Internal Medicine; Student in an Organized Health Care Education/Training Program
DX: J18.1 Lobar pneumonia, unspecified organism (principal); J44.0 Chronic obstructive pulmonary disease with (acute) lower respiratory infection; I50.32 Chronic diastolic (congestive) heart failure; I27.82 Chronic pulmonary embolism; I13.0 Hypertensive heart and chronic kidney disease with heart failure and stage 1 through stage 4 chronic kidney disease, or unspecified chronic kidney disease; E87.0 Hyperosmolality and hypernatremia; D80.1 Nonfamilial hypogammaglobulinemia; E11.22 Type 2 diabetes mellitus with diabetic chronic kidney disease; I25.10 Atherosclerotic heart disease of native coronary artery without angina pectoris; M19.90 Unspecified osteoarthritis, unspecified site; K21.0 Gastro-esophageal reflux disease with esophagitis; E78.2 Mixed hyperlipidemia; N18.3 Chronic kidney disease, stage 3 (moderate); F41.1 Generalized anxiety disorder; E87.8 Other disorders of electrolyte and fluid balance, not elsewhere classified; I27.20 Pulmonary hypertension, unspecified; E66.3 Overweight; I48.91 Unspecified atrial fibrillation; K44.9 Diaphragmatic hernia without obstruction or gangrene; E05.90 Thyrotoxicosis, unspecified without thyrotoxic crisis or storm; D64.9 Anemia, unspecified; M35.00 Sjogren syndrome, unspecified; I27.81 Cor pulmonale (chronic); R62.7 Adult failure to thrive; E11.43 Type 2 diabetes mellitus with diabetic autonomic (poly)neuropathy; K31.84 Gastroparesis; R19.7 Diarrhea, unspecified; R91.1 Solitary pulmonary nodule; E11.65 Type 2 diabetes mellitus with hyperglycemia; Z79.899 Other long term (current) drug therapy; Z98.51 Tubal ligation status; Z90.49 Acquired absence of other specified parts of digestive tract; Z90.710 Acquired absence of both cervix and uterus; Z90.721 Acquired absence of ovaries, unilateral; Z88.2 Allergy status to sulfonamides; Z88.1 Allergy status to other antibiotic agents; Z88.8 Allergy status to other drugs, medicaments and biological substances; Z68.27 Body mass index [BMI] 27.0-27.9, adult; J44.9 Chronic obstructive pulmonary disease, unspecified

== ENCOUNTER → 2018-06-17 | Outpatient (CLI) | payer MEDICARE, MEDICAID ==
[~2018-06-17] MED LIST changes: +RANEXA500 M1 PO
[2018-06-17 17:03] LABS: BASO # 0.1 10*3/uL (0.0-0.1); BASO % 1.1 % (0.0-1.0); EOS # 0.2 10*3/uL (0.0-0.4); EOS % 2.1 % (1.0-4.0); HEMATOCRIT 37.7 % (37.0-47.0); HEMOGLOBIN 12.2 g/dl (12.0-16.0); LYMPH # 1.8 10*3/uL (1.3-4.4); LYMPH % 24.1 % (27.0-41.0); MEAN CELL VOLUME 92.6 fl (81.0-99.0); MEAN CORPUSCULAR HGB CONC 32.4 g/dl (33.0-37.0); MEAN PLATELET VOLUME 10.9 fl (9.6-12.3); MONO % 13.1 % (3.0-9.0); NEUT # 4.3 10*3/uL (2.3-7.9); NEUT % 57.6 % (47.0-73.0); PLATELET COUNT AUTOMATED 301 10*3/uL (130-400); RED BLOOD COUNT 4.07 10*6/uL (4.10-5.10); RED CELL DISTRI WIDTH 13.6 % (0-14.5); WHITE BLOOD COUNT 7.5 10*3/uL (4.8-10.8)
[2018-06-17 17:20] LABS: ALBUMIN 3.7 gm/dl (3.1-4.5); CREATININE 1.89 mg/dL (0.55-1.02); POTASSIUM 4.5 mmol/L (3.5-5.1); TOTAL PROTEIN 7.3 gm/dL (6.4-8.2)
[2018-06-18 08:11] LABS: IMMUNOGLOBULIN G, QNT 490 mg/dL (700-1600); IMMUNOGLOBULIN M, QNT 93 mg/dL (26-217)
== END | disposition home or self-care (01) ==
LOC: LAB 16:44
DX: R91.8 Other nonspecific abnormal finding of lung field (principal); Z87.01 Personal history of pneumonia (recurrent)

== ENCOUNTER → 2018-07-22 | Outpatient (CLI) | payer MEDICARE, MEDICAID ==
--- NOTE | ~2018-07-22 | ST ---
[place], [place] EXERCISE STRESS TEST REPORT NAME: QUINTON HINTON UNIT #: [id number] ROOM: DOCTOR: RENETTA CARRANZA MD BIRTHDATE: [birth year] DOS: 07/22/2018 LEXISCAN PORTION OF THE LEXISCAN CARDIOLITE Baseline cardiogram, sinus rhythm with T-wave inversion in V1 and V2, 0.4 mg Lexiscan, duration of 10 seconds. With Lexiscan, no new EKG changes. The patient had no chest discomfort, felt lightheaded. Blood pressure and heart rate response normal. Nuclear images will be reported separately. RENETTA CARRANZA MD CM:STRESS:EXERCISE STRESS TEST REPORT [id number] RENETTA CARRANZA MD
== END | disposition home or self-care (01) ==
LOC: CARD 03:30
DX: I10 Essential (primary) hypertension (principal); R07.89 Other chest pain; R94.31 Abnormal electrocardiogram [ECG] [EKG]; R53.81 Other malaise

== ENCOUNTER → 2018-07-23 | Outpatient (CLI) | payer MEDICARE, MEDICAID ==
[2018-07-23 09:51] LABS: ALBUMIN 3.7 gm/dl (3.1-4.5); CREATININE 1.86 mg/dL (0.55-1.02); POTASSIUM 4.5 mmol/L (3.5-5.1); TOTAL PROTEIN 6.7 gm/dL (6.4-8.2)
[2018-07-23 09:57] LABS: THYROID STIM HORMONE (HS) 1.81 uIU/ml (0.358-4.75)
[2018-07-23 10:45] LABS: PTH INTACT 96.8 pg/mL (18.5-88.0); VITAMIN D, 25-HYDROXY 34.6 ng/mL (30-100)
== END | disposition home or self-care (01) ==
LOC: LAB 08:55
PROVIDERS: Family Medicine
DX: K21.9 Gastro-esophageal reflux disease without esophagitis (principal); M19.90 Unspecified osteoarthritis, unspecified site; M25.50 Pain in unspecified joint; E55.9 Vitamin D deficiency, unspecified; R53.83 Other fatigue; R25.1 Tremor, unspecified

== ENCOUNTER 2018-09-12 20:11 | Inpatient (IN) | payer MEDICARE, MEDICAID ==
[~2018-09-12] VITALS: Ht 154.9 cm; Wt 58.7 kg
--- NOTE | ~2018-09-12 | EKG ---
[place], [place] ELECTROCARDIOGRAM REPORT NAME: QUINTON HINTON UNIT #: [id number] ROOM: DOCTOR: EPIPHPAIGE DRAFT REPORT BIRTHDATE: [birth year] [facility] Test Date: 2018-09-12 Test Time: 20:47:27 Pat Name: QUINTON HINTON Department: Room: Gender: F Preform Machine Operator: : 1935 Requested By: MIMA BECKER Order Number: [id number] Reading MD: Measurements Intervals Ren[place] Rate: 71 P: 63 VT: 153 QRS: 66 QRSD: 97 T: 67 QT: 434 QTc: 472 Interpretive Statements Sinus rhythm Borderline low voltage, extremity leads Compared to ECG 07/11/2018 00:01:59 No significant changes CM:EKGRPT:ELECTROCARDIOGRAM REPORT [id number] MIMA PELAEZ DRAFT REPORT MIMA BECKER DO
--- NOTE | ~2018-09-12 | WRIGHTHP ---
[place], [place] PATIENT HISTORY AND PHYSICAL EXAM [id number] UNIT #: [id number] ROOM: 525 DOCTOR: JESSIE CRUM MD BIRTHDATE: [birth year] DOS: 09/12/2018 HISTORY OF PRESENT ILNESS: The patient with fall at home, presented to the Emergency Department after she had fallen down and fell on her left side with left rib pains and bilateral leg pains. X-ray showed no fracture. The patient admitted to see how she ambulates and also she was complaining of chest pain, for which cardiac enzymes were performed and they were negative. The patient is willing to go home and she was treated with pain medications. She is doing well now. Physical Therapy was consulted. REVIEW OF SYSTEMS: RESPIRATORY: No increasing shortness of breath. GASTROINTESTINAL: No nausea, vomiting, diarrhea or constipation. CARDIOVASCULAR: The patient with right-sided chest pains. FAMILY HISTORY: Noncontributory. HOME MEDICATIONS: The patient was taking immunoglobulin, Percocet, amlodipine, apixaban, buspirone, clonidine, iron, furosemide, loratadine, metoprolol, metoclopramide, mirtazapine, omeprazole, MiraLax, ropinirole, Ranexa, insulin at home. PHYSICAL EXAMINATION: GENERAL APPEARANCE: Alert and oriented x 3, in no visible distress, generalized weakness. VITAL SIGNS: Blood pressure 120/50, heart rate of 62 beats per minute, breathing 20 times per minute, temperature 98 degrees Fahrenheit. HEENT AND NECK: Extraocular movements are intact. Sclerae are anicteric. Oral mucosa is moist and clean. No obvious facial weakness. Neck is supple without any lymphadenopathy. No thyromegaly. No JVD. No carotid arterial bruits. LUNGS: Clear to auscultation. No wheezing. No rhonchi. CARDIOVASCULAR SYSTEM: Heart rate is regular in rate and rhythm. S1 and S2 normally audible. No significant murmur or any other abnormal cardiac sounds. ABDOMEN: Soft, nontender. No obvious organomegaly. Bowel sounds are present. No obvious herniation. EXTREMITIES: Without significant cyanosis or edema. Warm to touch. CENTRAL NERVOUS SYSTEM: Alert and oriented x 3. Cranial nerves II-XII are intact. Speech is normal. The patient is able to move all extremities. Normal muscle strength. Deep tendon reflexes are equal on both sides. Plantars were downgoing. IMPRESSION AND PLAN: 1. The patient is status post fall at home and chest pains with negative cardiac enzymes, can be discharged to home. The patient is ambulating and pain is controlled with Tylenol. No signs of fractures on left knee, chest and rib x-rays. 2. The patient has history of coronary artery disease, without chest pains anymore, treated with Ranexa. 3. Benign essential hypertension, treated and controlled. The patient is on [place], [place] PATIENT HISTORY AND PHYSICAL EXAM NAME: QUINTON HINTON UNIT #: [id number] ROOM: [facility] DOCTOR: JESSIE CRUM MD BIRTHDATE: [birth year] amlodipine, metoprolol. 4. Gastroesophageal reflux disease and esophagitis. The patient is being treated with Protonix. 5. Generalized anxiety, treated and controlled with buspirone. JESSIE CRUM MD CM:HISPHYS:PATIENT HISTORY AND PHYSICAL EXAMINATION [phone] JESSIE CRUM MD 09/14/18 0242 interface
[~2018-09-12 20:11] MED LIST changes: +MIRALAX POWDER17 G1 PO
[2018-09-12 20:16] VITALS: BP 145/55
[2018-09-12 20:55] LABS: BASO # 0.1 10*3/uL (0.0-0.1); EOS # 0.4 10*3/uL (0.0-0.4); EOS % 6.7 % (1.0-4.0); HEMATOCRIT 33.6 % (37.0-47.0); LYMPH # 1.3 10*3/uL (1.3-4.4); LYMPH % 25.5 % (27.0-41.0); MEAN CELL VOLUME 94.9 fl (81.0-99.0); MEAN CORPUSCULAR HGB 31.1 pg (27.0-31.0); MEAN CORPUSCULAR HGB CONC 32.7 g/dl (33.0-37.0); MEAN PLATELET VOLUME 10.2 fl (9.6-12.3); MONO # 0.7 10*3/uL (0.1-1.0); MONO % 12.9 % (3.0-9.0); NEUT # 2.7 10*3/uL (2.3-7.9); NEUT % 51.2 % (47.0-73.0); PLATELET COUNT AUTOMATED 193 10*3/uL (130-400); RED BLOOD COUNT 3.54 10*6/uL (4.10-5.10); RED CELL DISTRI WIDTH 14.6 % (0-14.5); WHITE BLOOD COUNT 5.2 10*3/uL (4.8-10.8)
[2018-09-12 21:05] LABS: ACT PARTIAL THROMBO TIME 22.4 SECONDS (20.8-31.5); INTERNATIONAL NORM RATIO 0.9 (2.0-3.5)
[2018-09-12 21:20] LABS: ALBUMIN 3.1 gm/dl (3.1-4.5); ALKALINE PHOSPHATASE 83 U/L (45-117); BUN 22 mg/dl (7-24); CHLORIDE 105 mmol/L (98-107); CREATININE 1.86 mg/dL (0.55-1.02); POTASSIUM 4.7 mmol/L (3.5-5.1); SGOT/AST 18 IU/L (3-35); SGPT/ALT 18 U/L (12-78); SODIUM 138 mmol/L (136-145); TOTAL PROTEIN 5.9 gm/dL (6.4-8.2)
[2018-09-12 21:31] LABS: TROPONIN I < 0.015 ng/ml (<0.045)
[2018-09-12 22:08] LABS: BILIRUBIN NEGATIVE (NEGATIVE); BLOOD NEGATIVE (NEGATIVE); CLARITY CLEAR (CLEAR); COLOR YELLOW (YELLOW); GLUCOSE NEGATIVE (NEGATIVE); KETONE NEGATIVE (NEGATIVE); LEUKO ESTERASE TRACE (NEGATIVE); NITRITE NEGATIVE (NEGATIVE); UROBILINOGEN 0.2 E.U./dl (0.2-1.0)
[2018-09-12 22:30] LABS: EPITHELIAL CELLS 0-5; RBC 0-2 rbc/hpf (0-2); WBC 0-2 wbc/hpf (0-5)
--- NOTE | 2018-09-12 22:49 | NUR ---
PER MD VERBAL ORDER, NECK COLLAR REMOVED.PT REQUESTING TYLENOL FOR PAIN.MD AWARE.
[2018-09-12 23:13] VITALS: BP 136/50
--- NOTE | 2018-09-12 23:16 | NUR ---
PT PORT ON LEFT CHEST ACCESSED WITH STERILE TECHNIQUE BY THIS RN.IV FLUSHES WELL.UNABLE TO OBTAIN BLOOD RETURN.IV DRESSING APPLIED TO SITE.
[2018-09-13] VITALS: BP 150/57; BP 157/60
--- NOTE | 2018-09-13 | NUR ---
Time: A 83 year old F admitted to 5E under services of DR. RADAMES HARO,JESSIE Diaz Pt. arrived via bed from ER. Chief complaint: GENERLIZED PAIN. HOLLY MURRIETA
[2018-09-13] MEDS ORDERED: Percocet 325 MG1 TAB PO (00:13)
--- NOTE | 2018-09-13 07:00 | NUR ---
CARDIOLOGY MADE AWAER OF CONSULT. NO ORDERS AT THIS TIME.
[2018-09-13 08:00] VITALS: BP 130/78
--- NOTE | 2018-09-13 09:23 | NUR ---
MEDICATED WITH TYLENOL PER PRN ORDER FOR COMPLAINTS OF GENERALIZED ACHES/PAINS, RATES PAIN 04/11. WILL MONITOR FOR EFFECTIVENESS. CALL LIGHT WITHIN REACH.
--- NOTE | 2018-09-13 11:30 | NUR ---
PT SLEEPING, RESTING COMFORTABLY, EARLIER TYLENOL EFFECTIVE.
[2018-09-13 12:00] VITALS: BP 120/50
--- NOTE | 2018-09-13 12:38 | NUR ---
DR LAL HERE AT THIS TIME TO SEE PT. PT FOLLOWS WITH DR CARRANZA, CALL PLACED TO DR CRUM INQUIRING IF HE WOULD LIKE CONSULT CHANGED TO DR CARRANZA SERVICE. STATES HE WILL JUST SEE THE PT WHEN HE GETS HERE AND DECIDE FROM THERE.
--- NOTE | 2018-09-13 15:12 | NUR ---
MEDICATED WITH TYLENOL PER PRN ORDER FOR COMPLAINTS OF 8/10 GENERALIZED PAIN. WILL MONITOR FOR EFFECTIVENESS.
[2018-09-13 16:00] VITALS: BP 122/55
--- NOTE | 2018-09-13 17:32 | NUR ---
Discharge instructions reviewed with patient/family. Patient receptive and verbalizes understanding. Follow-up care arranged. Written instructions given to patient/family. Mediport deaccessed, desk monitor removed. Pt transported to [facility] via wheelchair. KIM GILMAN
[2018-11-18] MEDS ORDERED: HUMALOG100 UNIT/1 SQ (11:23)
[2018-11-18] MEDS ORDERED: AMBIEN10 M1 PO (11:26)
[2018-11-18] MEDS ORDERED: OMEPRAZOLE40 MG PO (11:27)
== END 2018-09-13 17:32 | disposition home or self-care (01) | DRG 914 ==
LOC: ED 20:11 → EDHOLD 23:05 → 5E 23:29
PROVIDERS: Emergency Medicine; ADMIT Internal Medicine
DX: S29.8XXA Other specified injuries of thorax, initial encounter (principal); I13.0 Hypertensive heart and chronic kidney disease with heart failure and stage 1 through stage 4 chronic kidney disease, or unspecified chronic kidney disease; W19.XXXA Unspecified fall, initial encounter; N18.3 Chronic kidney disease, stage 3 (moderate); E78.5 Hyperlipidemia, unspecified; K21.9 Gastro-esophageal reflux disease without esophagitis; E11.22 Type 2 diabetes mellitus with diabetic chronic kidney disease; I25.10 Atherosclerotic heart disease of native coronary artery without angina pectoris; I50.9 Heart failure, unspecified; S16.1XXA Strain of muscle, fascia and tendon at neck level, initial encounter; Z90.49 Acquired absence of other specified parts of digestive tract; Y93.89 Activity, other specified; Y92.098 Other place in other non-institutional residence as the place of occurrence of the external cause; Z90.710 Acquired absence of both cervix and uterus; Z95.5 Presence of coronary angioplasty implant and graft; Z79.899 Other long term (current) drug therapy; Z82.3 Family history of stroke; Z79.4 Long term (current) use of insulin; Z88.2 Allergy status to sulfonamides; Z88.8 Allergy status to other drugs, medicaments and biological substances

== ENCOUNTER 2018-10-02 21:54 | Inpatient (IN) | payer MEDICARE, MEDICAID ==
[~2018-10-02] VITALS: Ht 154.9 cm; Wt 63.7 kg
--- NOTE | ~2018-10-02 | PR ---
[place], [place] PROGRESS NOTE NAME: QUINTON HINTON UNIT #: [id number] ROOM: 511 DOCTOR: ABRAHAN TOVAR MD BIRTHDATE: [birth year] DOS: SUBJECTIVE: The patient is doing well, does not have any complaints other than her back pain, which sustained after her fall. OBJECTIVE: GENERAL: Today, she is sitting up in a chair. VITAL SIGNS: Blood pressure is 152/66, pulse of 90, respirations 18, temperature 97.3. LUNGS: Clear. HEART: Regular. ABDOMEN: Obese, soft. EXTREMITIES: Without any edema, some bruising noticed on the right side of her back. LABORATORY DATA: Glucose 123, BUN 24, creatinine 1.79, sodium 140, potassium 4.2, chloride 107, bicarbonate 26. WBC count is 4.9, hemoglobin 9.8, hematocrit 30.7, platelets 207. ASSESSMENT AND PLAN: 1. Fall at home. 2. Adult failure to thrive. Dr. Syed has noted the patient needs to be placed in the shelter, but as per case management the patient is going to go home, so we will ask therapy to evaluate and see what they feel if the patient would benefit from going home versus SNF. Social Service will be consulted for discharge planning. ABRAHAN TOVAR MD CM:PNTRANS [phone] ABRAHAN TOVAR MD 10/04/18 1113 interface
--- NOTE | ~2018-10-02 | EKG ---
[place], [place] ELECTROCARDIOGRAM REPORT NAME: QUINTON HINTON UNIT #: [id number] ROOM: 511 DOCTOR: EPIPHANY DRAFT REPORT BIRTHDATE: [birth year] [facility] Test Date: 2018-10-02 Test Time: 22:34:32 Pat Name: QUINTON HINTON Department: 5E Room: 511 Gender: F Thread Drawer: Aisha Gallagher : 1935 Requested By: RACHAEL NUNEZ PA-C Order Number: [id number] Reading MD: Indra Beckham MD Measurements Intervals [place] Rate: 69 P: 42 OR: 172 QRS: 34 QRSD: 93 T: 42 QT: 419 QTc: 449 Interpretive Statements Sinus rhythm Baseline wander in lead(s) I,II,aVR Compared to ECG 09/12/2018 20:47:27 No significant changes Electronically Signed On 10-06-2018 12:53:28 PST by Indra Beckham MD CM:EKGRPT:ELECTROCARDIOGRAM REPORT 1253 RACHAEL NUNEZ PA-C EPIPHANY DRAFT REPORT RACHAEL NUNEZ PA-C
--- NOTE | ~2018-10-02 | PR ---
[place], [place] PROGRESS NOTE NAME: QUINTON HINTON UNIT #: [id number] ROOM: 511 DOCTOR: ABRAHAN TOVAR MD BIRTHDATE: [birth year] DOS: 10/05/2018 SUBJECTIVE: The patient continues to complain of back pain. She is sitting up in a chair, eating her breakfast this morning. She did ambulate with physical therapy yesterday, I do not see a note this morning. OBJECTIVE: VITAL SIGNS: Graphic trend shows a pressure of 131/50, pulse of 74, respirations 18, temperature 98.3. LUNGS: Clear. HEART: Regular. ABDOMEN: Soft. EXTREMITIES: Without any edema. Tenderness all throughout her back. ASSESSMENT AND PLAN: 1. Fall with continued back pain. We will rule out compression fracture. MRI of the lumbar spine will be ordered. 2. Adult failure to thrive, awaiting placement to [facility]. Hopefully, the patient can be arranged to go to [place] tomorrow. ABRAHAN TOVAR MD CM:PNTRANS [phone] ABRAHAN TOVAR MD 10/05/18 1330 interface
--- NOTE | ~2018-10-02 | DS ---
[place], [place] DISCHARGE SUMMARY NAME: QUINTON HINTON UNIT #: [id number] ROOM: 511 DOCTOR: ABRAHAN TOVAR MD BIRTHDATE: [birth year] DOS: 10/06/2018 DIAGNOSES: 1. Fall with acute lumbago. 2. CT of the lumbar spine showing chronic spinal stenosis with neurogenic claudication and old compression fractures, nothing new. 3. Adult failure to thrive for transfer to [facility] today. 4. Benign hypertension. 5. Generalized anxiety disorder. 6. Chronic back pain with history of a morphine pump instillation, but she does not use the pump anymore. 7. Chronic gastroparesis. 8. Coronary artery disease. 9. Pulmonary hypertension with history of pulmonary embolism, on long-term use of anticoagulants. 10. Primary insomnia. HOSPITAL COURSE: This patient is 83 years old, had a fall at home, was brought to the Emergency Room. Please refer to H and P dictated by Dr. Syed for further details. After admission, PT, OT was consulted. Social service was consulted and the patient's family requested to the ER physician that they would like to place. The patient initially declined, but has later agreed to go to [place] for a short time for PT, OT. A CT of the lumbar spine was ordered for continued complaints of pain and this has shown no acute fractures, old L5 compression fracture with degenerative disk disease and spinal stenosis was noted. Urinalysis with reflex to culture. I do not have the results of it yet. White cell count is normal. Chronic kidney disease with a GFR of 33, stage 3 kidney disease is noted, so avoid nephrotoxic medications. ADA diet, 1800, blood sugars to be checked twice a day with coverage. She is currently on metformin and glimepiride, which are being continued. PT, OT consultation. [place], [place] DISCHARGE SUMMARY NAME: QUINTON HINTON UNIT #: [id number] ROOM: 511 DOCTOR: ABRAHAN TOVAR MD BIRTHDATE: [birth year] ABRAHAN TOVAR MD CM:DISCHARG [phone] ABRAHAN TOVAR MD 10/06/18 1439 interface
--- NOTE | ~2018-10-02 | PR ---
[place], [place] PROGRESS NOTE NAME: QUINTON HINTON UNIT #: [id number] ROOM: 511 DOCTOR: ABRAHAN TOVAR MD BIRTHDATE: [birth year] DOS: SUBJECTIVE: This patient is doing well without any complaints this morning. OBJECTIVE: VITAL SIGNS: Blood pressure is 117/42, pulse of 82, respirations 16, temperature 98.6. LUNGS: Clear. HEART: Regular. ABDOMEN: Obese, soft, nontender. EXTREMITIES: Without any edema. ASSESSMENT AND PLAN: 1. Chronic back pain, status post fall with acute lumbago. 2. Adult failure to thrive. The patient is awaiting placement to [facility]. The plan is to discharge her today. 3. Chronic kidney disease, possibly from diabetes, diabetic nephropathy with hyperkalemia. Continue to follow that as an outpatient. No new treatment plan ordered today. ABRAHAN TOVAR MD CM:PNTRANS [phone] ABRAHAN TOVAR MD 10/06/18 1202 interface
--- NOTE | ~2018-10-02 | WRIGHTHP ---
[place], [place] PATIENT HISTORY AND PHYSICAL EXAM [id number] UN[facility] #: [id number] ROOM: 511 DOCTOR: JESSIE CRUM MD BIRTHDATE: [birth year] DOS: 10/03/2018 HISTORY OF PRESENT ILLNESS: The patient is an 83-year-old female with; 1. Advanced and chronic history of adult failure to thrive and recurrent falls. 2. History of coronary artery disease of the [place] river vessels. 3. Benign essential hypertension. 4. Gastroesophageal reflux disease and esophagitis. 5. Generalized anxiety disorder. 6. Chronic kidney disease stage 4. 7. Mild protein-calorie malnutrition with an albumin level of 2.9. The patient presented to [facility] with a fall at home and she was found to be in acute kidney failure. The patient's family is apparently interested in placement to a nursing facility. After admission, the patient is complaining of significant lower back pains increased after the fall. In the Emergency Department, x-rays were performed, which did not show any new abnormality in the hips or the back. CT of the head was performed without contrast and x-rays of the cervical spine were taken. REVIEW OF SYSTEMS: RESPIRATORY: No increasing shortness of breath. GASTROINTESTINAL: No nausea, vomiting, diarrhea, constipation. CARDIOVASCULAR SYSTEM: No chest pains or palpitations. FAMILY HISTORY: Noncontributory. HOME MEDICATIONS: The patient takes immunoglobulin, Percocet, amlodipine, apixaban, buspirone, clonidine, iron, furosemide, Claritin, Reglan, Lopressor, mirtazapine, omeprazole, MiraLax, Ranexa, ropinirole, ondansetron and insulin at home. ALLERGIES: Known allergies to SULFUR, SULFAMETHOXAZOLE and also SULFUR MEDICINE. PHYSICAL EXAMINATION: GENERAL: Awake, alert, oriented, very weak with generalized weakness. VITAL SIGNS: Blood pressure 127/71, breathing normally, afebrile, heart rate of 87 beats per minute. HEENT AND NECK: Extraocular movements are intact. Sclerae are anicteric. Oral mucosa is moist and clean. No obvious facial weakness. Neck is supple without any lymphadenopathy. No thyromegaly. No JVD. No carotid arterial bruits. LUNGS: Clear to auscultation. No wheezing. No rhonchi. CARDIOVASCULAR SYSTEM: Heart rate is regular in rate and rhythm. S1 and S2 normally audible. No significant murmur or any other abnormal cardiac sounds. ABDOMEN: Soft, nontender. No obvious organomegaly. Bowel sounds are present. No obvious herniation. EXTREMITIES: Without significant cyanosis or edema. Warm to touch. CENTRAL NERVOUS SYSTEM: Alert and oriented x 3. Cranial nerves II-XII are intact. Speech is normal. The patient is able to move all extremities. Normal [place], [place] PATIENT HISTORY AND PHYSICAL EXAM NAME: QUINTON HINTON UNIT #: [id number] ROOM: [facility] DOCTOR: JESSIE CRUM MD BIRTHDATE: [birth year] muscle strength. Deep tendon reflexes are equal on both sides. Plantars were downgoing. IMAGING AND LABORATORY DATA: Chest x-ray showing no acute abnormality. Hip x-ray showed no fracture. CT of the head and cervical spine were also performed. BUN and creatinine 28 and 2.4, albumin low at 2.9, hemoglobin 10.4. IMPRESSION: 1. The patient with advanced adult failure to thrive. I will get consult with social studies teacher for placement for advanced disability as per family request to the ER physician. 2. Advanced adult failure to thrive. The patient is to be kept on physical therapy. We will take fall and bedsore precautions. 3. Benign essential hypertension to be treated and controlled. The patient is on metoprolol and hydralazine. 4. Generalized anxiety disorder, treated with buspirone. 5. Chronic recurrent nausea and vomiting, treated with Zofran as needed and metoclopramide. 6. Coronary artery disease of little river vessels without chest pains. JESSIE CRUM MD CM:HISPHYS:PATIENT HISTORY AND PHYSICAL EXAMINATION 1127 JESSIE CRUM MD 10/03/18 1218 interface
[~2018-10-02 21:54] MED LIST changes: +Percocet 325 MG1 TAB PO
[2018-10-02 22:00] VITALS: BP 118/41
--- NOTE | 2018-10-02 22:03 | NUR ---
Pt [facility] [phone]
[2018-10-02 22:51] LABS: BASO # 0.1 10*3/uL (0.0-0.1); BASO % 1.1 % (0.0-1.0); EOS # 0.5 10*3/uL (0.0-0.4); EOS % 9.7 % (1.0-4.0); HEMATOCRIT 31.6 % (37.0-47.0); HEMOGLOBIN 10.4 g/dl (12.0-16.0); LYMPH # 1.3 10*3/uL (1.3-4.4); LYMPH % 23.3 % (27.0-41.0); MEAN CELL VOLUME 95.2 fl (81.0-99.0); MEAN CORPUSCULAR HGB 31.3 pg (27.0-31.0); MEAN CORPUSCULAR HGB CONC 32.9 g/dl (33.0-37.0); MEAN PLATELET VOLUME 10.3 fl (9.6-12.3); MONO # 0.8 10*3/uL (0.1-1.0); MONO % 14.3 % (3.0-9.0); NEUT # 2.8 10*3/uL (2.3-7.9); NEUT % 49.6 % (47.0-73.0); PLATELET COUNT AUTOMATED 225 10*3/uL (130-400); RED BLOOD COUNT 3.32 10*6/uL (4.10-5.10); RED CELL DISTRI WIDTH 13.7 % (0-14.5); WHITE BLOOD COUNT 5.6 10*3/uL (4.8-10.8)
[2018-10-02 23:00] LABS: INTERNATIONAL NORM RATIO 0.9 (2.0-3.5)
[2018-10-02 23:06] LABS: ALBUMIN 2.9 gm/dl (3.1-4.5); ALKALINE PHOSPHATASE 96 U/L (45-117); BUN 28 mg/dl (7-24); CHLORIDE 108 mmol/L (98-107); CREATININE 2.43 mg/dL (0.55-1.02); POTASSIUM 4.6 mmol/L (3.5-5.1); SGOT/AST 39 IU/L (3-35); SGPT/ALT 28 U/L (12-78); SODIUM 141 mmol/L (136-145); TOTAL PROTEIN 5.7 gm/dL (6.4-8.2)
[2018-10-02 23:07] LABS: TROPONIN I < 0.015 ng/ml (<0.045)
[2018-10-03 02:53] VITALS: BP 112/32
[2018-10-03 03:10] VITALS: BP 138/50
--- NOTE | 2018-10-03 03:10 | NUR ---
Time: 309 A 83 year old FEMLAE admitted to under services of DR. RADAMES HARO,JESSIE Diaz Pt. arrived via stretcher from ER. Chief complaint: BACK PAIN AFTER FALL AT HOME. JULIANE DOWNS
--- NOTE | 2018-10-03 03:39 | NUR ---
PT DOES NOT KNOW HOME MEDS.
--- NOTE | 2018-10-03 06:21 | NUR ---
0500 ROUTINE TYLENOL GIVEN ORDERED FOR BACK PAIN. UP TO BSC WITH 1 ASSIST TO VOID. TOLERATED FAIR 0615 RESTING IN BED WITH EYES CLOSED. APPEARS TO BE SLEEPING. HOB ELEVATED. SIDE RAILS UP X'S 2. CALL LIGHT IN REACH. IV FLUIDS INFUSING WELL. NO DISTRESS NOTED. CONDITION GUARDED.
[2018-10-03 08:00] VITALS: BP 127/71
--- NOTE | 2018-10-03 09:00 | NUR ---
Bridge Leverman in to talk to patient. Patient states lives at home with her . There are 0 steps in the home. Physician: Dr. Brandon Longo Pharmacy: [facility] Home health services: OV non skilled aides Patient's level of ADLs: MINIMAL ASSIST Patient has working utilities: yes DME: walker, O2 @ 2L nc, portable O2 tanks, nebulizer, O2 supplier is [facility] Medical Follow-up physician's appointment after d/c: she prefers to make her own follow up appt after discharge Does patient want to access PORTAL?: no Discharge plan discussed with patient. She lives at home with her . She needs minimal assistance in her ADLs and ambulates with a walker. She currently has OV non skilled aides and would like to continue those services upon discharge and have [facility] RN/PT. When medically stable she will be discharged to home with the resumption of her OV services. CHADD SCHRADER RN
--- NOTE | 2018-10-03 11:53 | NUR ---
PHYSICAL THERAPY PAtient evaluated on 5, full evaluation to follow. Continue with PT as per plan of care with fall, pain at thoracic and ribs and acute debility precautions. May require SNF, will probably refuse. If home, home with home health RN, PT, OT and aides. PAtient is moderate complexity via chart review, tests and evaluation: 77728. Thank you for this referral. Jessica Saul,PT
--- NOTE | 2018-10-03 12:02 | NUR ---
Occupational Therapy evaluation completed on 5 with full eval to follow. PRecautions include fall risk,bed alarm, hx falls, ww use, back pain with contusion and edema. Patient is moderate complexity level 97783 via chart review testing and evaluation. Recommend OT per POC and patient can benefit from SNF but she prefers to return home with . If home then recommend home health OT,PT,SN. Thank you for this referral. Raven Caraballo OTR/l
[2018-10-03 16:00] VITALS: BP 129/53
[2018-10-03 20:00] VITALS: BP 120/42
--- NOTE | 2018-10-03 20:00 | NUR ---
RESTING IN BED WITH EYES CLOSED. MEDIPORT TO LEFT CHEST. LUNGS CLEAR WITH AN OCCASIONAL MOIST COUGH NOTED. PULSE OX 97% ON ROOM AIR. PT. VOICES NO C/O AT THIS TIME. CALL LIGHT WITHIN REACH. BED ALARM ON.
[2018-10-03 23:40] LABS: BILIRUBIN NEGATIVE (NEGATIVE); BLOOD NEGATIVE (NEGATIVE); CLARITY CLEAR (CLEAR); COLOR YELLOW (YELLOW); GLUCOSE NEGATIVE (NEGATIVE); KETONE NEGATIVE (NEGATIVE); LEUKO ESTERASE NEGATIVE (NEGATIVE); NITRITE NEGATIVE (NEGATIVE); UROBILINOGEN 0.2 E.U./dl (0.2-1.0)
[2018-10-03 23:56] LABS: RBC 0-2 rbc/hpf (0-2)
[2018-10-04] VITALS: BP 129/48
--- NOTE | 2018-10-04 | NUR ---
RESTING IN BED WITH EYES CLOSED. NO DISTRESS NOTED. CALL LIGHT WITHIN REACH. BED ALARM ON.
[2018-10-04 07:44] LABS: BASO % 0.8 % (0.0-1.0); EOS # 0.4 10*3/uL (0.0-0.4); EOS % 8.3 % (1.0-4.0); HEMATOCRIT 30.7 % (37.0-47.0); HEMOGLOBIN 9.8 g/dl (12.0-16.0); LYMPH # 1.2 10*3/uL (1.3-4.4); LYMPH % 23.5 % (27.0-41.0); MEAN CELL VOLUME 95.6 fl (81.0-99.0); MEAN CORPUSCULAR HGB 30.5 pg (27.0-31.0); MEAN CORPUSCULAR HGB CONC 31.9 g/dl (33.0-37.0); MEAN PLATELET VOLUME 10.4 fl (9.6-12.3); MONO # 0.8 10*3/uL (0.1-1.0); MONO % 15.2 % (3.0-9.0); NEUT # 2.5 10*3/uL (2.3-7.9); PLATELET COUNT AUTOMATED 209 10*3/uL (130-400); RED BLOOD COUNT 3.21 10*6/uL (4.10-5.10); RED CELL DISTRI WIDTH 13.6 % (0-14.5); WHITE BLOOD COUNT 4.9 10*3/uL (4.8-10.8)
[2018-10-04 07:59] LABS: CREATININE 1.79 mg/dL (0.55-1.02); POTASSIUM 4.2 mmol/L (3.5-5.1)
[2018-10-04 08:00] VITALS: BP 152/66
--- NOTE | 2018-10-04 08:35 | NUR ---
ZOFRAN GIVEN FOR NAUSEA AQND DRY HEAVING. PERCOCET 325/5 GIVEN FOR BACK PAIN.
--- NOTE | 2018-10-04 09:30 | NUR ---
PERCOCET AND ZOFRAN EFFECTIVE PER PATIENT.
[2018-10-04 12:00] VITALS: BP 124/50
--- NOTE | 2018-10-04 12:03 | NUR ---
PHYSICAL THERAPY Patient seen this AM for her therapy session, sitting in recliner chair at time of arrival; pt performed seated B LE ther-ex in pain-free range d/t discomfort in back; marches, LAQs, hip abd/add, ankle PF/DF x10 reps with intermittent rest breaks provided throughout. Sit to stand transfer from recliner chair with cues provided to scoot to edge of chair and push up with arms to avoid bending back- good follow through; Tiesha provided for transfer. Gait training with FWW and CGA for ~15'x2 occasional Tiesha provided for directional assist with walker. Pt demo decreased grady d/t discomfort in back while ambulating. Pt in chair at session end with call light and tray table within reach. No new voiced c/o's. Melyssa Hartman, REPAIRER TYPEWRITER
[2018-10-04 16:00] VITALS: BP 108/42
--- NOTE | 2018-10-04 23:30 | NUR ---
24 HR chart check completed.
[2018-10-05] VITALS: BP 141/51
--- NOTE | 2018-10-05 01:14 | NUR ---
PT. HAVING DRY HEAVES. ZOFRAN GIVEN PER ORDER FOR NAUSEA/VOMITING.
--- NOTE | 2018-10-05 02:10 | NUR ---
ZOFRAN EFFECTIVE FOR NAUSEA.
--- NOTE | 2018-10-05 04:00 | NUR ---
SLEEPING. NO ACUTE DSTRESS NOTED.
--- NOTE | 2018-10-05 07:19 | NUR ---
PERCOCET GIVEN PER ORDER FOR BACK PAIN. RATED "9" PER PT.
[2018-10-05 08:00] VITALS: BP 131/50
--- NOTE | 2018-10-05 09:32 | NUR ---
Percocet not effective, spoke with Dr. Bee about pain med "not helping" per patient. See new orders.
[2018-10-05 12:00] VITALS: BP 111/60; BP 136/50
--- NOTE | 2018-10-05 13:02 | NUR ---
Contacted Dr. Bee with CT results. No new orders.
[2018-10-05 16:00] VITALS: BP 118/49
[2018-10-05 20:00] VITALS: BP 117/42
[2018-10-06 07:09] LABS: HEMATOCRIT 32.2 % (37.0-47.0); HEMOGLOBIN 10.2 g/dl (12.0-16.0); MEAN CELL VOLUME 95.8 fl (81.0-99.0); MEAN CORPUSCULAR HGB 30.4 pg (27.0-31.0); MEAN CORPUSCULAR HGB CONC 31.7 g/dl (33.0-37.0); MEAN PLATELET VOLUME 10.5 fl (9.6-12.3); PLATELET COUNT AUTOMATED 240 10*3/uL (130-400); RED BLOOD COUNT 3.36 10*6/uL (4.10-5.10); RED CELL DISTRI WIDTH 13.9 % (0-14.5); WHITE BLOOD COUNT 6.2 10*3/uL (4.8-10.8)
[2018-10-06 07:16] LABS: CREATININE 1.82 mg/dL (0.55-1.02)
[2018-10-06 07:18] LABS: POTASSIUM 5.3 mmol/L (3.5-5.1)
[2018-10-06 08:00] VITALS: BP 122/68
--- NOTE | 2018-10-06 08:00 | NUR ---
VITALS STABLE, A&OX3, BEL, HEART SOUNDS NORMAL, LUNG SOUNDS DIMINISHED THROUGHOUT, MOIST PRODUCTIVE COUGH, EQUAL PRODUCT PROMOTER RETAIL PET, CAP REFILL <3 SECONDS NO EDEMA NOTED, POSITIVE PEDAL PULSES, PATIENT COOPERATIVE WITH NO COMPLAINTS AND SITTING UP IN CHAIR. VENESSA FOURNIER SPCC
[2018-10-06 08:02] LABS: PLATELET SUFFICIENCY NORMAL (NORMAL); TOTAL CELLS COUNTED 100 #CELLS
--- NOTE | 2018-10-06 08:32 | NUR ---
Referral faxed to [facility], 3 night stay complete, waiting on review/acceptance.
[2018-10-06] MEDS ORDERED: LIDOCAINE PAIN1 EACH T (08:39)
[2018-10-06] MEDS ORDERED: PERCOCET 5-3251 EACH PO (08:41)
[2018-10-06] MEDS ORDERED: AMBIEN5 MG PO (08:42)
--- NOTE | 2018-10-06 08:50 | NUR ---
Blue Split Trimmer in to see patient. She is agreeable to [facility]. business planner notified. When medically stable and accepted she will be discharged to [facility].
--- NOTE | 2018-10-06 09:50 | NUR ---
OT NOTE Pt was seen this A.M. 1:1 for 20 minute OT session. Upon arrival pt was supine in bed, pt identified by name and and had reports of 9/10 low back pain. Pt transferred supine to sit EOB with modA for assist with UB with education on log roll technique for good back protection. Pt completed sit to stand from bed level with Tiesha and use of w/w for UE support. Functional mobility then completed into the bathroom with CGA and use of w/w. There she stood sink side while washing her hands and face with SBA after set-up of task. Pt had one LOB that occured forwards while washing her face and eyes were closed that required Tiesha to correct. Pt was able to tolerate aprox 4 minutes of static standing before sitting due to fatigue and pain. Functional mobility completed back to the EOB where she transferred sit to supine with maxA X 2, call light in hand, tray table in place, and under student nurse supervision. Continue with rec D.C plan to SNF. [place] Baird/Shara
--- NOTE | 2018-10-06 10:20 | NUR ---
PATIENT ASKED FOR PAIN MEDICATION FOR LOWER BACK PAIN, RATED AT A 9 ON A SCALE 0-10. PATIENT WAS GIVEN PERCOCET 1 PO. SKIN IS INTACT WITH NO SWELLING. WILL CONTINUE TO ASSES. VENESSA BANUELOSCC
--- NOTE | 2018-10-06 10:40 | NUR ---
PHYSICAL THERAPY Patient seen this am 1:1 for therapy visit and was supine in bed upon therapist arrival. Patient voices 9/10 c/o LBP from recent fall, otherwise was very pleasant to work with this afternoon. Patient transfers supine to sit EOB, MAX A secondary to increased pain c/o and then sit to stand with Min/CGA. Patient ambulates 20'x 2, CGA, wh walker, demonstrating decreased antalgic stride and increased fatigue. Patient returned to supine in bed and remained with call light and tray table as bed alarm was INOP. Student nurse arrived following therapist treatment and aware of bed alarm situation. Will continue per POC as tolerated, total treatment time 16 minutes. Gurpreet Plasencia, GERMAN INSTRUCTOR
--- NOTE | 2018-10-06 11:00 | NUR ---
REEVALUATED PATIENT FOR EFFECTIVENESS OF PAIN MEDICATION THAT WAS GIVEN. PATIENT STATED THE MEDICATION WAS NOT EFFECTIVE. PATIENT LAYING IN BED. VENESSA BANUELOSCC
--- NOTE | 2018-10-06 12:57 | NUR ---
Patient has been accepted to [facility], 3 nights stay completed, PASS/RR completed, patient can go if medically stable for discharge.
--- NOTE | 2018-10-06 13:12 | NUR ---
patient is discharged to [facility], transportation scheduled for 2:30 pm with [employer]. NH, nursing/chief steward/stewardess and daughter all notified. Discharge packet faxed.
--- NOTE | 2018-10-06 14:43 | NUR ---
Discharge instructions reviewed with patient/family. Patient receptive and verbalizes understanding. Follow-up care arranged. Written instructions given to patient/family. Patient was wheeled from unit by EMT with all personal belongings. GABY GARZA
--- NOTE | 2018-10-07 07:46 | NUR ---
PHYSICAL THERAPY CO-SIGN I approve of the Phyical Therapy notes written above. ANABELLE REAL PT
[2018-11-18] MEDS ORDERED: HUMALOG100 UNIT/1 SQ (11:23)
[2018-11-18] MEDS ORDERED: AMBIEN10 M1 PO (11:26)
[2018-11-18] MEDS ORDERED: OMEPRAZOLE40 MG PO (11:27)
== END 2018-10-06 14:43 | disposition other institution (70) | DRG 551 ==
LOC: ED 21:54 → 5E 10-03 01:19 → EDHOLD 10-03 01:19 → 5E 10-03 01:33
PROVIDERS: Internal Medicine; Physician Assistant; ADMIT Internal Medicine
DX: M54.5 Low back pain (principal); N17.0 Acute kidney failure with tubular necrosis; E44.1 Mild protein-calorie malnutrition; N18.4 Chronic kidney disease, stage 4 (severe); R62.7 Adult failure to thrive; M48.062 Spinal stenosis, lumbar region with neurogenic claudication; F41.1 Generalized anxiety disorder; E87.5 Hyperkalemia; E11.22 Type 2 diabetes mellitus with diabetic chronic kidney disease; E11.43 Type 2 diabetes mellitus with diabetic autonomic (poly)neuropathy; I12.9 Hypertensive chronic kidney disease with stage 1 through stage 4 chronic kidney disease, or unspecified chronic kidney disease; M51.36 Other intervertebral disc degeneration, lumbar region; G89.29 Other chronic pain; K21.0 Gastro-esophageal reflux disease with esophagitis; K31.84 Gastroparesis; I25.10 Atherosclerotic heart disease of native coronary artery without angina pectoris; I27.20 Pulmonary hypertension, unspecified; F51.01 Primary insomnia; W18.30XA Fall on same level, unspecified, initial encounter; Y93.89 Activity, other specified; Y92.098 Other place in other non-institutional residence as the place of occurrence of the external cause; Y99.8 Other external cause status; Z86.711 Personal history of pulmonary embolism; Z88.2 Allergy status to sulfonamides; Z88.1 Allergy status to other antibiotic agents; Z90.49 Acquired absence of other specified parts of digestive tract; Z90.710 Acquired absence of both cervix and uterus; Z98.51 Tubal ligation status; Z90.722 Acquired absence of ovaries, bilateral; Z82.3 Family history of stroke; Z80.0 Family history of malignant neoplasm of digestive organs; Z83.3 Family history of diabetes mellitus; Z82.49 Family history of ischemic heart disease and other diseases of the circulatory system

== ENCOUNTER 2018-11-11 01:03 | Emergency (ER) | payer MEDICARE, MEDICAID ==
[~2018-11-11] VITALS: Ht 152.4 cm; Wt 61.2 kg
--- NOTE | ~2018-11-11 | EKG ---
[place], [place] ELECTROCARDIOGRAM REPORT NAME: QUINTON HINTON UNIT #: [id number] ROOM: DOCTOR: EPIPHANY DRAFT REPORT BIRTHDATE: [birth year] [facility] Test Date: 2018-11-11 Test Time: 02:18:43 Pat Name: QUINTON HINTON Department: Room: Gender: F Asbestos Remover: : 1935 Requested By: MIMA BECKER Order Number: [id number] Reading MD: Luis Alfredo Carolina MD Measurements Intervals [place] Rate: 87 P: 44 WA: 170 QRS: 46 QRSD: 96 T: 51 QT: 382 QTc: 460 Interpretive Statements Sinus rhythm Low voltage, extremity leads Compared to ECG 10/02/2018 22:34:32 Low QRS voltage now present Electronically Signed On 11-14-2018 9:43:02 PDT by Luis Alfredo Carolina MD CM:EKGRPT:ELECTROCARDIOGRAM REPORT 0218 [id number] MIMA PELAEZ DRAFT REPORT MIMA BECKER DO
[~2018-11-11 01:03] MED LIST changes: +LIDOCAINE PAIN1 EACH T; +PERCOCET 5-3251 EACH PO
[2018-11-11 02:32] LABS: BASO % 0.4 % (0.0-1.0); EOS # 0.3 10*3/uL (0.0-0.4); EOS % 2.9 % (1.0-4.0); HEMATOCRIT 28.9 % (37.0-47.0); HEMOGLOBIN 9.2 g/dl (12.0-16.0); LYMPH # 0.8 10*3/uL (1.3-4.4); LYMPH % 8.9 % (27.0-41.0); MEAN CELL VOLUME 97.6 fl (81.0-99.0); MEAN CORPUSCULAR HGB 31.1 pg (27.0-31.0); MEAN CORPUSCULAR HGB CONC 31.8 g/dl (33.0-37.0); MEAN PLATELET VOLUME 9.9 fl (9.6-12.3); MONO % 11.2 % (3.0-9.0); NEUT # 6.9 10*3/uL (2.3-7.9); NEUT % 75.6 % (47.0-73.0); PLATELET COUNT AUTOMATED 257 10*3/uL (130-400); RED BLOOD COUNT 2.96 10*6/uL (4.10-5.10); RED CELL DISTRI WIDTH 13.5 % (0-14.5); WHITE BLOOD COUNT 9.1 10*3/uL (4.8-10.8)
[2018-11-11 02:53] LABS: ALBUMIN 3.2 gm/dl (3.1-4.5); CREATININE 1.99 mg/dL (0.55-1.02); POTASSIUM 5.4 mmol/L (3.5-5.1)
[2018-11-11 05:46] LABS: BILIRUBIN NEGATIVE (NEGATIVE); BLOOD NEGATIVE (NEGATIVE); CLARITY CLEAR (CLEAR); COLOR YELLOW (YELLOW); GLUCOSE NEGATIVE (NEGATIVE); KETONE NEGATIVE (NEGATIVE); LEUKO ESTERASE 1+ (NEGATIVE); NITRITE NEGATIVE (NEGATIVE); PH 6.5 (5.0-9.0); UROBILINOGEN 0.2 E.U./dl (0.2-1.0)
[2018-11-11 05:53] LABS: BACTERIA TRACE
[2018-11-11 06:24] VITALS: BP 113/38
[2018-11-18] MEDS ORDERED: HUMALOG100 UNIT/1 SQ (11:23)
[2018-11-18] MEDS ORDERED: AMBIEN10 M1 PO (11:26)
[2018-11-18] MEDS ORDERED: OMEPRAZOLE40 MG PO (11:27)
[2018-11-21] MEDS ORDERED: DOXYCYCLINE100 M3 PO (11:56)
== END 2018-11-11 07:30 | disposition home or self-care (01) ==
LOC: ED 01:03
PROVIDERS: Emergency Medicine
DX: J81.1 Chronic pulmonary edema (principal); R25.1 Tremor, unspecified; I25.10 Atherosclerotic heart disease of native coronary artery without angina pectoris; J44.9 Chronic obstructive pulmonary disease, unspecified; E11.9 Type 2 diabetes mellitus without complications; K21.9 Gastro-esophageal reflux disease without esophagitis; E03.9 Hypothyroidism, unspecified; E11.22 Type 2 diabetes mellitus with diabetic chronic kidney disease; N18.3 Chronic kidney disease, stage 3 (moderate); Z88.1 Allergy status to other antibiotic agents; Z88.2 Allergy status to sulfonamides; Z79.899 Other long term (current) drug therapy; Z77.22 Contact with and (suspected) exposure to environmental tobacco smoke (acute) (chronic); Z86.73 Personal history of transient ischemic attack (TIA), and cerebral infarction without residual deficits

== ENCOUNTER → 2019-03-17 | Outpatient (CLI) | payer MEDICARE, MEDICAID ==
[~2019-03-17] MED LIST changes: +CYMBALTA30 MG PO; +NEURONTIN300 MG PO
[2019-03-17 07:42] LABS: POTASSIUM 4.5 mmol/L (3.5-5.1)
[2019-03-17 07:58] LABS: ALBUMIN 3.3 gm/dl (3.1-4.5); CREATININE 2.02 mg/dL (0.55-1.02); TOTAL PROTEIN 6.2 gm/dL (6.4-8.2)
== END | disposition home or self-care (01) ==
LOC: LAB 06:25
PROVIDERS: Psychiatry & Neurology Neurology
DX: R29.818 Other symptoms and signs involving the nervous system (principal); R25.8 Other abnormal involuntary movements

== ENCOUNTER 2019-04-21 12:10 | Inpatient (IN) | payer MEDICARE, MEDICAID ==
[~2019-04-21] VITALS: Ht 4937 cm; Wt 59.9 kg
--- NOTE | ~2019-04-21 | PR ---
[place], [place] PROGRESS NOTE NAME: QUINTON HINTON UNIT #: [id number] ROOM: 509 DOCTOR: HELENA PITT MD,CALLUM BIRTHDATE: [birth year] DOS: 04/27/2019 SUBJECTIVE: She was seen and examined the date of 04/27/2019 was noted comfortable at this time, resting and sitting on the chair this morning of assessment, has not reported any symptoms of fever, chills, coughing or any sputum expectoration. The cough has been improved significantly. The pain was described as a possibility after recent fall. PHYSICAL EXAMINATION: GENERAL: She was comfortably resting without any distress this morning. VITAL SIGNS: Normal temperature, respiratory rate 18, pulse 71, blood pressure 113/45. Pulse ox saturation on room air 95% saturation recorded. HEENT: Examination shows head was atraumatic. Eyes nonicterus. NECK: Supple. CARDIOVASCULAR: S1, S2 audible. LUNGS: Noted clear of any wheezing or crackles. ABDOMEN: Soft, nontender. Bowel sounds present. EXTREMITIES: The patient noted without acute edema. MUSCULOSKELETAL: Without acute deformity. LABORATORY DATA: Chest x-ray done this morning was noted with elevation of the right hemidiaphragm. There was no visible pulmonary infiltration at this time of the left lower lobe. IMPRESSION: 1. Resolving acute pneumonia clinical radiologically. 3. Elevation of the right hemidiaphragm, rule out diaphragmatic paralysis. PLAN OF MANAGEMENT: No change in plan of management at this time. Continue the patient's current therapy at the present time without any changes. All other supportive therapy, plan of management, care plan treatment. CALLUM MALIK MD CM:PNTRANS [phone] CALLUM PITT MD 04/28/19 0124 interface
--- NOTE | ~2019-04-21 | PR ---
[place], [place] PROGRESS NOTE NAME: QUINTON HINTON UNIT #: [id number] ROOM: 509 DOCTOR: HELENA PITT MD,CALLUM BIRTHDATE: [birth year] DOS: 04/26/2019 SUBJECTIVE: The patient noted comfortable at this time, resting on the bed this morning of assessment, has not been noted with any ongoing acute respiratory symptoms, chest pain or cough. The coughing has improved, significantly decreased. OBJECTIVE: VITAL SIGNS: For the patient this morning, normal temperature, respiratory rate 18, heart rate 62, blood pressure 151/47. Pulse oxygen saturation on room air was 100% saturation recorded. HEENT: Examination shows head was atraumatic. Eyes nonicterus. NECK: Supple. CARDIOVASCULAR: S1, S2 audible. LUNGS: Without any wheeze or crackles at the present time. Breaths are noted [id number] diminished bilaterally. ABDOMEN: Soft, nontender. Bowel sounds present. EXTREMITIES: No new change. IMPRESSION: Stable respiratory status was noted at the present time. The patient responded to treatment with resolving acute pneumonia clinical radiologically. Overall debility. Musculoskeletal pain for the patient after a fall as well. Stable bronchial asthma and allergic rhinitis. PLAN OF MANAGEMENT: No changes from pulmonary standpoint. Continue the patient's current therapy as in progress. Usual care. Discharge planning per primary care physician. CALLUM MALIK MD CM:PNTRANS [phone] CALLUM PITT MD 04/26/192052 interface
--- NOTE | ~2019-04-21 | PR ---
[place], [place] PROGRESS NOTE NAME: QUINTON HINTON UNIT #: [id number] ROOM: 509 DOCTOR: ABRAHAN TOVAR MD BIRTHDATE: [birth year] DOS: SUBJECTIVE: The patient states her cough is better, does not have any new complaints. OBJECTIVE: VITAL SIGNS: Blood pressure is 123/44, pulse of 62, respirations 19, temperature 97.9. LUNGS: Clear except for a few scattered rales at the bases. HEART: Regular. ABDOMEN: Obese, soft, nontender. EXTREMITIES: Without any edema. ASSESSMENT AND PLAN: 1. Left lower lobe pneumonia, on IV antibiotics. 2. Chronic obstructive pulmonary disease, stable without any exacerbation. 3. Abnormal CT scan of the abdomen. The patient does not have any complaints of abdominal pain. No further workup is ordered for that. May require a colonoscopy sometime in the future. 4. Chronic use of anticoagulants. 5. Adult failure to thrive, awaiting PT, OT consult. ABRAHAN TOVAR MD CM:PNTRANS 9 ABRAHAN TOVAR MD 04/24/19899 interface
--- NOTE | ~2019-04-21 | PR ---
[place], [place] PROGRESS NOTE NAME: QUINTON HINTON UNIT #: [id number] ROOM: 509 DOCTOR: ABRAHAN TOVAR MD BIRTHDATE: [birth year] DOS: 04/28/2019 SUBJECTIVE: The patient is resting in a chair, eating her breakfast, does not have any new complaints. Earlier, she did complain of some left hip pain. OBJECTIVE: VITAL SIGNS: Blood pressure is 158/52, pulse of 74, respirations 18, temperature 97.4. LUNGS: Diminished breath sounds. No wheezes, rales or rhonchi heard. HEART: Regular. ABDOMEN: Obese. EXTREMITIES: Without any edema. ASSESSMENT AND PLAN: 1. Acute pneumonia, left lower lobe, resolving. Chest x-ray continues to show improvement with some evidence of atelectasis. Sputum cultures shows normal rea with light yeast. The patient was seen by Dr. Esqueda, was cleared for discharge. The plan is to discharge her to home today on p.o. antibiotics. 2. Adult failure to thrive. Visiting nurses will be consulted for home care. ABRAHAN TOVAR MD CM:PNTRANS [phone] ABRAHAN TOVAR MD 04/28/1924 interface
--- NOTE | ~2019-04-21 | PR ---
[place], [place] PROGRESS NOTE NAME: QUINTON HINTON UNIT #: [id number] ROOM: 509 DOCTOR: HELENA PITT MD,CALLUM BIRTHDATE: [birth year] DOS: 04/23/2019 SUBJECTIVE: The patient noted comfortable at this time, reported intermittent cough with small amount of sputum expectoration stating that she has been feeling better since admission. The pain different parts of the body has been controlled with pain medication. No symptoms of wheezing reported by the patient. OBJECTIVE: GENERAL: The patient is comfortable, resting on the bed this morning. VITAL SIGNS: Reviewed as a normal temperature, respiratory rate of 20, heart rate 66, blood pressure 122/60. Pulse ox saturation recorded 2 liters nasal cannula 100% saturation. HEENT: Examination shows head was atraumatic. Eyes nonicterus. NECK: Supple. CARDIOVASCULAR: S1, S2 audible. LUNGS: Without any wheeze or crackles at the present time. ABDOMEN: Soft, nontender. Bowel sounds present. EXTREMITIES: No new change. LABORATORY DATA: Culture of the sputum was pending, Gram-stain from this morning, moderate white blood cells, moderate epithelial cells, many gram-positive cocci in pairs and clusters, few gram-negative bacilli. IMPRESSION: Acute pneumonia with some area of atelectasis in the left lower lobe noted on this admission, status post fall. PLAN OF MANAGEMENT: No changes in plan of care. Monitor culture results. Continue current antibiotics without any changes with all other therapy to be continued previously in progress. CALLUM MALIK MD CM:PNTRANS [id number] CALLUM PITT MD 04/24/19 0940 interface
--- NOTE | ~2019-04-21 | WRIGHTHP ---
[place], [place] PATIENT HISTORY AND PHYSICAL EXAM [id number] UN[facility] #: [id number] ROOM: 509 DOCTOR: ABRAHAN TOVAR MD BIRTHDATE: [birth year] DOS: 04/22/2019 HISTORY OF PRESENT ILLNESS: This patient is 83 years old. She comes in with complaints of some shortness of breath. She denies having any chest pains, palpitations, does not have any fever or chills. She also had a fall again at home. She tripped and hit her head as well as left side of her face. So the family brought her back to the Emergency Room. This time, she was evaluated again in the ER, no acute injury was noted, but she was found to have pneumonia, which is new, a different from a week ago. There was a CT of the chest done on 04/08/2019, which did not show any evidence of pneumonia, but the CT done yesterday again shows pneumonia. The patient complains of slight cough and shortness of breath. Denies having any chest pains or palpitations. PAST MEDICAL HISTORY: Significant for: 1. Secondary hypertension with history of pulmonary embolism, on long-term use of anticoagulants. The patient may not been a good candidate for anticoagulants because of multiple falls. 2. Multiple falls with adult failure to thrive. 3. Hypokalemia. 4. Chronic kidney disease. 5. Chronic obstructive pulmonary disease. 6. Chronic diastolic dysfunction. 7. Chronic back pain. 8. Peripheral neuropathy. 9. Primary insomnia. MEDICATIONS: She is currently on are Eliquis 2.5 b.i.d., Percocet 5 daily, duloxetine 30 daily, gabapentin 300 q.8 hours, metoprolol 25 b.i.d., Ranexa 500 daily, zolpidem 10 at bedtime. SOCIAL HISTORY: Nonsmoker. PHYSICAL EXAMINATION: GENERAL: She is awake and alert and oriented. VITAL SIGNS: Blood pressure is 115/48, pulse of 86, respirations 20 and temperature 97.6. LUNGS: Clear. HEART: Regular. ABDOMEN: Obese, soft, nontender. EXTREMITIES: Without any edema. LABORATORY DATA: CT of the chest shows left lower lobe pneumonia. ASSESSMENT AND PLAN: 1. Left lower lobe pneumonia, possible gram-negative on IV antibiotics. Consult Dr. Esqueda, continue the antibiotics have been prescribed. 2. Adult failure to thrive with multiple falls. PT. OT and Social Service will be consulted. I recommended she go to a rehab, but she refused. 3. Benign hypertension. Last admission she was here, blood pressure was pretty low. I discontinued the amlodipine at that time. She is only on metoprolol [place], [place] PATIENT HISTORY AND PHYSICAL EXAM NAME: QUINTON HINTON UNIT #: [id number] ROOM: [facility] DOCTOR: ABRAHAN TOVAR MD BIRTHDATE: [birth year] right now, which she will continue. 4. Chronic long-term use of anticoagulants, on low dose of Eliquis. She may not be a candidate because of multiple falls. ABRAHAN TOVAR MD CM:HISPHYS:PATIENT HISTORY AND PHYSICAL EXAMINATION [id number] ABRAHAN TOVAR MD 04/22/19 0916 interface
--- NOTE | ~2019-04-21 | PR ---
[place], [place] PROGRESS NOTE NAME: QUINTON HINTON UNIT #: [id number] ROOM: 509 DOCTOR: HELENA PITT MD,CALLUM BIRTHDATE: [birth year] DOS: 04/25/2019 SUBJECTIVE: The patient has been noted comfortable at this time, resting on the bed. She was complaining of some headache and the pain in the chest. Denies symptoms of fever or chills. Denies symptoms of hemoptysis. There were no wheezing reported. OBJECTIVE: VITAL SIGNS: Normal temperature, respiratory rate 16, heart rate 67, blood pressure 147/50. Pulse oxygen saturation on room air 97% saturation recorded. HEENT: Examination shows head was atraumatic. Eyes nonicterus. NECK: Supple. CARDIOVASCULAR: S1, S2 audible. LUNGS: Noted without any wheezing or crackles. ABDOMEN: Soft, nontender. IMPRESSION: 1. Resolving acute pneumonia radiologically at the present time with history of bronchial asthma and allergic rhinitis. 2. Status post fall. PLAN OF MANAGEMENT: No changes in the plan of treatment at this time. Continue current plan as in progress. Usual care. CALLUM MALIK MD CM:KHRIS [phone] CALLUM PITT MD 04/25/19 1600 interface
--- NOTE | ~2019-04-21 | PR ---
[place], [place] PROGRESS NOTE [id number] #: [id number] ROOM: 509 DOCTOR: HELENA PITT MD,CALLUM BIRTHDATE: [birth year] DOS: 04/24/2019 PULMONARY PROGRESS NOTE SUBJECTIVE: The patient was noted comfortable at this time, resting, sitting on the chair this morning of assessment, has not reported symptoms of chest pain, coughing was subsiding, which still remains nonproductive. There were no symptoms of chest pain or hemoptysis stated by the patient. OBJECTIVE: VITAL SIGNS: For the patient which were recorded this morning were noted as normal temperature, respiratory rate 20, heart rate 64, blood pressure 148/70. HEENT: Examination shows head was atraumatic. Eyes nonicterus. NECK: Supple. CARDIOVASCULAR: S1, S2 is audible. LUNGS: Noted without any wheeze or crackles. ABDOMEN: Soft, nontender. Bowel sounds present. EXTREMITIES: No new change. LABORATORY DATA: Culture sputum preliminary noted normal rea. Final results of the cultures were pending from yesterday. IMPRESSION: The patient with acute left lower lobe pneumonia with history of bronchial asthma, status post recent fall. PLAN OF MANAGEMENT: No change in plan of management, obtain a chest x-ray to assess the progression of the pneumonia. No other additional treatment at this time will be necessary. Follow the chest x-ray upon completion to make any adjustment in the medications accordingly. CALLUM MALIK MD CM:PNTRANS 1302 [id number] CALLUM PITT MD 04/24/19 1344 interface
--- NOTE | ~2019-04-21 | PR ---
[place], [place] PROGRESS NOTE NAME: QUINTON HINTON UNIT #: [id number] ROOM: 509 DOCTOR: CALLUM HILL MD BIRTHDATE: [birth year] DOS: 04/28/2019 PULMONARY PROGRESS NOTE SUBJECTIVE: She has been noted comfortable at this time, sitting on the chair. Complains of pain in the ____ and other parts of the body. Denies symptoms of fever or chills. Denies symptoms of hemoptysis. Denies symptoms of nausea or vomiting. OBJECTIVE: VITAL SIGNS: For the patient recorded this morning, normal temperature, respiratory rate 20, heart rate 70, blood pressure 150/54. Pulse oxygen saturation on room air 96% saturation recorded. HEENT: Examination shows head was atraumatic. Eyes nonicterus. NECK: Supple. CARDIOVASCULAR: S1, S2 audible. LUNGS: The patient was noted without any wheeze or crackles. Decreased breath sounds in the right lower lung. ABDOMEN: Soft, nontender. Bowel sounds present. EXTREMITIES: No new changes. 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 Infiltration in the left lower lobe has been resolved. 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 PLAN OF MANAGEMENT: The patient has been considered for home discharge on oral medication. Other therapy, plan of management previously will be continued without changes. Usual care, other supportive plan of management and therapy. Discharge planning was discussed with Dr. America Bee. [place], [place] PROGRESS NOTE NAME: QUINTON HINTON UNIT #: [id number] ROOM: 509 DOCTOR: CALLUM HILL MD BIRTHDATE: [birth year] CALLUM MALIK MD CM:PNTRANS [phone] CALLUM PITT MD 04/28/191750 interface
--- NOTE | ~2019-04-21 | EKG ---
[place], [place] ELECTROCARDIOGRAM REPORT NAME: QUINTON HINTON UNIT #: [id number] ROOM: 509 DOCTOR: ISAAC DRAFT REPORT BIRTHDATE: [birth year] [facility] Test Date: 2019-04-21 Test Time: 13:17:04 Pat Name: QUINTON HINTON Department: Room: 509 Gender: F Quality Control Tester: : 1935 Requested By: UNIQUE SHIPLEY Order Number: [id number] Reading MD: Indra Beckham MD Measurements Intervals [place] Rate: 96 P: 36 [place]: 159 QRS: 33 QRSD: 87 T: 48 QT: 348 QTc: 440 Interpretive Statements Sinus rhythm Ventricular premature complex Low voltage, extremity leads Baseline wander in lead(s) V1 Compared to ECG 04/17/2019 13:31:21 Ventricular premature complex(es) now present Electronically Signed On 04-23-2019 5:06:11 PDT by Indra Beckham MD CM:EKGRPT:ELECTROCARDIOGRAM REPORT [id number] UNIQUE RUST EPIPHANY DRAFT REPORT UNIQUE RUST
--- NOTE | ~2019-04-21 | PR ---
[place], [place] PROGRESS NOTE NAME: QUINTON IHNTON UNIT #: [id number] ROOM: 509 DOCTOR: JESSIE CRUM MD BIRTHDATE: [birth year] DOS: 04/26/2019 SUBJECTIVE: The patient says her breathing continues to improve. OBJECTIVE: VITAL SIGNS: Blood pressure 151/47, heart rate of 62 beats per minute, breathing 18 times per minute, temperature 98 degrees Fahrenheit. GENERAL APPEARANCE: The patient is alert and oriented x 3, in no visible distress, generalized weakness. HEENT AND NECK: Exam within normal limits. CARDIOVASCULAR SYSTEM: Heart rate is regular in rate and rhythm. S1 and S2 normally audible. LUNGS: Clear to auscultation. ABDOMEN: Soft, nontender. No obvious organomegaly. Bowel sounds are present. EXTREMITIES: Without significant cyanosis or edema. IMPRESSION: 1. The patient with acute pneumonia, resolving clinically and her breathing continues to improve. The patient continued on IV ceftriaxone and azithromycin. The bilateral pneumonia, improving. I will repeat a chest x-ray in the morning. 2. Advanced adult failure to thrive. We are taking bedsore and fall precautions. 3. Acute exacerbation of chronic obstructive pulmonary disease, improving with treatment. Breathing is better. 4. Benign essential hypertension, treated and controlled. JESSIE CRUM MD CM:PNTRANS [phone] JESSIE CRUM MD 04/27/19 0023 interface
--- NOTE | ~2019-04-21 | CON ---
[place], [place] REPORT OF CONSULTATION [id number] UNIT #: [id number] ROOM: 509 DOCTOR: CALLUM HILL MD BIRTHDATE: [birth year] DOS: 04/22/2019 PULMONARY CONSULTATION, EVALUATION AND MANAGEMENT CONSULTATION REQUESTED BY: Dr. America Bee. REASON FOR CONSULTATION: To assess the patient for acute pneumonia. HISTORY OF PRESENT ILLNESS: This is an 83-year-old white female patient known to me with history of bronchial asthma and allergic rhinitis and other respiratory illnesses. She has been admitted under care of Dr. America Bee for 2 days from 04/17/2019 until 04/19/2019. The patient presented to the hospital as the patient fell down at home, as she is trying to reach her phone. She has been noted some injury of the patient's soft tissue. The patient was discharged home and brought back to the hospital. The patient developed increased symptoms of shortness of breath on 04/22/2019. She has been assessed in the Emergency Room. Again, this patient has a CT scan of chest done that reported possibility of acute pneumonia. The patient had air bronchogram in the left lower lobe. She has been admitted to the hospital for further care. She reported symptoms of coughing, which was noted [id number], which was noted dry cough. Denies symptoms of chest pain at the present time. She does have symptoms of shortness of breath, which was noted increased from previous baseline. She denies symptoms of wheezing. There were no symptoms of hemoptysis reported by the patient. REVIEW OF SYSTEMS: CONSTITUTIONAL: Fatigue and tiredness reported. Denies any symptoms of fever or chills. EYES: Denies any burning, redness, or tenderness. EARS, NOSE, THROAT SYMPTOMS: Denies sore throat, hoarseness, otalgia, postnasal drainage or epistaxis. CARDIOVASCULAR: Denies anginal pain, edema, or pain of the lower extremities. GASTROINTESTINAL: Denies dysphagia, nausea, vomiting, diarrhea, abdominal pain, hematemesis, melena, hematochezia, or incontinence of the stool. GENITOURINARY SYMPTOMS: No dysuria, suprapubic pain, hematuria or urinary incontinence. SKIN: The patient noted some bruising of the skin after recent fall on the face. There were no open areas. MUSCULOSKELETAL: No acute joint pain, redness, or tenderness. CENTRAL NERVOUS SYSTEM: No dizziness, headache, diplopia, or syncopal episode, but has fallen a couple of times, which was a mechanical fall. PAST MEDICAL HISTORY: 1. Uncomplicated severe persistent bronchial asthma with frequent hospitalization. 2. Common variable hypogammaglobulinemia. 3. General anxiety disorder. 4. Atrial fibrillation. 5. Type 2 diabetes mellitus. 6. Past history of thromboembolism, on anticoagulation previously. [place], [place] REPORT OF CONSULTATION NAME: QUINTON HINTON UNIT #: [id number] ROOM: [facility] DOCTOR: HELENA PITT MD,[facility] BIRTHDATE: [birth year] 7. 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 8. Coronary artery disease. 9. Essential hypertension. 10. Acute congestive heart failure with diastolic dysfunction. 11. History of allergic rhinitis. PAST SURGICAL HISTORY: 1. Low back surgery. 2. Appendectomy. 3. Cholecystectomy. 4. Therapeutic bronchoscopy. 5. MediPort insertion. SOCIAL HISTORY: The patient is as noted lifetime nonsmoker. She has 2 children. There was no history of alcohol use, illicit drug use. CURRENT MEDICATIONS: Which has been administered to the patient on this hospitalization from this morning is gabapentin, Ranexa, Cymbalta, metoprolol tartrate, Eliquis, DuoNeb and hydralazine. The patient is also receiving the intravenous Rocephin and also ordered the Ambien 10 mg at bedtime. DRUG ALLERGIES: NOTED ALLERGIES TO: 1. SULFA DRUGS. 2. QUINOLONES. PHYSICAL EXAMINATION: GENERAL: This is an 83-year-old female patient currently resting comfortably in the bed without any distress. Height of 5 feet, weight of 135 pounds, BMI 26.3. VITAL SIGNS: Noted. The patient has a normal temperature, heart rate was noted as 86-90, respiratory rate 20, temperature normal, blood pressure 111/40-115/48. Pulse oxygen saturation recorded on 2 liters nasal cannula 99-100% saturation. HEENT: Examination shows head was atraumatic. Eyes nonicterus. Bruises noted on the face. NECK: Supple. CARDIOVASCULAR: S1, S2 audible. LUNGS: The patient was noted with decreased breaths in the lungs noted bilaterally without any wheezing. Occasional crackles present in the lungs, scattered. ABDOMEN: Soft, nontender. Bowel sounds present. EXTREMITIES: The patient noted without any acute edema. MUSCULOSKELETAL: ____ deformity. CENTRAL NERVOUS SYSTEM: The patient in general was intact. There were no gross focal neurologic deficit. LABORATORY DATA: Reviewed on this admission. Lactic acid noted normal on admission. CBC that was done on 04/21/2019, patient's WBC count normal, hemoglobin 9.4, platelet count was normal. Chest x-ray that was taken on 04/21/2019 reviewed with evidence of pleural fluid, area of infiltration suspected in the left lower lobe. CT scan of the chest, which was done without contrast shows pleural thickening with a small pleural fluid on the right side. [place], [place] REPORT OF CONSULTATION NAME: QUINTON HINTON UNIT #: [id number] ROOM: [facility] DOCTOR: HELENA PITT [facility] BIRTHDATE: [birth year] Evidence of a small pleural fluid noted on the left side with associated area of atelectasis or infiltration with air bronchogram. Previous old rib fracture was noted. CT scan of the abdomen and pelvis was also done yesterday in the Emergency Room. The finding reported by the radiologist, possibility of a right colitis. Diverticulosis noted without any radiologic evidence of diverticulitis. CT scan of the orbit was also done, the patient was noted without any acute abnormality. Left hip x-ray was done on 04/21/2019, does not show any evidence of acute hip fracture. IMPRESSION: 1. The patient will be currently admitted to the hospital with fall at home, which is noted on mechanical. 2. Possible consideration of acute pneumonia from aspiration in the left lower lobe cannot be completely excluded associated with small pleural fluid. 3. Pleural thickening, small pleural fluid noted in the right side as well. 4. History of allergic rhinitis. 5. History of bronchial asthma, all remain stable without any evidence of acute exacerbation. 6. Possible side effects related to use of the Ambien with dizziness, confusion with increased fall has been well reported. The dose usually which has been used for the patients in the female patient recommendation no more than 5 mg was noted. HOME MEDICATIONS: Listed as use of Ambien at 10 mg. PLAN OF MANAGEMENT: I will discontinue the Ambien for this patient at the present time. Avoid these medication to prevent the further increased risk of fall. Continuation of the antibiotic and IV Rocephin. Sputum for Gram stain culture will be done. Other additional treatment changes will be made based on progression of the illness. Pleural fluid most likely related to current pneumonia, the patient will be monitored and noted very small, would not be noted amenable to safety for thoracentesis at the present time. Other therapy, plan of management with additional treatment changes will be made for the patient based on the progression of the illness. Supportive care. Usual medical management therapy, plan of the patient with other changes will be made based on progression of the illness. The patient is also getting Zithromax for the community-acquired infection for the pneumonia management. Follow the culture results as well. Other therapy, plan of management with additional treatment changes will be made based on progression of the illness. Thanks for allowing me to participate in the care of this patient. [place], [place] REPORT OF CONSULTATION NAME: DALIA HINTONINE Naresh UNIT #: [id number] ROOM: [facility] DOCTOR: CALLUM HILL MD BIRTHDATE: [birth year] CALLUM MALIK MD CM:CONSTR:REPORT OF CONSULTATION 1029 04/22/19 1127 interface
--- NOTE | ~2019-04-21 | PR ---
[place], [place] PROGRESS NOTE NAME: QUINTON HINTON UNIT #: [id number] ROOM: 509 DOCTOR: JESSIE CRUM MD BIRTHDATE: [birth year] DOS: 04/25/2019 SUBJECTIVE: The patient is starting to feel better. Breathing is improving with treatment. OBJECTIVE: VITAL SIGNS: Blood pressure 132/36, heart rate of 62 beats per minute, breathing 20 times per minute, temperature 98 degrees Fahrenheit. GENERAL APPEARANCE: The patient is alert and oriented x 3, in no visible distress. Generalized weakness. HEENT AND NECK: Exam within normal limits. CARDIOVASCULAR SYSTEM: Heart rate is regular in rate and rhythm. S1 and S2 normally audible. LUNGS: Clear to auscultation. ABDOMEN: Soft, nontender. No obvious organomegaly. Bowel sounds are present. EXTREMITIES: Without significant cyanosis or edema. IMPRESSION: 1. The patient with acute pneumonia, resolving clinically and also on the chest x-ray, left lower lobe pneumonia, being treated with IV antibiotics. 2. Acute exacerbation of chronic obstructive pulmonary disease, improving with treatment. 3. No complaints of any abdominal pains or issues. The patient is eating. 4. Advanced adult failure to thrive. The patient working in physical therapy. 5. Benign essential hypertension, treated and controlled. JESSIE CRUM MD CM:PNTRANS [id number] JESSIE CRUM MD 04/26/19 0043 interface
--- NOTE | ~2019-04-21 | DS ---
[place], [place] DISCHARGE SUMMARY NAME: QIUNTON HINTON UNIT #: [id number] ROOM: 509 DOCTOR: ABRAHAN TOVAR MD BIRTHDATE: [birth year] DOS: 04/28/2019 DIAGNOSES: 1. Left lower lobe pneumonia, resolving. 2. Adult failure to thrive with multiple falls. 3. Benign hypertension. 4. Chronic long-term use of anticoagulants. 5. History of pulmonary embolism with pulmonary hypertension. 6. Chronic diastolic dysfunction. 7. Type 2 diabetes mellitus, diet controlled. 8. Peripheral neuropathy. 9. Primary insomnia. 10. Chronic kidney disease. This patient is a stage 3. 11. Right hemidiaphragm paralysis. HOSPITAL COURSE: The patient is 83 years old, comes in with complaints of shortness of breath. She had another fall at home, tripped and hit her head and so the family brought her back to the Emergency Room, this time, she had another CT of the chest that showed pneumonia, which was not present on the CT done about 4 days prior to this admission. The patient again was admitted, was placed on IV antibiotics, breathing treatments. This is most likely Gram-negative. Sputum cultures were ordered. This unfortunately did not show any bacterial growth. Some light yeast was seen. Dr. Esqueda was consulted. He agreed on the treatment plan. The patient continues to improve over the last 7 days, she has not had any new problems. PT has been consulted. Chest x-ray shows continued resolution of the pneumonia. There is paralysis of the right hemidiaphragm, but normal left hemidiaphragm is noted. This morning, the patient is relatively stable and is not having any new problems. The plan is to discharge to home today. DISCHARGE MEDICATIONS: Will be doxycycline 100 mg twice a day for 7 days, metoprolol 25 b.i.d., Eliquis 2.5 b.i.d., zolpidem 10 at bedtime, gabapentin 300 q.8, Percocet 5 daily p.r.n., duloxetine 30 daily, Ranexa 500 b.i.d. Visiting nurses have been consulted for PT, OT at home. [place], [place] DISCHARGE SUMMARY NAME: QUINTON HINTON UNIT #: [id number] ROOM: 509 DOCTOR: ABRAHAN TOVAR MD BIRTHDATE: [birth year] ABRAHAN TOVAR MD CM:URI 3 ABRAHAN TOVAR MD 04/28/19923 interface
--- NOTE | ~2019-04-21 | PR ---
[place], [place] PROGRESS NOTE NAME: QUINTON HINTON UNIT #: [id number] ROOM: 509 DOCTOR: ABRAHAN TOVAR MD BIRTHDATE: [birth year] DOS: 04/23/2019 SUBJECTIVE: The patient is doing fine without any complaints this morning, sitting up, eating her breakfast. OBJECTIVE: VITAL SIGNS: Graphic trend shows a pressure of 122/60, pulse of 66, respirations 20, temperature 97.4. LUNGS: Clear. HEART: Regular. ABDOMEN: Soft. EXTREMITIES: Without any edema. LABORATORY DATA: Urine culture shows E. coli 25,000 colonies. ASSESSMENT AND PLAN: 1. Left lower lobe pneumonia, possible gram negative. No sputum cultures available yet. 2. Urinary tract infection early 25,000 colonies of Escherichia coli, which is sensitive to the antibiotic that she is already on. 3. Chronic obstructive pulmonary disease, stable without any exacerbations. 4. Adult failure to thrive. Discussed with the patient about placement to [facility] for short-term. She refused. PT/OT has been consulted and PT recommended home with visiting nurses and PT, OT as an outpatient. ABRAHAN TOVAR MD CM:PNTRANS ABRAHAN TOVAR MD [birth year]/23/1934 interface
--- NOTE | ~2019-04-21 | PR ---
[place], [place] PROGRESS NOTE NAME: QUINTON HINTON UNIT #: [id number] ROOM: 509 DOCTOR: ABRAHAN TOVAR MD BIRTHDATE: [birth year] DOS: 04/27/2019 SUBJECTIVE: The patient is about the same, does not have any new complaints. OBJECTIVE: VITAL SIGNS: Graphic trend shows a pressure 113/45, pulse of 71, respirations 18, temperature 97.6. LUNGS: Clear. HEART: Regular. ABDOMEN: Obese, soft. EXTREMITIES: Without any edema. LABORATORY DATA: Sputum culture shows normal rea with light yeast. Chest x-ray has not been repeated. ASSESSMENT AND PLAN: 1. Left lower lobe pneumonia. Awaiting repeat chest x-ray today. If it is cleared plan is to discharge her to home tomorrow. 2. Adult failure to thrive. The patient is refusing physical therapy. She does not want to go to rehab either. 3. Urinary tract infection with 25,000 colonies of Escherichia coli, already covered with antibiotics. 4. Benign hypertension, controlled. 5. Type 2 diabetes mellitus, diet controlled. ABRAHAN TOVAR MD CM:PNTRANS 9 ABRAHAN TOVAR MD 04/27/1910 interface
[2019-04-21 12:14] VITALS: BP 160/74
[2019-04-21 12:51] VITALS: BP 132/57
--- NOTE | 2019-04-21 12:55 | NUR ---
DAUGHTER STATES SHE THINKS PATIENT "OVER MEDICATED HERSELF, SHE DOESNT HAVE ENOUGH NEURONTIN IN HER PILL BOTTLES"
[2019-04-21 13:44] LABS: BASO % 0.5 % (0.0-1.0); EOS # 0.3 10*3/uL (0.0-0.4); EOS % 5.7 % (1.0-4.0); HEMATOCRIT 29.3 % (37.0-47.0); HEMOGLOBIN 9.4 g/dl (12.0-16.0); LYMPH # 0.7 10*3/uL (1.3-4.4); LYMPH % 11.3 % (27.0-41.0); MEAN CORPUSCULAR HGB 31.1 pg (27.0-31.0); MEAN CORPUSCULAR HGB CONC 32.1 g/dl (33.0-37.0); MEAN PLATELET VOLUME 9.6 fl (9.6-12.3); MONO # 0.9 10*3/uL (0.1-1.0); MONO % 14.8 % (3.0-9.0); NEUT # 3.8 10*3/uL (2.3-7.9); NEUT % 65.8 % (47.0-73.0); PLATELET COUNT AUTOMATED 192 10*3/uL (130-400); RED BLOOD COUNT 3.02 10*6/uL (4.10-5.10); RED CELL DISTRI WIDTH 14.3 % (0-14.5); WHITE BLOOD COUNT 5.8 10*3/uL (4.8-10.8)
[2019-04-21 13:53] LABS: ACT PARTIAL THROMBO TIME 35.9 SECONDS (20.0-32.1)
[2019-04-21 13:58] VITALS: BP 126/53
[2019-04-21 13:59] LABS: ALBUMIN 2.7 gm/dl (3.1-4.5); ALKALINE PHOSPHATASE 83 U/L (45-117); BUN 17 mg/dl (7-24); CHLORIDE 109 mmol/L (98-107); CREATININE 1.55 mg/dL (0.55-1.02); LIPASE 69 U/L (73-393); POTASSIUM 4.6 mmol/L (3.5-5.1); SGOT/AST 11 IU/L (3-35); SGPT/ALT 9 U/L (12-78); SODIUM 139 mmol/L (136-145); TOTAL PROTEIN 5.8 gm/dL (6.4-8.2)
[2019-04-21 14:01] LABS: TROPONIN I < 0.015 ng/ml (<0.045)
--- NOTE | 2019-04-21 14:41 | NUR ---
PT BACK TO CT
[2019-04-21 14:45] LABS: BILIRUBIN NEGATIVE (NEGATIVE); BLOOD NEGATIVE (NEGATIVE); CLARITY CLEAR (CLEAR); COLOR YELLOW (YELLOW); GLUCOSE NEGATIVE (NEGATIVE); KETONE NEGATIVE (NEGATIVE); LEUKO ESTERASE NEGATIVE (NEGATIVE); NITRITE NEGATIVE (NEGATIVE); PH 6.5 (5.0-9.0); SPECIFIC GRAVITY 1.015 (1.005-1.030); UROBILINOGEN 0.2 E.U./dl (0.2-1.0)
[2019-04-21 15:00] LABS: BACTERIA 1+
--- NOTE | 2019-04-21 17:00 | NUR ---
PER PROVIDER, PT TO HAVE A DINNER TRAY.
--- NOTE | 2019-04-21 18:00 | NUR ---
TO CT. CONDITION STABLE.
[2019-04-21 19:15] VITALS: BP 127/46
--- NOTE | 2019-04-21 19:29 | NUR ---
INCONTINENT OF LG LOOSE BROWN FOUL SMELLING STOOL. BED CHANGED. GOOD BED MOBILITY.
--- NOTE | 2019-04-21 19:45 | NUR ---
PT RESTING WITH EYES CLOSED, NO DISTRESS NOTED, PT NOTED WITH LARGE DIARRHEA, PT WAS CLEANED AND BATH LIENS WERE CHANGED. PT WAS 93% RA, 2L WAS RE-APPLIED PT IS NOW 99%2l
[2019-04-21 20:30] VITALS: BP 114/49
[2019-04-21 21:25] VITALS: BP 120/48
--- NOTE | 2019-04-21 21:35 | NUR ---
A 83 year old female admitted to , under the services of ABRAHAN Berg MD with a diagnosis of colitis,sepsis,pneumonia. Chief complaint is fell at home. Patient arrived via stretcher from ER. Monitor applied. Initial assessment completed. Vital signs taken and recorded. ABRAHAN BERG MD notified of admission to the unit. Orders received. See assessment for past medical history, medications and allergies. Patient and/or family oriented to unit. [facility] visitation policy reviewed. Clothing/patient valuable form completed. JULIANE DOWNS
--- NOTE | 2019-04-21 22:15 | NUR ---
CALLED DR. TOVAR AND ORDERS RECEIVED.
[2019-04-22] VITALS: BP 111/40
--- NOTE | 2019-04-22 07:00 | NUR ---
PLACED ON BEDPAN VOIDED LARGE AMOUNT YELLOW URINE AND HAD LARGE FORMED STOOL. PT. CLEANED UP AND BEDLINENS CHANGED.
--- NOTE | 2019-04-22 07:56 | NUR ---
HINTONQUINTON Hdz [id number] Please refer to the physician's history and physical for past medical history, comorbid conditions, and allergies. Diagnosis: COLITIS, SEPSIS PNEUMONIA Kade Score: 19,LOW OR NO RISK WOUND DESCRIPTIONS: Wound Number: 1 Location of the wound: right anterior forearm Type of wound: skin tear Thickness: Partial Size: 7.5cm x 3.5cm x 0.1cm Tunneling: none Undermining: none Sinus Tract: none Presence of Exudate: Serosanguineous Amount: Light Color: Red Odor: None Periwound Skin Appearance: Normal Wound edges: approximated Pain (associated with wound): none at time of assessment How does patient state this happened? pt stated she fell multiple times at home Patient has several red blanchable areas noted to buttocks at time of assessment. No open areas noted at time of assessment. Patient has intact scab areas noted to left arm, left side of forehead and back. Patient has multiple ecchymotic areas noted to left posterior upper arm, left hand, right elbow, left eye and right knee at time of assessment. Surface the patient is resting on: Position Pro SKIN PREVENTION RECOMMENDATION: 1. Pressure redistribution support surface as appropriate 2. Elevate heels 3. Remove boots/TEDS every shift and reapply 4. Head of bed 30 degrees as tolerated 5. Assess nutrition and hydration 6. Manage moisture 7. Avoid the use of containment devices while in bed 8. Use absorptive products on surfaces limit layers of linens on bed 9. Turn and reposition every 1-2 hours in bed and every 1 hour in chair as tolerated 10. Weight shifts every 15 minutes while up in chair 11. Offloading with pillows or device to keep heels elevated off bed 12. Monitor skin at least every shift 13. Inspect under medical devices twice a day WOUND TREATMENT RECOMMENDATIONS: Consult podiatry for toenails. Cleanse buttocks with soap and water and apply hydraguard every shift and prn for soiling. Wheelchair cushion when oob. Heel raiser pro boots to bilateral feet while in bed.
[2019-04-22 08:00] VITALS: BP 115/48
--- NOTE | 2019-04-22 09:00 | NUR ---
Grinder And Honer Operator Automatic in to see patient. Prescription for breathing treatments given to patient. Informed patient [facility] would be reaching out to her in regards to her home nebulizer. She verbalized an understanding. She denies any other home needs at this time. She is awaiting to be discharged.
--- NOTE | 2019-04-22 09:30 | NUR ---
Shellfish Checker in to talk to patient. Patient states lives at home with her . There are 0 steps in the home. Physician: Dr. Brandon Longo [facility]acy: [facility] Home health services: [facility] currently and would like to resume those services upon discharge Patient's level of ADLs: MINIMAL ASSIST Patient has working utilities: yes DME: walker, O2 @ 2L nc, portable O2 tanks, nebulizer, O2 supplier is [facility] Medical Follow-up physician's appointment after d/c: she prefers to make her own follow up appt after discharge Does patient want to access PORTAL?: no Discharge plan discussed with patient. She lives at home with her . She needs minimal assistance in her ADLs and ambulates with a walker. She currently has [facility] services and would like to continue those services upon discharge. When medically stable she will be discharged to home with the resumption of her OV services. CHADD SCHRADER RN
--- NOTE | 2019-04-22 09:55 | NUR ---
PHYSICAL THERAPY Nursing screen received and chart reviewed. Physical therapy referral received. Thank you. Laury Palencia,PT,DPT.
--- NOTE | 2019-04-22 11:07 | NUR ---
PHYSICAL THERAPY Physical therapy evaluation complete, 5E. Please see full evaluation for details. Low complexity evaluation (71405) per chart review and evaluation. PT to progress transfers, gait, and LE strength per POC. Recommend home with home health PT at discharge. Thank you. Laury Palencia,PT,DPT.
[2019-04-22 12:00] VITALS: BP 130/52
[2019-04-22 16:00] VITALS: BP 107/39
--- NOTE | 2019-04-22 19:15 | NUR ---
TYLENOL GIVEN PER ORDER FOR HEADACHE PAIN RATED "6-7". DRY NON PROD COUGH NOTED.
[2019-04-22 20:00] VITALS: BP 107/54
--- NOTE | 2019-04-22 20:15 | NUR ---
TYLENOL EFFECTIVE FOR HEADACHE PAIN. PER PT.
--- NOTE | 2019-04-22 20:56 | NUR ---
24 HR chart check completed.
[2019-04-23] VITALS: BP 100/42
--- NOTE | 2019-04-23 00:33 | NUR ---
SPUTUM OBTAINED AND SENT TO LAB FOR TESTING.
--- NOTE | 2019-04-23 02:00 | NUR ---
SLEEPING. NO ACUTE DISTRESS NOTED. HEEL PROTECTORS IN USE.
--- NOTE | 2019-04-23 04:00 | NUR ---
SLEEPING NO ACUTE DISTRESS NOTED.
[2019-04-23 08:19] VITALS: BP 122/60
--- NOTE | 2019-04-23 09:00 | NUR ---
Public Administration Teacher in to see patient. No new needs or request at this time. Discussed home health care services and she would like [facility] as she has had them previously. When medically stable she will be discharged to home with [facility] services.
--- NOTE | 2019-04-23 11:11 | NUR ---
PT COMPLAINS OF HEADACHE, TYLENOL GIVEN
--- NOTE | 2019-04-23 11:17 | NUR ---
DRESSING CHANGED RIGHT FOREARM PER ORDERS, WOUND WITH LIGHT BLEEDING NOTED
[2019-04-23 12:00] VITALS: BP 120/48
[2019-04-23 16:00] VITALS: BP 134/46
[2019-04-23 20:00] VITALS: BP 130/50
--- NOTE | 2019-04-23 21:30 | NUR ---
RESTING IN BED. AWAKE & ALERT. MEDIPORT INTACT TO LEFT SIDE OF CHEST. RIGHT ARM WRAPPED WITH KERLIX; PT. STATES THAT SHE HAS A WOUND THERE FROM FALLING. ASSISTED OUT OF BED TO BATHROOM BY PA & BACK TO BED. BED ALARM INTACT. CALL LIGHT WITHIN REACH.
--- NOTE | 2019-04-23 21:33 | NUR ---
MEDICATED WITH TYLENOL FOR C/O GENERALIZED DISCOMFORT.
[2019-04-24] VITALS: BP 123/44
[2019-04-24 08:00] VITALS: BP 148/70
--- NOTE | 2019-04-24 09:00 | NUR ---
Well Point Pumping Supervisor in to see patient. No new needs or request at this time. When medically stable she will be discharged to home with [facility] services.
[2019-04-24 12:00] VITALS: BP 121/36
--- NOTE | 2019-04-24 12:03 | NUR ---
Faxed home health care referral to [facility]
[2019-04-24 16:00] VITALS: BP 127/67
[2019-04-24 20:00] VITALS: BP 128/45
[2019-04-25] VITALS: BP 125/54
--- NOTE | 2019-04-25 06:02 | NUR ---
24 HOURS CHART CHECK COMPLETED
[2019-04-25 08:00] VITALS: BP 120/62
--- NOTE | 2019-04-25 08:56 | NUR ---
PT RESTING IN CHAIR. NO DISTRESS NOTED/ WILL MONITOR
[2019-04-25 12:00] VITALS: BP 147/50
--- NOTE | 2019-04-25 12:30 | NUR ---
PT REQUESTED AND GIVEN TYLENOL FOR C/O GEN PAIN WILL MONITOR
--- NOTE | 2019-04-25 15:40 | NUR ---
TYLENOL EFFECTIVE. WILL MONITOR
[2019-04-25 16:00] VITALS: BP 132/36
[2019-04-25 20:00] VITALS: BP 152/55
[2019-04-26] VITALS: BP 133/42
--- NOTE | 2019-04-26 | NUR ---
RESTING IN BED WITH EYES CLOSED. RESPIRATIONS EASY & UNLABORED ON ROOM AIR. BED ALARM ON.
--- NOTE | 2019-04-26 02:00 | NUR ---
ASSIST OF 1 UP TO BSC WITH USE OF A WALKER.
--- NOTE | 2019-04-26 03:00 | NUR ---
RESTING IN BED WITH EYES CLOSED. BED IN LOW LOCKED POSITION; CALL LIGHT WITHIN REACH. BED ALARM INTACT.
--- NOTE | 2019-04-26 07:29 | NUR ---
PT RESTING IN BED., NO DISTRESS NOTED/ WILL MONITOR
[2019-04-26 08:00] VITALS: BP 171/59
--- NOTE | 2019-04-26 10:04 | NUR ---
PT REQUESTED AND GIVEN TYLENOL FOR C/O GEN PAIN. PT RATES PAIN 8/10 WILL MONITOR
[2019-04-26 12:00] VITALS: BP 151/47
[2019-04-26 16:00] VITALS: BP 125/43
--- NOTE | 2019-04-26 19:20 | NUR ---
PT IS AWAKE AND SITTING UP IN THE CHAIR GETTING VITALS TAKEN AT THIS TIME. SHE STATES THAT SHE DOES NOT HAVE ANY COMPLAINTS AT THIS TIME. RESPS ARE EASY AND NONLABORED. CALL LIGHT IS WITHIN REACH, WILL CONTINUE TO MONITOR.
--- NOTE | 2019-04-26 19:51 | NUR ---
24 HOUR CHART CHECK COMPLETED
[2019-04-26 20:00] VITALS: BP 159/60
[2019-04-27] VITALS: BP 113/45
--- NOTE | 2019-04-27 07:41 | NUR ---
24 HR chart check completed.
[2019-04-27 08:00] VITALS: BP 152/89
--- NOTE | 2019-04-27 09:00 | NUR ---
Line Erector in to see patient. No new needs or request at this time. When medically stable she will be discharged to home with [facility] services.
--- NOTE | 2019-04-27 09:31 | NUR ---
PHYSICAL THERAPY Patient seen this am 1:1 for therapy visit and was sitting up in bedside chair following breakfast upon therapist arrival. Patient was very pleasant this morning voicing 4/10 chronic low back pain and tranfers sit to stand Min A x 1. Patient ambulates with use of std walker, CGA, 40'x 1, demonstrating very slow grady and decreased stride. Patient needed v/c for improved walker safety during 180 turns and returned to bedside chair with increased fatigue. Patient remained reclined in chair with her feet elevated, call light, tray table, telephone and body alarm for safety. Will continue per POC as tolerated, total treatment time 14 minutes. Gurpreet Plasencia, BRANCH OFFICE ADMINISTRATOR
[2019-04-27 12:00] VITALS: BP 144/46
[2019-04-27 16:00] VITALS: BP 145/61
[2019-04-27 20:00] VITALS: BP 139/47
--- NOTE | 2019-04-27 20:59 | NUR ---
C/O LEFT HIP PAIN. OFFERED TYLENOL. PT DECLINED. SAID SHE WOULD BE OK WITHOUT IT TONIGHT. CALL LIGHT IN REACH. BED ALARM ON. VSS. ABX INFUSING WITH EASE.
[2019-04-28] VITALS: BP 158/52
--- NOTE | 2019-04-28 07:34 | NUR ---
PATIENT RESTED COMFORTABLY THROUGHOUT THE NIGHT.
[2019-04-28 08:00] VITALS: BP 150/54
[2019-04-28] MEDS ORDERED: DOXYCYCLINE100 M3 PO (08:54)
--- NOTE | 2019-04-28 10:11 | NUR ---
PATIENT TO BE DISCHARGE TO HOME.
--- NOTE | 2019-04-28 10:47 | NUR ---
PATIENT DISCHARGED TO HOME.
--- NOTE | 2019-04-29 09:22 | NUR ---
PHYSICAL THERAPY CO-SIGN I approve of the Physical Therapy notes written above. CHADD ARREOLA PT,DPT
== END 2019-04-28 10:47 | disposition home health service (06) | DRG 178 ==
LOC: ED 12:10 → 5E 20:02 → EDHOLD 20:02 → 5E 21:04
PROVIDERS: Physician Assistant; ADMIT Internal Medicine
DX: J15.6 Pneumonia due to other Gram-negative bacteria (principal); N39.0 Urinary tract infection, site not specified; J44.1 Chronic obstructive pulmonary disease with (acute) exacerbation; J44.0 Chronic obstructive pulmonary disease with (acute) lower respiratory infection; J98.11 Atelectasis; I50.32 Chronic diastolic (congestive) heart failure; E44.0 Moderate protein-calorie malnutrition; I27.20 Pulmonary hypertension, unspecified; E11.22 Type 2 diabetes mellitus with diabetic chronic kidney disease; G89.29 Other chronic pain; M54.9 Dorsalgia, unspecified; E11.42 Type 2 diabetes mellitus with diabetic polyneuropathy; I15.9 Secondary hypertension, unspecified; F41.1 Generalized anxiety disorder; J45.50 Severe persistent asthma, uncomplicated; I48.91 Unspecified atrial fibrillation; I25.10 Atherosclerotic heart disease of native coronary artery without angina pectoris; F17.200 Nicotine dependence, unspecified, uncomplicated; F51.01 Primary insomnia; J98.6 Disorders of diaphragm; N18.3 Chronic kidney disease, stage 3 (moderate); M35.00 Sjogren syndrome, unspecified; R62.7 Adult failure to thrive; S00.83XA Contusion of other part of head, initial encounter; W01.0XXA Fall on same level from slipping, tripping and stumbling without subsequent striking against object, initial encounter; M19.90 Unspecified osteoarthritis, unspecified site; K57.90 Diverticulosis of intestine, part unspecified, without perforation or abscess without bleeding; K21.9 Gastro-esophageal reflux disease without esophagitis; E78.5 Hyperlipidemia, unspecified; E05.90 Thyrotoxicosis, unspecified without thyrotoxic crisis or storm; B35.1 Tinea unguium; M20.42 Other hammer toe(s) (acquired), left foot; M20.41 Other hammer toe(s) (acquired), right foot; Y93.89 Activity, other specified; Y92.098 Other place in other non-institutional residence as the place of occurrence of the external cause; Y99.8 Other external cause status; Z79.01 Long term (current) use of anticoagulants; Z86.711 Personal history of pulmonary embolism; Z91.81 History of falling; Z90.49 Acquired absence of other specified parts of digestive tract; Z88.2 Allergy status to sulfonamides; Z88.1 Allergy status to other antibiotic agents; Z86.73 Personal history of transient ischemic attack (TIA), and cerebral infarction without residual deficits; Z87.440 Personal history of urinary (tract) infections; Z87.01 Personal history of pneumonia (recurrent); Z98.51 Tubal ligation status; Z90.710 Acquired absence of both cervix and uterus; Z82.3 Family history of stroke; Z80.0 Family history of malignant neoplasm of digestive organs; Z68.26 Body mass index [BMI] 26.0-26.9, adult; B96.20 Unspecified Escherichia coli [E. coli] as the cause of diseases classified elsewhere

== ENCOUNTER → 2019-05-02 | Outpatient (CLI) | payer MEDICARE, MEDICAID | END | disposition home or self-care (01) | LOC: RAD 13:18 | DX: M16.12 Unilateral primary osteoarthritis, left hip (principal); M96.1 Postlaminectomy syndrome, not elsewhere classified ==

== ENCOUNTER 2019-06-21 07:53 | Inpatient (IN) | payer MEDICARE, MEDICAID ==
[~2019-06-21] VITALS: Ht 152.4 cm; Wt 54.6 kg
--- NOTE | ~2019-06-21 | PR ---
[place], [place] PROGRESS NOTE NAME: [id number] UNIT #: [id number] ROOM: 420 DOCTOR: HELENA PITT MD,CALLUM BIRTHDATE: [birth year] DOS: 06/22/2019 PULMONARY PROGRESS NOTE SUBJECTIVE: The patient was noted comfortable at this time, resting on the bed without any acute distress. Her symptoms of mental status changes have been completely resolved. She was noted fully awake, alert and oriented. She was ordered BiPAP that was used for a few hours yesterday. She has not been noted symptoms of fever or chills or any acute hemoptysis. OBJECTIVE: VITAL SIGNS: For the patient which were recorded showed normal temperature, respiratory rate 20, heart rate 80, blood pressure 167/64. Pulse oxygen saturation at rest on room air was 100% saturation. HEENT: Examination shows head was atraumatic. Eyes nonicterus. NECK: Supple. CARDIOVASCULAR: S1, S2 audible. LUNGS: Without any wheeze or crackles. IMPRESSION: 1. Stable respiratory status, resolution of mental status changes and hypoglycemia hypercapnia, clinically might be resolving as well. 2. History of bronchial asthma remained stable. 3. History of recurrent fall at home. PLAN OF MANAGEMENT: Repeat arterial blood gas to assess the resolution of the hypercapnia. Continue oxygen supplementation. In the meantime, other plan of management at this time as in progress. CALLUM MALIK MD CM:PNTRANS [id number] CALLUM PITT MD 06/22/19 1359 interface
--- NOTE | ~2019-06-21 | PR ---
[place], [place] PROGRESS NOTE NAME: QUINTON HINTON UNIT #: [id number] ROOM: 420 DOCTOR: HELENA PITT MD,CALLUM BIRTHDATE: [birth year] DOS: 06/24/2019 PULMONARY PROGRESS NOTE SUBJECTIVE: She was noted fully awake and alert this morning of assessment, resting on the bed without any acute distress, had not reported any symptoms of fever, chills, coughing or any sputum expectoration. She has a CT scan of the abdomen and pelvis done yesterday that was noted without any evidence of malignant tumor in the kidney as assessed and reported by the radiologist. PHYSICAL EXAMINATION: GENERAL: The patient comfortably sitting on the bed this morning. VITAL SIGNS: Normal temperature, respiratory rate of 18, heart rate 68, blood pressure 160/72 recorded. The pulse oxygen saturation on room air as 97% saturation. HEENT: Examination shows head was atraumatic. Eyes nonicterus. NECK: Supple. CARDIOVASCULAR: S1, S2 is audible. LUNGS: Noted clear. ABDOMEN: Soft, nontender. Bowel sounds present. EXTREMITIES: No new change. IMPRESSION: The patient with resolution of acute hypercapnic respiratory failure as well. History of bronchial asthma, stable. Multiple other medical illnesses noted stable. Specifically, there was no mass noted in the kidney, which was suspected with the ultrasound for this patient on this admission. PLAN OF CARE: Agree with the discharge planning for this patient. Caution was advised in the home setting after discharge with a history of recent falls. Other therapy, plan of management, care plan of treatment. CALLUM MALIK MD CM:PNTRANS [id number] CALLUM PITT MD 06/24/19 1335 interface
--- NOTE | ~2019-06-21 | PR ---
[place], [place] PROGRESS NOTE NAME: QUINTON HINTON UNIT #: [id number] ROOM: 420 DOCTOR: ABRAHAN TOVAR MD BIRTHDATE: [birth year] DOS: SUBJECTIVE: The patient is doing well without any complaints. She is sitting up in a chair. She is awake and alert and oriented. OBJECTIVE: VITAL SIGNS: Blood pressure is 112/54, pulse of 70, respirations 20, temperature 97.6. LUNGS: Clear. HEART: Regular. ABDOMEN: Soft. EXTREMITIES: Without any edema. ASSESSMENT AND PLAN: 1. Hypercapnic respiratory failure along with hypoxic respiratory failure, possibly from polypharmacy. The patient is encouraged to not take sleeping pills in the future as well as Neurontin at night. 2. Hyperkalemia with acute kidney injury. Repeat labs have not been done today. We will repeat them for tomorrow. 3. Ultrasound of the kidneys shows a possibility of a solid lesion. We will do a CT of the abdomen. 4. Failure to thrive, adult. The patient does not want to go to rehab. She would like to go home. 5. Hypoglycemia has corrected. We will discontinue IV fluids. ABRAHAN TOVAR MD CM:PNTRANS 0 5 ABRAHAN TOVAR MD 06/23/19845 interface
--- NOTE | ~2019-06-21 | DS ---
[place], [place] DISCHARGE SUMMARY [id number] UNIT #: [id number] ROOM: 420 DOCTOR: ABRAHAN TOVAR MD BIRTHDATE: [birth year] DOS: 06/24/2019 DISCHARGE SUMMARY DIAGNOSES: 1. Acute hypercapnic and hypoxic respiratory failure from polypharmacy. 2. Hypoglycemia from poor p.o. intake. 3. Acute kidney injury with hyperkalemia, possibly from acute tubular necrosis and poor p.o. intake and dehydration. 4. Benign hypertension. 5. Adult failure to thrive. 6. Chronic pain syndrome. 7. Primary insomnia. 8. History of pulmonary hypertension secondary from history of pulmonary embolism, on long-term use of anticoagulants. 9. Diastolic dysfunction. 10. Type 2 diabetes mellitus, diet controlled. 11. Peripheral neuropathy. 12. Right diaphragm paralysis. 13. Ambulatory dysfunction following falls. DISCHARGE MEDICATIONS: Medications on discharge will be Remeron 15 mg at bedtime, metoprolol 25 b.i.d., Eliquis 2.5 b.i.d., duloxetine 30 b.i.d., Ranexa 500 b.i.d., Symbicort 160 two puffs twice a day, and Tylenol 650 q. 4 hours p.r.n. HOSPITAL COURSE: The patient is 83 years old, known to me from multiple admissions to the hospital, was brought to the Emergency Room after another fall at home. The patient was seen in the Emergency Room and was admitted. After admission, she was found to be increasingly somnolent and lethargic and almost unresponsive. ABG was ordered, which showed hypercapnia and hypoxemia. The patient's medications were reviewed and was found to have evidence of polypharmacy. The gabapentin, zolpidem, and Percocet were discontinued. The patient was placed on BiPAP and oxygen supplementation. Dr. Esqueda was consulted. The patient also was found to have acute kidney injury with hyperkalemia. The patient was ordered IV fluids, polarizing treatment, and consultation with Dr. Jones. Potassium levels have improved and are back to normal and the kidney functions have improved and back to her baseline state. Ultrasound of the kidneys were ordered, which showed a renal mass. At that time, the patient was ordered a CT of the abdomen and pelvis without contrast and there was no evidence of any mass. With the BiPAP, the patient's mental status is improved. She is back to her baseline, awake, alert and oriented. PT/OT was consulted as well as social service for short-term placement to rehab. The patient has refused, so the patient is going to be discharged to home. She does have chronic primary insomnia. Unfortunately, zolpidem 10 mg is probably too high of a dose for the patient. I have discontinued the zolpidem and placed her on a low dose of Remeron. The patient will have visiting nurses, PT, OT at home and follow up [place], [place] DISCHARGE SUMMARY NAME: QUINTON HINTON UNIT #: [id number] ROOM: 420 DOCTOR: ABRAHAN TOVAR MD BIRTHDATE: [address] Lombardi. She is encouraged to eat better and stay hydrated. ABRAHAN TOVAR MD CM:DISCHARG 6 ABRAHAN TOVAR MD 06/24/19 0950 interface
--- NOTE | ~2019-06-21 | PR ---
[place], [place] PROGRESS NOTE NAME: QUINTON HINTON UNIT #: [id number] ROOM: 420 DOCTOR: CALLUM HILL MD BIRTHDATE: [birth year] DOS: 06/23/2019 SUBJECTIVE: She has been noted comfortable without any acute distress, resting comfortably this morning has been ordered. The CT scan of the abdomen for assessment of possibility of mass lesion in the kidneys. Respiratory elizalde, she has been doing well. Denies shortness of breath, coughing, sputum expectoration or chest pain. OBJECTIVE: VITAL SIGNS: Normal temperature, respiratory 20, heart rate 71, blood pressure 112/54 recorded at midnight. Pulse oxygen saturation on room air 98% saturation. HEENT: Examination shows head was atraumatic. Eyes nonicterus. NECK: Supple. CARDIOVASCULAR: S1, S2 is audible. LUNGS: The patient was noted without any acute wheezing or crackles at the present time. ABDOMEN: Soft, flat, nontender, bowel sounds present. EXTREMITIES: No new change. LABORATORY DATA: The phosphorus level noted as normal this morning. IMPRESSION: 1. The patient with mild hyperkalemia, which was resolved. 2. Chronic kidney disease. 3. Rule out mass of the kidney injury, which was suspected with the ultrasound in the lower pole of the kidney. This was noted in the right kidney. IMPRESSION: 1. The patient has been currently noted with resolved hypercapnia at this time. 2. History of bronchial asthma remains stable and other medical illnesses. 3. Rule out mass lesion in the right kidney PLAN OF MANAGEMENT: Proceed with the CT scan of the abdomen, which has been ordered. Other therapy, plan of management. Additional treatment changes will be made based on progression of the illness. [place], [place] PROGRESS NOTE NAME: QUINTON HINTON UNIT #: [id number] ROOM: 420 DOCTOR: CALLUM HILL MD BIRTHDATE: [birth year] CALLUM MALIK MD CM:PNTRANS [phone] CALLUM PITT MD 06/23/19 1408 interface
--- NOTE | ~2019-06-21 | EKG ---
[place], [place] ELECTROCARDIOGRAM REPORT NAME: QUINTON HINTON UNIT #: [id number] ROOM: 420 DOCTOR: ISAAC DRAFT REPORT BIRTHDATE: [birth year] [facility] Test Date: 2019-06-21 Test Time: 08:09:45 Pat Name: QUINTON HINTON Department: Room: 420 Gender: F Wine Master: : 1935 Requested By: ALMA CLARK Order Number: [id number] Reading MD: Inder Rudd Measurements Intervals Stryker Rate: 60 P: 33 DE: 171 QRS: 40 QRSD: 93 T: 35 QT: 433 QTc: 433 Interpretive Statements Sinus rhythm Borderline low voltage, extremity leads Nonspecific T abnormalities, anterior leads Compared to ECG 04/21/2019 13:17:04 T-wave abnormality now present Ventricular premature complex(es) no longer present Electronically Signed On 06-22-2019 6:22:05 PDT by Inder Rudd CM:EKGRPT:ELECTROCARDIOGRAM REPORT [id number] ALMA GRAY DRAFT REPORT ALMA CLARK MD
--- NOTE | ~2019-06-21 | WRIGHTHP ---
[place], [place] PATIENT HISTORY AND PHYSICAL EXAM NAME: QUINTON HNITON UNIT #: [id number] ROOM: 420 DOCTOR: ABRAHAN TOVAR MD BIRTHDATE: [birth year] DOS: 06/22/2019 HISTORY OF PRESENT ILLNESS: The patient is 83 years old. The patient was brought into the Emergency Room after a fall at home. She has had multiple falls lately and has had multiple admissions, but refuses to go to rehab and always goes home, so we decided to admit her to the hospital, but soon after admission, nursing staff in the floor called saying that the patient was increasingly somnolent and was difficult to arouse, so an ABG was done, which showed she was hypercapnic and slightly hypoxic and this was thought to be related to the polypharmacy that she is on. She was placed on a BiPAP and repeat blood gas did improve after the BiPAP was placed. She was also found to be hyperkalemic with potassium of 5.8, for which she underwent polarizing treatment in the Emergency Room. She denies having any chest pains or palpitations this morning, she is awake and alert and oriented, answers questions appropriately, slightly slow to respond. She complains of a lot of pain in her back. PAST MEDICAL HISTORY: Significant for: 1. Last hospitalization in 04/2019. She at that time had left lower lobe pneumonia. 2. Benign hypertension. 3. Adult failure to thrive. 4. Multiple falls. 5. Chronic long-term use of anticoagulants. 6. History of pulmonary PE with pulmonary hypertension. 7. Chronic diastolic dysfunction. 8. Type 2 diabetes mellitus, not on any medications. 9. Peripheral neuropathy. 10. Primary insomnia. 11. Chronic kidney disease stage 3. 12. Right hemidiaphragm paralysis. MEDICATIONS: She is on are Symbicort 160 two puffs twice a day, Tylenol 325 q. 4, Percocet 5 daily, Eliquis 2.5 mg b.i.d., duloxetine 30 b.i.d., gabapentin 300 b.i.d., metoprolol 25 b.i.d., Ranexa 500 b.i.d., zolpidem 5 at bedtime. SOCIAL HISTORY: Nonsmoker, does not use any alcohol. PHYSICAL EXAMINATION: GENERAL: She is awake and alert and oriented this morning. VITAL SIGNS: Graphic trend shows a pressure 167/54, pulse of 80, respirations 20, temperature 97.5. LUNGS: Diminished breath sounds. No wheezes, rales or rhonchi heard. HEART: Regular. ABDOMEN: Soft, scaphoid. EXTREMITIES: Without any edema. ASSESSMENT AND PLAN: 1. Multiple falls with ambulatory dysfunction. PT/OT will be consulted as well as social service for placement. [place], [place] PATIENT HISTORY AND PHYSICAL EXAM NAME: QUINTON HINTON UNIT #: [id number] ROOM: 420 DOCTOR: ABRAHAN TOVAR MD BIRTHDATE: [birth year] 2. Hypercapnic respiratory failure, acute along with hypoxic respiratory failure. This is most likely from polypharmacy. The patient is advised to discontinue especially zolpidem, which need to be discontinued. The patient was placed on a BiPAP. A consultation with Dr. Esqueda was obtained. 3. Hyperkalemia from acute kidney injury. She does have chronic kidney disease stage 3. Her appetite has been poor. She has not been eating well. Polarizing treatment did bring the potassium down to 3.8. This morning's potassium is up to 5.2. Dr. Jones is following. Renal ultrasound was pending. 4. Chronic pain syndrome with primary osteoarthritis, in this patient it will be difficult to give her any narcotics because of high risk for hypercapnia. 5. Hypoglycemia, mostly again due to poor p.o. intake. IV fluids were given. Potassium is up to 200. We will discontinue the IV fluids. Today, I encouraged the patient to eat. ABRAHAN TOVAR MD CM:HISPHYS:PATIENT HISTORY AND PHYSICAL EXAMINATION [phone] ABRAHAN TOVAR MD 07/06/19 4710 interface
--- NOTE | ~2019-06-21 | PR ---
[place], [place] PROGRESS NOTE NAME: QUINTON HINTON UNIT #: [id number] ROOM: 420 DOCTOR: ABRAHAN TOVAR MD BIRTHDATE: [birth year] DOS: 06/24/2019 SUBJECTIVE: The patient is feeling good, does not have any new complaints other than she is unable to sleep. OBJECTIVE: VITAL SIGNS: Graphic trend shows a pressure of 160/72, pulse of 68, respirations 18, temperature 97.4. LUNGS: Clear. HEART: Regular. ABDOMEN: Soft. EXTREMITIES: Without any edema. ASSESSMENT AND PLAN: 1. Acute kidney injury with hyperkalemia, which is improved and is back to her baseline kidney functions. 2. Acute hypercapnic and hypoxic respiratory failure, which is resolved. This is most likely from polypharmacy. 3. Hypoglycemia, which is resolved. Blood sugar is 127 this morning. Encouraged the patient to eat and drink and stay hydrated and the patient is refusing SNF placement. So, the plan is to discharge with visiting nurses and PT/OT. ABRAHAN TOVAR MD CM:PNTRANS [phone] ABRAHAN TOVAR MD 06/24/19 1349 interface
--- NOTE | ~2019-06-21 | CON ---
[place], [place] REPORT OF CONSULTATION [id number] UNIT #: [id number] ROOM: 420 DOCTOR: CALLUM HILL MD BIRTHDATE: [birth year] DOS: 06/21/2019 PULMONARY CONSULTATION, EVALUATION AND MANAGEMENT CONSULTATION REQUESTED BY: Dr. America Bee. REASON FOR CONSULTATION: To assess the patient's mental status changes and hypercarbia. HISTORY OF PRESENT ILLNESS: This is an 83-year-old white female patient who has been noted with history of frequent falls at home. She had been admitted to the hospital under the care of Dr. America Bee. She has been brought to the hospital after another episode of fall at home. The patient has been assessed in the Emergency Room. CT scan of the head was completed, does not show any evidence of acute abnormality suggestive of acute intracerebral bleed, subdural hematoma or others. She has been noted with hyperkalemia. The patient was given 20 units of insulin and 1 pack of 250 mL of 10% dextrose. The patient has been admitted to the hospital, noted with later on tremor, shakiness, and change in mental status 4 hours later upon admission. The blood sugar was done, which has been noted with evidence of severe hypoglycemia with blood sugars only 47. The patient had been given oral use and other glucose supplements with improvement in blood noted more than 100. The patient was noted currently to be awake, appeared to be somewhat lethargic, and not noted at a normal baseline mental status. Arterial blood gas was also done for assessment of the change in mental status at 12:15 that has been noted with hypercarbia with decreased pH. The patient has not reported any symptoms of coughing or chest pain at this time. The history to be obtained is very limited because of the patient's current mental status change, which has not been completely resolved. So, the review of systems cannot be effectively completed. The other history has been known to me from a previous admission in the hospitalization. The patient admitted to the hospital in 04/2019. PAST MEDICAL HISTORY: Known as: 1. Uncomplicated severe persistent bronchial asthma with frequent hospitalizations. 2. History of common variable hypogammaglobulinemia. 3. Type 2 diabetes mellitus. 4. Permanent atrial fibrillation. 5. History of thromboembolism. 6. Chronic kidney disease, stage 2 to 3. 7. Coronary artery disease. 8. Essential hypertension. 9. Congestive heart failure, preserved ejection fraction. 10. History of allergic rhinitis. PAST SURGICAL HISTORY: 1. Therapeutic bronchoscopy. 2. MediPort insertion. 3. Cholecystectomy. 4. Appendectomy. [place], [place] REPORT OF CONSULTATION NAME: QUINTON HINTON UNIT #: [id number] ROOM: 420 DOCTOR: HELENA PITT MD,CALLUM BIRTHDATE: [birth year] 5. Surgery of the lower back as well. SOCIAL HISTORY: The patient lives at home with intermittent stay in the assisted facility as well. She has 2 children. FAMILY HISTORY: Noted noncontributory. CURRENT MEDICATIONS: Administered noted as Ranexa, metoprolol tartrate, Cymbalta, Eliquis 2.5 mg b.i.d., Pulmicort Respules, albuterol sulfate with nebulizer q.6 hours, hydralazine, Lasix, and other p.r.n. meds. DRUG ALLERGIES: REPORTED: 1. SULFA DRUGS. 2. FLUOROQUINOLONES. PHYSICAL EXAMINATION: GENERAL: An 83-year-old female patient noted currently awake and alert without any distress. Height of 5 feet, weight of 126 pounds, BMI 24.7. VITAL SIGNS: Recorded as normal temperature, respiratory rate 16-20, heart rate 88-72, blood pressure 186/75-178/79. Pulse oxygen saturation at rest on room air 99-100% saturation. HEENT: Examination shows head was atraumatic. Eyes nonicterus. NECK: Supple. CARDIOVASCULAR SYSTEM: S1, S2 is audible. LUNGS: Without any wheeze or crackle at the present time heard. ABDOMEN: Soft, nontender. Bowel sounds present. EXTREMITIES: The patient noted without any acute edema. MUSCULOSKELETAL: Without any acute deformities. VISIBLE SKIN: Without any lesions or rashes, open area or wounds. CENTRAL NERVOUS SYSTEM: Noted decreased mental status, was able to move the extremities and squeezes the hand upon vocal commands, but noted general weakness. LABORATORY DATA: CBC on 06/21/2019; WBC count 4.6, hemoglobin 11.7, platelet count was normal. PT, INR, and PTT were noted normal this morning on admission. CMP that was done this morning, BUN 26, creatinine 1.97, potassium 5.8, chloride 110. Repeat potassium 3.8 at 11:22. Arterial blood gas; pH of 7.32, pCO2 of 50.1, pO2 67.5. CT scan of cervical spine does not show any acute injury findings. The patient's CT scan was reported without any acute intracranial abnormalities. The chest x-ray, 1 view, which was reviewed, does not show any acute pulmonary infiltration. Small pleural thickening noted in the right lower lobe with scarring, which is a chronic finding. MediPort was noted in place in the left chest. IMPRESSION: 1. The patient who has been currently admitted to the hospital noted change in mental status, multifactorial, mostly related to severe hypoglycemia. 2. The patient with acute hypercarbia as well as hypoventilation and hypoglycemia. 3. History of bronchial asthma without an acute exacerbation. [place], [place] REPORT OF CONSULTATION NAME: QUINTON HINTON UNIT #: [id number] ROOM: 420 DOCTOR: CALLUM HILL MD BIRTHDATE: [birth year] 4. Hypoglycemia caused by the infusion of the insulin, which was given for the medical management and mild hyperkalemia. 5. The patient with chronic kidney disease, stage 3 noted as well. 6. Common variable hypogammaglobulinemia. 7. History of atrial fibrillation and thromboembolic, on Eliquis without any abnormal bleeding so far known and identified. PLAN OF THERAPY: Medical management of hypoglycemia. Avoiding the agent for the hyperkalemia, which is noted mild, symptomatic management. Other alternative treatment would be considered given as needed. BiPAP was ordered to be used 14/8 setting to help improve the hypercarbia. Repeat arterial blood gas to be obtained in about 2-3 hours on the BiPAP to assess the improvement. Monitor mental status. Avoid feeding if the patient has been noted in mental status. Once the patient's mental status improved, she could be started on usual eating. Other therapy, plan of management. Additional treatment changes will be done based on progression of the illness. Supportive care, plan of management and other care of treatment. Thanks for allowing me to participate in the care of this patient. CALLUM MALIK MD CM:CONSTR:REPORT OF CONSULTATION 1517 06/22/19 0521 interface
[2019-06-21 07:53] VITALS: BP 198/78
[~2019-06-21 07:53] MED LIST changes: +ELIQUIS2.5 M1 PO
[2019-06-21 08:11] LABS: BASO % 0.9 % (0.0-1.0); EOS # 0.3 10*3/uL (0.0-0.4); EOS % 5.7 % (1.0-4.0); HEMATOCRIT 37.5 % (37.0-47.0); HEMOGLOBIN 11.7 g/dl (12.0-16.0); LYMPH # 1.2 10*3/uL (1.3-4.4); LYMPH % 25.5 % (27.0-41.0); MEAN CELL VOLUME 97.4 fl (81.0-99.0); MEAN CORPUSCULAR HGB 30.4 pg (27.0-31.0); MEAN CORPUSCULAR HGB CONC 31.2 g/dl (33.0-37.0); MEAN PLATELET VOLUME 10.8 fl (9.6-12.3); MONO # 0.6 10*3/uL (0.1-1.0); MONO % 13.9 % (3.0-9.0); NEUT # 2.4 10*3/uL (2.3-7.9); NEUT % 53.1 % (47.0-73.0); PLATELET COUNT AUTOMATED 169 10*3/uL (130-400); RED BLOOD COUNT 3.85 10*6/uL (4.10-5.10); RED CELL DISTRI WIDTH 14.4 % (0-14.5); WHITE BLOOD COUNT 4.6 10*3/uL (4.8-10.8)
[2019-06-21 08:21] LABS: ACT PARTIAL THROMBO TIME 27.1 SECONDS (20.0-32.1); INTERNATIONAL NORM RATIO 0.9 (2.0-3.5)
[2019-06-21 08:34] LABS: ALBUMIN 3.4 gm/dl (3.1-4.5); ALKALINE PHOSPHATASE 95 U/L (45-117); BUN 26 mg/dl (7-24); CHLORIDE 110 mmol/L (98-107); CREATININE 1.97 mg/dL (0.55-1.02); POTASSIUM 5.8 mmol/L (3.5-5.1); SGOT/AST 19 IU/L (3-35); SGPT/ALT 13 U/L (12-78); SODIUM 141 mmol/L (136-145); TOTAL PROTEIN 6.3 gm/dL (6.4-8.2)
[2019-06-21 08:39] LABS: TROPONIN I < 0.015 ng/ml (<0.045)
[2019-06-21 09:28] LABS: BILIRUBIN NEGATIVE (NEGATIVE); BLOOD NEGATIVE (NEGATIVE); CLARITY SL CLOUDY (CLEAR); COLOR YELLOW (YELLOW); GLUCOSE NEGATIVE (NEGATIVE); KETONE NEGATIVE (NEGATIVE); LEUKO ESTERASE NEGATIVE (NEGATIVE); NITRITE NEGATIVE (NEGATIVE); SPECIFIC GRAVITY 1.015 (1.005-1.030); UROBILINOGEN 0.2 E.U./dl (0.2-1.0)
--- NOTE | 2019-06-21 09:29 | NUR ---
ORDER FOR AMP DEXTROSE AND 10UNIT INSULIN TO LOWER POTASSIUM. AMP DEXTROSE NOT AVAILIBLE PER PHARMACY, 500CC BAG 10% DEXTROSE PROVIDED, 250CC TO BE GIVEN FIRST, THEN THE INSULIN DOSING, PER PHARMACY. SALINE WILL BE HELD FOR NOW AND PROVIDED TO INPATIENT NURSE TO EXPEDITE INFUSION OF DEXTROSE SOLUTION.
[2019-06-21 10:16] VITALS: BP 176/69
--- NOTE | 2019-06-21 10:16 | NUR ---
A 83yr old female, admitted to , under the services of ABRAHAN Mckeon MD with a diagnosis of . Chief complaint is fell at home, hitting her head. Patient arrived via stretcher from ER. Monitor applied. Initial assessment completed. Vital signs taken and recorded. See assessment for past medical history, medications and allergies. Patient and/or family oriented to unit. [facility] visitation policy reviewed. Clothing/patient valuable form completed. Bed is in low position with wheels locked and bed exit alarm acitivated. HUAN KC L
[2019-06-21] MEDS ORDERED: SYMB160 INH (10:39)
[2019-06-21] MEDS ORDERED: TYLENOL325 M1 PO (10:40)
--- NOTE | 2019-06-21 11:08 | NUR ---
DR. TRUJILLO NOTIFIED OF CONSULT. OBTAINED ORDER FOR STAT K+ LEVEL AND 30GM KAYEXELATE NOW, CALL WITH K+ RESULT.
--- NOTE | 2019-06-21 11:50 | NUR ---
PATIENT DROWSY, FALLS ASLEEP AFTER AROUSING BRIEFLY, POX 99% ROOM AIR. PHONED DR. TOVAR FOR ORDER FOR ABG STAT, OBTAINED BEDSIDE GLUCOSE RESULT OF 47. ADMINISTERED 1 AMP D50. PATIENT AWAKE, STATES ABLE TO TRY TO DRINK SOME ORANGE JUICE. SHE REMAINS DROWSY BUT AROUSABLE AT THIS TIME.
[2019-06-21 12:00] VITALS: BP 186/75
--- NOTE | 2019-06-21 12:20 | NUR ---
DR. TRUJILLO PHONED WITH MOST RECENT K+ RESULT. OBTAINED ORDER TO NOT GIVE THE KAYEXELATE.
[2019-06-21 12:26] LABS: ABG BASE EXCESS -0.1 mmol/L (-2.0-2.0); ABG HCO3 25.9 mmol/l (22-26); ABG O2 SATURATION 95.1 % (95-97); ARTERIAL BLOOD GAS PCO2 50.1 mmHg (35-45); ARTERIAL BLOOD GAS PH 7.329 (7.35-7.45); ARTERIAL BLOOD GAS PO2 67.5 mmHg (80-90)
--- NOTE | 2019-06-21 12:28 | NUR ---
BSG CURRENTLY 129, PATIENT REMAINS DROWSY, BRIEFLY AROUSABLE, PUPILS EQUAL AND REACTIVE, LEFT HAND APPLICATION OPERATIONS ENGINEER WEAKER THAN RIGHT.
--- NOTE | 2019-06-21 12:37 | NUR ---
DR. TOVAR NOTIFIED OF ABG RESULT AND OF BSG RESULTS. OBTAINED ORDER FOR BIPAP 13/02, IVF D5 1/2 NS @ 80ML/HR, DISCONTINUE GABAPENTIN AND PERCOCET, NPO FOR NOW, CONSULT DR. MALIK. DR. MALIK NOTIFIED OF CONSULT, ASSESSED THE PATIENT, ORDERS GIVEN TO MAKE BIPAP 15/04, AND CONTINUE THE PREVIOUS DIET D/T PATIENT ALERT ENOUGH TO ORDER LUNCH AND TALK TO DR. MALIK AT PRESENT TIME.
--- NOTE | 2019-06-21 13:09 | NUR ---
PT PLACED ON BIPAP PER DR MALIK. 15/04, 8, 30%. TOLERATING WELL.
--- NOTE | 2019-06-21 13:43 | NUR ---
PATIENT REMAINS DROWSY, JERKING MOVEMENTS NOTED, SHE IS FALLING ASLEEP EATING LUNCH, WILL APPLY BIPAP AFTER MEAL ATTEMPT, PER DR. MALIK ORDER. IVF D51/NS 2 80ML/HR INFUSING ORDERED.
--- NOTE | 2019-06-21 15:04 | NUR ---
PATIENT'S DAUGHTER IN TO VISIT AT BEDSIDE, SHE SUSPECTS THAT PATIENT MAY HAVE TAKEN HER BEDTIME MEDS BOTH IN THE MORNING AND AT NIGHT UNINTENTIONALLY. PER DAUGHTER, PATIENT HAS BEEN TAKING PILLS INCORRECTLY, MISSING DOSES AT TIMES EVEN THOUGH THEY ARE PLACED IN CLEARLY MARKED CONTAINERS FOR EACH DAY OF THE WEEK, AM AND PM, SHE IS NOT SURE WHY THE PATIENT HAS HAD SOME CONFUSION ABOUT THIS LATELY.
[2019-06-21 15:47] VITALS: BP 134/71
[2019-06-21 15:53] LABS: ABG BASE EXCESS -0.5 mmol/L (-2.0-2.0); ABG HCO3 25.1 mmol/l (22-26); ABG O2 SATURATION 98.8 % (95-97); ARTERIAL BLOOD GAS PCO2 47.3 mmHg (35-45); ARTERIAL BLOOD GAS PH 7.341 (7.35-7.45)
[2019-06-21 20:00] VITALS: BP 157/66
--- NOTE | 2019-06-21 20:00 | NUR ---
24 HOUR CHART CHECK COMPLETE.
[2019-06-22] VITALS: BP 126/70
--- NOTE | 2019-06-22 06:11 | NUR ---
QUINTON HINTON [id number] Please refer to the physician's history and physical for past medical history, comorbid conditions, and allergies. Diagnosis: DIZZINESS, FREQUENT FALLS HYPERKALEMIA Kade Score: 17,AT RISK WOUND DESCRIPTIONS: Wound Number: 1 Location of the wound: left lower leg below the knee Type of wound: skin tear Thickness: Partial Size: 1.5cm x 1.3cm x 0.1cm Tunneling: none Undermining: none Sinus Tract: none Presence of Exudate: Serosanguineous Amount: Light Color: Red Odor: None Periwound Skin Appearance: Normal Wound edges: approximated Pain (associated with wound): none at time of assessement How does patient state this happened? pt stated this happened when she fell Surface the patient is resting on: Position Pro SKIN PREVENTION RECOMMENDATION: 1. Pressure redistribution support surface as appropriate 2. Elevate heels 3. Remove boots/TEDS every shift and reapply 4. Head of bed 30 degrees as tolerated 5. Assess nutrition and hydration 6. Manage moisture 7. Avoid the use of containment devices while in bed 8. Use absorptive products on surfaces limit layers of linens on bed 9. Turn and reposition every 1-2 hours in bed and every 1 hour in chair as tolerated 10. Weight shifts every 15 minutes while up in chair 11. Offloading with pillows or device to keep heels elevated off bed 12. Monitor skin at least every shift 13. Inspect under medical devices twice a day WOUND TREATMENT RECOMMENDATIONS: Partial thickness guidelines: Cleanse left lower leg below the knee with nss and apply sureprep around the wound versatel to wound bed hydrogel to wound bed and cover with optifoam gentle.
[2019-06-22 06:17] VITALS: BP 167/64
--- NOTE | 2019-06-22 06:17 | NUR ---
PT HAS HAD TWO SMALL EMESIS AT THIS TIME AND IS COMPLAINING OF BEING NAUSEOUS AND CHILLED. VITALS ARE FOLLOWED T:97.5, P:80, R:20, BP:167/64, PO:100% RA. DR CRUM NOTIFIED AND T.O. TAKEN FOR 8MG ZOFRAN IV Q6H PRN. WILL CONTINUE TO MONITOR THE PT.
--- NOTE | 2019-06-22 06:44 | NUR ---
PRN ZOFRAN ADMINISTERED AT THIS TIME FOR PT C/O NAUSEA AND TWO SMALL YELLOW/MUCOUSY EMESIS. WILL CONTINUE TO MONITOR.
[2019-06-22 07:07] LABS: CREATININE 1.67 mg/dL (0.55-1.02)
[2019-06-22 07:10] LABS: POTASSIUM 5.2 mmol/L (3.5-5.1)
--- NOTE | 2019-06-22 07:20 | NUR ---
TAKEN DOWN TO X-RAY FOR RENAL ULTRASOUND.
--- NOTE | 2019-06-22 07:45 | NUR ---
DR. TOVAR HERE TO SEE PATIENT
--- NOTE | 2019-06-22 08:25 | NUR ---
Nursing screen received and chart reveiw completed. Patient may benefit from Occupational Therapy evaluation d/t recent fall and decline in function. Thank you. Raven Caraballo OTR/l
--- NOTE | 2019-06-22 10:30 | NUR ---
Institute Scientist in to talk to patient. Patient states lives at home with her . There are 0 steps in the home. Physician: Dr. Brandon Longo [facility] Home health services: she would like to have [facility] on discharge Patient's level of ADLs: MINIMAL ASSIST Patient has working utilities: yes DME: walker, O2 @ 2L nc, portable O2 tanks, nebulizer, O2 supplier is [facility] Follow-up physician's appointment after d/c: she prefers to make her own follow up appt after discharge Does patient want to access PORTAL?: no Discharge plan discussed with patient. She lives at home with her . She needs minimal assistance in her ADLs and ambulates with a walker. Discussed home health care services and she was recently discharged from [facility] but would like to have their services again on discharge. When medically stable she will be discharged to home with [facility] services. Her will provide transportation on discharge. CHADD SCHRADER RN
[2019-06-22 11:14] LABS: ABG BASE EXCESS 0.1 mmol/L (-2.0-2.0); ABG O2 SATURATION 97.6 % (95-97); ARTERIAL BLOOD GAS PH 7.468 (7.35-7.45); ARTERIAL BLOOD GAS PO2 84.1 mmHg (80-90)
[2019-06-22 12:00] VITALS: BP 128/56
--- NOTE | 2019-06-22 14:57 | NUR ---
PHYSICAL THERAPY Physical therapy evaluation attempted however Pt refused. Will attempt later. thank you Amanda Beard, PT, DPT
[2019-06-22 16:00] VITALS: BP 119/50
[2019-06-22 20:00] VITALS: BP 136/71
--- NOTE | 2019-06-22 23:00 | NUR ---
BIPAP HELD DUE TO NAUSEA
[2019-06-23] VITALS: BP 112/54
--- NOTE | 2019-06-23 04:42 | NUR ---
Recommend follow up for wound care in outpatient setting patient refused at this time.
[2019-06-23 08:00] VITALS: BP 150/78
--- NOTE | 2019-06-23 10:00 | NUR ---
High Lighter in to see patient. No new needs or request at this time. When medically stable she will be discharged to home with [facility] services. Per multidisciplinary discharge planning meeting patient will have a CT abdomen due to ultrasound of kidneys showing a possibility of a solid lesion. Dr. Jones and Dr. Esqueda are following.
--- NOTE | 2019-06-23 11:38 | NUR ---
Spoke to Dr. Bee regarding palliative care consult order as [facility] follows the patient at home and would like to follow the patient as an inpatient also. New order received. Faxed palliative care consult order to [facility] and notified [facility] nurse.
[2019-06-23 12:00] VITALS: BP 127/53
--- NOTE | 2019-06-23 13:16 | NUR ---
PHYSICAL THERAPY Physical therapy evaluation completed, 4E. Full details to follow. Low complexity determined after evaluation/chart review, 525[address]. PT to work on endurance, gait, balance and safety. Recommending home health at discharge. Thank you Amanda garcia, PT, DPT
[2019-06-23 14:40] LABS: CREATININE 1.63 mg/dL (0.55-1.02)
[2019-06-23 14:53] LABS: POTASSIUM 3.7 mmol/L (3.5-5.1)
[2019-06-23 16:00] VITALS: BP 148/51
[2019-06-23 20:00] VITALS: BP 132/47
--- NOTE | 2019-06-23 21:15 | NUR ---
ZOFRAN GIVEN FOR COMPLAINTS OF NAUSEA.
--- NOTE | 2019-06-23 22:07 | NUR ---
PT. STATES ZOFRAN EFFECTIVE. KRISTIN LAST RN
--- NOTE | 2019-06-23 23:10 | NUR ---
Patient resting quietly with no c/o discomfort. Respirations easy and regular. Vital signs stable. No overt distress. JAIME ALVARADO
[2019-06-24] VITALS: BP 147/48
--- NOTE | 2019-06-24 04:33 | NUR ---
24HR CHART CHECK COMPLETE
[2019-06-24 06:41] LABS: CREATININE 1.61 mg/dL (0.55-1.02); POTASSIUM 3.9 mmol/L (3.5-5.1)
[2019-06-24 06:43] LABS: BASO % 0.7 % (0.0-1.0); EOS # 0.3 10*3/uL (0.0-0.4); EOS % 6.4 % (1.0-4.0); HEMATOCRIT 30.5 % (37.0-47.0); HEMOGLOBIN 9.8 g/dl (12.0-16.0); LYMPH # 1.2 10*3/uL (1.3-4.4); LYMPH % 29.2 % (27.0-41.0); MEAN CELL VOLUME 95.3 fl (81.0-99.0); MEAN CORPUSCULAR HGB 30.6 pg (27.0-31.0); MEAN CORPUSCULAR HGB CONC 32.1 g/dl (33.0-37.0); MEAN PLATELET VOLUME 11.3 fl (9.6-12.3); MONO # 0.6 10*3/uL (0.1-1.0); MONO % 14.3 % (3.0-9.0); NEUT % 48.4 % (47.0-73.0); PLATELET COUNT AUTOMATED 150 10*3/uL (130-400); RED CELL DISTRI WIDTH 14.1 % (0-14.5); WHITE BLOOD COUNT 4.1 10*3/uL (4.8-10.8)
[2019-06-24 07:44] VITALS: BP 160/72
--- NOTE | 2019-06-24 08:18 | NUR ---
Awake anad alert. dressing change to LLE. Dr. Bee in to evaulate and discharge was discussed. Discharge w/ [facility] pending for today.
[2019-06-24] MEDS ORDERED: REMERON15 M2 PO (08:30)
--- NOTE | 2019-06-24 08:41 | NUR ---
Faxed home health order to [facility]
--- NOTE | 2019-06-24 09:53 | NUR ---
Medicated for c/o headache 02/09.
[2019-06-24 12:00] VITALS: BP 123/47
--- NOTE | 2019-06-24 13:04 | NUR ---
Tylenol effective to ease headache to 4/10.
[2019-06-24 13:07] LABS: CREATININE,URINE 46.5 mg/dL (Not Estab.); MICRO ALBUMIN/CRE RATIO 236.6 (0.0-30.0)
--- NOTE | 2019-06-24 13:08 | NUR ---
Mediport de-accessed. dressing to site. Up in room w/ assist. Awaiting transportation to home, States dtr. will get off work around 3-5 pm. Monitor removed.
--- NOTE | 2019-06-24 15:46 | NUR ---
Discharge instructions reviewed with patient/family. Patient receptive and verbalizes understanding. Follow-up care arranged. Written instructions given to patient/family. IVAN WISE
--- NOTE | 2019-06-25 07:57 | NUR ---
PHYSICAL THERAPY CO-SIGN I approve of the Physical Therapy notes written above. PALAK SILVERMAN
== END 2019-06-24 16:12 | disposition home health service (06) | DRG 91 ==
LOC: ED 07:53 → 4E 09:02 → EDHOLD 09:02 → 4E 09:11
PROVIDERS: Emergency Medicine; Internal Medicine Critical Care Medicine; Internal Medicine Nephrology; ADMIT Internal Medicine
PROC: 5A09357 Assistance with Respiratory Ventilation, Less than 24 Consecutive Hours, Continuous Positive Airway Pressure (ICD-10-PCS; principal; 2019-06-21)
DX: G92 Toxic encephalopathy (principal); N17.0 Acute kidney failure with tubular necrosis; J96.01 Acute respiratory failure with hypoxia; J96.02 Acute respiratory failure with hypercapnia; I50.32 Chronic diastolic (congestive) heart failure; I27.82 Chronic pulmonary embolism; I13.0 Hypertensive heart and chronic kidney disease with heart failure and stage 1 through stage 4 chronic kidney disease, or unspecified chronic kidney disease; D80.1 Nonfamilial hypogammaglobulinemia; N25.81 Secondary hyperparathyroidism of renal origin; N18.4 Chronic kidney disease, stage 4 (severe); I48.21 Permanent atrial fibrillation; I25.10 Atherosclerotic heart disease of native coronary artery without angina pectoris; J44.9 Chronic obstructive pulmonary disease, unspecified; K57.90 Diverticulosis of intestine, part unspecified, without perforation or abscess without bleeding; M19.90 Unspecified osteoarthritis, unspecified site; E11.43 Type 2 diabetes mellitus with diabetic autonomic (poly)neuropathy; K31.84 Gastroparesis; F41.1 Generalized anxiety disorder; K21.9 Gastro-esophageal reflux disease without esophagitis; E78.5 Hyperlipidemia, unspecified; E05.90 Thyrotoxicosis, unspecified without thyrotoxic crisis or storm; M35.00 Sjogren syndrome, unspecified; R29.6 Repeated falls; E87.5 Hyperkalemia; F51.01 Primary insomnia; E11.42 Type 2 diabetes mellitus with diabetic polyneuropathy; E11.22 Type 2 diabetes mellitus with diabetic chronic kidney disease; R62.7 Adult failure to thrive; I27.20 Pulmonary hypertension, unspecified; G89.4 Chronic pain syndrome; E11.649 Type 2 diabetes mellitus with hypoglycemia without coma; J45.909 Unspecified asthma, uncomplicated; E87.8 Other disorders of electrolyte and fluid balance, not elsewhere classified; N28.89 Other specified disorders of kidney and ureter; Z79.01 Long term (current) use of anticoagulants; Z88.2 Allergy status to sulfonamides; Z88.8 Allergy status to other drugs, medicaments and biological substances; Z79.899 Other long term (current) drug therapy; Z87.01 Personal history of pneumonia (recurrent); Z86.73 Personal history of transient ischemic attack (TIA), and cerebral infarction without residual deficits; Z87.440 Personal history of urinary (tract) infections; Z98.51 Tubal ligation status; Z90.49 Acquired absence of other specified parts of digestive tract; Z90.710 Acquired absence of both cervix and uterus; Z82.3 Family history of stroke; Z83.3 Family history of diabetes mellitus; Z82.49 Family history of ischemic heart disease and other diseases of the circulatory system; Z80.0 Family history of malignant neoplasm of digestive organs

== ENCOUNTER → 2019-07-06 | Outpatient (CLI) | payer MEDICARE, MEDICAID ==
[~2019-07-06] MED LIST changes: +REMERON15 M2 PO; +SYMB160 INH; +ZOLPIDEM5 MG PO
[2019-07-06 17:04] LABS: BILIRUBIN NEGATIVE (NEGATIVE); BLOOD NEGATIVE (NEGATIVE); CLARITY CLEAR (CLEAR); COLOR YELLOW (YELLOW); GLUCOSE NEGATIVE (NEGATIVE); KETONE NEGATIVE (NEGATIVE); LEUKO ESTERASE 1+ (NEGATIVE); NITRITE NEGATIVE (NEGATIVE); SPECIFIC GRAVITY 1.025 (1.005-1.030); UROBILINOGEN 0.2 E.U./dl (0.2-1.0)
[2019-07-06 17:07] LABS: BASO % 0.9 % (0.0-1.0); EOS # 0.2 10*3/uL (0.0-0.4); HEMATOCRIT 35.5 % (37.0-47.0); HEMOGLOBIN 10.9 g/dl (12.0-16.0); LYMPH # 1.3 10*3/uL (1.3-4.4); LYMPH % 30.2 % (27.0-41.0); MEAN CELL VOLUME 96.5 fl (81.0-99.0); MEAN CORPUSCULAR HGB 29.6 pg (27.0-31.0); MEAN CORPUSCULAR HGB CONC 30.7 g/dl (33.0-37.0); MEAN PLATELET VOLUME 10.5 fl (9.6-12.3); MONO # 0.6 10*3/uL (0.1-1.0); NEUT # 2.2 10*3/uL (2.3-7.9); NEUT % 48.8 % (47.0-73.0); PLATELET COUNT AUTOMATED 212 10*3/uL (130-400); RED BLOOD COUNT 3.68 10*6/uL (4.10-5.10); RED CELL DISTRI WIDTH 14.4 % (0-14.5); WHITE BLOOD COUNT 4.4 10*3/uL (4.8-10.8)
[2019-07-06 17:13] LABS: URINE CREATININE RANDOM 92.8 mg/dL
[2019-07-06 17:19] LABS: ALBUMIN 3.5 gm/dl (3.1-4.5); CREATININE 1.65 mg/dL (0.55-1.02); POTASSIUM 5.1 mmol/L (3.5-5.1)
[2019-07-06 17:20] LABS: PHOSPHOROUS 3.7 mg/dL (2.5-4.9)
[2019-07-06 17:21] LABS: BACTERIA 1+; WBC 16-20 wbc/hpf (0-5)
[2019-07-06 17:59] LABS: FERRITIN 100.6 ng/mL (10.0-291.0); VITAMIN D, 25-HYDROXY 24.5 ng/mL (30-100)
[2019-07-06 18:00] LABS: PTH INTACT 147.8 pg/mL (18.5-88.0)
== END | disposition home or self-care (01) ==
LOC: LAB 16:32
PROVIDERS: Internal Medicine Nephrology
DX: N25.81 Secondary hyperparathyroidism of renal origin (principal); D63.1 Anemia in chronic kidney disease; N18.3 Chronic kidney disease, stage 3 (moderate)

== ENCOUNTER 2019-07-16 16:43 | Inpatient (IN) | payer MEDICARE, MEDICAID ==
[~2019-07-16] VITALS: Ht 154.9 cm; Wt 55.3 kg
[~2019-07-16 16:43] MED LIST changes: -ZOLPIDEM5 MG PO
[2019-07-16 16:49] VITALS: BP 160/61
[2019-07-16 17:34] LABS: BASO % 0.9 % (0.0-1.0); EOS # 0.2 10*3/uL (0.0-0.4); EOS % 4.7 % (1.0-4.0); HEMATOCRIT 34.4 % (37.0-47.0); HEMOGLOBIN 11.1 g/dl (12.0-16.0); LYMPH # 1.1 10*3/uL (1.3-4.4); MEAN CELL VOLUME 97.2 fl (81.0-99.0); MEAN CORPUSCULAR HGB 31.4 pg (27.0-31.0); MEAN CORPUSCULAR HGB CONC 32.3 g/dl (33.0-37.0); MEAN PLATELET VOLUME 10.5 fl (9.6-12.3); MONO # 0.7 10*3/uL (0.1-1.0); NEUT # 2.2 10*3/uL (2.3-7.9); NEUT % 51.7 % (47.0-73.0); PLATELET COUNT AUTOMATED 166 10*3/uL (130-400); RED BLOOD COUNT 3.54 10*6/uL (4.10-5.10); RED CELL DISTRI WIDTH 14.2 % (0-14.5); WHITE BLOOD COUNT 4.3 10*3/uL (4.8-10.8)
[2019-07-16 17:46] LABS: ACT PARTIAL THROMBO TIME 26.4 SECONDS (20.0-32.1)
[2019-07-16 17:50] LABS: ALBUMIN 3.3 gm/dl (3.1-4.5); ALKALINE PHOSPHATASE 96 U/L (45-117); BUN 23 mg/dl (7-24); CHLORIDE 109 mmol/L (98-107); CREATININE 1.93 mg/dL (0.55-1.02); LIPASE 102 U/L (73-393); POTASSIUM 4.9 mmol/L (3.5-5.1); SGOT/AST 12 IU/L (3-35); SGPT/ALT 14 U/L (12-78); SODIUM 140 mmol/L (136-145); TOTAL PROTEIN 5.9 gm/dL (6.4-8.2); TROPONIN I < 0.015 ng/ml (<0.045)
[2019-07-16 18:48] VITALS: BP 106/84
--- NOTE | 2019-07-16 19:45 | NUR ---
PT TO CT 1827 HRS AND RETURNED 1845 HRS GAVE PT WARM BLANKET DAUGHTER AT BEDSIDE PT HAS NO REQUESTS NO SIGN OF DISTRESS CALL DUVAL IN REACH BED IN LOWEST POSTITION BED RAILS UP X 2
[2019-07-16 21:11] VITALS: BP 143/62
[2019-07-16 21:30] VITALS: BP 152/65
--- NOTE | 2019-07-16 21:30 | NUR ---
A 83 YEAR OLD FEMALE PATIENT, admitted to [facility], under the services of Dr. RADAMES HARO,[facility] with a diagnosis of AMBULATORY DYSFUNCTION,FREQUENT FALLS AND RENAL INSUFFICIENCY. Chief complaint is FELL AT HOME AND HAVING SOME PAIN TO THE LEFT HIP AREA WELL RIGHT EYE PAIN AND RIGHT SIDE OF THE HEAD PAIN. Patient arrived via CART WITH RN from ER. Monitor applied. Initial assessment completed. Vital signs taken and recorded. See assessment for past medical history, medications and allergies. Patient and/or family oriented to unit. [address] visitation policy reviewed. Clothing/patient valuable form completed. JERRY FARAH
[2019-07-16] MEDS ORDERED: Percocet 325 MG1 TAB PO (21:47)
[2019-07-16] MEDS ORDERED: ZOLPIDEM5 MG PO (21:49)
--- NOTE | 2019-07-16 21:55 | NUR ---
SPOKE WITH DR CRUM REGARDING ADMISSION ORDERS, ORDERS RECIEVED.
[2019-07-17] VITALS: BP 113/84
[2019-07-17 03:37] LABS: BILIRUBIN NEGATIVE (NEGATIVE); BLOOD NEGATIVE (NEGATIVE); CLARITY SL CLOUDY (CLEAR); COLOR YELLOW (YELLOW); GLUCOSE NEGATIVE (NEGATIVE); KETONE NEGATIVE (NEGATIVE); LEUKO ESTERASE 1+ (NEGATIVE); NITRITE NEGATIVE (NEGATIVE); SPECIFIC GRAVITY 1.025 (1.005-1.030); UROBILINOGEN 0.2 E.U./dl (0.2-1.0)
[2019-07-17 03:44] LABS: MUCOUS 1+; WBC 51-100 wbc/hpf (0-5)
[2019-07-17 07:08] LABS: BASO # 0.1 10*3/uL (0.0-0.1); BASO % 1.2 % (0.0-1.0); EOS # 0.2 10*3/uL (0.0-0.4); EOS % 5.5 % (1.0-4.0); HEMATOCRIT 36.8 % (37.0-47.0); HEMOGLOBIN 11.7 g/dl (12.0-16.0); LYMPH # 1.3 10*3/uL (1.3-4.4); LYMPH % 29.8 % (27.0-41.0); MEAN CELL VOLUME 96.8 fl (81.0-99.0); MEAN CORPUSCULAR HGB 30.8 pg (27.0-31.0); MEAN CORPUSCULAR HGB CONC 31.8 g/dl (33.0-37.0); MONO # 0.7 10*3/uL (0.1-1.0); MONO % 15.5 % (3.0-9.0); NEUT # 1.9 10*3/uL (2.3-7.9); NEUT % 46.3 % (47.0-73.0); PLATELET COUNT AUTOMATED 187 10*3/uL (130-400); RED CELL DISTRI WIDTH 14.1 % (0-14.5); WHITE BLOOD COUNT 4.2 10*3/uL (4.8-10.8)
--- NOTE | 2019-07-17 07:20 | NUR ---
ARRIVED ON SHIFT, INTRODUCED TO PATIENT, BEDSIDE REPORT RECEIVED, NO NEEDS VOICED AT THIS TIME. WHITE BOARD UPDATED.
[2019-07-17 07:40] LABS: ALBUMIN 3.4 gm/dl (3.1-4.5); POTASSIUM 4.7 mmol/L (3.5-5.1)
[2019-07-17 07:45] LABS: CREATININE 1.85 mg/dL (0.55-1.02); TOTAL PROTEIN 6.1 gm/dL (6.4-8.2)
--- NOTE | 2019-07-17 08:13 | NUR ---
Shift chart check completed.
--- NOTE | 2019-07-17 09:46 | NUR ---
PATIENT C/O BACK AND LEG PAIN,RATES 6/10 AT REAT MEDICATED WITH PERCOCET ORDERED
--- NOTE | 2019-07-17 09:48 | NUR ---
NEWS AGENT spoke with the patient and patients family at bedside. Patient stated she did not want to go to a SNF. Patient stated that she resides at home with her , grandson, and his fiance. Patient stated that she has all DME at home and has no needs. Patient stated she would like to resume her [facility]. -ED Zamudio
--- NOTE | 2019-07-17 10:30 | NUR ---
GOOD EFFECT FROM PERCOCET GIVEN, PATIENT REPORTS PAIN 3/10 WHICH IS HER NORMAL PAIN LEVEL AND ACCEPTABLE TO PATIENT.
--- NOTE | 2019-07-17 10:35 | NUR ---
Occupational Therapy evaluation completed on 5 with full eval to follow. Precautions include fall risk, hx/of falls,ww use,bed/chair alarm,moderate complexity level 70169 via chart review, testing and evaluation. Recommend OT per POC and SNF however, patient refuses SNF and will agree to home health SN,OT,PT. Thank you. Moose Caraballo OTR/l
--- NOTE | 2019-07-17 10:46 | NUR ---
PHYSICAL THERAPY Physical therapy evaluation completed, 5E. Full details/evaluation to follow. Moderate complexity determined after evaluation/chart review, 97196. PT to work on safety, strength, gait, endurance, balance. Recommending HH at discharge. Thank you Amanda Beard, PT, DPT
--- NOTE | 2019-07-17 11:08 | NUR ---
CALL PLACED TO PODIATRY, SPOKE WITH DR. NAM, ADVISED OF CONSULT.
--- NOTE | 2019-07-17 11:11 | NUR ---
CALL CONSULT TO DR. MALIK, HE GAVE TO FOR MARY ANN ORTIZ QID PRN.
--- NOTE | 2019-07-17 11:36 | NUR ---
PATIENT CONTINUES WITH LOOSES, NON PRODUCTIVE HACKING COUGH MEDICATED WITH 5 CC ROBITUSSIN AC ORDERED.
[2019-07-17 12:00] VITALS: BP 139/79
[2019-07-17 16:00] VITALS: BP 127/59
[2019-07-17 20:00] VITALS: BP 123/59
[2019-07-18] VITALS: BP 117/70
[2019-07-18 12:00] VITALS: BP 146/86
[2019-07-18 16:00] VITALS: BP 112/65
[2019-07-18 20:00] VITALS: BP 103/69
[2019-07-19] VITALS (7 sets, daily range): BP systolic 111–176; BP diastolic 50–80
--- NOTE | 2019-07-19 13:07 | NUR ---
Patient resting quietly with no c/o discomfort. Respirations easy and regular. Vital signs stable. No overt distress. ROC PÉREZ
--- NOTE | 2019-07-19 16:27 | NUR ---
PATIENT'S HEART RATE IN THE 130'S. PATIENT IS CURRENTLY UP AND WALKING AROUND WITH HER DAUGHTER. NOTIFIED DR TOVAR OF HEART RATE OF 133. ORDERS RECIEVED FOR COREG 3.125 BID, ECHO IN THE MORNING, CBC AND BMP LABS IN THE MORNING. WILL CONTINUE TO MONITOR THE PATIENT.
--- NOTE | 2019-07-19 19:45 | NUR ---
PATIENT SITTING UP IN CHAIR WATCHING TV. DIMINISHED LUNG SOUNDS THROUGHOUT. NORMOACTIVE BS X4. PATIENT'S HEART RATE 90S-100S. PATIENT STATES NO OTHER NEEDS AT THIS TIME. CALL LIGHT WITHIN REACH.
[2019-07-20] VITALS: BP 112/52
--- NOTE | 2019-07-20 01:47 | NUR ---
24 HR chart check completed.
--- NOTE | 2019-07-20 04:50 | NUR ---
PATIENT SLEEPING IN BED. AROUSES EASILY TO VOICE. BED ALARM ON FOR SAFETY. CALL LIGHT WITHIN REACH.
[2019-07-20 06:52] LABS: BASO % 0.7 % (0.0-1.0); EOS # 0.3 10*3/uL (0.0-0.4); EOS % 6.2 % (1.0-4.0); HEMATOCRIT 33.4 % (37.0-47.0); HEMOGLOBIN 10.5 g/dl (12.0-16.0); LYMPH # 1.1 10*3/uL (1.3-4.4); LYMPH % 27.9 % (27.0-41.0); MEAN CORPUSCULAR HGB 30.2 pg (27.0-31.0); MEAN CORPUSCULAR HGB CONC 31.4 g/dl (33.0-37.0); MEAN PLATELET VOLUME 11.3 fl (9.6-12.3); MONO # 0.6 10*3/uL (0.1-1.0); MONO % 13.9 % (3.0-9.0); NEUT % 49.8 % (47.0-73.0); PLATELET COUNT AUTOMATED 160 10*3/uL (130-400); RED BLOOD COUNT 3.48 10*6/uL (4.10-5.10); RED CELL DISTRI WIDTH 14.1 % (0-14.5)
--- NOTE | 2019-07-20 07:00 | NUR ---
REPORT RECEIVED FROM BANDAR DAVIS. PT IS SLEEPING AT THIS TIME. PT RESPIRATIONS ARE EASY AND UNLABORED. CALL LIGHT IN REACH.
[2019-07-20 07:26] LABS: CREATININE 2.07 mg/dL (0.55-1.02)
--- NOTE | 2019-07-20 07:47 | NUR ---
VITAL SIGNS STABLE, BOWEL SOUNDS X4, HEART SOUNDS NORMAL,SKIN PINK WARM AND DRY, SKIN TURGOR NON-TENTING IV SITE INTACT AND NO S/S OF INFECTION, NO COMPLAINTS OF PAIN, BEL, ABD SOFT AND NON-DISTENDED, LUNG SOUNDS CLEAR THROUGHOUT, PT PLEASANT AND COOPERATIVE. BARB STAPLES SPCC
[2019-07-20 08:00] VITALS: BP 150/70
--- NOTE | 2019-07-20 08:30 | NUR ---
PHYSICAL THERAPY Screen recieved, Physical Therapy orders received and eval completed, thank you. Rosita Dodd PT
--- NOTE | 2019-07-20 09:25 | NUR ---
OT NOTE Pt was seen this A.M. 1:1 for 15 minute OT session. Upon arrival pt was sitting upright in the recliner. Pt identified by name and and had complaints of a headache. Sit to stand completed from chair level with SBA and use of w/w for UE support. Functional mobility was then completed into the bathroom with SBA and use of w/w, there she transferred on/off standard commode with SBA. Clothing management completed with SBA for safety. Pt then stood sink side while washing her hands with SBA. Functional mobility was then completed back to the recliner where she was left sitting upright with call light in hand, tray table in place, and body alarm activated for safety. Continue with POC as able. WELLINGTON Walton/Shara
[2019-07-20 11:37] VITALS: BP 130/70
--- NOTE | 2019-07-20 12:29 | NUR ---
POLE PEELING MACHINE OPERATOR HELPER spoke with the patient this morning. Patient is still refusing SNF. Patient wants to return home with her [facility]. -ED Zamudio
--- NOTE | 2019-07-20 13:30 | NUR ---
OT NOTE Attempted to see pt this P.M. for second OT session and upon arrival pt was supine in bed asleep. Pt was unable to arouse to verbal stimuli. Will check back at a later time/date and continue with POC as indicated. WELLINGTON Walton/Shara
[2019-07-20 16:00] VITALS: BP 173/74
[2019-07-20 17:10] VITALS: BP 134/62
[2019-07-20 20:00] VITALS: BP 156/60; BP 159/54
--- NOTE | 2019-07-20 20:15 | NUR ---
PATIENT AWAKE AND ALERT SITTING IN CHAIR. PATIENT HAS NO COMPLAINTS AT THIS TIME. CHAIR ALARM INTACT. WILL MONITOR.
--- NOTE | 2019-07-20 23:50 | NUR ---
24 HR chart check completed.
[2019-07-21] VITALS: BP 135/54
--- NOTE | 2019-07-21 00:01 | NUR ---
PATIENT AWAKE, JUST RETURNING FROM RESTROOM WITH AID, WALKING WITH WHEELED WALKER. PATIENT HAS NO COMPLAINTS AT THIS TIME BESIDES NOT BEING ABLE TO SLEEP. BED ALARM ON, CALL LIGHT WITHIN REACH. WILL MONITOR.
--- NOTE | 2019-07-21 05:52 | NUR ---
PATIENT RESTING WITH EYES CLOSED AT THIS TIME. RESPIRATIONS EASY AND UNLABORED. BED ALARM ON AND CALL LIGHT WITHIN REACH. WILL MONITOR.
--- NOTE | 2019-07-21 07:51 | NUR ---
ED reached spoke with the patients daughter Neeta. She stated the pateint knows what she is and is not able to do. Patients daughter stated that she will be able to go home and resume her [facility]. Neeta stated that her son and daughter in law are a near the patient and assist her when needed. She stated the patient has a pain management appointment at the pain clinic tomorrow and would prefer not to miss it if able. Patients daughter will transport the patient at discharge. Outreach Educator is aware. -ED Zamudio
[2019-07-21 08:00] VITALS: BP 118/60
--- NOTE | 2019-07-21 09:00 | NUR ---
Shift chart check completed. AMB TO BATHROOM WITH MIN ASSIST USING WALKER - YELLOW SLIPPERS & BE4D ALARM IN PLACE - ARUNA HOSE ON
--- NOTE | 2019-07-21 10:54 | NUR ---
OT NOTE Pt was seen this A.M. 1:1 for 15 minute OT session. Upon arrival pt was supine in bed. Pt identified by name and and had no complaints at this time. Pt transferred supine to sit EOB with SBA. While sitting EOB pt donned B socks with SBA. Sit to stand completed from bed level with CGA and use of w/w. Functional mobility was then completed into the bathroom with SBA and use of /ww. There she transferred on/off standard commode with CGA and use of w/w for safety. Clothing management completed with SBA. Pt then stood sink side while washing her hands with CGA for safety, pt had two episodes of retrograde posture that required Tiesha to correct. Pt was left sitting upright in the recliner with call light in hand, tray table in place, and body alarm activated for safety. Continue with POC as able. WELLINGTON Walton/Shara
--- NOTE | 2019-07-21 11:00 | NUR ---
PHYSICAL THERAPY Patient presented to therapy in supine with head of bed elevated and bed alarm activated. Patient gives informed consent for treatment. Patient was identified by name and on wristband. Patient performed supine to sitting transfer to EOB with SBA. Patient sat on EOB with SBA. Patient sit to stand transfer with SBA. Patient ambulated with Wh Walker and CGA X 1 for 220' x 1 with no rest break and no LOB. Patient performed transferred into bedside chair with SBA. Patient was left in bedside chair with chair alarm tested and attached to patient, call light within reach, and tray table near patient. patient was 1:1 with this TREE TRIMMER HELPER for 14 minutes total. JEFFREY NOLASCO TREE TRIMMER HELPER
--- NOTE | 2019-07-21 12:00 | NUR ---
DAUGHTER CALLED ABOUT DISCHARGE -- Hep Lock discontinued. Site asymptomatic. Pressure applied. Sterile dressing applied. ODALYS FLOREZ
--- NOTE | 2019-07-21 13:42 | NUR ---
AWAITING RIDE HOME - DTG WAS WORKING & SHE WAS GOING TO TRY & REACH HER DTG TO COME GET HER..IF UNABLE SHE WILL COME AFTER WORK
--- NOTE | 2019-07-21 14:51 | NUR ---
TAKEN OUT VIA WHEEL CHAIR WITH BELONGINGS
--- NOTE | 2019-07-21 15:49 | NUR ---
OCCUPATIONAL THERAPY CO-SIGN I approve of the Occupational Therapy notes written above. JAVIER BILLINGSLEY OTR/Shara
--- NOTE | 2019-07-22 07:50 | NUR ---
PHYSICAL THERAPY CO-SIGN I approve of the Physical Therapy notes written above. Rosita Dodd PT
== END 2019-07-21 14:51 | disposition home health service (06) | DRG 683 ==
LOC: ED 16:43 → EDHOLD 20:26 → 5E 20:26
PROVIDERS: Emergency Medicine; Internal Medicine; ADMIT Internal Medicine
PROC: 0HBRXZZ Excision of Toe Nail, External Approach (ICD-10-PCS; principal; 2019-07-17)
DX: N17.9 Acute kidney failure, unspecified (principal); N39.0 Urinary tract infection, site not specified; F33.1 Major depressive disorder, recurrent, moderate; F02.81 Dementia in other diseases classified elsewhere, unspecified severity, with behavioral disturbance; J96.12 Chronic respiratory failure with hypercapnia; J96.11 Chronic respiratory failure with hypoxia; I13.0 Hypertensive heart and chronic kidney disease with heart failure and stage 1 through stage 4 chronic kidney disease, or unspecified chronic kidney disease; I50.32 Chronic diastolic (congestive) heart failure; I27.82 Chronic pulmonary embolism; J44.0 Chronic obstructive pulmonary disease with (acute) lower respiratory infection; R62.7 Adult failure to thrive; N18.4 Chronic kidney disease, stage 4 (severe); N25.81 Secondary hyperparathyroidism of renal origin; J20.9 Acute bronchitis, unspecified; G30.1 Alzheimer's disease with late onset; M47.896 Other spondylosis, lumbar region; I27.20 Pulmonary hypertension, unspecified; E11.22 Type 2 diabetes mellitus with diabetic chronic kidney disease; M48.02 Spinal stenosis, cervical region; E11.42 Type 2 diabetes mellitus with diabetic polyneuropathy; M35.00 Sjogren syndrome, unspecified; G89.4 Chronic pain syndrome; F51.01 Primary insomnia; I25.10 Atherosclerotic heart disease of native coronary artery without angina pectoris; J98.6 Disorders of diaphragm; K57.90 Diverticulosis of intestine, part unspecified, without perforation or abscess without bleeding; M19.90 Unspecified osteoarthritis, unspecified site; F41.1 Generalized anxiety disorder; K21.9 Gastro-esophageal reflux disease without esophagitis; E78.5 Hyperlipidemia, unspecified; E05.90 Thyrotoxicosis, unspecified without thyrotoxic crisis or storm; Z87.01 Personal history of pneumonia (recurrent); Z91.81 History of falling; Z87.440 Personal history of urinary (tract) infections; Z86.73 Personal history of transient ischemic attack (TIA), and cerebral infarction without residual deficits; Z88.1 Allergy status to other antibiotic agents; Z88.2 Allergy status to sulfonamides; Z68.24 Body mass index [BMI] 24.0-24.9, adult

== ENCOUNTER 2019-08-04 11:24 | Emergency (ER) | payer MEDICARE, MEDICAID ==
[~2019-08-04] VITALS: Wt 59.0 kg
[~2019-08-04 11:24] MED LIST changes: +ZOLPIDEM5 MG PO
[2019-08-04 15:16] VITALS: BP 180/72
== END 2019-08-04 17:44 | disposition home or self-care (01) ==
LOC: ED 11:24
DX: S01.112A Laceration without foreign body of left eyelid and periocular area, initial encounter (principal); M54.2 Cervicalgia; I25.10 Atherosclerotic heart disease of native coronary artery without angina pectoris; J44.9 Chronic obstructive pulmonary disease, unspecified; K21.9 Gastro-esophageal reflux disease without esophagitis; E78.5 Hyperlipidemia, unspecified; E05.90 Thyrotoxicosis, unspecified without thyrotoxic crisis or storm; E11.22 Type 2 diabetes mellitus with diabetic chronic kidney disease; N18.4 Chronic kidney disease, stage 4 (severe); F03.90 Unspecified dementia, unspecified severity, without behavioral disturbance, psychotic disturbance, mood disturbance, and anxiety; Z88.1 Allergy status to other antibiotic agents; Z88.2 Allergy status to sulfonamides; Z79.899 Other long term (current) drug therapy; Z86.73 Personal history of transient ischemic attack (TIA), and cerebral infarction without residual deficits; W06.XXXA Fall from bed, initial encounter; Y93.89 Activity, other specified; Y92.098 Other place in other non-institutional residence as the place of occurrence of the external cause; Y99.8 Other external cause status

== ENCOUNTER → 2019-08-05 | Outpatient (CLI) | payer MEDICARE, MEDICAID ==
[~2019-08-05] MED LIST changes: +NARCAN4 MG NAS
[2019-08-05 17:43] LABS: BASO # 0.1 10*3/uL (0.0-0.1); EOS # 0.2 10*3/uL (0.0-0.4); EOS % 3.7 % (1.0-4.0); HEMATOCRIT 37.4 % (37.0-47.0); HEMOGLOBIN 11.9 g/dl (12.0-16.0); LYMPH % 20.4 % (27.0-41.0); MEAN CELL VOLUME 97.9 fl (81.0-99.0); MEAN CORPUSCULAR HGB 31.2 pg (27.0-31.0); MEAN CORPUSCULAR HGB CONC 31.8 g/dl (33.0-37.0); MEAN PLATELET VOLUME 10.8 fl (9.6-12.3); MONO # 0.6 10*3/uL (0.1-1.0); MONO % 12.5 % (3.0-9.0); NEUT # 3.1 10*3/uL (2.3-7.9); NEUT % 61.4 % (47.0-73.0); PLATELET COUNT AUTOMATED 241 10*3/uL (130-400); RED BLOOD COUNT 3.82 10*6/uL (4.10-5.10); RED CELL DISTRI WIDTH 15.1 % (0-14.5); WHITE BLOOD COUNT 5.1 10*3/uL (4.8-10.8)
[2019-08-05 18:30] LABS: ALBUMIN 3.6 gm/dl (3.1-4.5); CREATININE 2.48 mg/dL (0.55-1.02); TOTAL PROTEIN 6.6 gm/dL (6.4-8.2)
[2019-08-07 07:06] LABS: BETA-2 GLYCOPROTEIN I AB,IGG <9 (0-20); BETA-2 GLYCOPROTEIN I AB,IGM <9 (0-32)
== END | disposition home or self-care (01) ==
LOC: LAB 16:57
PROVIDERS: Internal Medicine Hematology & Oncology
DX: Z45.2 Encounter for adjustment and management of vascular access device (principal); I10 Essential (primary) hypertension; K21.9 Gastro-esophageal reflux disease without esophagitis; I82.891 Chronic embolism and thrombosis of other specified veins; J44.9 Chronic obstructive pulmonary disease, unspecified; D64.9 Anemia, unspecified; R91.8 Other nonspecific abnormal finding of lung field; Z87.01 Personal history of pneumonia (recurrent)

== ENCOUNTER 2019-08-06 13:19 | Emergency (ER) | payer MEDICARE, MEDICAID ==
[~2019-08-06] VITALS: Ht 162.5 cm; Wt 62.6 kg
--- NOTE | ~2019-08-06 | EKG ---
[place], [place] ELECTROCARDIOGRAM REPORT NAME: QUINTON HINTON UNIT #: [id number] ROOM: DOCTOR: EPIPHANY DRAFT REPORT BIRTHDATE: [birth year] [facility] Test Date: 2019-08-06 Test Time: 14:05:08 Pat Name: QUINTON HINTON Department: Room: Gender: F Cutting Machine Operator: : [id number] Requested By: SONG AMBROSE Order Number: [id number] Reading MD: Indra Beckham MD Measurements Intervals [place] Rate: 65 P: 45 SD: 176 QRS: 51 QRSD: 96 T: 41 QT: 474 QTc: 493 Interpretive Statements Sinus rhythm Borderline low voltage, extremity leads Borderline prolonged QT interval Compared to ECG 07/16/2019 17:43:16 No significant changes Electronically Signed On 08-07-2019 4:30:20 PST by Indra Beckham MD CM:EKGRPT:ELECTROCARDIOGRAM REPORT [id number] SONG PELAEZ DRAFT REPORT SONG AMBROSE DO
[~2019-08-06 13:19] MED LIST changes: -NARCAN4 MG NAS
[2019-08-06] MEDS ORDERED: ELIQUIS2.5 M1 PO (13:29)
[2019-08-06] MEDS ORDERED: MULTIVITAMINS1 EAC5 PO (13:30)
[2019-08-06] MEDS ORDERED: NARCAN4 MG NAS (13:46)
[2019-08-06 14:22] LABS: BASO % 0.9 % (0.0-1.0); EOS # 0.1 10*3/uL (0.0-0.4); EOS % 2.4 % (1.0-4.0); HEMATOCRIT 37.2 % (37.0-47.0); HEMOGLOBIN 11.7 g/dl (12.0-16.0); LYMPH # 0.7 10*3/uL (1.3-4.4); LYMPH % 14.9 % (27.0-41.0); MEAN CELL VOLUME 98.2 fl (81.0-99.0); MEAN CORPUSCULAR HGB 30.9 pg (27.0-31.0); MEAN CORPUSCULAR HGB CONC 31.5 g/dl (33.0-37.0); MONO # 0.4 10*3/uL (0.1-1.0); MONO % 9.4 % (3.0-9.0); NEUT # 3.3 10*3/uL (2.3-7.9); NEUT % 71.5 % (47.0-73.0); PLATELET COUNT AUTOMATED 195 10*3/uL (130-400); RED BLOOD COUNT 3.79 10*6/uL (4.10-5.10); WHITE BLOOD COUNT 4.6 10*3/uL (4.8-10.8)
[2019-08-06 14:36] LABS: ACT PARTIAL THROMBO TIME 26.2 SECONDS (20.0-32.1); INTERNATIONAL NORM RATIO 0.9 (2.0-3.5)
[2019-08-06 14:39] LABS: ALBUMIN 3.8 gm/dl (3.1-4.5); ALKALINE PHOSPHATASE 107 U/L (45-117); BUN 32 mg/dl (7-24); CHLORIDE 110 mmol/L (98-107); CREATININE 2.39 mg/dL (0.55-1.02); LIPASE 71 U/L (73-393); POTASSIUM 5.7 mmol/L (3.5-5.1); SGOT/AST 18 IU/L (3-35); SGPT/ALT 16 U/L (12-78); SODIUM 138 mmol/L (136-145)
[2019-08-06 14:48] LABS: TROPONIN I < 0.015 ng/ml (<0.045)
[2019-08-06 14:52] LABS: BILIRUBIN NEGATIVE (NEGATIVE); BLOOD NEGATIVE (NEGATIVE); CLARITY CLEAR (CLEAR); COLOR YELLOW (YELLOW); GLUCOSE NEGATIVE (NEGATIVE); KETONE NEGATIVE (NEGATIVE); LEUKO ESTERASE NEGATIVE (NEGATIVE); NITRITE NEGATIVE (NEGATIVE); UROBILINOGEN 0.2 E.U./dl (0.2-1.0)
[2019-08-06 16:40] VITALS: BP 112/72
== END 2019-08-06 16:24 | disposition short-term general hospital (02) ==
LOC: ED 13:19
PROVIDERS: Emergency Medicine
DX: S06.5X9A Traumatic subdural hemorrhage with loss of consciousness of unspecified duration, initial encounter (principal); R11.2 Nausea with vomiting, unspecified; R42 Dizziness and giddiness; I25.10 Atherosclerotic heart disease of native coronary artery without angina pectoris; I13.0 Hypertensive heart and chronic kidney disease with heart failure and stage 1 through stage 4 chronic kidney disease, or unspecified chronic kidney disease; N18.4 Chronic kidney disease, stage 4 (severe); I50.32 Chronic diastolic (congestive) heart failure; J44.9 Chronic obstructive pulmonary disease, unspecified; K21.9 Gastro-esophageal reflux disease without esophagitis; E78.5 Hyperlipidemia, unspecified; E05.90 Thyrotoxicosis, unspecified without thyrotoxic crisis or storm; Z88.1 Allergy status to other antibiotic agents; Z88.2 Allergy status to sulfonamides; Z79.899 Other long term (current) drug therapy; Z86.73 Personal history of transient ischemic attack (TIA), and cerebral infarction without residual deficits; Z90.49 Acquired absence of other specified parts of digestive tract; Z90.710 Acquired absence of both cervix and uterus; W19.XXXA Unspecified fall, initial encounter; Y93.89 Activity, other specified; Y92.091 Bathroom in other non-institutional residence as the place of occurrence of the external cause; Y99.8 Other external cause status

== ENCOUNTER → 2019-09-07 | Outpatient (CLI) | payer MEDICARE, MEDICAID ==
[~2019-09-07] MED LIST changes: +NARCAN4 MG NAS
[2019-09-07 17:04] LABS: BASO % 0.8 % (0.0-1.0); EOS # 0.3 10*3/uL (0.0-0.4); EOS % 6.4 % (1.0-4.0); HEMATOCRIT 33.9 % (37.0-47.0); HEMOGLOBIN 10.7 g/dl (12.0-16.0); LYMPH # 0.8 10*3/uL (1.3-4.4); LYMPH % 16.1 % (27.0-41.0); MEAN CELL VOLUME 98.3 fl (81.0-99.0); MEAN CORPUSCULAR HGB CONC 31.6 g/dl (33.0-37.0); MEAN PLATELET VOLUME 10.1 fl (9.6-12.3); MONO # 0.9 10*3/uL (0.1-1.0); MONO % 17.7 % (3.0-9.0); NEUT # 2.8 10*3/uL (2.3-7.9); NEUT % 57.4 % (47.0-73.0); PLATELET COUNT AUTOMATED 216 10*3/uL (130-400); RED BLOOD COUNT 3.45 10*6/uL (4.10-5.10); RED CELL DISTRI WIDTH 15.9 % (0-14.5); WHITE BLOOD COUNT 4.9 10*3/uL (4.8-10.8)
[2019-09-07 17:21] LABS: ALBUMIN 3.8 gm/dl (3.1-4.5); CREATININE 2.18 mg/dL (0.55-1.02); POTASSIUM 5.3 mmol/L (3.5-5.1)
[2019-09-07 17:22] LABS: PHOSPHOROUS 4.1 mg/dL (2.5-4.9)
[2019-09-07 17:47] LABS: BILIRUBIN NEGATIVE (NEGATIVE); BLOOD TRACE-INTACT (NEGATIVE); CLARITY CLOUDY (CLEAR); COLOR YELLOW (YELLOW); GLUCOSE NEGATIVE (NEGATIVE); KETONE NEGATIVE (NEGATIVE); LEUKO ESTERASE 1+ (NEGATIVE); NITRITE POSITIVE (NEGATIVE); PH 5.5 (5.0-9.0); SPECIFIC GRAVITY >= 1.030 (1.005-1.030); UROBILINOGEN 0.2 E.U./dl (0.2-1.0)
[2019-09-07 18:16] LABS: BACTERIA 3+; EPITHELIAL CELLS 0-2; RBC 0-2 rbc/hpf (0-2); WBC 51-100 wbc/hpf (0-5)
== END | disposition home or self-care (01) ==
LOC: LAB 16:30
PROVIDERS: Internal Medicine Nephrology
DX: N18.3 Chronic kidney disease, stage 3 (moderate) (principal); Z79.899 Other long term (current) drug therapy

== ENCOUNTER → 2019-09-11 | Outpatient (CLI) | payer MEDICARE, MEDICAID | END | disposition home or self-care (01) | LOC: RAD 15:49 | DX: R06.00 Dyspnea, unspecified (principal) ==

== ENCOUNTER 2019-09-17 18:31 | Inpatient (IN) | payer MEDICARE, MEDICAID ==
[~2019-09-17] VITALS: Ht 154.9 cm; Wt 58.2 kg
[2019-09-17 18:43] VITALS: BP 146/65
[2019-09-17 18:57] LABS: BASO # 0.1 10*3/uL (0.0-0.1); EOS # 0.3 10*3/uL (0.0-0.4); HEMATOCRIT 32.8 % (37.0-47.0); HEMOGLOBIN 10.5 g/dl (12.0-16.0); LYMPH # 1.2 10*3/uL (1.3-4.4); LYMPH % 22.8 % (27.0-41.0); MEAN CELL VOLUME 99.7 fl (81.0-99.0); MEAN CORPUSCULAR HGB 31.9 pg (27.0-31.0); MEAN PLATELET VOLUME 10.6 fl (9.6-12.3); MONO # 0.5 10*3/uL (0.1-1.0); MONO % 9.5 % (3.0-9.0); NEUT # 3.1 10*3/uL (2.3-7.9); NEUT % 60.3 % (47.0-73.0); PLATELET COUNT AUTOMATED 210 10*3/uL (130-400); RED BLOOD COUNT 3.29 10*6/uL (4.10-5.10); WHITE BLOOD COUNT 5.1 10*3/uL (4.8-10.8)
[2019-09-17 19:10] LABS: ACT PARTIAL THROMBO TIME 24.3 SECONDS (20.0-32.1); INTERNATIONAL NORM RATIO 0.9 (2.0-3.5)
[2019-09-17 19:19] LABS: ALBUMIN 3.6 gm/dl (3.1-4.5); ALKALINE PHOSPHATASE 128 U/L (45-117); BUN 22 mg/dl (7-24); CHLORIDE 113 mmol/L (98-107); CREATININE 1.83 mg/dL (0.55-1.02); POTASSIUM 5.1 mmol/L (3.5-5.1); SGOT/AST 9 IU/L (3-35); SGPT/ALT 12 U/L (12-78); SODIUM 144 mmol/L (136-145); TOTAL PROTEIN 6.4 gm/dL (6.4-8.2)
[2019-09-17 19:30] LABS: TROPONIN I < 0.015 ng/ml (<0.045)
--- NOTE | 2019-09-17 20:00 | NUR ---
PT UP TO BEDSIDE COMMODE. HAD A BM.
[2019-09-17 20:41] VITALS: BP 130/49
--- NOTE | 2019-09-17 21:30 | NUR ---
A 84, admitted to 4E, under the services of Dr. RADAMES HARO,JESSIE Garcia with a diagnosis of COPD EXCERBATION. Chief complaint is CHEST PAIN, SHORTNESS OF BREATH. Patient arrived via bed from ER. Monitor applied. Initial assessment completed. Vital signs taken and recorded. DR. RADAMES HARO,JESSIE Garcia notified of admission to the unit. Orders received. See assessment for past medical history, medications and allergies. Patient and/or family oriented to unit. [facility] visitation policy reviewed. Clothing/patient valuable form completed. CECILIA MONAHAN
[2019-09-17 22:00] VITALS: BP 131/53
--- NOTE | 2019-09-17 22:34 | NUR ---
PATIENT HAVING MID STERNAL CHEST PAIN, RATES 7/10. STABBING. PERCOCET GIVEN. WILL MONITOR AND REASSESS.
[2019-09-18] VITALS: BP 134/64
--- NOTE | 2019-09-18 00:28 | NUR ---
Patient resting quietly with no c/o discomfort. Respirations easy and regular. Vital signs stable. No overt distress. ROC PÉREZ
--- NOTE | 2019-09-18 06:57 | NUR ---
Shift chart check completed.
[2019-09-18 08:00] VITALS: BP 108/60
--- NOTE | 2019-09-18 10:30 | NUR ---
Manager Contracting in to talk to patient. Patient states lives at home with her . There are 0 steps in the home. Physician: Dr. Brandon Longo [facility] Home health services: she currently has [facility] RN/PT and would like to resume those services upon discharge Patient's level of ADLs: MINIMAL ASSIST Patient has working utilities: yes DME: walker, O2 @ 2L nc, portable O2 tanks, nebulizer, O2 supplier is [facility] Follow-up physician's appointment after d/c: she prefers to make her own follow up appt after discharge Does patient want to access PORTAL?: no Discharge plan discussed with patient. She lives at home with her . She needs minimal assistance in her ADLs and ambulates with a walker. Discussed home health care services and she currently has [facility] RN/PT and would like to resume those services upon discharge. When medically stable she will be discharged to [facility]. Her will provide transportation on discharge. CHADD SCHRADER RN
[2019-09-18 12:00] VITALS: BP 128/51
--- NOTE | 2019-09-18 13:33 | NUR ---
BACK & CHEST PRESSURE THAT INCREASES WITH DEEP BREATHS & TOUCH.. NC1L HUMIDIFIED BUT PER PT IT HAS NOT MADE ANY DIFFERENCE. UP TO BSC AFTER NOT VOIDING ALL DAY - PER PT CATHRYN HURTS.. ONLY ABLE TO VOID DK ENRRIQUE @ 100cc. NO ODOR
--- NOTE | 2019-09-18 14:30 | NUR ---
BLADDER SCANNED FOR ( ZERO) AFTER MULTIPLE ATTEMPTS. WILL GET URINE FOR UA/UC IF PATIENT ABLE TO VOID AGAIN
[2019-09-18 16:00] VITALS: BP 119/47
--- NOTE | 2019-09-18 16:18 | NUR ---
TYLENOL GIVEN FOR C/O BACK PAIN. RATES 5/10 ON PAIN SCALE. WILL MONITOR.
--- NOTE | 2019-09-18 17:20 | NUR ---
TYLENOL NOT EFFECTIVE PER PT. WILL CONTINUE TO MONITOR.
[2019-09-18 20:00] VITALS: BP 120/61
--- NOTE | 2019-09-18 21:27 | NUR ---
PATIENT MEDICATED WITH PERCOCET PER DRS ORDERS FOR COMPLAINTS OF SEVERE PAIN TO ABDOMEN/CHEST R/T COUGHING. PATIENT REFUSING TYLENOL. RN WILL CONTINUE TO MONITOR
[2019-09-19] VITALS: BP 128/64
[2019-09-19 07:10] LABS: BILIRUBIN NEGATIVE (NEGATIVE); BLOOD NEGATIVE (NEGATIVE); CLARITY SL CLOUDY (CLEAR); COLOR YELLOW (YELLOW); GLUCOSE NEGATIVE (NEGATIVE); KETONE NEGATIVE (NEGATIVE); LEUKO ESTERASE NEGATIVE (NEGATIVE); NITRITE NEGATIVE (NEGATIVE); PH 5.5 (5.0-9.0); UROBILINOGEN 0.2 E.U./dl (0.2-1.0)
[2019-09-19 07:41] LABS: BACTERIA TRACE
[2019-09-19 12:00] VITALS: BP 136/62
[2019-09-19 16:00] VITALS: BP 130/58
--- NOTE | 2019-09-19 19:25 | NUR ---
IN TO SEE PT. ASSESSMENT COMPLETE. PT CO SOB WITH EXERTION, PULSE OX 98% ON RA. RESPIRATIONS EASY AND REGULAR. PT STATES SHE IS STARTING TO HAVE SOME PAIN IN HER CHEST FROM COUGHING AND WILL PRESS HER LIGHT WHEN SHE WANTS HER PAIN MEDICINE. NO OTHER COMPLAINTS AT THIS TIME. CALL LIGHT WITHIN REACH. WILL CONTINUE TO MONITOR.
[2019-09-19 20:00] VITALS: BP 143/63
--- NOTE | 2019-09-19 20:04 | NUR ---
PT CO CHEST PAIN FROM COUGHING AND BACK PAIN RATED AN 8/10. MEDICATED WITH PERCOCET ORDERED. WILL CHECK EFFECTIVENESS. CALL LIGHT WITHIN REACH.
--- NOTE | 2019-09-19 21:00 | NUR ---
PT STATES PAIN MED WAS EFFECTIVE RATING PAIN A 4/10 NOW. WILL CONTINUE TO MONITOR.
[2019-09-20] VITALS: BP 138/66
--- NOTE | 2019-09-20 03:46 | NUR ---
24 HR chart check completed.
[2019-09-20 08:00] VITALS: BP 160/78
--- NOTE | 2019-09-20 09:40 | NUR ---
PT RESTING IN BED. NO DISTRESS NOTED. WILL MONITOR
--- NOTE | 2019-09-20 10:00 | NUR ---
PHYSICAL THERAPY PT EVAL COMPLETED TODAY ON LEVEL 4: FULL EVAL TO FOLLOW; RECOMMEND PT WHILE HERE TO ADDRESS DECREASED STRENGTH AND FUNCTIONAL MOBILITY. PT EVAL IS MODERATE COMPLEXITY: [id number]. D/C RECOMMENDATIONS ARE TO RETURN TO HOME WITH HOME HEALTH WHEN MEDICALLY STABLE. THANK YOU FOR REFERRAL IWONA RAMOS PT
[2019-09-20 12:00] VITALS: BP 143/60
[2019-09-20 16:00] VITALS: BP 160/68
--- NOTE | 2019-09-20 16:11 | NUR ---
PATIENT C/O HEADACHE. MEDICATED WITH TYLENOL PER PRN ORDER. WILL CONTINUE TO MONITOR.
[2019-09-20 20:00] VITALS: BP 158/66
[2019-09-21] VITALS: BP 122/76
--- NOTE | 2019-09-21 00:02 | NUR ---
PATIENT STATED HER CHEST AND BACK AND WERE GETTING "SORE" FROM COUGHING. PATIENT STATED SHE WAS HAVING TROUBLE SLEEPING BECAUSE OF IT AND REQUESTING PAIN MEDICATION. PERCOCET GIVEN PER PATIENT REQUEST. WILL ASSESS EFFECTIVENESS.
--- NOTE | 2019-09-21 01:00 | NUR ---
PERCOCET EFFECTIVE PER PATIENT.
--- NOTE | 2019-09-21 09:00 | NUR ---
Toolroom Machinist in to see patient. No new needs or request at this time. When medically stable she will be discharged to home with the resumption of her OV services.
--- NOTE | 2019-09-21 11:12 | NUR ---
Notified of patient c/o n/v. See new orders.
[2019-09-21 12:00] VITALS: BP 143/62
--- NOTE | 2019-09-21 12:30 | NUR ---
Zofran given per patient request for nausea. Will monitor.
--- NOTE | 2019-09-21 13:20 | NUR ---
Zofran effetive. Patient satisfied with no c/o nausea.
--- NOTE | 2019-09-21 14:10 | NUR ---
PHYSICAL THERAPY Patient was approached several times for therapy this date and was eating first attempt then receiving patient care upon second attempt. Will continue per POC as able. Gurpreet Plasencia, ELECTRICAL TRANSMISSION ENGINEER
[2019-09-21] MEDS ORDERED: Ondansetron8 MG PO (15:31)
--- NOTE | 2019-09-21 15:32 | NUR ---
Home health resumption order faxed to [facility]
[2019-09-21 16:00] VITALS: BP 141/56
--- NOTE | 2019-09-21 16:36 | NUR ---
Discharge instructions reviewed with patient/family. Patient receptive and verbalizes understanding. Follow-up care arranged. Written instructions given to patient/family. Patient was wheeled from unit after being educated on new prescription and follow up appointment with . Patients L medi port was flushed with NS, Heparin, Ns and deaccessed. Patient tolerated well. Site was clean, no signs of redness, edema, or bleeding. Dry gauze bandage was applied. GABY GARZA J
--- NOTE | 2019-09-23 07:25 | NUR ---
PHYSICAL THERAPY CO-SIGN I approve of the Physical Therapy notes written above. Rosita Dodd PT
== END 2019-09-21 16:39 | disposition home health service (06) | DRG 205 ==
LOC: ED 18:31 → EDHOLD 20:32 → 4E 20:32
PROVIDERS: Emergency Medicine; ADMIT Internal Medicine
DX: M94.0 Chondrocostal junction syndrome [Tietze] (principal); N17.0 Acute kidney failure with tubular necrosis; J44.1 Chronic obstructive pulmonary disease with (acute) exacerbation; F33.1 Major depressive disorder, recurrent, moderate; N18.4 Chronic kidney disease, stage 4 (severe); R62.7 Adult failure to thrive; E11.43 Type 2 diabetes mellitus with diabetic autonomic (poly)neuropathy; K31.84 Gastroparesis; I25.10 Atherosclerotic heart disease of native coronary artery without angina pectoris; G30.1 Alzheimer's disease with late onset; F02.80 Dementia in other diseases classified elsewhere, unspecified severity, without behavioral disturbance, psychotic disturbance, mood disturbance, and anxiety; R07.89 Other chest pain; J98.01 Acute bronchospasm; Z79.01 Long term (current) use of anticoagulants; Z68.23 Body mass index [BMI] 23.0-23.9, adult; Z88.1 Allergy status to other antibiotic agents; Z88.8 Allergy status to other drugs, medicaments and biological substances; Z90.49 Acquired absence of other specified parts of digestive tract; Z97.10 Presence of artificial limb (complete) (partial), unspecified; Z98.51 Tubal ligation status; Z82.3 Family history of stroke; Z80.0 Family history of malignant neoplasm of digestive organs

== ENCOUNTER 2019-10-14 13:20 | Emergency (ER) | payer MEDICARE, MEDICAID ==
[~2019-10-14 13:20] MED LIST changes: +Ondansetron8 MG PO
[2019-10-14 14:32] LABS: HEMOGLOBIN 11.3 g/dl (12.0-16.0); MEAN CELL VOLUME 98.6 fl (81.0-99.0); MEAN CORPUSCULAR HGB 31.8 pg (27.0-31.0); MEAN CORPUSCULAR HGB CONC 32.3 g/dl (33.0-37.0); MEAN PLATELET VOLUME 10.6 fl (9.6-12.3); PLATELET COUNT AUTOMATED 244 10*3/uL (130-400); RED BLOOD COUNT 3.55 10*6/uL (4.10-5.10); RED CELL DISTRI WIDTH 13.7 % (0-14.5); WHITE BLOOD COUNT 7.6 10*3/uL (4.8-10.8)
[2019-10-14 14:48] LABS: ALBUMIN 3.4 gm/dl (3.1-4.5); ALKALINE PHOSPHATASE 86 U/L (45-117); BUN 26 mg/dl (7-24); CHLORIDE 109 mmol/L (98-107); CREATININE 1.93 mg/dL (0.55-1.02); POTASSIUM 5.4 mmol/L (3.5-5.1); SGOT/AST 10 IU/L (3-35); SGPT/ALT 12 U/L (12-78); SODIUM 140 mmol/L (136-145); TOTAL PROTEIN 6.2 gm/dL (6.4-8.2)
[2019-10-14 14:53] LABS: TROPONIN I < 0.015 ng/ml (<0.045)
[2019-10-14 15:00] LABS: BURR CELLS FEW; OVALOCYTES FEW; PLATELET SUFFICIENCY NORMAL (NORMAL); SCHISTOCYTES FEW; TOTAL CELLS COUNTED 100 #CELLS
[2019-10-14 15:02] LABS: ACT PARTIAL THROMBO TIME 22.8 SECONDS (20.0-32.1); INTERNATIONAL NORM RATIO 0.9 (2.0-3.5)
[2019-10-14 15:57] VITALS: BP 164/63
[2019-10-14] MEDS ORDERED: ELIQUIS5 M1 PO (17:14)
== END 2019-10-14 17:35 | disposition home or self-care (01) ==
LOC: ED
PROVIDERS: Emergency Medicine
DX: I27.82 Chronic pulmonary embolism (principal); I25.10 Atherosclerotic heart disease of native coronary artery without angina pectoris; I11.0 Hypertensive heart disease with heart failure; I50.32 Chronic diastolic (congestive) heart failure; J44.9 Chronic obstructive pulmonary disease, unspecified; K21.9 Gastro-esophageal reflux disease without esophagitis; E78.5 Hyperlipidemia, unspecified; Z88.1 Allergy status to other antibiotic agents; Z88.2 Allergy status to sulfonamides; Z79.899 Other long term (current) drug therapy; Z90.49 Acquired absence of other specified parts of digestive tract; Z90.710 Acquired absence of both cervix and uterus; Z98.61 Coronary angioplasty status; Z86.73 Personal history of transient ischemic attack (TIA), and cerebral infarction without residual deficits

== ENCOUNTER → 2020-02-01 | Outpatient (CLI) | payer MEDICARE, MEDICAID ==
[~2020-02-01] MED LIST changes: +DULOXETINE HCL30 MG PO; -ZOLPIDEM5 MG PO
[2020-02-01 18:31] LABS: BASO # 0.1 10*3/uL (0.0-0.1); BASO % 1.1 % (0.0-1.0); EOS # 0.2 10*3/uL (0.0-0.4); EOS % 3.7 % (1.0-4.0); HEMATOCRIT 34.9 % (37.0-47.0); LYMPH # 1.4 10*3/uL (1.3-4.4); LYMPH % 25.3 % (27.0-41.0); MEAN CELL VOLUME 99.4 fl (81.0-99.0); MEAN CORPUSCULAR HGB 31.9 pg (27.0-31.0); MEAN CORPUSCULAR HGB CONC 32.1 g/dl (33.0-37.0); MEAN PLATELET VOLUME 10.8 fl (9.6-12.3); MONO # 0.7 10*3/uL (0.1-1.0); MONO % 12.7 % (3.0-9.0); NEUT % 56.1 % (47.0-73.0); PLATELET COUNT AUTOMATED 225 10*3/uL (130-400); RED BLOOD COUNT 3.51 10*6/uL (4.10-5.10); RED CELL DISTRI WIDTH 14.6 % (0-14.5); WHITE BLOOD COUNT 5.3 10*3/uL (4.8-10.8)
[2020-02-01 18:42] LABS: ALBUMIN 3.5 gm/dl (3.1-4.5); CREATININE 2.09 mg/dL (0.55-1.02); POTASSIUM 5.8 mmol/L (3.5-5.1)
[2020-02-01 19:25] LABS: PTH INTACT 231.1 pg/mL (18.5-88.0); VITAMIN D, 25-HYDROXY 24.3 ng/mL (30-100)
== END | disposition home or self-care (01) ==
LOC: LAB 17:28
PROVIDERS: Internal Medicine Nephrology
DX: N18.3 Chronic kidney disease, stage 3 (moderate) (principal); D63.1 Anemia in chronic kidney disease; N25.81 Secondary hyperparathyroidism of renal origin; E55.9 Vitamin D deficiency, unspecified

== ENCOUNTER → 2020-07-04 | Outpatient (CLI) | payer MEDICARE, MEDICAID ==
[~2020-07-04] MED LIST changes: +APRESOLINE10 MG PO; +APRESOLINE25 MG PO; +ATORVASTATIN CA20 M1 PO; +BENADRYL ALLERG25 M5 PO; +COMBIVENT RESPIM4 GM INH; +DEXTROMETHORPHAN PO; +DILT-XR120 MG PO; +GUAIFENESIN PO; +METOPROLOL25 MG PO; +MULTIPLE VITAM1 EAC1 PO; +ONDANSETRON HYDR4 M1 PO
[2020-07-04 19:22] LABS: HEMATOCRIT 28.6 % (37.0-47.0); MEAN CELL VOLUME 98.6 fl (81.0-99.0); MEAN CORPUSCULAR HGB 29.7 pg (27.0-31.0); MEAN CORPUSCULAR HGB CONC 30.1 g/dl (33.0-37.0); MEAN PLATELET VOLUME 11.6 fl (9.6-12.3); RED BLOOD COUNT 2.9 10*6/uL (4.10-5.10); RED CELL DISTRI WIDTH 16.3 % (0-14.5); WHITE BLOOD COUNT 5.8 10*3/uL (4.8-10.8)
[2020-07-04 19:51] LABS: ALBUMIN 3.1 gm/dl (3.1-4.5); CREATININE 1.84 mg/dL (0.55-1.02); POTASSIUM 5.4 mmol/L (3.5-5.1); TOTAL PROTEIN 5.5 gm/dL (6.4-8.2)
== END | disposition home or self-care (01) ==
LOC: LAB 17:39
PROVIDERS: ATTEND Family Medicine
DX: J44.9 Chronic obstructive pulmonary disease, unspecified (principal); K21.9 Gastro-esophageal reflux disease without esophagitis; R06.02 Shortness of breath; E87.5 Hyperkalemia

== ENCOUNTER → 2020-08-15 | Outpatient (CLI) | payer MEDICARE, MEDICAID ==
--- NOTE | 2020-08-15 08:15 | NUR ---
[address] [place] [address] ACCESSED BY JOSHUA AGUILAR RN WITH NON-CORING NEEDLE AFTER CLEANSING WITH CHLORAPREP. PROMPT BLOOD RETURN OBTAINED. FLUSHED PER POLICY AND NON-CORING NEEDLE WITHDRAWN INTACT. BANDAID TO SITE.
== END | disposition home or self-care (01) ==
LOC: MEDIPORT 05-18 08:30
PROVIDERS: ATTEND Family Medicine
DX: Z45.2 Encounter for adjustment and management of vascular access device (principal)

== ENCOUNTER 2020-08-17 11:20 | Emergency (ER) | payer MEDICARE, MEDICAID ==
[~2020-08-17] VITALS: Ht 154.9 cm; Wt 81.6 kg
[2020-08-17 11:33] VITALS: BP 154/60
[2020-08-17 11:57] LABS: BASO % 0.3 % (0.0-1.0); EOS # 0.2 10*3/uL (0.0-0.4); EOS % 5.5 % (1.0-4.0); HEMATOCRIT 28.4 % (37.0-47.0); LYMPH # 0.6 10*3/uL (1.3-4.4); LYMPH % 15.1 % (27.0-41.0); MEAN CELL VOLUME 93.4 fl (81.0-99.0); MEAN CORPUSCULAR HGB 28.9 pg (27.0-31.0); MEAN PLATELET VOLUME 10.5 fl (9.6-12.3); MONO # 0.4 10*3/uL (0.1-1.0); MONO % 10.3 % (3.0-9.0); NEUT # 2.7 10*3/uL (2.3-7.9); NEUT % 68.3 % (47.0-73.0); PLATELET COUNT AUTOMATED 199 10*3/uL (130-400); RED BLOOD COUNT 3.04 10*6/uL (4.10-5.10); RED CELL DISTRI WIDTH 14.4 % (0-14.5)
[2020-08-17 12:09] LABS: ACT PARTIAL THROMBO TIME 34.7 SECONDS (20.0-32.1); INTERNATIONAL NORM RATIO 1.1 (2.0-3.5)
[2020-08-17 12:13] LABS: ALBUMIN 2.9 gm/dl (3.1-4.5); ALKALINE PHOSPHATASE 79 U/L (45-117); BUN 25 mg/dl (7-24); CHLORIDE 111 mmol/L (98-107); CREATININE 2.04 mg/dL (0.55-1.02); POTASSIUM 4.4 mmol/L (3.5-5.1); SGOT/AST 15 IU/L (3-35); SGPT/ALT 11 U/L (12-78); SODIUM 138 mmol/L (136-145); TOTAL PROTEIN 5.7 gm/dL (6.4-8.2)
[2020-08-17 12:17] LABS: TROPONIN I < 0.015 ng/ml (<0.045)
== END 2020-08-17 13:57 | disposition home or self-care (01) ==
LOC: ED 11:20
PROVIDERS: Internal Medicine
DX: J44.9 Chronic obstructive pulmonary disease, unspecified (principal); I13.0 Hypertensive heart and chronic kidney disease with heart failure and stage 1 through stage 4 chronic kidney disease, or unspecified chronic kidney disease; I50.9 Heart failure, unspecified; E11.22 Type 2 diabetes mellitus with diabetic chronic kidney disease; N18.4 Chronic kidney disease, stage 4 (severe); I25.10 Atherosclerotic heart disease of native coronary artery without angina pectoris; K21.9 Gastro-esophageal reflux disease without esophagitis; E78.5 Hyperlipidemia, unspecified; M19.90 Unspecified osteoarthritis, unspecified site; Z88.8 Allergy status to other drugs, medicaments and biological substances; Z88.2 Allergy status to sulfonamides; Z79.899 Other long term (current) drug therapy

== ENCOUNTER 2020-08-23 09:11 | Inpatient (IN) | payer MEDICARE, MEDICAID ==
[~2020-08-23] VITALS: Ht 154.9 cm; Wt 68.0 kg
[2020-08-23 10:08] LABS: HEMATOCRIT 28.9 % (37.0-47.0); MEAN CELL VOLUME 91.5 fl (81.0-99.0); MEAN CORPUSCULAR HGB 28.5 pg (27.0-31.0); MEAN CORPUSCULAR HGB CONC 31.1 g/dl (33.0-37.0); MEAN PLATELET VOLUME 10.1 fl (9.6-12.3); PLATELET COUNT AUTOMATED 187 10*3/uL (130-400); RED BLOOD COUNT 3.16 10*6/uL (4.10-5.10); RED CELL DISTRI WIDTH 14.4 % (0-14.5); WHITE BLOOD COUNT 3.8 10*3/uL (4.8-10.8)
[2020-08-23 10:34] LABS: BURR CELLS FEW; OVALOCYTES FEW; PLATELET SUFFICIENCY NORMAL (NORMAL); TOTAL CELLS COUNTED 100 #CELLS
[2020-08-23 10:41] LABS: ALBUMIN 2.7 gm/dl (3.1-4.5); CREATININE 2.22 mg/dL (0.55-1.02); POTASSIUM 4.5 mmol/L (3.5-5.1); TOTAL PROTEIN 5.7 gm/dL (6.4-8.2)
--- NOTE | 2020-08-23 11:01 | NUR ---
PT RESTING QUITLY WITH EYES CLOSED, PT VOICED NO COMPLAINTS AT THIS TIME.
--- NOTE | 2020-08-23 12:55 | NUR ---
PT UP TO BED SIDE, STATED SHE FELT LIGHTHEADED. WILL CONTINUE TO MONITOR.
[2020-08-23 13:05] LABS: BILIRUBIN Negative (Negative); BLOOD Negative (Negative); CLARITY Clear (Clear); COLOR Dark Yellow (Yellow); GLUCOSE Negative (Negative); KETONE Negative (Negative); LEUKO ESTERASE Trace (Negative); NITRITE Negative (Negative); SPECIFIC GRAVITY 1.025 (1.001-1.030)
[2020-08-23 13:24] LABS: BACTERIA 2+
[2020-08-23 14:09] LABS: INTERNATIONAL NORM RATIO 1.1 (2.0-3.5)
[2020-08-23 14:15] LABS: TROPONIN I < 0.015 ng/ml (<0.045)
[2020-08-23 15:55] VITALS: BP 173/67
[2020-08-23 16:52] VITALS: BP 178/148
[2020-08-23 17:52] VITALS: BP 185/105
[2020-08-23 18:53] VITALS: BP 172/76
--- NOTE | 2020-08-23 19:32 | NUR ---
CHECKED ON PT TO GET VITALS, WAS SLEEPING CONFORTABLY AND EXPRESSED NO COMPLAINTS AT THIS TIME.
[2020-08-23 19:57] VITALS: BP 189/76
--- NOTE | 2020-08-23 21:31 | NUR ---
pateint resting comfortably. no verbal complaints at this time. continue to monitor.
[2020-08-23 21:52] VITALS: BP 157/80
[2020-08-24 04:05] VITALS: BP 155/78
[2020-08-24 05:54] LABS: ALBUMIN 2.5 gm/dl (3.1-4.5); CREATININE 1.71 mg/dL (0.55-1.02); POTASSIUM 4.8 mmol/L (3.5-5.1); TOTAL PROTEIN 5.7 gm/dL (6.4-8.2)
[2020-08-24 05:55] LABS: FREE T4 1.33 ng/dl (0.76-1.46)
[2020-08-24 06:00] LABS: THYROID STIM HORMONE (HS) 0.424 uIU/ml (0.358-4.75)
[2020-08-24 06:23] LABS: HEMATOCRIT 30.2 % (37.0-47.0); MEAN CELL VOLUME 90.7 fl (81.0-99.0); MEAN CORPUSCULAR HGB 28.2 pg (27.0-31.0); MEAN CORPUSCULAR HGB CONC 31.1 g/dl (33.0-37.0); PLATELET COUNT AUTOMATED 220 10*3/uL (130-400); RED BLOOD COUNT 3.33 10*6/uL (4.10-5.10); RED CELL DISTRI WIDTH 14.2 % (0-14.5); WHITE BLOOD COUNT 3.5 10*3/uL (4.8-10.8)
[2020-08-24 06:52] LABS: TOTAL CELLS COUNTED 100 #CELLS
[2020-08-24 06:53] LABS: BURR CELLS FEW; OVALOCYTES FEW; PLATELET SUFFICIENCY NORMAL (NORMAL); SCHISTOCYTES FEW
--- NOTE | 2020-08-24 07:06 | NUR ---
REPORT RECIEVED FROM SHANITA DAVIS
[2020-08-24 08:25] LABS: FERRITIN 122.5 ng/mL (10.0-291.0); VITAMIN D, 25-HYDROXY 34.9 ng/mL (30-100)
[2020-08-24 08:31] VITALS: BP 165/78
--- NOTE | 2020-08-24 08:37 | NUR ---
SPOKE WITH RESIDENT FOR DR KONG ABOUT CALL FROM PT DAUGHTER STATING SHE WAS SET UP TO TAKE CARE OF PT AT HOME
--- NOTE | 2020-08-24 09:05 | NUR ---
CHECKED ON PT, SHE IS SLEEPING COMFORTABLY, NO COMPLAINTS AT THIS TIME, ALSO CHECKED VITAL SIGNS.
== END 2020-08-24 20:45 | disposition home or self-care (01) | DRG 178 ==
LOC: ED 09:11 → EDHOLD 16:39
PROVIDERS: Internal Medicine; Physician Assistant; ADMIT Internal Medicine; ATTEND Internal Medicine
DX: U07.1 COVID-19 (principal); E44.0 Moderate protein-calorie malnutrition; N18.4 Chronic kidney disease, stage 4 (severe); I50.32 Chronic diastolic (congestive) heart failure; J98.11 Atelectasis; E11.65 Type 2 diabetes mellitus with hyperglycemia; I25.10 Atherosclerotic heart disease of native coronary artery without angina pectoris; J44.9 Chronic obstructive pulmonary disease, unspecified; K21.9 Gastro-esophageal reflux disease without esophagitis; F41.1 Generalized anxiety disorder; E86.0 Dehydration; D64.9 Anemia, unspecified; E87.8 Other disorders of electrolyte and fluid balance, not elsewhere classified; M19.90 Unspecified osteoarthritis, unspecified site; M35.00 Sjogren syndrome, unspecified; E78.5 Hyperlipidemia, unspecified; E11.43 Type 2 diabetes mellitus with diabetic autonomic (poly)neuropathy; K31.84 Gastroparesis; F51.11 Primary hypersomnia; D72.819 Decreased white blood cell count, unspecified; Z88.2 Allergy status to sulfonamides; Z88.8 Allergy status to other drugs, medicaments and biological substances; Z98.51 Tubal ligation status; Z90.49 Acquired absence of other specified parts of digestive tract; Z90.710 Acquired absence of both cervix and uterus; Z82.3 Family history of stroke; Z80.0 Family history of malignant neoplasm of digestive organs; Z86.73 Personal history of transient ischemic attack (TIA), and cerebral infarction without residual deficits

== ENCOUNTER → 2020-09-12 | Outpatient (CLI) | payer MEDICARE, MEDICAID ==
[~2020-09-12] MED LIST changes: +AMLODIPINE BESY10 MG PO; +AUGMENTIN 875-875 MG PO; +DILTIAZEM HCL120 M2 PO; +DOXYCYCLINE MO100 M1 PO; +FERROUS GLUCON324 M2 PO; +ONDANSETRON HYDR4 MG PO; +VENT7GM INH
== END | disposition home or self-care (01) ==
LOC: MEDIPORT 00:27
PROVIDERS: ATTEND Family Medicine
DX: Z45.2 Encounter for adjustment and management of vascular access device (principal)

== ENCOUNTER 2020-09-18 05:28 | Emergency (ER) | payer MEDICARE, MEDICAID ==
[~2020-09-18] VITALS: Ht 154.9 cm; Wt 57.6 kg
[~2020-09-18 05:28] MED LIST changes: -AMLODIPINE BESY10 MG PO; -AUGMENTIN 875-875 MG PO; -DILTIAZEM HCL120 M2 PO; -DOXYCYCLINE MO100 M1 PO; -FERROUS GLUCON324 M2 PO; -ONDANSETRON HYDR4 MG PO; -VENT7GM INH
[2020-09-18 05:29] VITALS: BP 182/80
== END 2020-09-18 10:07 | disposition home or self-care (01) ==
LOC: ED 05:28
DX: S01.01XA Laceration without foreign body of scalp, initial encounter (principal); I25.10 Atherosclerotic heart disease of native coronary artery without angina pectoris; J44.9 Chronic obstructive pulmonary disease, unspecified; E11.22 Type 2 diabetes mellitus with diabetic chronic kidney disease; I13.0 Hypertensive heart and chronic kidney disease with heart failure and stage 1 through stage 4 chronic kidney disease, or unspecified chronic kidney disease; N18.4 Chronic kidney disease, stage 4 (severe); I50.32 Chronic diastolic (congestive) heart failure; M19.90 Unspecified osteoarthritis, unspecified site; K21.9 Gastro-esophageal reflux disease without esophagitis; E78.5 Hyperlipidemia, unspecified; Z88.8 Allergy status to other drugs, medicaments and biological substances; Z88.2 Allergy status to sulfonamides; Z79.899 Other long term (current) drug therapy; Z86.73 Personal history of transient ischemic attack (TIA), and cerebral infarction without residual deficits; Z98.51 Tubal ligation status; Z90.49 Acquired absence of other specified parts of digestive tract; Z98.61 Coronary angioplasty status; Z90.711 Acquired absence of uterus with remaining cervical stump; W17.89XA Other fall from one level to another, initial encounter; Y93.89 Activity, other specified; Y92.091 Bathroom in other non-institutional residence as the place of occurrence of the external cause; Y99.8 Other external cause status

== ENCOUNTER 2020-10-14 18:35 | Observation (INO) | payer MEDICARE, MEDICAID ==
[~2020-10-14] VITALS: Ht 154.9 cm; Wt 59.1 kg
[2020-10-14 18:46] VITALS: BP 166/67
[2020-10-14 18:55] LABS: BASO % 0.5 % (0.0-1.0); EOS # 0.2 10*3/uL (0.0-0.4); EOS % 5.9 % (1.0-4.0); HEMATOCRIT 29.9 % (37.0-47.0); LYMPH # 0.9 10*3/uL (1.3-4.4); LYMPH % 23.2 % (27.0-41.0); MEAN CELL VOLUME 96.8 fl (81.0-99.0); MEAN CORPUSCULAR HGB 29.8 pg (27.0-31.0); MEAN CORPUSCULAR HGB CONC 30.8 g/dl (33.0-37.0); MEAN PLATELET VOLUME 10.7 fl (9.6-12.3); MONO # 0.6 10*3/uL (0.1-1.0); MONO % 15.7 % (3.0-9.0); NEUT % 52.3 % (47.0-73.0); PLATELET COUNT AUTOMATED 219 10*3/uL (130-400); RED BLOOD COUNT 3.09 10*6/uL (4.10-5.10); RED CELL DISTRI WIDTH 17.8 % (0-14.5); WHITE BLOOD COUNT 3.8 10*3/uL (4.8-10.8)
[2020-10-14 19:05] LABS: ACT PARTIAL THROMBO TIME 28.6 SECONDS (20.0-32.1)
[2020-10-14 19:11] LABS: ALBUMIN 2.9 gm/dl (3.1-4.5); ALKALINE PHOSPHATASE 76 U/L (45-117); BUN 26 mg/dl (7-24); CHLORIDE 111 mmol/L (98-107); CREATININE 2.04 mg/dL (0.55-1.02); POTASSIUM 4.9 mmol/L (3.5-5.1); SGOT/AST 11 IU/L (3-35); SGPT/ALT 14 U/L (12-78); SODIUM 141 mmol/L (136-145); TOTAL PROTEIN 5.5 gm/dL (6.4-8.2)
[2020-10-14 19:18] LABS: TROPONIN I < 0.015 ng/ml (<0.045)
[2020-10-14 19:35] VITALS: BP 175/65
[2020-10-14] MEDS ORDERED: OMEPRAZOLE40 MG PO (19:49)
[2020-10-14] MEDS ORDERED: FERROUS GLUCON324 M2 PO (19:50)
[2020-10-14] MEDS ORDERED: LOPRESSOR25 MG PO (19:50)
[2020-10-14 21:57] VITALS: BP 176/72
[2020-10-14 22:06] VITALS: BP 156/65
[2020-10-15] VITALS: BP 154/66
[2020-10-15 08:00] VITALS: BP 136/66
[2020-10-15 12:00] VITALS: BP 128/78
[2020-10-15 14:00] VITALS: BP 128/78
[2020-10-15 16:00] VITALS: BP 132/46
[2020-10-15 20:00] VITALS: BP 135/55
[2020-10-16] VITALS: BP 148/60
[2020-10-16 08:00] VITALS: BP 136/84
[2020-10-16 12:00] VITALS: BP 143/58
== END 2020-10-16 17:04 | disposition home or self-care (01) ==
LOC: ED 18:35 → 5E 19:54 → EDHOLD 19:54 → 5E 21:53
PROVIDERS: Emergency Medicine; ADMIT Internal Medicine; ATTEND Internal Medicine
DX: R07.89 Other chest pain (principal); R62.7 Adult failure to thrive; G30.9 Alzheimer's disease, unspecified; F02.80 Dementia in other diseases classified elsewhere, unspecified severity, without behavioral disturbance, psychotic disturbance, mood disturbance, and anxiety; I25.10 Atherosclerotic heart disease of native coronary artery without angina pectoris; F32.9 Major depressive disorder, single episode, unspecified; E78.2 Mixed hyperlipidemia; E11.22 Type 2 diabetes mellitus with diabetic chronic kidney disease; N18.4 Chronic kidney disease, stage 4 (severe); J44.9 Chronic obstructive pulmonary disease, unspecified; Z79.899 Other long term (current) drug therapy; Z79.01 Long term (current) use of anticoagulants

== ENCOUNTER 2020-11-18 22:48 | Emergency (ER) | payer MEDICARE, MEDICAID ==
[~2020-11-18] VITALS: Ht 157.4 cm; Wt 61.7 kg
[~2020-11-18 22:48] MED LIST changes: +FERROUS GLUCON324 M2 PO
[2020-11-18 22:50] VITALS: BP 133/55
== END 2020-11-19 01:36 | disposition home or self-care (01) ==
LOC: ED 22:48
DX: Z04.3 Encounter for examination and observation following other accident (principal); J44.9 Chronic obstructive pulmonary disease, unspecified; I11.0 Hypertensive heart disease with heart failure; I50.9 Heart failure, unspecified; I25.10 Atherosclerotic heart disease of native coronary artery without angina pectoris; F41.9 Anxiety disorder, unspecified; M19.90 Unspecified osteoarthritis, unspecified site; K21.9 Gastro-esophageal reflux disease without esophagitis; Z88.8 Allergy status to other drugs, medicaments and biological substances; Z88.2 Allergy status to sulfonamides; Z79.899 Other long term (current) drug therapy; Z98.890 Other specified postprocedural states; Z98.51 Tubal ligation status; Z90.49 Acquired absence of other specified parts of digestive tract; Z90.711 Acquired absence of uterus with remaining cervical stump; W19.XXXA Unspecified fall, initial encounter; Y93.89 Activity, other specified; Y92.098 Other place in other non-institutional residence as the place of occurrence of the external cause; Y99.8 Other external cause status

== ENCOUNTER 2020-11-25 18:03 | Observation (INO) | payer MEDICARE, MEDICAID ==
[~2020-11-25] VITALS: Ht 152.4 cm; Wt 59.1 kg
[2020-11-25 18:09] VITALS: BP 142/68
[2020-11-25 18:19] LABS: BASO % 0.8 % (0.0-1.0); EOS # 0.2 10*3/uL (0.0-0.4); EOS % 4.6 % (1.0-4.0); HEMATOCRIT 31.6 % (37.0-47.0); LYMPH # 0.7 10*3/uL (1.3-4.4); LYMPH % 17.5 % (27.0-41.0); MEAN CELL VOLUME 97.5 fl (81.0-99.0); MEAN CORPUSCULAR HGB 31.2 pg (27.0-31.0); MEAN PLATELET VOLUME 10.3 fl (9.6-12.3); MONO # 0.6 10*3/uL (0.1-1.0); MONO % 15.2 % (3.0-9.0); NEUT # 2.4 10*3/uL (2.3-7.9); NEUT % 60.6 % (47.0-73.0); PLATELET COUNT AUTOMATED 175 10*3/uL (130-400); RED BLOOD COUNT 3.24 10*6/uL (4.10-5.10); RED CELL DISTRI WIDTH 14.1 % (0-14.5); WHITE BLOOD COUNT 3.9 10*3/uL (4.8-10.8)
[2020-11-25 18:31] LABS: ACT PARTIAL THROMBO TIME 32.2 SECONDS (20.0-32.1)
[2020-11-25 18:36] LABS: ALBUMIN 3.1 gm/dl (3.1-4.5); ALKALINE PHOSPHATASE 72 U/L (45-117); BUN 22 mg/dl (7-24); CHLORIDE 110 mmol/L (98-107); CREATININE 2.39 mg/dL (0.55-1.02); POTASSIUM 4.6 mmol/L (3.5-5.1); SGOT/AST 11 IU/L (3-35); SGPT/ALT 13 U/L (12-78); SODIUM 142 mmol/L (136-145); TOTAL PROTEIN 5.8 gm/dL (6.4-8.2)
[2020-11-25 18:42] LABS: TROPONIN I < 0.015 ng/ml (<0.045)
[2020-11-25 19:50] VITALS: BP 153/54
[2020-11-25 21:37] VITALS: BP 122/37
[2020-11-25 22:00] VITALS: BP 131/58
[2020-11-25] MEDS ORDERED: ONDANSETRON HYDR4 MG PO (22:11)
[2020-11-25] MEDS ORDERED: AMLODIPINE BESY10 MG PO (22:19)
[2020-11-25] MEDS ORDERED: DILTIAZEM HCL120 M2 PO (22:21)
[2020-11-25] MEDS ORDERED: Percocet 325 MG1 TAB PO (22:22)
[2020-11-25] MEDS ORDERED: VENT7GM INH (23:04)
[2020-11-26 12:00] VITALS: BP 132/60
[2020-11-26 16:00] VITALS: BP 105/42
[2020-11-26 20:00] VITALS: BP 125/53
[2020-11-27] VITALS: BP 112/52
[2020-11-27 00:20] LABS: BILIRUBIN Negative (Negative); BLOOD Negative (Negative); CLARITY Clear (Clear); COLOR Yellow (Yellow); GLUCOSE Trace (Negative); KETONE Negative (Negative); LEUKO ESTERASE 1+ (Negative); NITRITE Negative (Negative); UROBILINOGEN 0.2 E.U./dl (0.0-1.0)
[2020-11-27 01:13] LABS: BACTERIA 1+; WBC 16-20 wbc/hpf (0-5)
[2020-11-27 08:00] VITALS: BP 124/58
[2020-11-27 12:00] VITALS: BP 110/44
== END 2020-11-27 14:42 | disposition home or self-care (01) ==
LOC: ED 18:03 → EDHOLD 20:43 → 5E 20:43
PROVIDERS: Student in an Organized Health Care Education/Training Program; ADMIT Internal Medicine; ATTEND Internal Medicine
DX: R07.89 Other chest pain (principal); J44.1 Chronic obstructive pulmonary disease with (acute) exacerbation; E11.9 Type 2 diabetes mellitus without complications; I10 Essential (primary) hypertension; I25.10 Atherosclerotic heart disease of native coronary artery without angina pectoris; E78.2 Mixed hyperlipidemia; F51.04 Psychophysiologic insomnia; F32.9 Major depressive disorder, single episode, unspecified; J43.2 Centrilobular emphysema; G30.1 Alzheimer's disease with late onset; F02.80 Dementia in other diseases classified elsewhere, unspecified severity, without behavioral disturbance, psychotic disturbance, mood disturbance, and anxiety; R62.7 Adult failure to thrive; Z79.899 Other long term (current) drug therapy

== ENCOUNTER 2020-12-07 15:11 | Observation (INO) | payer MEDICARE, MEDICAID ==
[~2020-12-07] VITALS: Ht 154.9 cm; Wt 60.4 kg
[~2020-12-07 15:11] MED LIST changes: +AMLODIPINE BESY10 MG PO; +DILTIAZEM HCL120 M2 PO; +ONDANSETRON HYDR4 MG PO; +VENT7GM INH
[2020-12-07 15:19] VITALS: BP 129/51
[2020-12-07 15:36] LABS: BASO % 0.6 % (0.0-1.0); EOS # 0.2 10*3/uL (0.0-0.4); EOS % 3.7 % (1.0-4.0); HEMATOCRIT 30.2 % (37.0-47.0); LYMPH # 1.1 10*3/uL (1.3-4.4); LYMPH % 16.9 % (27.0-41.0); MEAN CELL VOLUME 97.4 fl (81.0-99.0); MEAN CORPUSCULAR HGB CONC 31.8 g/dl (33.0-37.0); MEAN PLATELET VOLUME 9.9 fl (9.6-12.3); MONO # 0.8 10*3/uL (0.1-1.0); MONO % 13.2 % (3.0-9.0); NEUT % 63.8 % (47.0-73.0); PLATELET COUNT AUTOMATED 226 10*3/uL (130-400); RED CELL DISTRI WIDTH 13.7 % (0-14.5); WHITE BLOOD COUNT 6.2 10*3/uL (4.8-10.8)
[2020-12-07 15:50] LABS: ACT PARTIAL THROMBO TIME 25.5 SECONDS (20.0-32.1)
[2020-12-07 15:57] LABS: ALKALINE PHOSPHATASE 96 U/L (45-117); BUN 21 mg/dl (7-24); CHLORIDE 110 mmol/L (98-107); CREATININE 2.05 mg/dL (0.55-1.02); POTASSIUM 5.1 mmol/L (3.5-5.1); SGOT/AST 10 IU/L (3-35); SGPT/ALT 12 U/L (12-78); SODIUM 138 mmol/L (136-145); TOTAL PROTEIN 6.2 gm/dL (6.4-8.2)
[2020-12-07 16:00] LABS: TROPONIN I < 0.015 ng/ml (<0.045)
[2020-12-07 17:14] VITALS: BP 133/59
[2020-12-07 18:00] VITALS: BP 136/53
[2020-12-07 20:00] VITALS: BP 122/47
[2020-12-08] VITALS: BP 135/55
[2020-12-08 07:51] LABS: BILIRUBIN Negative (Negative); BLOOD Negative (Negative); CLARITY Clear (Clear); COLOR Yellow (Yellow); GLUCOSE Negative (Negative); KETONE Negative (Negative); LEUKO ESTERASE 1+ (Negative); NITRITE Negative (Negative); PH 5.5 (4.5-8.0); SPECIFIC GRAVITY 1.015 (1.001-1.030); UROBILINOGEN 0.2 E.U./dl (0.0-1.0)
[2020-12-08 08:00] VITALS: BP 142/52
[2020-12-08 09:06] LABS: BACTERIA TRACE; HYALINE CAST 0-2; MUCOUS TRACE; RBC 0-2 rbc/hpf (0-2)
[2020-12-08 12:00] VITALS: BP 115/41
[2020-12-08 16:00] VITALS: BP 131/50
[2020-12-08 20:00] VITALS: BP 125/49
[2020-12-09] VITALS: BP 128/52
[2020-12-09 06:46] LABS: CREATININE 2.16 mg/dL (0.55-1.02); POTASSIUM 5.2 mmol/L (3.5-5.1)
[2020-12-09 08:00] VITALS: BP 151/57
== END 2020-12-09 14:49 | disposition home or self-care (01) ==
LOC: ED 15:11 → 5E 17:04 → EDHOLD 17:04 → 5E 17:16
PROVIDERS: Family Medicine; ADMIT Internal Medicine; ATTEND Internal Medicine
DX: R07.89 Other chest pain (principal); E87.6 Hypokalemia; E86.0 Dehydration; J44.9 Chronic obstructive pulmonary disease, unspecified; I10 Essential (primary) hypertension; I25.10 Atherosclerotic heart disease of native coronary artery without angina pectoris; E78.5 Hyperlipidemia, unspecified; G30.9 Alzheimer's disease, unspecified; F02.81 Dementia in other diseases classified elsewhere, unspecified severity, with behavioral disturbance; E78.2 Mixed hyperlipidemia; G47.00 Insomnia, unspecified; R62.7 Adult failure to thrive; Z90.49 Acquired absence of other specified parts of digestive tract; Z90.710 Acquired absence of both cervix and uterus; Z90.89 Acquired absence of other organs; Z98.890 Other specified postprocedural states; Z88.2 Allergy status to sulfonamides; Z88.8 Allergy status to other drugs, medicaments and biological substances

== ENCOUNTER 2020-12-10 20:35 | Observation (INO) | payer MEDICARE, MEDICAID ==
[~2020-12-10] VITALS: Ht 152.4 cm; Wt 62.6 kg
[2020-12-10 20:42] VITALS: BP 134/62
[2020-12-10 21:28] LABS: BASO % 0.5 % (0.0-1.0); EOS # 0.1 10*3/uL (0.0-0.4); EOS % 1.3 % (1.0-4.0); HEMATOCRIT 27.3 % (37.0-47.0); LYMPH # 0.7 10*3/uL (1.3-4.4); LYMPH % 8.7 % (27.0-41.0); MEAN CELL VOLUME 97.8 fl (81.0-99.0); MEAN CORPUSCULAR HGB 31.2 pg (27.0-31.0); MEAN CORPUSCULAR HGB CONC 31.9 g/dl (33.0-37.0); MEAN PLATELET VOLUME 9.9 fl (9.6-12.3); MONO # 0.9 10*3/uL (0.1-1.0); MONO % 11.9 % (3.0-9.0); NEUT # 5.8 10*3/uL (2.3-7.9); NEUT % 76.7 % (47.0-73.0); PLATELET COUNT AUTOMATED 252 10*3/uL (130-400); RED BLOOD COUNT 2.79 10*6/uL (4.10-5.10); RED CELL DISTRI WIDTH 13.1 % (0-14.5); WHITE BLOOD COUNT 7.6 10*3/uL (4.8-10.8)
[2020-12-10 21:37] LABS: INTERNATIONAL NORM RATIO 1.1 (2.0-3.5)
[2020-12-10 21:46] LABS: ALBUMIN 2.7 gm/dl (3.1-4.5); ALKALINE PHOSPHATASE 88 U/L (45-117); BUN 30 mg/dl (7-24); CHLORIDE 108 mmol/L (98-107); CREATININE 2.74 mg/dL (0.55-1.02); SGOT/AST 7 IU/L (3-35); SGPT/ALT 11 U/L (12-78); SODIUM 136 mmol/L (136-145); TROPONIN I < 0.015 ng/ml (<0.045)
[2020-12-10 22:30] VITALS: BP 120/46
[2020-12-10 22:59] VITALS: BP 106/55
[2020-12-10 23:59] VITALS: BP 104/56
[2020-12-11 00:33] VITALS: BP 108/47
[2020-12-11 00:45] VITALS: BP 129/65
[2020-12-11] MEDS ORDERED: METOPROLOL25 MG PO (01:21)
[2020-12-11 08:00] VITALS: BP 118/50; BP 128/54
[2020-12-11 12:00] VITALS: BP 112/50
[2020-12-11 16:00] VITALS: BP 102/49
[2020-12-11 20:00] VITALS: BP 106/49
[2020-12-12 00:09] VITALS: BP 112/57
[2020-12-12 06:31] LABS: CREATININE 3.07 mg/dL (0.55-1.02); POTASSIUM 5.2 mmol/L (3.5-5.1)
[2020-12-12 08:00] VITALS: BP 122/67
[2020-12-12 12:00] VITALS: BP 102/50
[2020-12-12 16:18] VITALS: BP 113/42
[2020-12-12 20:08] VITALS: BP 102/40
[2020-12-13 01:00] VITALS: BP 117/48
[2020-12-13 07:09] LABS: CREATININE 2.65 mg/dL (0.55-1.02); POTASSIUM 4.8 mmol/L (3.5-5.1)
[2020-12-13 08:00] VITALS: BP 117/56
[2020-12-13 12:00] VITALS: BP 121/43
[2020-12-13 16:00] VITALS: BP 119/59
[2020-12-13 20:00] VITALS: BP 131/54
[2020-12-13 22:00] VITALS: BP 131/54
[2020-12-14] VITALS: BP 131/62
[2020-12-14 06:32] LABS: BILIRUBIN Negative (Negative); BLOOD Negative (Negative); CLARITY Clear (Clear); COLOR Yellow (Yellow); GLUCOSE Negative (Negative); KETONE Negative (Negative); LEUKO ESTERASE Negative (Negative); NITRITE Negative (Negative); PH 5.5 (4.5-8.0); UROBILINOGEN 0.2 E.U./dl (0.0-1.0)
[2020-12-14 07:00] LABS: URINE CREATININE RANDOM 84.5 mg/dL
[2020-12-14 07:05] LABS: RBC 0-2 rbc/hpf (0-2); WBC 0-2 wbc/hpf (0-5)
[2020-12-14 07:07] LABS: CREATININE 2.19 mg/dL (0.55-1.02)
[2020-12-14 08:00] VITALS: BP 145/58
[2020-12-14] MEDS ORDERED: DOXYCYCLINE MO100 M1 PO (10:02)
[2020-12-14] MEDS ORDERED: AUGMENTIN 875-875 MG PO ×2 (10:02)
[2020-12-14 12:00] VITALS: BP 142/62
[2020-12-14 16:00] VITALS: BP 119/59
== END 2020-12-14 17:40 | disposition home or self-care (01) ==
LOC: ED 20:35 → EDHOLD 23:38 → 5E 12-11 00:30
PROVIDERS: Emergency Medicine; Student in an Organized Health Care Education/Training Program; ADMIT Internal Medicine; ATTEND Internal Medicine
DX: J20.9 Acute bronchitis, unspecified (principal); I13.0 Hypertensive heart and chronic kidney disease with heart failure and stage 1 through stage 4 chronic kidney disease, or unspecified chronic kidney disease; I50.23 Acute on chronic systolic (congestive) heart failure; N18.9 Chronic kidney disease, unspecified; N17.9 Acute kidney failure, unspecified; G30.9 Alzheimer's disease, unspecified; F02.80 Dementia in other diseases classified elsewhere, unspecified severity, without behavioral disturbance, psychotic disturbance, mood disturbance, and anxiety; R07.89 Other chest pain

== ENCOUNTER 2020-12-17 20:50 | Inpatient (IN) | payer MEDICARE, MEDICAID ==
[~2020-12-17] VITALS: Ht 154.9 cm; Wt 64.4 kg
[~2020-12-17 20:50] MED LIST changes: +AUGMENTIN 875-875 MG PO; +DOXYCYCLINE MO100 M1 PO
[2020-12-17 20:53] VITALS: BP 126/53
[2020-12-17 21:43] LABS: HEMATOCRIT 27.8 % (37.0-47.0); MEAN CELL VOLUME 97.2 fl (81.0-99.0); MEAN CORPUSCULAR HGB 30.8 pg (27.0-31.0); MEAN CORPUSCULAR HGB CONC 31.7 g/dl (33.0-37.0); MEAN PLATELET VOLUME 9.9 fl (9.6-12.3); PLATELET COUNT AUTOMATED 233 10*3/uL (130-400); RED BLOOD COUNT 2.86 10*6/uL (4.10-5.10); RED CELL DISTRI WIDTH 13.7 % (0-14.5); WHITE BLOOD COUNT 6.3 10*3/uL (4.8-10.8)
[2020-12-17 22:01] LABS: ALBUMIN 2.8 gm/dl (3.1-4.5); ALKALINE PHOSPHATASE 80 U/L (45-117); BUN 24 mg/dl (7-24); CHLORIDE 112 mmol/L (98-107); CREATININE 2.09 mg/dL (0.55-1.02); POTASSIUM 4.5 mmol/L (3.5-5.1); SGOT/AST 10 IU/L (3-35); SGPT/ALT 12 U/L (12-78); SODIUM 140 mmol/L (136-145); TOTAL PROTEIN 5.6 gm/dL (6.4-8.2)
[2020-12-17 22:04] LABS: PLATELET SUFFICIENCY NORMAL (NORMAL); TOTAL CELLS COUNTED 100 #CELLS; TROPONIN I < 0.015 ng/ml (<0.045)
[2020-12-17 22:10] VITALS: BP 118/57
[2020-12-18] VITALS (7 sets, daily range): BP systolic 111–144; BP diastolic 44–63
[2020-12-19] VITALS (8 sets, daily range): BP systolic 121–141; BP diastolic 48–89
[2020-12-19] MEDS ORDERED: ONDANSETRON HYDR4 MG PO (00:23)
[2020-12-20 00:06] VITALS: BP 129/52
[2020-12-20 08:00] VITALS: BP 150/45
[2020-12-20 10:08] LABS: ACID FAST SPEC PROCESSING Concentration (.)
[2020-12-20 12:00] VITALS: BP 139/48
[2020-12-20 16:04] VITALS: BP 120/46
[2020-12-20 19:49] VITALS: BP 124/45
[2020-12-21] VITALS (7 sets, daily range): BP systolic 99–150; BP diastolic 40–98
[2020-12-22 06:27] LABS: BASO % 0.2 % (0.0-1.0); HEMATOCRIT 24.5 % (37.0-47.0); LYMPH # 0.5 10*3/uL (1.3-4.4); MEAN CORPUSCULAR HGB 30.4 pg (27.0-31.0); MEAN PLATELET VOLUME 10.6 fl (9.6-12.3); MONO # 0.7 10*3/uL (0.1-1.0); MONO % 7.5 % (3.0-9.0); NEUT # 7.7 10*3/uL (2.3-7.9); NEUT % 84.5 % (47.0-73.0); PLATELET COUNT AUTOMATED 230 10*3/uL (130-400); RED CELL DISTRI WIDTH 13.5 % (0-14.5); WHITE BLOOD COUNT 9.1 10*3/uL (4.8-10.8)
[2020-12-22 06:39] LABS: CREATININE 2.17 mg/dL (0.55-1.02); POTASSIUM 4.9 mmol/L (3.5-5.1)
[2020-12-22 08:00] VITALS: BP 123/51
[2020-12-22 12:00] VITALS: BP 120/54
[2020-12-22 16:00] VITALS: BP 120/58
[2020-12-22 20:00] VITALS: BP 139/57
[2020-12-23] VITALS: BP 127/48
[2020-12-23] MEDS ORDERED: CEFUROXIME AXE250 MG PO (06:41)
[2020-12-23] MEDS ORDERED: PREDNISONE5 MG PO (06:41)
[2020-12-23 08:00] VITALS: BP 130/48
[2020-12-23 12:00] VITALS: BP 125/52
[2020-12-23 16:00] VITALS: BP 122/56
[2020-12-23 20:00] VITALS: BP 134/53
[2020-12-24] VITALS: BP 140/47
[2020-12-24 08:00] VITALS: BP 106/64
== END 2020-12-24 10:57 | DRG 190 ==
LOC: ED 20:50 → 5E 12-18 02:20 → EDHOLD 12-18 02:20 → 5E 12-18 02:39
PROVIDERS: Internal Medicine; Internal Medicine Critical Care Medicine; ADMIT Internal Medicine; ATTEND Internal Medicine
PROC: 0BC18ZZ Extirpation of Matter from Trachea, Via Natural or Artificial Opening Endoscopic (ICD-10-PCS; principal; 2020-12-19)
PROC: 0BC68ZZ Extirpation of Matter from Right Lower Lobe Bronchus, Via Natural or Artificial Opening Endoscopic (ICD-10-PCS; 2020-12-19)
PROC: 0BC88ZZ Extirpation of Matter from Left Upper Lobe Bronchus, Via Natural or Artificial Opening Endoscopic (ICD-10-PCS; 2020-12-19)
PROC: 0BC58ZZ Extirpation of Matter from Right Middle Lobe Bronchus, Via Natural or Artificial Opening Endoscopic (ICD-10-PCS; 2020-12-19)
PROC: 0BC98ZZ Extirpation of Matter from Lingula Bronchus, Via Natural or Artificial Opening Endoscopic (ICD-10-PCS; 2020-12-19)
PROC: 0BC48ZZ Extirpation of Matter from Right Upper Lobe Bronchus, Via Natural or Artificial Opening Endoscopic (ICD-10-PCS; 2020-12-19)
PROC: 0BCB8ZZ Extirpation of Matter from Left Lower Lobe Bronchus, Via Natural or Artificial Opening Endoscopic (ICD-10-PCS; 2020-12-19)
PROC: 0BC78ZZ Extirpation of Matter from Left Main Bronchus, Via Natural or Artificial Opening Endoscopic (ICD-10-PCS; 2020-12-19)
PROC: 0BC38ZZ Extirpation of Matter from Right Main Bronchus, Via Natural or Artificial Opening Endoscopic (ICD-10-PCS; 2020-12-19)
PROC: 0HBRXZZ Excision of Toe Nail, External Approach (ICD-10-PCS; 2020-12-21)
PROC: 0HBRXZZ Excision of Toe Nail, External Approach (ICD-10-PCS; 2020-12-21)
PROC: 0HBRXZZ Excision of Toe Nail, External Approach (ICD-10-PCS; 2020-12-21)
PROC: 0HBRXZZ Excision of Toe Nail, External Approach (ICD-10-PCS; 2020-12-21)
PROC: 0HBRXZZ Excision of Toe Nail, External Approach (ICD-10-PCS; 2020-12-21)
PROC: 0HBRXZZ Excision of Toe Nail, External Approach (ICD-10-PCS; 2020-12-21)
PROC: 0HBRXZZ Excision of Toe Nail, External Approach (ICD-10-PCS; 2020-12-21)
PROC: 0HBRXZZ Excision of Toe Nail, External Approach (ICD-10-PCS; 2020-12-21)
DX: J44.1 Chronic obstructive pulmonary disease with (acute) exacerbation (principal); J80 Acute respiratory distress syndrome; N18.4 Chronic kidney disease, stage 4 (severe); E44.0 Moderate protein-calorie malnutrition; J98.11 Atelectasis; T17.590A Other foreign object in bronchus causing asphyxiation, initial encounter; J44.0 Chronic obstructive pulmonary disease with (acute) lower respiratory infection; R62.7 Adult failure to thrive; I27.20 Pulmonary hypertension, unspecified; Z20.822 Contact with and (suspected) exposure to COVID-19; J20.9 Acute bronchitis, unspecified; X58.XXXA Exposure to other specified factors, initial encounter; J98.6 Disorders of diaphragm; B35.1 Tinea unguium; I35.0 Nonrheumatic aortic (valve) stenosis; D50.9 Iron deficiency anemia, unspecified; I12.9 Hypertensive chronic kidney disease with stage 1 through stage 4 chronic kidney disease, or unspecified chronic kidney disease; E11.22 Type 2 diabetes mellitus with diabetic chronic kidney disease; E11.65 Type 2 diabetes mellitus with hyperglycemia; F51.01 Primary insomnia; G47.9 Sleep disorder, unspecified; G89.29 Other chronic pain; Z68.26 Body mass index [BMI] 26.0-26.9, adult; Z86.711 Personal history of pulmonary embolism; Z79.01 Long term (current) use of anticoagulants; Y93.89 Activity, other specified; Y92.89 Other specified places as the place of occurrence of the external cause; Y99.8 Other external cause status; Z90.710 Acquired absence of both cervix and uterus; Z90.49 Acquired absence of other specified parts of digestive tract; Z82.3 Family history of stroke; Z88.2 Allergy status to sulfonamides; Z88.8 Allergy status to other drugs, medicaments and biological substances; Z79.899 Other long term (current) drug therapy

== ENCOUNTER 2021-01-10 16:01 | Inpatient (IN) | payer OTHER, MEDICARE, MEDICAID ==
[~2021-01-10] VITALS: Ht 154.9 cm; Wt 66.7 kg
[2021-01-10 16:01] VITALS: BP 104/56
[2021-01-10 20:00] VITALS: BP 114/47
[2021-01-11] VITALS: BP 106/44
[2021-01-11 08:00] VITALS: BP 119/44
[2021-01-11 12:00] VITALS: BP 134/45
[2021-01-11 16:00] VITALS: BP 136/51
[2021-01-11 20:00] VITALS: BP 114/43
[2021-01-12] VITALS: BP 115/39
== END 2021-01-12 04:25 | DRG 189 ==
LOC: 4E 16:01 → ICCU 16:01 → 4E 17:40
PROVIDERS: ADMIT Internal Medicine; ATTEND Internal Medicine
PROC: 5A09357 Assistance with Respiratory Ventilation, Less than 24 Consecutive Hours, Continuous Positive Airway Pressure (ICD-10-PCS; principal; 2021-01-10)
PROC: 5A0935A Assistance with Respiratory Ventilation, Less than 24 Consecutive Hours, High Flow/Velocity Cannula (ICD-10-PCS; 2021-01-11)
DX: J96.01 Acute respiratory failure with hypoxia (principal); Z51.5 Encounter for palliative care; J98.6 Disorders of diaphragm; I27.20 Pulmonary hypertension, unspecified; J44.9 Chronic obstructive pulmonary disease, unspecified; N18.9 Chronic kidney disease, unspecified; Z90.721 Acquired absence of ovaries, unilateral; Z98.51 Tubal ligation status; Z90.49 Acquired absence of other specified parts of digestive tract; Z90.710 Acquired absence of both cervix and uterus; Z82.3 Family history of stroke; Z80.0 Family history of malignant neoplasm of digestive organs; Z88.2 Allergy status to sulfonamides; Z88.8 Allergy status to other drugs, medicaments and biological substances